=== PATIENT | female | born 1935 | race Caucasian/White ===

== ENCOUNTER → 2017-01-01 | Outpatient (CLI) | payer OTHER, MEDICARE ==
--- NOTE | 2017-01-01 12:41 | RAD ---
Examination: Right hip, two views History: Hip pain Comparison reference: None Findings: There is narrowing of the joint space with bone proliferation at the acetabular margin. No hip fracture or dislocation is noted. The femoral head is in normal position. There is an area of bon y lucency at the ischial tuberosity. Impression: 1. Right hip osteoarthritis. 2. Localized radiolucency involving the right ischium is probably a fortuitous finding. However, if t he patient has an underlying malignant diagnosis, a metastatic focus should be considered. Reported By:
== END | disposition home or self-care (01) ==
LOC: RAD 11:39
PROVIDERS: ATTEND Specialist
DX: M54.31 Sciatica, right side (principal); M51.86 Other intervertebral disc disorders, lumbar region; M16.11 Unilateral primary osteoarthritis, right hip
CPT/HCPCS: 73501

== ENCOUNTER → 2017-02-01 | Day surgery (SDC) | payer OTHER, MEDICARE ==
[~2017-02-01] MED LIST: MARCAINE 0.25% INJ ONE
[2017-02-01] MEDS: XYLOCAINE 1 % (PLAIN) ONE ×2 (13:36→13:56)
[2017-02-01] MEDS: MARCAINE 0.5% ONE ×2 (13:37→14:02)
[2017-02-01] MEDS: KENALOG INJ 40 MG IM ONE ×2 (13:37→14:02)
--- NOTE | 2017-02-01 13:38 | DR.UPDATE ---
H&P Update History and Physical Update: History and Physical reviewed and patient examined. Changes noted: NO Yes with the following:Agree with H&P from Dr Hernandez. will perform L3-4 TFESI right
[2017-02-01 14:29] VITALS: BP 134/61
== END | disposition home or self-care (01) | DRG 552 ==
LOC: SURG1 12:09
PROVIDERS: ATTEND Specialist
PROC: 3E0R3BZ Introduction of Anesthetic Agent into Spinal Canal, Percutaneous Approach (ICD-10-PCS; 2017-02-01)
PROC: 3E0R33Z Introduction of Anti-inflammatory into Spinal Canal, Percutaneous Approach (ICD-10-PCS; principal; 2017-02-01 13:00)
DX: M54.31 Sciatica, right side (principal)
CPT/HCPCS: 62323; 76000; S0020; J2001; J3301

== ENCOUNTER 2018-03-03 12:31 | Inpatient (IN) ==
[2018-03-03] MEDS ORDERED: PHARMACY CONSULT - DOSE _____ XX SCH (14:35)
[2018-03-03] MEDS ORDERED: PHARMACY CONSULT - VANCOMYCIN XX SCH (14:35)
[2018-03-03 15:05] LABS: BASOPHILS # (AUTO) 0.1 X10^3/uL (0.0-0.1); BASOPHILS % (AUTO) 0.9 % (0.2-1.0); EOSINOPHILS # (AUTO) 0.1 x10^3/uL (0.0-0.2); EOSINOPHILS % (AUTO) 0.6 % (0.9-2.9); HEMATOCRIT 34.7 % (36.0-47.0); HEMOGLOBIN 11.8 g/dL (12.0-16.0); LYMPHOCYTES # (AUTO) 2.3 X10^3/uL (1.3-2.9); LYMPHOCYTES % (AUTO) 26.2 % (21.0-51.0); MEAN CORPUSCULAR HEMOGLOBIN 30.2 pg (27.0-34.0); MEAN CORPUSCULAR HGB CONC 34.2 g/dL (33.0-35.0); MEAN CORPUSCULAR VOLUME 88.3 fL (80.0-100.0); MEAN PLATELET VOLUME 9.1 fL (7.4-11.0); MONOCYTES # (AUTO) 1.1 x10^3/uL (0.3-0.8); MONOCYTES % (AUTO) 12.3 % (0.0-13.0); NEUTROPHILS # (AUTO) 5.2 x10^3/uL (2.2-4.8); PLATELET COUNT 324 X10^3/uL (150.0-450.0); RED BLOOD COUNT 3.93 X10^6/uL (3.5-5.4); RED CELL DISTRIBUTION WIDTH 14.8 % (11.6-16.5); WHITE BLOOD COUNT 8.7 X10^3/uL (3.6-10.0)
[2018-03-03 15:13] LABS: ALANINE AMINOTRANSFERASE 15 Units/L (12-78); ALBUMIN 2.7 g/dL (3.4-5.0); ALKALINE PHOSPHATASE 119 Units/L (46-116); ASPARTATE AMINO TRANSFERASE 21 Units/L (15-37); BLOOD UREA NITROGEN 8 mg/dL (7-18); CALCIUM 8.8 mg/dL (8.5-10.1); CARBON DIOXIDE 28.2 mmol/L (21-32); CHLORIDE 96 mmol/L (98-107); COR CA(FOR HYPOALB) 9.8 mg/dL (8.5-10.1); COR NA(FOR HYPERGLY) 134 mmol/L (136-145); CREATININE 0.71 mg/dL (0.55-1.02); SODIUM 133 mmol/L (136-145); eGFR NON BLACK RACES > 60 (>60)
[2018-03-03] MEDS: TORADOL 15 MG VIAL IVP SCH ×2 (15:13→20:48)
[2018-03-03] MEDS: NS 1000 ML 1,000 ML IV SCH (15:13)
[2018-03-03 17:12] VITALS: BMI 17.9
--- NOTE | 2018-03-03 19:16 | DR.H&P ---
H&P - History & Physical for Day of: H&P Date: 03/03/18 - Chief Complaint Chief Complaint: INTRACTABLE BACK PAIN - History of Present Illness History of Present Illness: IS A 82 YEAR OLD PATIENT OF OURS. SHE IS A RESIDENT OF [facility]. SHE REPORTS SEVERE BACK PAIN THAT HAS PROGRESSIVELY GOTTEN WORSE SINCE WEDNESDAY. AN OUTPATIENT LUMBAR SPINE CT WAS OBTAINED AND REVEALED: Stranding around the L4-L5 intervertebral disc extending into the psoas muscles and in the periaortic region, highly concerning for discitis. Epidural collection is possible, with spinal canal stenosis appearing severe at this level, given limitations of CT. Neural foramen stenosis is present as well. Epidural abscess cannot be excluded. MR imaging is recommended absent contraindication, with and without contrast if possible. Multilevel spine degenerative change with areas of narrowing. SHE WAS ADMITTED TO THE HOSPITAL FOR FURTHER EVALUATION AND TREATMENT OF INTRACTABLE BACK PAIN AND POSSIBLE DISCITIS. ON ADMISSION, VITALS WERE 97.7-78-20-97%-169/72. LABS WERE OBTAINED. ABNORMAL LAB VALUES INCLUDE THE FOLLOWING: HGB 11.8, HCT 34.7, SODIUM 133, CHLORIDE 96, GLUCOSE 136, ALK PHOS 119, ALBUMIN 2.7. SHE WAS STARTED ON VANCOMYCIN IV, ZOSYN IV, AND TORADOL 15MG IV Q6H FOR PAIN MANAGEMENT. WE WILL OBTAIN A LUMBAR SPINE MRI WITH AND WITHOUT CONTRAST TOMORROW. OTHERWISE, WE WILL FOLLOW UP WITH AM LABS AND CONTINUE TO MONITOR. - Past Medical History Past Medical History: Anemia, Anxiety, Diabetes, GERD, Hypertension - Past Surgical History Surgical History: Abdominal Surgery, Appendectomy, Bowel Resection, Cholecystectomy, Hysterectomy, Thyroidectomy - Social History Alcohol Use: None Drug Use: None - Medications Home Medications: iodine Allergy (Unknown, Verified 03/03/18 15:33) SEAFOOD Allergy (Uncoded 03/03/18 15:34) - Review of Systems Constitutional: No Symptoms Reported Eyes: No Symptoms Reported ENT: No Symptoms Reported Respiratory: No Symptoms Reported Cardiovascular: No Symptoms Reported Gastrointestinal: No Symptoms Reported Genitourinary: No Symptoms Reported Musculoskeletal: Back Pain Skin: No Symptoms Reported Neurological: Weakness - Physical Exam Vital Signs: Temperature 98.6 F Pulse Rate [Brachial] 70 Respiratory Rate 18 Blood Pressure [Left Arm] 145/63 Blood Pressure 148/68 O2 Sat by Pulse Oximetry 96 Oriented: Normal Eyes: Normal Ear: Normal Nose: Normal Throat: Normal Respiratory: Diminished Throughout Cardiovascular: Normal : Normal Auscultation: Bowel Sounds: Normal Tenderness: Normal Skin: Normal Musculoskeletal: Back:Lumbar, Tender Psychiatric: Normal Mood Description: Calm Affect: Normal Speech Pattern: Clear - Assessment/Plan (1) Intractable back pain Status: Acute Plan: TORADOL 15MG IV Q6H PRN, OBTAIN LUMBAR MRI WITH AND WITHOUT CONTRAST IN AM (2) Discitis of lumbar region Status: Suspected Plan: VANCOMYCIN IV, ZOSYN IV, CONTINUE TO MONITOR - Allergies Allergies/Adverse Reactions: Allergies Allergy/AdvReac Type Severity Reaction Status Date / Time iodine Allergy Unknown Verified 03/03/18 15:33 SEAFOOD Allergy Uncoded 03/03/18 15:34
[2018-03-03] MEDS ORDERED: MICRO K EXTEN CAP 10 MEQ PO PRN (19:36)
[2018-03-03] MEDS ORDERED: K-RIDER 10 MEQ/NS 100 ML 10 MEQ/100 ML BAG IV PRN (19:36)
[2018-03-03] MEDS ORDERED: POTASSIUM CHL 60 MEQ/NS 0.45% 500 ML IV PRN (19:36)
[2018-03-03] MEDS ORDERED: POTASSIUM CHLORIDE LIQ 20 MEQ UDC PO PRN (19:36)
[2018-03-03] MEDS ORDERED: POTASSIUM CHL 40 MEQ/NS 0.45% 500 ML IV PRN (19:36)
[2018-03-03] MEDS ORDERED: KLOR-CON PO PRN (19:36)
[2018-03-03] MEDS ORDERED: MAGNESIUM SULFATE 1 GRAM/100 mL PREMIX 1 GM/100 ML BAG IV PRN (19:36)
[2018-03-03] MEDS: VANCOMYCIN HCL 500 MG VIAL 500 MG in NS 100 ML IV 100 ML IV SCH (20:49)
[2018-03-03] MEDS: ZOSYN VIAL 3.375 GRAMS 3.375 G in NS 100 ML IV + SPIKE MINIBAG* 100 ML IV SCH (22:55)
[2018-03-04] MEDS: TORADOL 15 MG VIAL IVP SCH ×4 (01:50→20:24)
[2018-03-04] MEDS: K-DUR TAB 20 MEQ PO PRN (01:50)
[2018-03-04] MEDS ORDERED: NORCO 5/325 MG TAB ONE (05:03)
[2018-03-04] MEDS: NORCO 5/325 MG TAB PO PRN ×2 (05:10→09:59)
[2018-03-04] MEDS: ZOSYN VIAL 3.375 GRAMS 3.375 G in NS 100 ML IV + SPIKE MINIBAG* 100 ML IV SCH ×3 (05:10→21:07)
[2018-03-04] MEDS: NS 1000 ML 1,000 ML IV SCH ×3 (05:22→20:37)
[2018-03-04 05:25] LABS: BASOPHILS % (AUTO) 0.3 % (0.2-1.0); EOSINOPHILS # (AUTO) 0.1 x10^3/uL (0.0-0.2); EOSINOPHILS % (AUTO) 1.3 % (0.9-2.9); HEMATOCRIT 28.3 % (36.0-47.0); HEMOGLOBIN 9.9 g/dL (12.0-16.0); LYMPHOCYTES # (AUTO) 2.1 X10^3/uL (1.3-2.9); LYMPHOCYTES % (AUTO) 32.9 % (21.0-51.0); MEAN CORPUSCULAR HEMOGLOBIN 30.7 pg (27.0-34.0); MEAN CORPUSCULAR HGB CONC 34.9 g/dL (33.0-35.0); MEAN CORPUSCULAR VOLUME 88.2 fL (80.0-100.0); MEAN PLATELET VOLUME 9.5 fL (7.4-11.0); MONOCYTES # (AUTO) 0.9 x10^3/uL (0.3-0.8); MONOCYTES % (AUTO) 14.1 % (0.0-13.0); NEUTROPHILS # (AUTO) 3.2 x10^3/uL (2.2-4.8); NEUTROPHILS % (AUTO) 51.4 % (42.0-75.0); PLATELET COUNT 287 X10^3/uL (150.0-450.0); RED BLOOD COUNT 3.21 X10^6/uL (3.5-5.4); RED CELL DISTRIBUTION WIDTH 14.3 % (11.6-16.5); WHITE BLOOD COUNT 6.3 X10^3/uL (3.6-10.0)
[2018-03-04 05:41] LABS: ALANINE AMINOTRANSFERASE 13 Units/L (12-78); ALKALINE PHOSPHATASE 92 Units/L (46-116); ASPARTATE AMINO TRANSFERASE 17 Units/L (15-37); BLOOD UREA NITROGEN 8 mg/dL (7-18); CALCIUM 8.3 mg/dL (8.5-10.1); CARBON DIOXIDE 29.3 mmol/L (21-32); CHLORIDE 101 mmol/L (98-107); COR CA(FOR HYPOALB) 9.9 mg/dL (8.5-10.1); CREATININE 0.66 mg/dL (0.55-1.02); SODIUM 135 mmol/L (136-145); TOTAL PROTEIN 5.5 g/dL (6.4-8.2); eGFR NON BLACK RACES > 60 (>60)
[2018-03-04] MEDS ORDERED: VALIUM PO ONE (07:30)
[2018-03-04] MEDS ORDERED: ZOFRAN TAB 4 MG PO PRN (08:12)
[2018-03-04] MEDS ORDERED: PROTONIX TAB 40 MG PO SCH (09:00)
[2018-03-04] MEDS: SYNTHROID 150 mcg TAB PO SCH (09:54)
[2018-03-04] MEDS: LASIX PO SCH (09:54)
[2018-03-04] MEDS: HEMOCYTE-PLUS PO SCH (09:54)
[2018-03-04] MEDS: BETAPACE AF PO SCH (09:55)
[2018-03-04] MEDS: BUSPAR PO SCH ×2 (09:55→20:25)
[2018-03-04] MEDS: MICRO K EXTEN CAP 10 MEQ PO SCH (09:55)
[2018-03-04] MEDS: MAG-OX TAB PO SCH ×2 (09:55→20:25)
[2018-03-04] MEDS: COZAAR PO SCH (09:55)
[2018-03-04] MEDS: COLACE CAP 100 MG PO SCH ×2 (09:55→20:25)
[2018-03-04] MEDS: VANCOMYCIN HCL 500 MG VIAL 500 MG in NS 100 ML IV 100 ML IV SCH ×2 (09:56→20:26)
[2018-03-04] MEDS: MIRALAX POWDER (1 DOSE 17 G) PO SCH (09:56)
[2018-03-04] MEDS: NEURONTIN CAP 100 MG PO SCH ×2 (09:59→13:00)
--- NOTE | 2018-03-04 10:37 | MRI ---
History: Back pain and lumbar discitis Exam: MRI lumbar spine with and without contrast Comparison: CT lumbar spine 03/03/2018 Technique: Routine multiplanar multisequence imaging was performed through the lumbar spine before and after administration of 10 cc of MultiHance IV. Findings: There is moderate to severe disc space narrowing throughout with large marginal osteophytes throughout which is most severe at L2-3, L3-4 , and L4-5. There is a mild compression deformity of L3 with no displaced or retropulsed fragment . There is mild subluxation of L2 on L3. The conus is normal. There is moderate disc desiccation throughout with fluid signal seen in the L4-5 disc space and moderate edema in the adjacent bone marrow of the L4 and L5 vertebra . There is moderate stranding and edema in the soft tissues around the vertebral body extending into the paraspinous soft tissues and retroperitoneum which shows diffuse enhancement . There is a large disc bulge at L2-3 which along with the subluxation is causing moderately severe anterior dural sac compression and moderate neural foraminal narrowing . There is a moderate to large disc bulge at L3-4 causing moderate to severe dural sac compression and moderate neural foraminal narrowing . There is a large disc bulge at L4-5 causing which along with the spinal stenosis is causing severe circumferential dural sac compression . There is extensive abnormal enhancement in the L4 and L5 vertebra extending into the surrounding soft tissues . There are mildly enhancing soft tissues extending posterior to the L3, L4, and L5 vertebra extending posteriorly causing moderately severe circumferential dural sac compression . No focal paraspinous fluid collection is seen . There are moderate hypertrophic changes of the facets throughout with ligament flavum hypertrophy causing diffuse moderate spinal stenosis. IMPRESSION: Probable acute discitis in the L4-5 disc space with abnormal edema in the bone marrow throughout the L4 and L5 vertebra which could represent associated early osteomyelitis. Extensive phlegmonous inflammatory changes extending into the soft tissues around the L4-5 vertebra extending into the spinal canal , around the epidural space anteriorly and posteriorly, which is causing moderately severe dural sac compression throughout the area . There is no obvious focal fluid collection identified. Recommend neurosurgical follow-up . Severe multilevel degenerative disc disease with a mild old compression deformity of L3 with no acute fracture seen. Severe degenerative disc changes at L2-3 with mild subluxation of L2 on L3 which appears degenerative in etiology . Large disc bulges at L3-4 and L4-5 causing moderate to severe dural sac compression which is most prominent L4-5. Moderate central disc bulge at L2-3 which along with the subluxation is causing moderate dural sac compression. Moderate osteoarthritic changes of the facets throughout causing diffuse moderate spinal stenosis. The findings were called to Dr. Garcia at the time of the interpretation. Reported By:
[2018-03-04] MEDS: [UNRECOGNIZED DRUG - OTHER] PO SCH ×3 (12:56→22:50)
[2018-03-04] MEDS: SODIUM CHLORIDE 1 GM PO SCH ×3 (12:56→22:50)
[2018-03-04] MEDS: MORPHINE SULFATE INJ 2 MG INJ IVP PRN (15:15)
[2018-03-04] MEDS: CRESTOR TAB 10 MG PO SCH (20:25)
[2018-03-04] MEDS: NEURONTIN CAP 300 MG PO SCH (20:25)
[2018-03-04] MEDS: PROTONIX INJ 40 MG VIAL IVP SCH (20:25)
[2018-03-04] MEDS ORDERED: PATIENT'S HOME MEDICATION (Lovastatin [Lovastatin] 40 MG) PO SCH (21:00)
[2018-03-04] MEDS ORDERED: SOLU-Medrol 40 MG VIAL IVP SCH (22:00)
[2018-03-05] MEDS: TORADOL 15 MG VIAL IVP SCH ×4 (02:42→20:36)
[2018-03-05] MEDS: NORCO 5/325 MG TAB PO PRN ×2 (03:39→23:56)
[2018-03-05] MEDS: ZOSYN VIAL 3.375 GRAMS 3.375 G in NS 100 ML IV + SPIKE MINIBAG* 100 ML IV SCH ×3 (05:06→21:17)
[2018-03-05 05:18] LABS: BASOPHILS # (AUTO) 0.1 X10^3/uL (0.0-0.1); BASOPHILS % (AUTO) 1.2 % (0.2-1.0); EOSINOPHILS # (AUTO) 0.3 x10^3/uL (0.0-0.2); EOSINOPHILS % (AUTO) 4.1 % (0.9-2.9); HEMATOCRIT 26.9 % (36.0-47.0); HEMOGLOBIN 9.2 g/dL (12.0-16.0); LYMPHOCYTES # (AUTO) 1.7 X10^3/uL (1.3-2.9); LYMPHOCYTES % (AUTO) 26.6 % (21.0-51.0); MEAN CORPUSCULAR HEMOGLOBIN 30.1 pg (27.0-34.0); MEAN CORPUSCULAR HGB CONC 34.4 g/dL (33.0-35.0); MEAN CORPUSCULAR VOLUME 87.6 fL (80.0-100.0); MEAN PLATELET VOLUME 8.8 fL (7.4-11.0); MONOCYTES # (AUTO) 0.6 x10^3/uL (0.3-0.8); MONOCYTES % (AUTO) 9.4 % (0.0-13.0); NEUTROPHILS # (AUTO) 3.8 x10^3/uL (2.2-4.8); NEUTROPHILS % (AUTO) 58.7 % (42.0-75.0); PLATELET COUNT 265 X10^3/uL (150.0-450.0); RED BLOOD COUNT 3.07 X10^6/uL (3.5-5.4); RED CELL DISTRIBUTION WIDTH 14.6 % (11.6-16.5); WHITE BLOOD COUNT 6.5 X10^3/uL (3.6-10.0)
[2018-03-05] MEDS: MORPHINE SULFATE INJ 2 MG INJ IVP PRN ×2 (05:23→17:44)
[2018-03-05 05:29] LABS: ALANINE AMINOTRANSFERASE 13 Units/L (12-78); ALBUMIN 1.9 g/dL (3.4-5.0); ALKALINE PHOSPHATASE 89 Units/L (46-116); ASPARTATE AMINO TRANSFERASE 18 Units/L (15-37); BLOOD UREA NITROGEN 7 mg/dL (7-18); CALCIUM 8.1 mg/dL (8.5-10.1); CARBON DIOXIDE 28.7 mmol/L (21-32); CHLORIDE 102 mmol/L (98-107); COR CA(FOR HYPOALB) 9.8 mg/dL (8.5-10.1); CREATININE 0.88 mg/dL (0.55-1.02); SODIUM 136 mmol/L (136-145); TOTAL PROTEIN 5.2 g/dL (6.4-8.2); eGFR NON BLACK RACES > 60 (>60)
[2018-03-05] MEDS: NS 1000 ML 1,000 ML IV SCH (05:53)
[2018-03-05] MEDS: [UNRECOGNIZED DRUG - OTHER] PO SCH ×3 (05:55→21:18)
[2018-03-05] MEDS: SODIUM CHLORIDE 1 GM PO SCH ×3 (05:55→21:18)
[2018-03-05] MEDS: K-DUR TAB 20 MEQ PO PRN (06:04)
[2018-03-05] MEDS ORDERED: PHARMACY COMMENT IV NR (08:30)
[2018-03-05] MEDS: COZAAR PO SCH (08:31)
[2018-03-05] MEDS: NEURONTIN CAP 300 MG PO SCH ×2 (08:32→20:36)
[2018-03-05] MEDS: SYNTHROID 150 mcg TAB PO SCH (08:32)
[2018-03-05] MEDS: BETAPACE AF PO SCH (08:32)
[2018-03-05] MEDS: MICRO K EXTEN CAP 10 MEQ PO SCH (08:32)
[2018-03-05] MEDS: COLACE CAP 100 MG PO SCH ×2 (08:32→20:36)
[2018-03-05] MEDS: HEMOCYTE-PLUS PO SCH (08:32)
[2018-03-05] MEDS: MAG-OX TAB PO SCH ×2 (08:33→20:37)
[2018-03-05] MEDS: BUSPAR PO SCH ×2 (08:33→20:37)
[2018-03-05] MEDS: PROTONIX INJ 40 MG VIAL IVP SCH ×2 (08:34→20:37)
[2018-03-05] MEDS: LASIX PO SCH (08:36)
[2018-03-05] MEDS: MIRALAX POWDER (1 DOSE 17 G) PO SCH (08:36)
[2018-03-05 09:24] LABS: CREATININE 0.96 mg/dL (0.55-1.02); VANCOMYCIN,TROUGH 9.7 ug/mL (15-20)
[2018-03-05] MEDS: VANCOMYCIN HCL 500 MG VIAL 500 MG in NS 100 ML IV 100 ML IV SCH ×2 (09:51→20:37)
[2018-03-05] MEDS: CRESTOR TAB 10 MG PO SCH (20:37)
[2018-03-05 22:15] LABS: BILIRUBIN,URINE NEGATIVE (NEGATIVE); BLOOD/HEMOGLOBIN,URINE 2+ (NEGATIVE); GLUCOSE, URINE NEGATIVE (NEGATIVE); KETONES,URINE NEGATIVE (NEGATIVE); LEUKOCYTE ESTERASE ,URINE NEGATIVE (NEGATIVE); NITRITES,URINE NEGATIVE (NEGATIVE); PROTEIN,URINE NEGATIVE (NEGATIVE); UROBILINOGEN,URINE NORMAL (NORMAL)
[2018-03-05 22:16] LABS: APPEARANCE,URINE CLEAR (CLEAR); COLOR,URINE YELLOW (YELLOW)
[2018-03-05 22:26] LABS: BACTERIA,URINE NEGATIVE /HPF (NEGATIVE); SQUAMOUS EPITHELIAL CELL,UR FEW /HPF (NEGATIVE)
[2018-03-05 22:27] LABS: HYALINE CASTS, URINE RARE /LPF (NEGATIVE)
[2018-03-06] MEDS: TORADOL 15 MG VIAL IVP SCH ×2 (02:53→09:12)
[2018-03-06] MEDS: NS 1000 ML 1,000 ML IV SCH ×3 (05:10→21:00)
[2018-03-06] MEDS: ZOSYN VIAL 3.375 GRAMS 3.375 G in NS 100 ML IV + SPIKE MINIBAG* 100 ML IV SCH ×3 (05:10→21:01)
[2018-03-06] MEDS: [UNRECOGNIZED DRUG - OTHER] PO SCH ×3 (05:15→21:02)
[2018-03-06] MEDS: SODIUM CHLORIDE 1 GM PO SCH ×3 (05:15→21:02)
[2018-03-06] MEDS: MORPHINE SULFATE INJ 2 MG INJ IVP PRN (05:15)
[2018-03-06 05:20] LABS: BASOPHILS # (AUTO) 0.1 X10^3/uL (0.0-0.1); BASOPHILS % (AUTO) 0.9 % (0.2-1.0); EOSINOPHILS # (AUTO) 0.4 x10^3/uL (0.0-0.2); EOSINOPHILS % (AUTO) 5.5 % (0.9-2.9); HEMOGLOBIN 9.8 g/dL (12.0-16.0); LYMPHOCYTES # (AUTO) 2.3 X10^3/uL (1.3-2.9); LYMPHOCYTES % (AUTO) 29.6 % (21.0-51.0); MEAN CORPUSCULAR HEMOGLOBIN 29.8 pg (27.0-34.0); MEAN CORPUSCULAR HGB CONC 33.7 g/dL (33.0-35.0); MEAN CORPUSCULAR VOLUME 88.4 fL (80.0-100.0); MEAN PLATELET VOLUME 8.9 fL (7.4-11.0); MONOCYTES # (AUTO) 0.8 x10^3/uL (0.3-0.8); NEUTROPHILS # (AUTO) 4.2 x10^3/uL (2.2-4.8); PLATELET COUNT 308 X10^3/uL (150.0-450.0); RED BLOOD COUNT 3.28 X10^6/uL (3.5-5.4); RED CELL DISTRIBUTION WIDTH 14.5 % (11.6-16.5); WHITE BLOOD COUNT 7.8 X10^3/uL (3.6-10.0)
[2018-03-06 05:39] LABS: ALANINE AMINOTRANSFERASE 13 Units/L (12-78); ALKALINE PHOSPHATASE 94 Units/L (46-116); ASPARTATE AMINO TRANSFERASE 20 Units/L (15-37); BLOOD UREA NITROGEN 7 mg/dL (7-18); CALCIUM 8.7 mg/dL (8.5-10.1); CARBON DIOXIDE 27.8 mmol/L (21-32); CHLORIDE 103 mmol/L (98-107); COR CA(FOR HYPOALB) 10.3 mg/dL (8.5-10.1); CREATININE 0.93 mg/dL (0.55-1.02); SODIUM 138 mmol/L (136-145); TOTAL PROTEIN 5.4 g/dL (6.4-8.2); eGFR NON BLACK RACES > 60 (>60)
[2018-03-06] MEDS: PROTONIX INJ 40 MG VIAL IVP SCH ×2 (09:12→21:01)
[2018-03-06] MEDS: MICRO K EXTEN CAP 10 MEQ PO SCH (09:13)
[2018-03-06] MEDS: LASIX PO SCH (09:13)
[2018-03-06] MEDS: BETAPACE AF PO SCH (09:13)
[2018-03-06] MEDS: MAG-OX TAB PO SCH ×2 (09:13→21:00)
[2018-03-06] MEDS: HEMOCYTE-PLUS PO SCH (09:13)
[2018-03-06] MEDS: COLACE CAP 100 MG PO SCH ×2 (09:13→21:00)
[2018-03-06] MEDS: NEURONTIN CAP 300 MG PO SCH ×2 (09:14→21:00)
[2018-03-06] MEDS: MIRALAX POWDER (1 DOSE 17 G) PO SCH (09:14)
[2018-03-06] MEDS: SYNTHROID 150 mcg TAB PO SCH (09:14)
[2018-03-06] MEDS: COZAAR PO SCH (09:14)
[2018-03-06] MEDS: VANCOMYCIN HCL 500 MG VIAL 500 MG in NS 100 ML IV 100 ML IV SCH ×2 (09:14→21:01)
[2018-03-06] MEDS: BUSPAR PO SCH ×2 (09:14→21:00)
[2018-03-06] MEDS: NORCO 5/325 MG TAB PO PRN ×2 (12:40→21:04)
[2018-03-06] MEDS ORDERED: BUTT CREAM (COMPOUND) TOP PRN (14:16)
[2018-03-06] MEDS ORDERED: PHARMACY COMMENT IV NR (20:30)
[2018-03-06] MEDS: CRESTOR TAB 10 MG PO SCH (21:01)
--- NOTE | 2018-03-06 22:00 | PCM.PROG ---
Progress Note - Progress Note for Day of Date of Exam: 03/04/18 - Subjective Subjective: WAS ADMITTED FOR INTRACTABLE BACK PAIN AND POSSIBLE LUMBAR DISCITIS. TODAY, SHE IS ALERT AND ORIENTED, LYING IN BED ON MORNING ROUNDS. SHE CONTINUES WITH PAIN TO THE LUMBAR REGION, BUT REPORTS THAT IT HAS IMPROVED SINCE ADMISSION. ON EXAMINATION, HEART IS REGULAR IN RATE AND RHYTHM. BILATERAL LUNGS ARE NOTED WITH DIMINISHED LUNG SOUNDS THROUGHOUT. ABDOMEN IS ROUND, SOFT, AND NON-TENDER WITH NORMAL BOWEL SOUNDS NOTED IN ALL QUADRANTS. TENDERNESS NOTED TO THE LUMBAR SPINE. HER VITALS THIS MORNING ARE 98.1-93-20-92%-178/74. LABS WERE OBTAINED. ABNORMAL LAB VALUES INCLUDE THE FOLLOWING: RBC 3.21, HGB 9.9, HCT 28.3, SODIUM 135, CALCIUM 8.3, CRP 40.50, TOTAL PROTEIN 5.5, ALBUMIN 2.0. SHE IS SCHEDULED FOR A LUMBAR SPINE MRI THIS MORNING. WE WILL CONTINUE WITH CURRENT PLANS FOR PAIN MANAGEMENT TODAY. OTHERWISE, WE WILL FOLLOW UP WITH AM LABS AND CONTINUE TO MONITOR. - Past Medical Family Social History Past Med/Fam/Surg Hx: No changes since H&P Allergies: Allergies iodine Allergy (Unknown, Verified 03/03/18 15:33) SEAFOOD Allergy (Uncoded 03/03/18 15:34) - Review of Systems ROS: No change since H&P - Vital Signs and I&O's Vital Signs: Temperature 98.0 F Pulse Rate [Brachial] 79 Respiratory Rate 18 Blood Pressure [Right Radial 153/70 Artery] Blood Pressure [Left Arm] 156/67 Blood Pressure 148/68 O2 Sat by Pulse Oximetry 98 Intake and Output: Intake & Output 03/04/18 03/05/18 03/06/18 03/07/18 11:59 11:59 11:59 11:59 Intake Total 1520 / 1520 1810 / 1810 2039 / 0 1240 / 1240 Balance 1520 / 1520 1810 / 1810 2039 1240 / 1240 - Physical Exam Oriented: Normal Eyes: Normal Ear: Normal Nose: Normal Throat: Normal Respiratory: Diminished Cardiovascular: Normal : Normal Auscultation: Bowel Sounds: Normal Palpation: Normal Tenderness: Normal Skin: Normal Musculoskeletal: Back:Lumbar, Tender Psychiatric: Normal Mood Description: Calm Affect: Normal Speech Pattern: Clear, Appropriate - Laboratory and Diagnostics Result Diagrams: 03/06/18 04:30 03/06/18 04:30 Labs: Laboratory WBC 7.8 X10^3/uL (3.6-10.0) 03/06/18 04:30 RBC 3.28 X10^6/uL (3.5-5.4) L 03/06/18 04:30 Hgb 9.8 g/dL (12.0-16.0) L 03/06/18 04:30 Hct 29.0 % (36.0-47.0) L 03/06/18 04:30 MCV 88.4 fL (80.0-100.0) 03/06/18 04:30 MCH 29.8 pg (27.0-34.0) 03/06/18 04:30 MCHC 33.7 g/dL (33.0-35.0) 03/06/18 04:30 RDW 14.5 % (11.6-16.5) 03/06/18 04:30 Plt Count 308 X10^3/uL (150.0-450.0) 03/06/18 04:30 MPV 8.9 fL (7.4-11.0) 03/06/18 04:30 Neut % (Auto) 54.0 % (42.0-75.0) 03/06/18 04:30 Lymph % (Auto) 29.6 % (21.0-51.0) 03/06/18 04:30 [place] % (Auto) 10.0 % (0.0-13.0) 03/06/18 04:30 Eos % (Auto) 5.5 % (0.9-2.9) H 03/06/18 04:30 Baso % (Auto) 0.9 % (0.2-1.0) 03/06/18 04:30 Neut # (Auto) 4.2 x10^3/uL (2.2-4.8) 03/06/18 04:30 Lymph # (Auto) 2.3 X10^3/uL (1.3-2.9) 03/06/18 04:30 [place] # (Auto) 0.8 x10^3/uL (0.3-0.8) 03/06/18 04:30 Eos # (Auto) 0.4 x10^3/uL (0.0-0.2) H 03/06/18 04:30 Baso # (Auto) 0.1 X10^3/uL (0.0-0.1) 03/06/18 04:30 Absolute Nucleated RBC 0.0 /100WBC 03/06/18 04:30 Sodium 138 mmol/L (136-145) 03/06/18 04:30 Corrected Sodium TNP 03/06/18 04:30 Potassium 3.6 mmol/L (3.5-5.1) 03/06/18 04:30 Chloride 103 mmol/L (98-107) 03/06/18 04:30 Carbon Dioxide 27.8 mmol/L (21-32) 03/06/18 04:30 BUN 7 mg/dL (7-18) 03/06/18 04:30 Creatinine 0.93 mg/dL (0.55-1.02) 03/06/18 04:30 Est GFR (MDRD) Af Amer > 60 (>60) 03/06/18 04:30 Est GFR (MDRD) Non-Af > 60 (>60) 03/06/18 04:30 Glucose 84 mg/dL (65-99) 03/06/18 04:30 Calcium 8.7 mg/dL (8.5-10.1) 03/06/18 04:30 Corrected Calcium 10.3 mg/dL (8.5-10.1) H 03/06/18 04:30 Magnesium 1.8 mg/dL (1.7-2.9) 03/05/18 05:06 Total Bilirubin 0.30 mg/dL (0.2-1.0) 03/06/18 04:30 AST 20 Units/L (15-37) 03/06/18 04:30 ALT 13 Units/L (12-78) 03/06/18 04:30 Alkaline Phosphatase 94 Units/L (46-116) 03/06/18 04:30 C-Reactive Protein 40.50 mg/L (0-3.0) H 03/04/18 04:23 Total Protein 5.4 g/dL (6.4-8.2) L 03/06/18 04:30 Albumin 2.0 g/dL (3.4-5.0) L 03/06/18 04:30 Globulin 3.4 g/dL (2.5-4.5) 03/06/18 04:30 Albumin/Globulin Ratio 0.6 Ratio (1.1-2.1) L 03/06/18 04:30 Specimen Type Clean catch urine 03/05/18 22:05 Urine Color Yellow (YELLOW) 03/05/18 22:05 Urine Appearance Clear (CLEAR) 03/05/18 22:05 Urine pH 7.0 (5.0 - 8.0) 03/05/18 22:05 Ur Specific [place] 1.010 (1.000-1.030) 03/05/18 22:05 Urine Protein Negative (NEGATIVE) 03/05/18 22:05 Urine Glucose (UA) Negative (NEGATIVE) 03/05/18 22: Urine Ketones Negative (NEGATIVE) 03/05/18 22:05 Urine Occult Blood 2+ (NEGATIVE) 03/05/18 22:05 Urine Nitrite Negative (NEGATIVE) 03/05/18 22: Urine Bilirubin Negative (NEGATIVE) 03/05/18 22:05 Urine Urobilinogen Normal (NORMAL) 03/05/18 22:05 Ur Leukocyte Esterase Negative (NEGATIVE) 03/05/18 22:05 Urine RBC 10-20 /HPF (NONE SEEN) 03/05/18 22:05 Urine WBC None seen /HPF (NONE SEEN) 03/05/18 22:05 Ur Squamous Epith Cells Few /HPF (NEGATIVE) 03/05/18 22:05 Urine Bacteria Negative /HPF (NEGATIVE) 03/05/18 22:05 Hyaline Casts Rare /LPF (NEGATIVE) 03/05/18 22:05 Ur Culture Indicated? No/not indicated 03/05/18 22:05 Vancomycin Trough 9.7 ug/mL (15-20) L 03/05/18 08:40 - Plan (1) Intractable back pain Status: Acute Plan: TORADOL 15MG IV Q6H PRN, OBTAIN LUMBAR MRI WITH AND WITHOUT CONTRAST TODAY (2) Discitis of lumbar region Status: Suspected Plan: VANCOMYCIN IV, ZOSYN IV, CONTINUE TO MONITOR
[2018-03-07] MEDS: MORPHINE SULFATE INJ 2 MG INJ IVP PRN ×2 (00:29→11:07)
[2018-03-07] MEDS: NORCO 5/325 MG TAB PO PRN (05:12)
[2018-03-07] MEDS: SODIUM CHLORIDE 1 GM PO SCH (05:12)
[2018-03-07] MEDS: [UNRECOGNIZED DRUG - OTHER] PO SCH (05:12)
[2018-03-07] MEDS: ZOSYN VIAL 3.375 GRAMS 3.375 G in NS 100 ML IV + SPIKE MINIBAG* 100 ML IV SCH (05:12)
[2018-03-07 06:17] LABS: BASOPHILS % (AUTO) 0.6 % (0.2-1.0); EOSINOPHILS # (AUTO) 0.5 x10^3/uL (0.0-0.2); EOSINOPHILS % (AUTO) 5.6 % (0.9-2.9); HEMATOCRIT 28.1 % (36.0-47.0); HEMOGLOBIN 9.6 g/dL (12.0-16.0); LYMPHOCYTES # (AUTO) 2.3 X10^3/uL (1.3-2.9); LYMPHOCYTES % (AUTO) 25.9 % (21.0-51.0); MEAN CORPUSCULAR HEMOGLOBIN 29.9 pg (27.0-34.0); MEAN CORPUSCULAR HGB CONC 34.2 g/dL (33.0-35.0); MEAN CORPUSCULAR VOLUME 87.4 fL (80.0-100.0); MEAN PLATELET VOLUME 8.9 fL (7.4-11.0); MONOCYTES # (AUTO) 0.9 x10^3/uL (0.3-0.8); MONOCYTES % (AUTO) 9.8 % (0.0-13.0); NEUTROPHILS % (AUTO) 58.1 % (42.0-75.0); PLATELET COUNT 320 X10^3/uL (150.0-450.0); RED BLOOD COUNT 3.22 X10^6/uL (3.5-5.4); RED CELL DISTRIBUTION WIDTH 14.5 % (11.6-16.5); WHITE BLOOD COUNT 8.7 X10^3/uL (3.6-10.0)
[2018-03-07 06:31] LABS: ALANINE AMINOTRANSFERASE 13 Units/L (12-78); ALKALINE PHOSPHATASE 93 Units/L (46-116); ASPARTATE AMINO TRANSFERASE 21 Units/L (15-37); BLOOD UREA NITROGEN 7 mg/dL (7-18); CALCIUM 8.6 mg/dL (8.5-10.1); CARBON DIOXIDE 27.4 mmol/L (21-32); CHLORIDE 103 mmol/L (98-107); COR CA(FOR HYPOALB) 10.2 mg/dL (8.5-10.1); CREATININE 0.84 mg/dL (0.55-1.02); SODIUM 139 mmol/L (136-145); TOTAL PROTEIN 5.3 g/dL (6.4-8.2); eGFR NON BLACK RACES > 60 (>60)
[2018-03-07] MEDS: PROTONIX INJ 40 MG VIAL IVP SCH (08:38)
[2018-03-07] MEDS: VANCOMYCIN HCL 500 MG VIAL 500 MG in NS 100 ML IV 100 ML IV SCH (08:38)
[2018-03-07] MEDS: MICRO K EXTEN CAP 10 MEQ PO SCH (08:41)
[2018-03-07] MEDS: MAG-OX TAB PO SCH (08:42)
[2018-03-07] MEDS: SYNTHROID 150 mcg TAB PO SCH (08:42)
[2018-03-07] MEDS: HEMOCYTE-PLUS PO SCH (08:42)
[2018-03-07] MEDS: COZAAR PO SCH (08:42)
[2018-03-07] MEDS: COLACE CAP 100 MG PO SCH ×2 (08:42→08:49)
[2018-03-07] MEDS: BUSPAR PO SCH (08:42)
[2018-03-07] MEDS: LASIX PO SCH (08:42)
[2018-03-07] MEDS: NEURONTIN CAP 300 MG PO SCH (08:43)
[2018-03-07] MEDS: BETAPACE AF PO SCH (08:43)
[2018-03-07] MEDS: MIRALAX POWDER (1 DOSE 17 G) PO SCH (08:47)
[2018-03-07 08:50] LABS: CREATININE 1.01 mg/dL (0.55-1.02); VANCOMYCIN,TROUGH 15.3 ug/mL (15-20)
[2018-03-07 12:31] VITALS: BP 183/78
== END 2018-03-07 13:55 | DRG 552 ==
LOC: MED/SURG
PROVIDERS: ADMIT Internal Medicine; ATTEND Internal Medicine
DX: R26.89 Other abnormalities of gait and mobility; M54.89 Other dorsalgia; I10 Essential (primary) hypertension; M46.26 Osteomyelitis of vertebra, lumbar region; R79.82 Elevated C-reactive protein (CRP); K21.9 Gastro-esophageal reflux disease without esophagitis; F41.8 Other specified anxiety disorders; E11.65 Type 2 diabetes mellitus with hyperglycemia
CPT/HCPCS: 36415; 72131; 72158; 80053; 80202; 81001; 82565; 83735; 85025; 86140; 97161; 97166; 97535; A4216; A4222; C9113; G0378; J1885; J2270; J2543; J3370; J7030; J7050

== ENCOUNTER 2018-08-17 14:03 | Inpatient (IN) ==
[2018-08-17 15:24] VITALS: BMI 18.1
[2018-08-17] MEDS ORDERED: NITROSTAT SL PRN (15:40)
[2018-08-17 15:57] LABS: BASOPHILS % (AUTO) 0.7 % (0.2-1.0); EOSINOPHILS # (AUTO) 0.1 x10^3/uL (0.0-0.2); EOSINOPHILS % (AUTO) 1.6 % (0.9-2.9); HEMATOCRIT 26.7 % (36.0-47.0); HEMOGLOBIN 9.6 g/dL (12.0-16.0); LYMPHOCYTES # (AUTO) 2.3 X10^3/uL (1.3-2.9); LYMPHOCYTES % (AUTO) 39.2 % (21.0-51.0); MEAN CORPUSCULAR HEMOGLOBIN 31.8 pg (27.0-34.0); MEAN CORPUSCULAR HGB CONC 36.1 g/dL (33.0-35.0); MEAN PLATELET VOLUME 8.1 fL (7.4-11.0); MONOCYTES # (AUTO) 0.8 x10^3/uL (0.3-0.8); MONOCYTES % (AUTO) 13.5 % (0.0-13.0); NEUTROPHILS # (AUTO) 2.7 x10^3/uL (2.2-4.8); PLATELET COUNT 195 X10^3/uL (150.0-450.0); RED BLOOD COUNT 3.03 X10^6/uL (3.5-5.4); RED CELL DISTRIBUTION WIDTH 13.4 % (11.6-16.5); WHITE BLOOD COUNT 5.9 X10^3/uL (3.6-10.0)
[2018-08-17] MEDS: HEMOCYTE-PLUS PO SCH (16:00)
[2018-08-17] MEDS: NS 1000 ML 1,000 ML IV SCH ×2 (16:23→21:09)
[2018-08-17] MEDS ORDERED: PATIENT'S HOME MEDICATION (Lovastatin [Lovastatin] 40 MG) PO SCH (21:00)
[2018-08-17] MEDS: COLACE CAP 100 MG PO SCH (21:07)
[2018-08-17] MEDS: PATIENT'S HOME MEDICATION PO SCH (21:07)
[2018-08-17] MEDS: MAG-OX TAB PO SCH (21:07)
[2018-08-17] MEDS: NEURONTIN CAP 100 MG PO SCH (21:07)
[2018-08-17] MEDS: ELIQUIS PO SCH (21:07)
[2018-08-17] MEDS: PROTONIX TAB 40 MG PO SCH (21:11)
[2018-08-17] MEDS: THERMOTABS PO SCH (21:13)
[2018-08-17] MEDS: NORCO 10/325 TAB PO PRN (21:17)
[2018-08-18] MEDS: VOLTAREN 1 % GEL MULTI DOSE TUBE TOP PRN (00:25)
[2018-08-18] MEDS: NS 1000 ML 1,000 ML IV SCH ×4 (05:19→20:22)
[2018-08-18 05:26] LABS: BASOPHILS % (AUTO) 0.3 % (0.2-1.0); EOSINOPHILS # (AUTO) 0.1 x10^3/uL (0.0-0.2); EOSINOPHILS % (AUTO) 1.8 % (0.9-2.9); HEMATOCRIT 25.5 % (36.0-47.0); HEMOGLOBIN 9.1 g/dL (12.0-16.0); LYMPHOCYTES # (AUTO) 2.6 X10^3/uL (1.3-2.9); LYMPHOCYTES % (AUTO) 43.8 % (21.0-51.0); MEAN CORPUSCULAR HEMOGLOBIN 31.7 pg (27.0-34.0); MEAN CORPUSCULAR HGB CONC 35.8 g/dL (33.0-35.0); MEAN CORPUSCULAR VOLUME 88.3 fL (80.0-100.0); MONOCYTES # (AUTO) 0.8 x10^3/uL (0.3-0.8); MONOCYTES % (AUTO) 13.3 % (0.0-13.0); NEUTROPHILS # (AUTO) 2.4 x10^3/uL (2.2-4.8); NEUTROPHILS % (AUTO) 40.8 % (42.0-75.0); PLATELET COUNT 202 X10^3/uL (150.0-450.0); RED BLOOD COUNT 2.89 X10^6/uL (3.5-5.4); RED CELL DISTRIBUTION WIDTH 13.3 % (11.6-16.5)
[2018-08-18 05:39] LABS: ALANINE AMINOTRANSFERASE 19 Units/L (12-78); ALKALINE PHOSPHATASE 85 Units/L (46-116); ASPARTATE AMINO TRANSFERASE 19 Units/L (15-37); BLOOD UREA NITROGEN 14 mg/dL (7-18); CALCIUM 8.2 mg/dL (8.5-10.1); CARBON DIOXIDE 27.6 mmol/L (21-32); CHLORIDE 93 mmol/L (98-107); CREATININE 0.84 mg/dL (0.55-1.02); SODIUM 126 mmol/L (136-145); TOTAL PROTEIN 5.7 g/dL (6.4-8.2); eGFR NON BLACK RACES > 60 (>60)
[2018-08-18] MEDS: NEURONTIN CAP 100 MG PO SCH ×3 (06:11→21:32)
[2018-08-18] MEDS: COZAAR PO SCH (09:14)
[2018-08-18] MEDS: ZyrTEC TAB 10 MG PO SCH (09:14)
[2018-08-18] MEDS: HEMOCYTE-PLUS PO SCH (09:14)
[2018-08-18] MEDS: MICRO K EXTEN CAP 10 MEQ PO SCH (09:14)
[2018-08-18] MEDS: CARDIZEM CD 180 MG PO SCH (09:14)
[2018-08-18] MEDS: PROTONIX TAB 40 MG PO SCH ×2 (09:14→20:24)
[2018-08-18] MEDS: BETAPACE AF PO SCH (09:14)
[2018-08-18] MEDS: SYNTHROID 150 mcg TAB PO SCH (09:14)
[2018-08-18] MEDS: COLACE CAP 100 MG PO SCH ×2 (09:14→20:23)
[2018-08-18] MEDS: ELIQUIS PO SCH ×2 (09:14→20:24)
[2018-08-18] MEDS: MAG-OX TAB PO SCH ×2 (09:15→20:23)
[2018-08-18] MEDS: NORCO 10/325 TAB PO PRN ×3 (09:15→20:25)
[2018-08-18] MEDS: MIRALAX POWDER (1 DOSE 17 G) PO SCH (09:15)
[2018-08-18] MEDS: THERMOTABS PO SCH ×4 (09:16→20:23)
--- NOTE | 2018-08-18 10:53 | DR.H&P ---
H&P - History & Physical for Day of: H&P Date: 08/17/18 - Chief Complaint Chief Complaint: NAUSEA, VOMITING, DIARRHEA, LOW SODIUM - History of Present Illness History of Present Illness: IS A 82 YEAR OLD PATIENT OF OURS WHO PRESENTED TO THE HOSPITAL A DIRECT ADMISSION DUE TO A CRITICAL LOW SODIUM. LONG-TERM STAFF REPORTS THAT PATIENT HAS HAD NAUSEA, VOMITING, AND DIARRHEA X 5 DAYS AND HAS BEEN UNABLE TO HOLD ANYTHING DOWN. PATIENT REPORTS ABDOMINAL PAIN. OUTPATIENT LABS WERE OBTAINED AND REVEALED A SODIUM LEVEL OF 123. SHE WAS ADMITTED FOR FURTHER EVALUATION AND TREATMENT OF HYPONATREMIA. ON ARRIVAL, VITALS WERE 97.7-61-20-99%-161/67. LABS WERE OBTAINED. ABNORMAL LAB VALUES INCLUDE THE FOLLOWING: RBC 3.03, HGB 9.6, HCT 26.7, SODIUM 123, CHLORIDE 92, TOTAL PROTEIN 5.7, ALBUMIN 2.9. SHE WAS STARTED ON NORMAL SALINE AT 125ML/HR. OTHERWISE, WE WILL FOLLOW UP WITH AM LABS AND CONTINUE TO MONITOR. - Past Medical History Past Medical History: Anemia, Anxiety, Diabetes, GERD, Hypertension - Past Surgical History Surgical History: Abdominal Surgery, Appendectomy, Bowel Resection, Cholecystectomy, Hysterectomy, Thyroidectomy - Social History Does any household member use tobacco: No Alcohol Use: None Drug Use: Prescription Drugs Prescription drug monitoring program results: PDMP reviewed and no concerns identified - Medications Home Medications: iodine Allergy (Unknown, Verified 08/16/18 21:15) onion Allergy (Verified 08/17/18 14:56) SEAFOOD Allergy (Uncoded 08/16/18 21:15) CONTINUE taking the following medications cetirizine [Zyrtec] 10 mg PO DAILY 08/17/18 [History] diclofenac sodium [Voltaren] 1 applic TOPICAL BID 08/17/18 [History] hydrocodone-acetaminophen 1 tab PO TID PRN 08/17/18 [History] nitroglycerin [Nitrostat] 0.4 mg SUBLINGUAL Q5-15M PRN 08/17/18 [History] - Review of Systems Constitutional: Weakness Eyes: No Symptoms Reported ENT: No Symptoms Reported Respiratory: No Symptoms Reported Cardiovascular: No Symptoms Reported Gastrointestinal: See HPI, Nausea, Vomiting, Abdominal Pain, Diarrhea Genitourinary: No Symptoms Reported Musculoskeletal: No Symptoms Reported Skin: No Symptoms Reported Neurological: Weakness - Physical Exam Vital Signs: Temperature 98.3 F Pulse Rate [Right Brachial] 73 Respiratory Rate 20 Blood Pressure [Right Arm] 177/77 Blood Pressure [Right Radial 150/65 Artery] Blood Pressure [Left Arm] 183/78 Blood Pressure 183/78 O2 Sat by Pulse Oximetry 97 Oriented: Normal Eyes: Normal Ear: Normal Nose: Normal Throat: Normal Respiratory: Diminished Throughout Cardiovascular: Normal. negative: S3, S4, Murmur : Normal Auscultation: Bowel Sounds: Normal Palpation: Normal Tenderness: Normal Skin: Normal Musculoskeletal: Normal Psychiatric: Normal Mood Description: Calm Affect: Normal Speech Pattern: Clear - Assessment/Plan (1) Hyponatremia Status: Acute Plan: NORMAL SALINE AT 75ML/HR, CONTINUE TO MONITOR (2) N&V (nausea and vomiting) Qualifiers: Vomiting type: bilious vomiting Qualified Code(s): R11.14 - Bilious vomiting Status: Acute - Allergies Allergies/Adverse Reactions: Allergies Allergy/AdvReac Type Severity Reaction Status Date / Time iodine Allergy Unknown Verified 08/16/18 21:15 onion Allergy Verified 08/17/18 14:56 SEAFOOD Allergy Uncoded 08/16/18 21:15
[2018-08-18] MEDS: PATIENT'S HOME MEDICATION PO SCH (20:23)
[2018-08-19 05:35] LABS: BASOPHILS % (AUTO) 0.5 % (0.2-1.0); EOSINOPHILS # (AUTO) 0.2 x10^3/uL (0.0-0.2); EOSINOPHILS % (AUTO) 2.5 % (0.9-2.9); HEMATOCRIT 26.1 % (36.0-47.0); HEMOGLOBIN 9.3 g/dL (12.0-16.0); LYMPHOCYTES # (AUTO) 2.4 X10^3/uL (1.3-2.9); LYMPHOCYTES % (AUTO) 33.8 % (21.0-51.0); MEAN CORPUSCULAR HEMOGLOBIN 31.9 pg (27.0-34.0); MEAN CORPUSCULAR HGB CONC 35.7 g/dL (33.0-35.0); MEAN CORPUSCULAR VOLUME 89.4 fL (80.0-100.0); MEAN PLATELET VOLUME 7.9 fL (7.4-11.0); MONOCYTES # (AUTO) 0.9 x10^3/uL (0.3-0.8); MONOCYTES % (AUTO) 13.1 % (0.0-13.0); NEUTROPHILS # (AUTO) 3.5 x10^3/uL (2.2-4.8); NEUTROPHILS % (AUTO) 50.1 % (42.0-75.0); PLATELET COUNT 204 X10^3/uL (150.0-450.0); RED BLOOD COUNT 2.92 X10^6/uL (3.5-5.4); RED CELL DISTRIBUTION WIDTH 13.2 % (11.6-16.5); WHITE BLOOD COUNT 7.1 X10^3/uL (3.6-10.0)
[2018-08-19 05:42] LABS: ALANINE AMINOTRANSFERASE 20 Units/L (12-78); ALBUMIN 2.7 g/dL (3.4-5.0); ALKALINE PHOSPHATASE 85 Units/L (46-116); ASPARTATE AMINO TRANSFERASE 22 Units/L (15-37); BLOOD UREA NITROGEN 12 mg/dL (7-18); CALCIUM 8.3 mg/dL (8.5-10.1); CARBON DIOXIDE 25.9 mmol/L (21-32); CHLORIDE 97 mmol/L (98-107); COR CA(FOR HYPOALB) 9.3 mg/dL (8.5-10.1); CREATININE 0.79 mg/dL (0.55-1.02); SODIUM 128 mmol/L (136-145); TOTAL PROTEIN 5.5 g/dL (6.4-8.2); eGFR NON BLACK RACES > 60 (>60)
[2018-08-19] MEDS: NEURONTIN CAP 100 MG PO SCH ×3 (06:25→21:04)
[2018-08-19] MEDS: NS 1000 ML 1,000 ML IV SCH ×3 (07:14→19:02)
[2018-08-19] MEDS: ELIQUIS PO SCH ×2 (08:26→20:44)
[2018-08-19] MEDS: MIRALAX POWDER (1 DOSE 17 G) PO SCH (08:26)
[2018-08-19] MEDS: MICRO K EXTEN CAP 10 MEQ PO SCH (08:26)
[2018-08-19] MEDS: BETAPACE AF PO SCH (08:26)
[2018-08-19] MEDS: SYNTHROID 150 mcg TAB PO SCH (08:26)
[2018-08-19] MEDS: COLACE CAP 100 MG PO SCH ×2 (08:26→20:43)
[2018-08-19] MEDS: COZAAR PO SCH (08:27)
[2018-08-19] MEDS: ZyrTEC TAB 10 MG PO SCH (08:27)
[2018-08-19] MEDS: NORCO 10/325 TAB PO PRN ×3 (08:27→20:45)
[2018-08-19] MEDS: MAG-OX TAB PO SCH ×2 (08:27→20:45)
[2018-08-19] MEDS: PROTONIX TAB 40 MG PO SCH ×2 (08:27→20:44)
[2018-08-19] MEDS: HEMOCYTE-PLUS PO SCH (08:27)
[2018-08-19] MEDS: CARDIZEM CD 180 MG PO SCH (08:28)
[2018-08-19] MEDS: THERMOTABS PO SCH ×4 (08:32→21:04)
--- NOTE | 2018-08-19 20:45 | PCM.PROG ---
Progress Note - Progress Note for Day of Date of Exam: 08/18/18 - Subjective Subjective: WAS ADMITTED FOR TREATMENT OF HYPONATREMIA AND INTRACTABLE NAUSEA AND VOMITING. TODAY, SHE IS ALERT AND ORIENTED, LYING IN BED ON MORNING ROUNDS. SHE REPORTS WEAKNESS AND NAUSEA THIS MORNING. ON EXAMINATION, HEART IS REGULAR IN RATE AND RHYTHM. BILATERAL LUNGS ARE NOTED WITH DIMINISHED LUNG SOUNDS THROUGHOUT. ABDOMEN IS ROUND, SOFT, AND NON-TENDER WITH HYPERACTIVE BOWEL SOUNDS NOTED IN ALL QUADRANTS. HER VITALS THIS MORNING ARE: 98.3-73-20-97%-177/77. LABS WERE OBTAINED. ABNORMAL LAB VALUES INCLUDE THE FOLLOWING: RBC 2.89, HGB 9.1, HCT 25.5, SODIUM 126, CHLORIDE 93, CALCIUM 8.3, TOTAL PROTEIN 5.5, ALBUMIN 2.7. SHE IS CURRENTLY RECEIVING NORMAL SALINE AT 80ML/HR AND HOME MEDICATIONS WERE RESUMED WITH THE EXCEPTION OF HER LASIX. WE WILL CONTINUE WITH CURRENT PLAN OF CARE TODAY. OTHERWISE, WE WILL FOLLOW UP WITH AM LABS AND CONTINUE TO MONITOR. - Past Medical Family Social History Past Med/Fam/Surg Hx: No changes since H&P Allergies: Allergies iodine Allergy (Unknown, Verified 08/16/18 21:15) onion Allergy (Verified 08/17/18 14:56) SEAFOOD Allergy (Uncoded 08/16/18 21:15) - Review of Systems ROS: No change since H&P - Vital Signs and I&O's Vital Signs: Temperature 99.0 F Pulse Rate [Right Brachial] 65 Respiratory Rate 20 Blood Pressure [Right Arm] 143/62 Blood Pressure [Right Radial 150/65 Artery] Blood Pressure [Left Arm] 183/78 Blood Pressure 183/78 O2 Sat by Pulse Oximetry 96 Intake and Output: Intake & Output 08/17/18 08/18/18 08/19/18 08/20/18 11:59 11:59 11:59 11:59 Intake Total 780 / 780 1870 / 1870 1480 / 1480 Output Total 1300 / 1300 2150 / 2150 Balance -520 / -520 -280 / -280 1480 / 1480 - Physical Exam Oriented: Normal Eyes: Normal Ear: Normal Nose: Normal Throat: Normal Respiratory: Diminished Cardiovascular: Normal. negative: S3, S4, Murmur : Normal Auscultation: Bowel Sounds: Normal Palpation: Normal Tenderness: Normal Skin: Normal Musculoskeletal: Normal Psychiatric: Normal Mood Description: Calm Affect: Normal Speech Pattern: Clear, Appropriate - Laboratory and Diagnostics Result Diagrams: 08/19/18 04:56 08/19/18 04:56 Labs: Laboratory WBC 7.1 X10^3/uL (3.6-10.0) 08/19/18 04:56 RBC 2.92 X10^6/uL (3.5-5.4) L 08/19/18 04:56 Hgb 9.3 g/dL (12.0-16.0) L 08/19/18 04:56 Hct 26.1 % (36.0-47.0) L 08/19/18 04:56 MCV 89.4 fL (80.0-100.0) 08/19/18 04:56 MCH 31.9 pg (27.0-34.0) 08/19/18 04:56 MCHC 35.7 g/dL (33.0-35.0) H 08/19/18 04:56 RDW 13.2 % (11.6-16.5) 08/19/18 04:56 Plt Count 204 X10^3/uL (150.0-450.0) 08/19/18 04:56 MPV 7.9 fL (7.4-11.0) 08/19/18 04:56 Neut % (Auto) 50.1 % (42.0-75.0) 08/19/18 04:56 Lymph % (Auto) 33.8 % (21.0-51.0) 08/19/18 04:56 [place] % (Auto) 13.1 % (0.0-13.0) H 08/19/18 04:56 Eos % (Auto) 2.5 % (0.9-2.9) 08/19/18 04:56 Baso % (Auto) 0.5 % (0.2-1.0) 08/19/18 04:56 Neut # (Auto) 3.5 x10^3/uL (2.2-4.8) 08/19/18 04:56 Lymph # (Auto) 2.4 X10^3/uL (1.3-2.9) 08/19/18 04:56 [place] # (Auto) 0.9 x10^3/uL (0.3-0.8) H 08/19/18 04:56 Eos # (Auto) 0.2 x10^3/uL (0.0-0.2) 08/19/18 04:56 Baso # (Auto) 0.0 X10^3/uL (0.0-0.1) 08/19/18 04:56 Absolute Nucleated RBC 0.0 /100WBC 08/19/18 04:56 Sodium 128 mmol/L (136-145) L 08/19/18 04:56 Corrected Sodium TNP 08/19/18 04:56 Potassium 4.3 mmol/L (3.5-5.1) 08/19/18 04:56 Chloride 97 mmol/L (98-107) L 08/19/18 04:56 Carbon Dioxide 25.9 mmol/L (21-32) 08/19/18 04:56 BUN 12 mg/dL (7-18) 08/19/18 04:56 Creatinine 0.79 mg/dL (0.55-1.02) 08/19/18 04:56 Est GFR (MDRD) Af Amer > 60 (>60) 08/19/18 04:56 Est GFR (MDRD) Non-Af > 60 (>60) 08/19/18 04:56 Glucose 89 mg/dL (65-99) 08/19/18 04:56 Calcium 8.3 mg/dL (8.5-10.1) L 08/19/18 04:56 Corrected Calcium 9.3 mg/dL (8.5-10.1) 08/19/18 04:56 Total Bilirubin 0.20 mg/dL (0.2-1.0) 08/19/18 04:56 AST 22 Units/L (15-37) 08/19/18 04:56 ALT 20 Units/L (12-78) 08/19/18 04:56 Alkaline Phosphatase 85 Units/L (46-116) 08/19/18 04:56 Total Protein 5.5 g/dL (6.4-8.2) L 08/19/18 04:56 Albumin 2.7 g/dL (3.4-5.0) L 08/19/18 04:56 Globulin 2.8 g/dL (2.5-4.5) 08/19/18 04:56 Albumin/Globulin Ratio 1.0 Ratio (1.1-2.1) L 08/19/18 04:56 - Plan (1) Hyponatremia Status: Acute Plan: NORMAL SALINE AT 75ML/HR, CONTINUE TO MONITOR (2) N&V (nausea and vomiting) Status: Acute Qualifiers: Vomiting type: bilious vomiting Qualified Code(s): R11.14 - Bilious vomiting
[2018-08-19] MEDS: VOLTAREN 1 % GEL MULTI DOSE TUBE TOP PRN (20:49)
[2018-08-19] MEDS: PATIENT'S HOME MEDICATION PO SCH (21:03)
[2018-08-20 05:31] LABS: BASOPHILS % (AUTO) 0.3 % (0.2-1.0); EOSINOPHILS # (AUTO) 0.2 x10^3/uL (0.0-0.2); EOSINOPHILS % (AUTO) 2.4 % (0.9-2.9); HEMATOCRIT 24.2 % (36.0-47.0); HEMOGLOBIN 8.6 g/dL (12.0-16.0); LYMPHOCYTES # (AUTO) 2.4 X10^3/uL (1.3-2.9); LYMPHOCYTES % (AUTO) 36.7 % (21.0-51.0); MEAN CORPUSCULAR HGB CONC 35.6 g/dL (33.0-35.0); MONOCYTES # (AUTO) 0.8 x10^3/uL (0.3-0.8); MONOCYTES % (AUTO) 12.5 % (0.0-13.0); NEUTROPHILS # (AUTO) 3.1 x10^3/uL (2.2-4.8); NEUTROPHILS % (AUTO) 48.1 % (42.0-75.0); PLATELET COUNT 191 X10^3/uL (150.0-450.0); RED BLOOD COUNT 2.69 X10^6/uL (3.5-5.4); RED CELL DISTRIBUTION WIDTH 13.3 % (11.6-16.5); WHITE BLOOD COUNT 6.5 X10^3/uL (3.6-10.0)
[2018-08-20 05:44] LABS: ALANINE AMINOTRANSFERASE 19 Units/L (12-78); ALBUMIN 2.6 g/dL (3.4-5.0); ALKALINE PHOSPHATASE 80 Units/L (46-116); ASPARTATE AMINO TRANSFERASE 17 Units/L (15-37); BLOOD UREA NITROGEN 11 mg/dL (7-18); CALCIUM 8.3 mg/dL (8.5-10.1); CARBON DIOXIDE 24.6 mmol/L (21-32); CHLORIDE 99 mmol/L (98-107); COR CA(FOR HYPOALB) 9.4 mg/dL (8.5-10.1); CREATININE 0.72 mg/dL (0.55-1.02); SODIUM 129 mmol/L (136-145); TOTAL PROTEIN 5.2 g/dL (6.4-8.2); eGFR NON BLACK RACES > 60 (>60)
[2018-08-20] MEDS: NEURONTIN CAP 100 MG PO SCH ×3 (06:05→21:35)
[2018-08-20] MEDS: NS 1000 ML 1,000 ML IV SCH ×4 (06:06→23:36)
[2018-08-20] MEDS: HEMOCYTE-PLUS PO SCH (08:28)
[2018-08-20] MEDS: COLACE CAP 100 MG PO SCH ×2 (08:28→20:42)
[2018-08-20] MEDS: MAG-OX TAB PO SCH ×2 (08:29→20:41)
[2018-08-20] MEDS: BETAPACE AF PO SCH (08:29)
[2018-08-20] MEDS: PROTONIX TAB 40 MG PO SCH ×2 (08:29→21:35)
[2018-08-20] MEDS: ZyrTEC TAB 10 MG PO SCH (08:29)
[2018-08-20] MEDS: MICRO K EXTEN CAP 10 MEQ PO SCH (08:29)
[2018-08-20] MEDS: CARDIZEM CD 180 MG PO SCH (08:29)
[2018-08-20] MEDS: SYNTHROID 150 mcg TAB PO SCH (08:29)
[2018-08-20] MEDS: ELIQUIS PO SCH ×2 (08:29→20:42)
[2018-08-20] MEDS: COZAAR PO SCH (08:29)
[2018-08-20] MEDS: THERMOTABS PO SCH ×4 (08:31→20:44)
[2018-08-20] MEDS: MIRALAX POWDER (1 DOSE 17 G) PO SCH (08:37)
[2018-08-20] MEDS: NORCO 10/325 TAB PO PRN ×2 (11:41→20:45)
--- NOTE | 2018-08-20 18:32 | PCM.PROG ---
Progress Note - Progress Note for Day of Date of Exam: 08/19/18 - Subjective Subjective: WAS ADMITTED FOR TREATMENT OF HYPONATREMIA AND INTRACTABLE NAUSEA AND VOMITING. TODAY, SHE IS ALERT AND ORIENTED, LYING IN BED ON MORNING ROUNDS. SHE CONTINUES WITH COMPLAINTS OF GENERALIZED WEAKNESS THIS MORNING. ON EXAMINATION, HEART IS REGULAR IN RATE AND RHYTHM. BILATERAL LUNGS ARE NOTED WITH DIMINISHED LUNG SOUNDS THROUGHOUT. ABDOMEN IS ROUND, SOFT, AND NON-TENDER WITH HYPERACTIVE BOWEL SOUNDS NOTED IN ALL QUADRANTS. HER VITALS THIS MORNING ARE: 97.8-77-20-94%-162/67. LABS WERE OBTAINED. ABNORMAL LAB VALUES INCLUDE THE FOLLOWING: RBC 2.92, HGB 9.3, HCT 26.1, SODIUM 128, CHLORIDE 97, CALCIUM 8.3, TOTAL PROTEIN 5.5, ALBUMIN 2.7. SHE IS CURRENTLY RECEIVING NORMAL SALINE AT 80ML/HR AND HOME MEDICATIONS WERE RESUMED WITH THE EXCEPTION OF HER LASIX. WE WILL CONTINUE WITH CURRENT PLAN OF CARE TODAY. OTHERWISE, WE WILL FOLLOW UP WITH AM LABS AND CONTINUE TO MONITOR. - Past Medical Family Social History Past Med/Fam/Surg Hx: No changes since H&P Allergies: Allergies iodine Allergy (Unknown, Verified 08/16/18 21:15) onion Allergy (Verified 08/17/18 14:56) SEAFOOD Allergy (Uncoded 08/16/18 21:15) - Review of Systems ROS: No change since H&P - Vital Signs and I&O's Vital Signs: Temperature 98.8 F Pulse Rate [Right Brachial] 84 Respiratory Rate 18 Blood Pressure [Right Arm] 145/61 Blood Pressure [Right Radial 150/65 Artery] Blood Pressure [Left Arm] 115/59 Blood Pressure 183/78 O2 Sat by Pulse Oximetry 99 Intake and Output: Intake & Output 08/18/18 08/19/18 08/20/18 08/21/18 11:59 11:59 11:59 11:59 Intake Total 780 / 780 1870 / 1870 2250 / 2250 1231 / 1231 Output Total 1300 / 1300 2150 / 2150 Balance -520 / -520 -280 / -280 2250 / 2250 1231 / 1231 - Physical Exam Oriented: Normal Eyes: Normal Ear: Normal Nose: Normal Throat: Normal Respiratory: Diminished Cardiovascular: Normal. negative: S3, S4, Murmur : Normal Auscultation: Bowel Sounds: Normal Tenderness: Normal Skin: Normal Musculoskeletal: Normal Psychiatric: Normal Mood Description: Calm Affect: Normal Speech Pattern: Clear, Appropriate - Laboratory and Diagnostics Result Diagrams: 08/20/18 04:36 08/20/18 04:36 Labs: Laboratory WBC 6.5 X10^3/uL (3.6-10.0) 08/20/18 04:36 RBC 2.69 X10^6/uL (3.5-5.4) L 08/20/18 04:36 Hgb 8.6 g/dL (12.0-16.0) L 08/20/18 04:36 Hct 24.2 % (36.0-47.0) L 08/20/18 04:36 MCV 90.0 fL (80.0-100.0) 08/20/18 04:36 MCH 32.0 pg (27.0-34.0) 08/20/18 04:36 MCHC 35.6 g/dL (33.0-35.0) H 08/20/18 04:36 RDW 13.3 % (11.6-16.5) 08/20/18 04:36 Plt Count 191 X10^3/uL (150.0-450.0) 08/20/18 04:36 MPV 8.0 fL (7.4-11.0) 08/20/18 04:36 Neut % (Auto) 48.1 % (42.0-75.0) 08/20/18 04:36 Lymph % (Auto) 36.7 % (21.0-51.0) 08/20/18 04:36 [place] % (Auto) 12.5 % (0.0-13.0) 08/20/18 04:36 Eos % (Auto) 2.4 % (0.9-2.9) 08/20/18 04:36 Baso % (Auto) 0.3 % (0.2-1.0) 08/20/18 04:36 Neut # (Auto) 3.1 x10^3/uL (2.2-4.8) 08/20/18 04:36 Lymph # (Auto) 2.4 X10^3/uL (1.3-2.9) 08/20/18 04:36 [place] # (Auto) 0.8 x10^3/uL (0.3-0.8) 08/20/18 04:36 Eos # (Auto) 0.2 x10^3/uL (0.0-0.2) 08/20/18 04:36 Baso # (Auto) 0.0 X10^3/uL (0.0-0.1) 08/20/18 04:36 Absolute Nucleated RBC 0.0 /100WBC 08/20/18 04:36 Sodium 129 mmol/L (136-145) L 08/20/18 04:36 Corrected Sodium TNP 08/20/18 04:36 Potassium 4.4 mmol/L (3.5-5.1) 08/20/18 04:36 Chloride 99 mmol/L (98-107) 08/20/18 04:36 Carbon Dioxide 24.6 mmol/L (21-32) 08/20/18 04:36 BUN 11 mg/dL (7-18) 08/20/18 04:36 Creatinine 0.72 mg/dL (0.55-1.02) 08/20/18 04:36 Est GFR (MDRD) Af Amer > 60 (>60) 08/20/18 04:36 Est GFR (MDRD) Non-Af > 60 (>60) 08/20/18 04:36 Glucose 83 mg/dL (65-99) 08/20/18 04:36 Calcium 8.3 mg/dL (8.5-10.1) L 08/20/18 04:36 Corrected Calcium 9.4 mg/dL (8.5-10.1) 08/20/18 04:36 Total Bilirubin 0.20 mg/dL (0.2-1.0) 08/20/18 04:36 AST 17 Units/L (15-37) 08/20/18 04:36 ALT 19 Units/L (12-78) 08/20/18 04:36 Alkaline Phosphatase 80 Units/L (46-116) 08/20/18 04:36 Total Protein 5.2 g/dL (6.4-8.2) L 08/20/18 04:36 Albumin 2.6 g/dL (3.4-5.0) L 08/20/18 04:36 Globulin 2.6 g/dL (2.5-4.5) 08/20/18 04:36 Albumin/Globulin Ratio 1.0 Ratio (1.1-2.1) L 08/20/18 04:36 - Plan (1) Hyponatremia Status: Acute Plan: NORMAL SALINE AT 75ML/HR, CONTINUE TO MONITOR (2) N&V (nausea and vomiting) Status: Acute Qualifiers: Vomiting type: bilious vomiting Qualified Code(s): R11.14 - Bilious vomiting
[2018-08-20] MEDS: PATIENT'S HOME MEDICATION PO SCH (20:43)
[2018-08-21 05:27] LABS: BASOPHILS % (AUTO) 0.4 % (0.2-1.0); EOSINOPHILS # (AUTO) 0.2 x10^3/uL (0.0-0.2); EOSINOPHILS % (AUTO) 2.7 % (0.9-2.9); HEMATOCRIT 24.6 % (36.0-47.0); HEMOGLOBIN 8.8 g/dL (12.0-16.0); LYMPHOCYTES # (AUTO) 2.4 X10^3/uL (1.3-2.9); LYMPHOCYTES % (AUTO) 28.6 % (21.0-51.0); MEAN CORPUSCULAR HGB CONC 35.8 g/dL (33.0-35.0); MEAN CORPUSCULAR VOLUME 89.3 fL (80.0-100.0); MEAN PLATELET VOLUME 7.8 fL (7.4-11.0); MONOCYTES % (AUTO) 11.9 % (0.0-13.0); NEUTROPHILS # (AUTO) 4.7 x10^3/uL (2.2-4.8); NEUTROPHILS % (AUTO) 56.4 % (42.0-75.0); PLATELET COUNT 191 X10^3/uL (150.0-450.0); RED BLOOD COUNT 2.75 X10^6/uL (3.5-5.4); RED CELL DISTRIBUTION WIDTH 13.7 % (11.6-16.5); WHITE BLOOD COUNT 8.4 X10^3/uL (3.6-10.0)
[2018-08-21 05:36] LABS: ALANINE AMINOTRANSFERASE 18 Units/L (12-78); ALBUMIN 2.6 g/dL (3.4-5.0); ALKALINE PHOSPHATASE 85 Units/L (46-116); ASPARTATE AMINO TRANSFERASE 19 Units/L (15-37); BLOOD UREA NITROGEN 10 mg/dL (7-18); CALCIUM 8.3 mg/dL (8.5-10.1); CARBON DIOXIDE 24.3 mmol/L (21-32); CHLORIDE 99 mmol/L (98-107); COR CA(FOR HYPOALB) 9.4 mg/dL (8.5-10.1); CREATININE 0.67 mg/dL (0.55-1.02); SODIUM 129 mmol/L (136-145); TOTAL PROTEIN 5.1 g/dL (6.4-8.2); eGFR NON BLACK RACES > 60 (>60)
[2018-08-21] MEDS: NS 1000 ML 1,000 ML IV SCH ×3 (05:53→16:48)
[2018-08-21] MEDS: NEURONTIN CAP 100 MG PO SCH ×3 (06:21→21:21)
[2018-08-21] MEDS: MICRO K EXTEN CAP 10 MEQ PO SCH (08:23)
[2018-08-21] MEDS: ZyrTEC TAB 10 MG PO SCH (08:24)
[2018-08-21] MEDS: ELIQUIS PO SCH ×2 (08:24→20:50)
[2018-08-21] MEDS: HEMOCYTE-PLUS PO SCH (08:24)
[2018-08-21] MEDS: SYNTHROID 150 mcg TAB PO SCH (08:24)
[2018-08-21] MEDS: CARDIZEM CD 180 MG PO SCH (08:25)
[2018-08-21] MEDS: BETAPACE AF PO SCH (08:25)
[2018-08-21] MEDS: MAG-OX TAB PO SCH ×2 (08:25→20:50)
[2018-08-21] MEDS: COLACE CAP 100 MG PO SCH ×3 (08:25→20:50)
[2018-08-21] MEDS: COZAAR PO SCH (08:25)
[2018-08-21] MEDS: PROTONIX TAB 40 MG PO SCH ×2 (08:26→20:50)
[2018-08-21] MEDS: MIRALAX POWDER (1 DOSE 17 G) PO SCH (08:27)
[2018-08-21] MEDS: THERMOTABS PO SCH ×4 (08:27→20:53)
[2018-08-21] MEDS: NORCO 10/325 TAB PO PRN ×3 (09:18→20:51)
--- NOTE | 2018-08-21 18:54 | PCM.PROG ---
Progress Note - Progress Note for Day of Date of Exam: 08/20/18 - Subjective Subjective: WAS ADMITTED FOR TREATMENT OF HYPONATREMIA AND INTRACTABLE NAUSEA AND VOMITING. TODAY, SHE IS ALERT AND ORIENTED, LYING IN BED ON MORNING ROUNDS. SHE CONTINUES WITH COMPLAINTS OF GENERALIZED WEAKNESS THIS MORNING. ON EXAMINATION, HEART IS REGULAR IN RATE AND RHYTHM. BILATERAL LUNGS ARE NOTED WITH DIMINISHED LUNG SOUNDS THROUGHOUT. ABDOMEN IS ROUND, SOFT, AND NON-TENDER WITH HYPERACTIVE BOWEL SOUNDS NOTED IN ALL QUADRANTS. HER VITALS THIS MORNING ARE: 98.7-78-18-98%-160/60. LABS WERE OBTAINED. ABNORMAL LAB VALUES INCLUDE THE FOLLOWING: RBC 2.69, HGB 8.6, HCT 24.2, SODIUM 129, CALCIUM 8.3, TOTAL PROTEIN 5.2, ALBUMIN 2.6. SHE IS CURRENTLY RECEIVING NORMAL SALINE AT 80ML/HR. WE WILL CONTINUE WITH CURRENT PLAN OF CARE TODAY. OTHERWISE, WE WILL FOLLOW UP WITH AM LABS AND CONTINUE TO MONITOR. - Past Medical Family Social History Past Med/Fam/Surg Hx: No changes since H&P Allergies: Allergies iodine Allergy (Unknown, Verified 08/16/18 21:15) onion Allergy (Verified 08/17/18 14:56) SEAFOOD Allergy (Uncoded 08/16/18 21:15) - Review of Systems ROS: No change since H&P - Vital Signs and I&O's Vital Signs: Temperature 98.0 F Pulse Rate [Right Brachial] 64 Respiratory Rate 20 Blood Pressure [Right Arm] 144/55 Blood Pressure [Right Radial 150/65 Artery] Blood Pressure [Left Arm] 115/59 Blood Pressure 183/78 O2 Sat by Pulse Oximetry 96 Intake and Output: Intake & Output 08/19/18 08/20/18 08/21/18 08/22/18 11:59 11:59 11:59 11:59 Intake Total 1870 / 1870 2250 / 2250 3171 / 3171 1120 / 1120 Output Total 2150 / 2150 Balance -280 / -280 2250 / 2250 3171 / 3171 1120 / 1120 - Physical Exam Oriented: Normal Eyes: Normal Ear: Normal Nose: Normal Throat: Normal Respiratory: Diminished Cardiovascular: Normal. negative: S3, S4, Murmur : Normal Auscultation: Bowel Sounds: Normal Tenderness: Normal Skin: Normal Musculoskeletal: Normal Psychiatric: Normal Mood Description: Calm Affect: Normal Speech Pattern: Clear, Appropriate - Laboratory and Diagnostics Result Diagrams: 08/21/18 04:45 08/21/18 04:45 Labs: Laboratory WBC 8.4 X10^3/uL (3.6-10.0) 08/21/18 04:45 RBC 2.75 X10^6/uL (3.5-5.4) L 08/21/18 04:45 Hgb 8.8 g/dL (12.0-16.0) L 08/21/18 04:45 Hct 24.6 % (36.0-47.0) L 08/21/18 04:45 MCV 89.3 fL (80.0-100.0) 08/21/18 04:45 MCH 32.0 pg (27.0-34.0) 08/21/18 04:45 MCHC 35.8 g/dL (33.0-35.0) H 08/21/18 04:45 RDW 13.7 % (11.6-16.5) 08/21/18 04:45 Plt Count 191 X10^3/uL (150.0-450.0) 08/21/18 04:45 MPV 7.8 fL (7.4-11.0) 08/21/18 04:45 Neut % (Auto) 56.4 % (42.0-75.0) 08/21/18 04:45 Lymph % (Auto) 28.6 % (21.0-51.0) 08/21/18 04:45 [place] % (Auto) 11.9 % (0.0-13.0) 08/21/18 04:45 Eos % (Auto) 2.7 % (0.9-2.9) 08/21/18 04:45 Baso % (Auto) 0.4 % (0.2-1.0) 08/21/18 04:45 Neut # (Auto) 4.7 x10^3/uL (2.2-4.8) 08/21/18 04:45 Lymph # (Auto) 2.4 X10^3/uL (1.3-2.9) 08/21/18 04:45 [place] # (Auto) 1.0 x10^3/uL (0.3-0.8) H 08/21/18 04:45 Eos # (Auto) 0.2 x10^3/uL (0.0-0.2) 08/21/18 04:45 Baso # (Auto) 0.0 X10^3/uL (0.0-0.1) 08/21/18 04:45 Absolute Nucleated RBC 0.1 /100WBC 08/21/18 04:45 Sodium 129 mmol/L (136-145) L 08/21/18 04:45 Corrected Sodium TNP 08/21/18 04:45 Potassium 4.3 mmol/L (3.5-5.1) 08/21/18 04:45 Chloride 99 mmol/L (98-107) 08/21/18 04:45 Carbon Dioxide 24.3 mmol/L (21-32) 08/21/18 04:45 BUN 10 mg/dL (7-18) 08/21/18 04:45 Creatinine 0.67 mg/dL (0.55-1.02) 08/21/18 04:45 Est GFR (MDRD) Af Amer > 60 (>60) 08/21/18 04:45 Est GFR (MDRD) Non-Af > 60 (>60) 08/21/18 04:45 Glucose 91 mg/dL (65-99) 08/21/18 04:45 Calcium 8.3 mg/dL (8.5-10.1) L 08/21/18 04:45 Corrected Calcium 9.4 mg/dL (8.5-10.1) 08/21/18 04:45 Total Bilirubin 0.20 mg/dL (0.2-1.0) 08/21/18 04:45 AST 19 Units/L (15-37) 08/21/18 04:45 ALT 18 Units/L (12-78) 08/21/18 04:45 Alkaline Phosphatase 85 Units/L (46-116) 08/21/18 04:45 Total Protein 5.1 g/dL (6.4-8.2) L 08/21/18 04:45 Albumin 2.6 g/dL (3.4-5.0) L 08/21/18 04:45 Globulin 2.5 g/dL (2.5-4.5) 08/21/18 04:45 Albumin/Globulin Ratio 1.0 Ratio (1.1-2.1) L 08/21/18 04:45 - Plan (1) Hyponatremia Status: Acute Plan: NORMAL SALINE AT 75ML/HR, CONTINUE TO MONITOR (2) N&V (nausea and vomiting) Status: Acute Qualifiers: Vomiting type: bilious vomiting Qualified Code(s): R11.14 - Bilious vomiting
[2018-08-21] MEDS: PATIENT'S HOME MEDICATION PO SCH (22:24)
[2018-08-21] MEDS: VOLTAREN 1 % GEL MULTI DOSE TUBE TOP PRN (22:27)
[2018-08-22] MEDS: NS 1000 ML 1,000 ML IV SCH ×3 (00:11→17:33)
--- NOTE | 2018-08-22 00:24 | RAD ---
Examination: Acute abdominal series. History: Abdominal pain. Comparison: CT dated 12/26/2017. Findings: Visualized bowel gas pattern is nonobstructive. There is no free air identified. There are small bilateral pleural effusions, stable from prior CT from 12/26/2017. 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 No definite acute osseous findings are identified. Conclusion: 1. No acute findings identified. 2. Small bilateral pleural effusions and advanced discogenic and degenerative changes, stable from prior CT from 12/26/2017. Reported By:
[2018-08-22] MEDS: NORCO 10/325 TAB PO PRN ×3 (04:27→20:42)
[2018-08-22] MEDS: NEURONTIN CAP 100 MG PO SCH ×3 (05:22→21:04)
[2018-08-22 05:46] LABS: BASOPHILS % (AUTO) 0.5 % (0.2-1.0); EOSINOPHILS # (AUTO) 0.3 x10^3/uL (0.0-0.2); HEMATOCRIT 27.3 % (36.0-47.0); HEMOGLOBIN 9.7 g/dL (12.0-16.0); LYMPHOCYTES # (AUTO) 2.5 X10^3/uL (1.3-2.9); LYMPHOCYTES % (AUTO) 29.1 % (21.0-51.0); MEAN CORPUSCULAR HGB CONC 35.5 g/dL (33.0-35.0); MEAN PLATELET VOLUME 7.7 fL (7.4-11.0); MONOCYTES # (AUTO) 0.9 x10^3/uL (0.3-0.8); MONOCYTES % (AUTO) 10.2 % (0.0-13.0); NEUTROPHILS # (AUTO) 4.9 x10^3/uL (2.2-4.8); NEUTROPHILS % (AUTO) 57.2 % (42.0-75.0); PLATELET COUNT 221 X10^3/uL (150.0-450.0); RED BLOOD COUNT 3.03 X10^6/uL (3.5-5.4); RED CELL DISTRIBUTION WIDTH 13.9 % (11.6-16.5); WHITE BLOOD COUNT 8.7 X10^3/uL (3.6-10.0)
[2018-08-22 06:08] LABS: ALANINE AMINOTRANSFERASE 19 Units/L (12-78); ALBUMIN 2.9 g/dL (3.4-5.0); ALKALINE PHOSPHATASE 99 Units/L (46-116); ASPARTATE AMINO TRANSFERASE 19 Units/L (15-37); BLOOD UREA NITROGEN 7 mg/dL (7-18); CALCIUM 7.9 mg/dL (8.5-10.1); CARBON DIOXIDE 24.9 mmol/L (21-32); CHLORIDE 98 mmol/L (98-107); COR CA(FOR HYPOALB) 8.8 mg/dL (8.5-10.1); CREATININE 0.71 mg/dL (0.55-1.02); SODIUM 129 mmol/L (136-145); TOTAL PROTEIN 5.9 g/dL (6.4-8.2); eGFR NON BLACK RACES > 60 (>60)
[2018-08-22] MEDS: COZAAR PO SCH (08:50)
[2018-08-22] MEDS: PROTONIX TAB 40 MG PO SCH ×2 (08:50→20:11)
[2018-08-22] MEDS: ELIQUIS PO SCH ×2 (08:50→20:11)
[2018-08-22] MEDS: BETAPACE AF PO SCH (08:50)
[2018-08-22] MEDS: COLACE CAP 100 MG PO SCH ×2 (08:50→20:15)
[2018-08-22] MEDS: SYNTHROID 150 mcg TAB PO SCH (08:50)
[2018-08-22] MEDS: HEMOCYTE-PLUS PO SCH (08:50)
[2018-08-22] MEDS: MAG-OX TAB PO SCH ×2 (08:50→20:12)
[2018-08-22] MEDS: ZyrTEC TAB 10 MG PO SCH (08:50)
[2018-08-22] MEDS: MICRO K EXTEN CAP 10 MEQ PO SCH (08:50)
[2018-08-22] MEDS: CARDIZEM CD 180 MG PO SCH (08:50)
[2018-08-22] MEDS: THERMOTABS PO SCH ×4 (08:51→20:11)
[2018-08-22] MEDS: MIRALAX POWDER (1 DOSE 17 G) PO SCH (08:52)
[2018-08-22] MEDS ORDERED: ZOFRAN INJ 4 MG VIAL IVP PRN (09:01)
[2018-08-22] MEDS ORDERED: ZOFRAN INJ 4 MG VIAL ONE (09:02)
--- NOTE | 2018-08-22 20:19 | PCM.PROG ---
Progress Note - Progress Note for Day of Date of Exam: 08/21/18 - Subjective Subjective: WAS ADMITTED FOR TREATMENT OF HYPONATREMIA AND INTRACTABLE NAUSEA AND VOMITING. TODAY, SHE IS ALERT AND ORIENTED, LYING IN BED ON MORNING ROUNDS. SHE CONTINUES WITH COMPLAINTS OF GENERALIZED WEAKNESS THIS MORNING. ON EXAMINATION, HEART IS REGULAR IN RATE AND RHYTHM. BILATERAL LUNGS ARE NOTED WITH DIMINISHED LUNG SOUNDS THROUGHOUT. ABDOMEN IS ROUND, SOFT, AND NON-TENDER WITH HYPERACTIVE BOWEL SOUNDS NOTED IN ALL QUADRANTS. HER VITALS THIS MORNING ARE: 98.0-67-13-96%-162/78. LABS WERE OBTAINED. ABNORMAL LAB VALUES INCLUDE THE FOLLOWING: RBC 2.75, HGB 8.8, HCT 24.6, SODIUM 129, CALCIUM 8.3, TOTAL PROTEIN 5.1, ALBUMIN 2.6. SHE IS CURRENTLY RECEIVING NORMAL SALINE AT 80ML/HR. WE WILL INCREASE IV FLUIDS TO 125ML/HR. OTHERWISE, WE WILL FOLLOW UP WITH AM LABS AND CONTINUE TO MONITOR. - Past Medical Family Social History Past Med/Fam/Surg Hx: No changes since H&P Allergies: Allergies iodine Allergy (Unknown, Verified 08/16/18 21:15) onion Allergy (Verified 08/17/18 14:56) SEAFOOD Allergy (Uncoded 08/16/18 21:15) - Review of Systems ROS: No change since H&P - Vital Signs and I&O's Vital Signs: Temperature 98.5 F Pulse Rate [Right Brachial] 56 Respiratory Rate 20 Blood Pressure [Right Arm] 179/72 Blood Pressure [Right Radial 150/65 Artery] Blood Pressure [Left Arm] 115/59 Blood Pressure 183/78 O2 Sat by Pulse Oximetry 93 Intake and Output: Intake & Output 08/20/18 08/21/18 08/22/18 08/23/18 11:59 11:59 11:59 11:59 Intake Total 2250 / 2250 3171 / 3171 3170 / 3170 1478 / 1478 Balance 2250 / 2250 3171 / 3171 3170 / 3170 1478 / 1478 - Physical Exam Oriented: Normal Eyes: Normal Ear: Normal Nose: Normal Throat: Normal Respiratory: Diminished Cardiovascular: Normal. negative: S3, S4, Murmur : Normal Auscultation: Bowel Sounds: Normal Palpation: Normal Tenderness: Normal Skin: Normal Musculoskeletal: Normal Psychiatric: Normal Mood Description: Calm Affect: Normal Speech Pattern: Clear, Appropriate - Laboratory and Diagnostics Result Diagrams: 08/22/18 04:29 08/22/18 04:29 Labs: Laboratory WBC 8.7 X10^3/uL (3.6-10.0) 08/22/18 04:29 RBC 3.03 X10^6/uL (3.5-5.4) L 08/22/18 04:29 Hgb 9.7 g/dL (12.0-16.0) L 08/22/18 04:29 Hct 27.3 % (36.0-47.0) L 08/22/18 04:29 MCV 90.0 fL (80.0-100.0) 08/22/18 04:29 MCH 32.0 pg (27.0-34.0) 08/22/18 04:29 MCHC 35.5 g/dL (33.0-35.0) H 08/22/18 04:29 RDW 13.9 % (11.6-16.5) 08/22/18 04:29 Plt Count 221 X10^3/uL (150.0-450.0) 08/22/18 04:29 MPV 7.7 fL (7.4-11.0) 08/22/18 04:29 Neut % (Auto) 57.2 % (42.0-75.0) 08/22/18 04:29 Lymph % (Auto) 29.1 % (21.0-51.0) 08/22/18 04:29 [place] % (Auto) 10.2 % (0.0-13.0) 08/22/18 04:29 Eos % (Auto) 3.0 % (0.9-2.9) H 08/22/18 04:29 Baso % (Auto) 0.5 % (0.2-1.0) 08/22/18 04:29 Neut # (Auto) 4.9 x10^3/uL (2.2-4.8) H 08/22/18 04:29 Lymph # (Auto) 2.5 X10^3/uL (1.3-2.9) 08/22/18 04:29 [place] # (Auto) 0.9 x10^3/uL (0.3-0.8) H 08/22/18 04:29 Eos # (Auto) 0.3 x10^3/uL (0.0-0.2) H 08/22/18 04:29 Baso # (Auto) 0.0 X10^3/uL (0.0-0.1) 08/22/18 04:29 Absolute Nucleated RBC 0.0 /100WBC 08/22/18 04:29 Sodium 129 mmol/L (136-145) L 08/22/18 04:29 Corrected Sodium TNP 08/22/18 04:29 Potassium 4.1 mmol/L (3.5-5.1) 08/22/18 04:29 Chloride 98 mmol/L (98-107) 08/22/18 04:29 Carbon Dioxide 24.9 mmol/L (21-32) 08/22/18 04:29 BUN 7 mg/dL (7-18) 08/22/18 04:29 Creatinine 0.71 mg/dL (0.55-1.02) 08/22/18 04:29 Est GFR (MDRD) Af Amer > 60 (>60) 08/22/18 04:29 Est GFR (MDRD) Non-Af > 60 (>60) 08/22/18 04:29 Glucose 85 mg/dL (65-99) 08/22/18 04:29 Calculated Osmolality 256 mOsm/kg (285-295) L 08/22/18 04:29 Calcium 7.9 mg/dL (8.5-10.1) L 08/22/18 04:29 Corrected Calcium 8.8 mg/dL (8.5-10.1) 08/22/18 04:29 Total Bilirubin 0.40 mg/dL (0.2-1.0) 08/22/18 04:29 AST 19 Units/L (15-37) 08/22/18 04:29 ALT 19 Units/L (12-78) 08/22/18 04:29 Alkaline Phosphatase 99 Units/L (46-116) 08/22/18 04:29 Total Protein 5.9 g/dL (6.4-8.2) L 08/22/18 04:29 Albumin 2.9 g/dL (3.4-5.0) L 08/22/18 04:29 Globulin 3.0 g/dL (2.5-4.5) 08/22/18 04:29 Albumin/Globulin Ratio 1.0 Ratio (1.1-2.1) L 08/22/18 04:29 Ur Random Sodium 136 mmol/L (40-220) 08/22/18 19:45 - Plan (1) Hyponatremia Status: Acute Plan: NORMAL SALINE AT 125ML/HR, CONTINUE TO MONITOR (2) N&V (nausea and vomiting) Status: Acute Qualifiers: Vomiting type: bilious vomiting Qualified Code(s): R11.14 - Bilious vomiting
[2018-08-23] MEDS: PATIENT'S HOME MEDICATION PO SCH (00:32)
[2018-08-23] MEDS: VOLTAREN 1 % GEL MULTI DOSE TUBE TOP PRN (01:54)
[2018-08-23] MEDS: NS 1000 ML 1,000 ML IV SCH (05:22)
[2018-08-23] MEDS: NEURONTIN CAP 100 MG PO SCH ×2 (05:29→13:16)
[2018-08-23 05:33] LABS: BASOPHILS % (AUTO) 0.4 % (0.2-1.0); EOSINOPHILS # (AUTO) 0.2 x10^3/uL (0.0-0.2); EOSINOPHILS % (AUTO) 2.8 % (0.9-2.9); LYMPHOCYTES # (AUTO) 2.2 X10^3/uL (1.3-2.9); LYMPHOCYTES % (AUTO) 27.9 % (21.0-51.0); MEAN CORPUSCULAR HEMOGLOBIN 32.2 pg (27.0-34.0); MEAN CORPUSCULAR HGB CONC 35.8 g/dL (33.0-35.0); MEAN PLATELET VOLUME 7.8 fL (7.4-11.0); MONOCYTES # (AUTO) 0.8 x10^3/uL (0.3-0.8); MONOCYTES % (AUTO) 10.4 % (0.0-13.0); NEUTROPHILS # (AUTO) 4.6 x10^3/uL (2.2-4.8); NEUTROPHILS % (AUTO) 58.5 % (42.0-75.0); PLATELET COUNT 199 X10^3/uL (150.0-450.0); RED BLOOD COUNT 2.78 X10^6/uL (3.5-5.4); RED CELL DISTRIBUTION WIDTH 13.6 % (11.6-16.5); WHITE BLOOD COUNT 7.9 X10^3/uL (3.6-10.0)
[2018-08-23 05:43] LABS: ALANINE AMINOTRANSFERASE 18 Units/L (12-78); ALBUMIN 2.7 g/dL (3.4-5.0); ALKALINE PHOSPHATASE 89 Units/L (46-116); ASPARTATE AMINO TRANSFERASE 21 Units/L (15-37); BLOOD UREA NITROGEN 7 mg/dL (7-18); CALCIUM 8.1 mg/dL (8.5-10.1); CARBON DIOXIDE 26.2 mmol/L (21-32); CHLORIDE 98 mmol/L (98-107); COR CA(FOR HYPOALB) 9.1 mg/dL (8.5-10.1); CREATININE 0.82 mg/dL (0.55-1.02); SODIUM 131 mmol/L (136-145); TOTAL PROTEIN 5.4 g/dL (6.4-8.2); eGFR NON BLACK RACES > 60 (>60)
[2018-08-23] MEDS: MAG-OX TAB PO SCH (09:07)
[2018-08-23] MEDS: PROTONIX TAB 40 MG PO SCH (09:07)
[2018-08-23] MEDS: COZAAR PO SCH (09:07)
[2018-08-23] MEDS: THERMOTABS PO SCH ×2 (09:07→13:15)
[2018-08-23] MEDS: ZyrTEC TAB 10 MG PO SCH (09:08)
[2018-08-23] MEDS: MICRO K EXTEN CAP 10 MEQ PO SCH (09:08)
[2018-08-23] MEDS: CARDIZEM CD 180 MG PO SCH (09:08)
[2018-08-23] MEDS: ELIQUIS PO SCH (09:08)
[2018-08-23] MEDS: COLACE CAP 100 MG PO SCH (09:09)
[2018-08-23] MEDS: BETAPACE AF PO SCH (09:09)
[2018-08-23] MEDS: SYNTHROID 150 mcg TAB PO SCH (09:09)
[2018-08-23] MEDS: NORCO 10/325 TAB PO PRN ×2 (09:09→13:18)
[2018-08-23] MEDS: HEMOCYTE-PLUS PO SCH (09:09)
[2018-08-23] MEDS: MIRALAX POWDER (1 DOSE 17 G) PO SCH (09:10)
[2018-08-23 13:30] VITALS: BP 184/79
--- NOTE | 2018-08-23 19:48 | PCM.PROG ---
Progress Note - Progress Note for Day of Date of Exam: 08/22/18 - Subjective Subjective: WAS ADMITTED FOR TREATMENT OF HYPONATREMIA AND INTRACTABLE NAUSEA AND VOMITING. TODAY, SHE IS ALERT AND ORIENTED, LYING IN BED ON MORNING ROUNDS. SHE CONTINUES WITH COMPLAINTS OF GENERALIZED WEAKNESS AND NAUSEA THIS MORNING. ON EXAMINATION, HEART IS REGULAR IN RATE AND RHYTHM. BILATERAL LUNGS ARE NOTED WITH DIMINISHED LUNG SOUNDS THROUGHOUT. ABDOMEN IS ROUND, SOFT, AND NON-TENDER WITH HYPERACTIVE BOWEL SOUNDS NOTED IN ALL QUADRANTS. HER VITALS THIS MORNING ARE: 97.6-82-20-95%-185/91. LABS WERE OBTAINED. ABNORMAL LAB VALUES INCLUDE THE FOLLOWING: RBC 3.03, HGB 9.7, HCT 27.3, SODIUM 129, CALCULATED OSMOLALITY 256, CALCIUM 7.9, TOTAL PROTEIN 5.9, ALUBMIN 2.9. WE WILL CONTINUE WI CURRENT PLAN OF CARE TODAY. OTHERWISE, WE WILL FOLLOW UP WITH AM LABS AND CONTINUE TO MONITOR. - Past Medical Family Social History Past Med/Fam/Surg Hx: No changes since H&P Allergies: Allergies iodine Allergy (Unknown, Verified 08/16/18 21:15) onion Allergy (Verified 08/17/18 14:56) SEAFOOD Allergy (Uncoded 08/16/18 21:15) - Review of Systems ROS: No change since H&P - Vital Signs and I&O's Vital Signs: Temperature 98.0 F Pulse Rate [Right Brachial] 63 Respiratory Rate 17 Blood Pressure [Right Arm] 184/79 Blood Pressure [Right Radial 150/65 Artery] Blood Pressure [Left Arm] 115/59 Blood Pressure 183/78 O2 Sat by Pulse Oximetry 94 Intake and Output: Intake & Output 08/21/18 08/22/18 08/23/18 08/24/18 11:59 11:59 11:59 11:59 Intake Total 3171 / 3171 3170 / 3170 3538 / 3538 Output Total 800 / 800 Balance 3171 / 3171 3170 / 3170 2738 / 2738 - Physical Exam Oriented: Normal Eyes: Normal Ear: Normal Nose: Normal Throat: Normal Respiratory: Diminished Cardiovascular: Normal. negative: S3, S4, Murmur : Normal Auscultation: Bowel Sounds: Normal Palpation: Normal Tenderness: Normal Skin: Normal Musculoskeletal: Normal Psychiatric: Normal Mood Description: Calm Affect: Normal Speech Pattern: Clear, Appropriate - Laboratory and Diagnostics Result Diagrams: 08/23/18 04:43 08/23/18 04:43 Labs: Laboratory WBC 7.9 X10^3/uL (3.6-10.0) 08/23/18 04:43 RBC 2.78 X10^6/uL (3.5-5.4) L 08/23/18 04:43 Hgb 9.0 g/dL (12.0-16.0) L 08/23/18 04:43 Hct 25.0 % (36.0-47.0) L 08/23/18 04:43 MCV 90.0 fL (80.0-100.0) 08/23/18 04:43 MCH 32.2 pg (27.0-34.0) 08/23/18 04:43 MCHC 35.8 g/dL (33.0-35.0) H 08/23/18 04:43 RDW 13.6 % (11.6-16.5) 08/23/18 04:43 Plt Count 199 X10^3/uL (150.0-450.0) 08/23/18 04:43 MPV 7.8 fL (7.4-11.0) 08/23/18 04:43 Neut % (Auto) 58.5 % (42.0-75.0) 08/23/18 04:43 Lymph % (Auto) 27.9 % (21.0-51.0) 08/23/18 04:43 [place] % (Auto) 10.4 % (0.0-13.0) 08/23/18 04:43 Eos % (Auto) 2.8 % (0.9-2.9) 08/23/18 04:43 Baso % (Auto) 0.4 % (0.2-1.0) 08/23/18 04:43 Neut # (Auto) 4.6 x10^3/uL (2.2-4.8) 08/23/18 04:43 Lymph # (Auto) 2.2 X10^3/uL (1.3-2.9) 08/23/18 04:43 [place] # (Auto) 0.8 x10^3/uL (0.3-0.8) 08/23/18 04:43 Eos # (Auto) 0.2 x10^3/uL (0.0-0.2) 08/23/18 04:43 Baso # (Auto) 0.0 X10^3/uL (0.0-0.1) 08/23/18 04:43 Absolute Nucleated RBC 0.0 /100WBC 08/23/18 04:43 Sodium 131 mmol/L (136-145) L 08/23/18 04:43 Corrected Sodium TNP 08/23/18 04:43 Potassium 4.1 mmol/L (3.5-5.1) 08/23/18 04:43 Chloride 98 mmol/L (98-107) 08/23/18 04:43 Carbon Dioxide 26.2 mmol/L (21-32) 08/23/18 04:43 BUN 7 mg/dL (7-18) 08/23/18 04:43 Creatinine 0.82 mg/dL (0.55-1.02) 08/23/18 04:43 Est GFR (MDRD) Af Amer > 60 (>60) 08/23/18 04:43 Est GFR (MDRD) Non-Af > 60 (>60) 08/23/18 04:43 Glucose 83 mg/dL (65-99) 08/23/18 04:43 Calculated Osmolality 256 mOsm/kg (285-295) L 08/22/18 04:29 Calcium 8.1 mg/dL (8.5-10.1) L 08/23/18 04:43 Corrected Calcium 9.1 mg/dL (8.5-10.1) 08/23/18 04:43 Total Bilirubin 0.30 mg/dL (0.2-1.0) 08/23/18 04:43 AST 21 Units/L (15-37) 08/23/18 04:43 ALT 18 Units/L (12-78) 08/23/18 04:43 Alkaline Phosphatase 89 Units/L (46-116) 08/23/18 04:43 Total Protein 5.4 g/dL (6.4-8.2) L 08/23/18 04:43 Albumin 2.7 g/dL (3.4-5.0) L 08/23/18 04:43 Globulin 2.7 g/dL (2.5-4.5) 08/23/18 04:43 Albumin/Globulin Ratio 1.0 Ratio (1.1-2.1) L 08/23/18 04:43 Ur Random Sodium 136 mmol/L (40-220) 08/22/18 19:45 - Plan (1) Hyponatremia Status: Acute Plan: NORMAL SALINE AT 125ML/HR, CONTINUE TO MONITOR (2) N&V (nausea and vomiting) Status: Inactive Qualifiers: Vomiting type: bilious vomiting Qualified Code(s): R11.14 - Bilious vomiting
== END 2018-08-23 13:40 | DRG 641 ==
LOC: MED/SURG 14:48
PROVIDERS: ADMIT Internal Medicine; ATTEND Internal Medicine
DX: R11.14 Bilious vomiting; R53.1 Weakness; R26.89 Other abnormalities of gait and mobility; I10 Essential (primary) hypertension; K21.9 Gastro-esophageal reflux disease without esophagitis; R19.7 Diarrhea, unspecified; E87.0 Hyperosmolality and hypernatremia; E11.65 Type 2 diabetes mellitus with hyperglycemia; F41.8 Other specified anxiety disorders
CPT/HCPCS: 36415; 74022; 80053; 84300; 85025; 94760; 97110; 97116; 97162; 97530; A4216; A4222; J2405; J7030

== ENCOUNTER 2018-12-23 19:14 | Inpatient (IN) ==
[2018-12-23 19:23] VITALS: BMI 19.6
[2018-12-23] MEDS ORDERED: CATAPRES TAB 0.2 MG PO ONE (19:41)
--- NOTE | 2018-12-23 19:42 | DR.HTN ---
HPI Time Seen Time Seen by Provider: 12/23/18 19:39 Primary Care Physician Primary Care Physician: JUAN HPI Comment HPI Comment: PATIENT IS 83 YR OLD WHITE FEMALE HERE IN THE ER FROM THE CARE HOME CONPLAINING OF 4/10 DIFFUSE THROBBING HEADACHE RADIATING TO THE NECK AND ELEVATED BLOOD PRESSURE. PATIENT HAVE HISTORY OF HYPERTENSION AND HAVE TAKEN HER MEDICATIONS. DENIES CHEST PAIN OR FEVER OR DYSURIA. SHE IS HAVING TINGLING IN BOTH HANDS AND FINGERS. DENIES NAUSEA AND VOMITING, Complaints Chief Complaint Doctors Comments: ELEVATED BP AND HEADACHE NOTED AT ALL DAY AT THE CARE HOME. Chief Complaint:: FRANCHESCA DASILVA FROM [facility] CALLED STATED THAT THEY WAS BRINGING PATIENT OVER THAT PATIENTS BLOODPRESSURE HAS BEEN HIGH ALL DAY AND THAT SHE HAS BEEN C/O A HEADACHE. PATIENT BROUGHT OVER BY WHEELCHAIR PATIENT ALERT AND TALKING PATIENT HAS CLONIDINE PATCH TO RIGHT SHOULDER. Reviewed Nurses Notes Reviewed: Yes Source History Provided: Patient and Group Home Mode of Arrival Mode of Arrival: Wheelchair Timing Onset of Chief Complaint: 12/23/18 Severity What was the maximum recorded B/P?: 237/97 Severity: Moderate Context Circumstances: Spontaneous Onset History of: Hypertension Treatment of HTN Prior to Arrival: Taking meds as prescribed and Rec. change in med regime Associated Signs and Symptoms HTN Associated Signs and Symptoms: Headache Other History Other History: HISTORY DM. PMH PMH Past Medical History: Yes Past Medical History: Anemia, Anxiety, Diabetes, GERD and Hypertension Past Surgical History: Yes Surgical History: Other Family History History of Family Medical Conditions: No Social History Alcohol Use: None Do you use any recreational Drugs:: No infectious screening Have you traveled outside the country in the last 6 months?: No Isolation: Standard ROS Review of Systems Constitutional: See HPI, Weakness and Fatigue; negative Chills and Fever Eyes: No Symptoms Reported and See HPI; negative Eye Pain, Blurred Vision, Tearing and Diplopia ENTM: negative No Symptoms Reported, See HPI, Ear Pain, Nose Discharge, Nose Congestion and Throat Pain Respiratoy: No Symptoms Reported and See HPI; negative Moist Cough, Short of Breath and Wheezing Cardiovascular: See HPI; negative Chest Pain, Edema and Palpitations Gastrointestinal/Abdominal: No Symptoms Reported and See HPI; negative Const ipation, Diarrhea, Nausea and Vomiting Genitourinary: See HPI; negative Dysuria and Hematuria Neurological: No Symptoms Reported, See HPI, Headache, Tingling and Weakness Musculoskeletal: See HPI; negative Back Pain and Muscle Pain Integumentary: No Symptoms Reported and See HPI; negative Change in Color, Rash and Juandice Hematologic/Lymphatic: No Symptoms Reported and See HPI; negative Easy Bruising and Swollen Glands Endocrine: See HPI; negative Increased Thirst, Increased Urine and Decreased Appetite Psychiatric: No Symptoms Reported and See HPI All Other Systems: Reviewed and Negative PE Vital Signs Vitals: Temperature 97.8 F Pulse Rate 56 Respiratory Rate 18 Blood Pressure [Right Arm] 158/72 Blood Pressure 172/57 O2 Sat by Pulse Oximetry 89 General Limitations: No Limitations General Appearance: Alert and In No Apparent Distress Head Head Exam: Normal Inspection and Atraumatic Eyes Eye exam: PERRL; negative Scleral Icterus and Conjunctival Injection Pupils: Regular, Round: Bilateral Sclera/Conjunctival: Normal Inspection: Bilateral ENT ENT Exam: Normal Oropharynx, Normal External Ear Exam and TM's Normal Bilaterally Neck Neck Exam: Normal Inspection and Trachea Midline; negative Tenderness and Lymphadenopathy Respiratory Respiratory Exam: Normal Lung Sounds Bilat; negative Accessory Muscle Use, Chest Wall Tenderness and Respiratory Distress Respiratory Exam: Bilateral: Rhonchi and Lower: Rhonchi Cardiovascular Cardiovascular Exam: Regular Rate, Normal Rhythm and Bradycardia Abdominal Exam Abdominal Exam: Normal Inspection, Normal Bowel Sounds, Soft and Tenderness Extremities Extremities Exam: Normal Inspection and Normal Capillary Refill; negative Tenderness, Edema and Calf Tenderness Back Back Exam: Normal Inspection Neurologic Neurological Exam: Alert, Oriented X3 and CN II-XII Intact; negative Motor Sensory Deficit Patient Oriented To: Person, Place and Time Speech: Fluid Speech Cranial Nerve Exam: EOM Function (II, III, IV, ): Normal, Facial Sensation (V): Normal, Facial Palsy (VII): Normal, Gag reflex (XI): Normal, Spinal Accessory Function (XI): Normal and Tongue Deviation: Normal Motor Strength - LUE: 5/5 Motor Strength - RUE: 5/5 Motor Strength - LLE: 5/5 Motor Strength - RLE: 5/5 Upper Motor Neuron Exam: Babinski Sign: Normal Psychiatric Psychiatric Exam: Normal Affect and Normal Mood Skin Skin Exam: Dry; negative Diaphoresis MDM Differential Diagnosis Differential Diagnosis: Hypertensive emergency Differential Diagnosis Comment: HEADACHE, CVA, SINUSITIS, IL, UTI, PNEUMONIA. COURSE Treatment Treatment: SEE ORDERS. PATIENT SIGN OUT TO DR. MCCORMACK 20:15PM. ROR Labs Reviewed Laboratory Results Reviewed?: Yes Result Diagrams: 12/24/18 03:05 12/24/18 03:05 Laboratory: WBC 7.9 X10^3/uL (3.6-10.0) 12/23/18 19:59 RBC 3.74 X10^6/uL (3.5-5.4) 12/23/18 19:59 Hgb 12.0 g/dL (12.0-16.0) 12/23/18 19:59 Hct 34.1 % (36.0-47.0) L 12/23/18 19:59 MCV 91.2 fL (80.0-100.0) 12/23/18 19:59 MCH 32.0 pg (27.0-34.0) 12/23/18 19:59 MCHC 35.1 g/dL (33.0-35.0) H 12/23/18 19:59 RDW 13.5 % (11.6-16.5) 12/23/18 19:59 Plt Count 195 X10^3/uL (150.0-450.0) 12/23/18 19:59 MPV 8.6 fL (7.4-11.0) 12/23/18 19:59 Neut % (Auto) 62.4 % (42.0-75.0) 12/23/18 19:59 Lymph % (Auto) 23.8 % (21.0-51.0) 12/23/18 19:59 [place] % (Auto) 10.0 % (0.0-13.0) 12/23/18 19:59 Eos % (Auto) 3.2 % (0.9-2.9) H 12/23/18 19:59 Baso % (Auto) 0.6 % (0.2-1.0) 12/23/18 19:59 Neut # (Auto) 4.9 x10^3/uL (2.2-4.8) H 12/23/18 19:59 Lymph # (Auto) 1.9 X10^3/uL (1.3-2.9) 12/23/18 19:59 [place] # (Auto) 0.8 x10^3/uL (0.3-0.8) 12/23/18 19:59 Eos # (Auto) 0.3 x10^3/uL (0.0-0.2) H 12/23/18 19:59 Baso # (Auto) 0.0 X10^3/uL (0.0-0.1) 12/23/18 19:59 Absolute Nucleated RBC 0.1 /100WBC 12/23/18 19:59 Sodium 128 mmol/L (136-145) L 12/23/18 19:49 Corrected Sodium 129 mmol/L (136-145) L 12/23/18 19:49 Potassium 4.0 mmol/L (3.5-5.1) 12/23/18 19:49 Chloride 92 mmol/L (98-107) L 12/23/18 19:49 Carbon Dioxide 29.9 mmol/L (21-32) 12/23/18 19:49 BUN 12 mg/dL (7-18) 12/23/18 19:49 Creatinine 0.81 mg/dL (0.55-1.02) 12/23/18 19:49 Est GFR (MDRD) Af Amer > 60 (>60) 12/23/18 19:49 Est GFR (MDRD) Non-Af > 60 (>60) 12/23/18 19:49 Glucose 134 mg/dL (65-99) H 12/23/18 19:49 Calcium 8.7 mg/dL (8.5-10.1) 12/23/18 19:49 Corrected Calcium TNP 12/23/18 19:49 Total Bilirubin 0.40 mg/dL (0.2-1.0) 12/23/18 19:49 AST 21 Units/L (15-37) 12/23/18 19:49 ALT 20 Units/L (12-78) 12/23/18 19:49 Alkaline Phosphatase 99 Units/L (46-116) 12/23/18 19:49 Creatine Kinase 130 Units/L (26-192) 12/23/18 19:59 CK-MB (CK-2) 2.9 ng/mL (0-4.0) 12/23/18 19:59 CK/CKMB % Calc 2.2 % (<4) 12/23/18 19:59 Troponin I < 0.02 ng/mL (0-1.5) 12/23/18 19:59 Total Protein 6.4 g/dL (6.4-8.2) 12/23/18 19:49 Albumin 3.4 g/dL (3.4-5.0) 12/23/18 19:49 Globulin 3.0 g/dL (2.5-4.5) 12/23/18 19:49 Albumin/Globulin Ratio 1.1 Ratio (1.1-2.1) 12/23/18 19:49 XRAY XRAY Interpreted by: Radiologist XRAY Findings: REPORT NOTED. EKG Rate: 58 [place]: Normal Rhythm: SB Block: LBBB (LFFB) Hypertrophy: LVH ST: Nonsp Opioid Opioid Risk Tool Age (Bao box if 16-45): No History of Preadolescent Sexual Abuse: No Total: 0 Total Score Risk Category: Low Risk Copyright: Glenn BOWMAN predicting aberrant behaviors Diagnosis Discharge Problem: Accelerated hypertension, Hyponatremia, Hypochloremia, Hyperglycemia, Headache, Sinus bradycardia Pulmonary edema Qualifiers: Chronicity: acute Qualified Code(s): J81.0 - Acute pulmonary edema Instructions Forms: Excuse From Work Patient Portal
--- NOTE | 2018-12-23 19:54 | CT ---
HISTORY: Headache, elevated blood pressure Study: CT brain without contrast Comparison: None Technique: Multiple axial images of the brain were obtained without administration of IV contrast. Dose reduction techniques including Automated Exposure Control (AEC) and adjustment of mA and kV were utilized. Findings: There is cerebral volume loss and nonspecific white matter hypoattenuation likely related to chronic microvascular ischemic changes. Hypodensity in the left basal ganglia suggestive a chronic lacunar infarct. There is calcified plaque in the carotid and vertebral arteries No evidence of acute hemorrhage, midline shift, mass effect or abnormal extra-axial fluid collection. The ventricular system is symmetric and nondilated. The soft tissues and osseous structures are unremarkable. The visualized paranasal sinuses are clear. IMPRESSION: 1. Mild cerebral volume loss and nonspecific white matter changes as described likely on the basis chronic microvascular disease. No acute intracranial abnormality is identified. Reported By:
--- NOTE | 2018-12-23 20:01 | RAD ---
Chest, one view Indication: Shortness of breath, elevated BP Comparison: 09/26/2018 Findings: Accounting for AP technique, the cardiac silhouette is mildly enlarged. There is pulmonary vascular congestion and mild diffuse bilateral interstitial prominence, suggestive for edema. No acute alveolar infiltrate or significant effusion is identified. No pneumothorax. Impression: Cardiomegaly and mild interstitial edema. Reported By:
[2018-12-23 20:11] LABS: BASOPHILS % (AUTO) 0.6 % (0.2-1.0); EOSINOPHILS # (AUTO) 0.3 x10^3/uL (0.0-0.2); EOSINOPHILS % (AUTO) 3.2 % (0.9-2.9); HEMATOCRIT 34.1 % (36.0-47.0); LYMPHOCYTES # (AUTO) 1.9 X10^3/uL (1.3-2.9); LYMPHOCYTES % (AUTO) 23.8 % (21.0-51.0); MEAN CORPUSCULAR HGB CONC 35.1 g/dL (33.0-35.0); MEAN CORPUSCULAR VOLUME 91.2 fL (80.0-100.0); MEAN PLATELET VOLUME 8.6 fL (7.4-11.0); MONOCYTES # (AUTO) 0.8 x10^3/uL (0.3-0.8); NEUTROPHILS # (AUTO) 4.9 x10^3/uL (2.2-4.8); NEUTROPHILS % (AUTO) 62.4 % (42.0-75.0); PLATELET COUNT 195 X10^3/uL (150.0-450.0); RED BLOOD COUNT 3.74 X10^6/uL (3.5-5.4); RED CELL DISTRIBUTION WIDTH 13.5 % (11.6-16.5); WHITE BLOOD COUNT 7.9 X10^3/uL (3.6-10.0)
[2018-12-23] MEDS ORDERED: APRESOLINE INJ 20 MG VIAL ONE (20:22)
[2018-12-23] MEDS ORDERED: APRESOLINE INJ 20 MG VIAL IVP ONE ×2 (20:23→21:02)
[2018-12-23 20:40] LABS: CKMB % 2.2 % (<4); CREATINE KINASE 130 Units/L (26-192); CREATINE KINASE MB 2.9 ng/mL (0-4.0); TROPONIN I < 0.02 ng/mL (0-1.5)
[2018-12-23 20:51] LABS: ALANINE AMINOTRANSFERASE 20 Units/L (12-78); ALBUMIN 3.4 g/dL (3.4-5.0); ALKALINE PHOSPHATASE 99 Units/L (46-116); ASPARTATE AMINO TRANSFERASE 21 Units/L (15-37); BLOOD UREA NITROGEN 12 mg/dL (7-18); CALCIUM 8.7 mg/dL (8.5-10.1); CARBON DIOXIDE 29.9 mmol/L (21-32); CHLORIDE 92 mmol/L (98-107); COR NA(FOR HYPERGLY) 129 mmol/L (136-145); CREATININE 0.81 mg/dL (0.55-1.02); SODIUM 128 mmol/L (136-145); TOTAL PROTEIN 6.4 g/dL (6.4-8.2); eGFR NON BLACK RACES > 60 (>60)
[2018-12-23] MEDS ORDERED: LASIX IVP ONE (21:05)
[2018-12-23] MEDS ORDERED: LASIX ONE (21:08)
[2018-12-23] MEDS: NS 1000 ML 1,000 ML IV SCH (21:16)
[2018-12-23] MEDS ORDERED: HumuLIN R SC PRN (21:42)
[2018-12-23] MEDS ORDERED: LOVASTATIN 40 MG PO SCH (22:00)
[2018-12-23 22:09] LABS: BILIRUBIN,URINE NEGATIVE (NEGATIVE); BLOOD/HEMOGLOBIN,URINE NEGATIVE (NEGATIVE); GLUCOSE, URINE NEGATIVE (NEGATIVE); KETONES,URINE NEGATIVE (NEGATIVE); LEUKOCYTE ESTERASE ,URINE NEGATIVE (NEGATIVE); NITRITES,URINE POSITIVE (NEGATIVE); PROTEIN,URINE NEGATIVE (NEGATIVE); UROBILINOGEN,URINE NORMAL (NORMAL)
[2018-12-23 22:10] LABS: APPEARANCE,URINE CLEAR (CLEAR); COLOR,URINE YELLOW (YELLOW)
[2018-12-23 22:12] LABS: BACTERIA,URINE 2+ /HPF (NEGATIVE); RBC,URINE 0-2 /HPF (0-3); SQUAMOUS EPITHELIAL CELL,UR NEGATIVE /HPF (NEGATIVE)
[2018-12-23] MEDS: CATAPRES-TTS-3 TD SCH (23:22)
[2018-12-23] MEDS: MAG-OX TAB PO SCH (23:26)
[2018-12-24] MEDS ORDERED: ULTRAM ONE (00:59)
[2018-12-24 03:15] LABS: BASOPHILS % (AUTO) 0.7 % (0.2-1.0); EOSINOPHILS # (AUTO) 0.3 x10^3/uL (0.0-0.2); EOSINOPHILS % (AUTO) 3.9 % (0.9-2.9); HEMATOCRIT 32.5 % (36.0-47.0); HEMOGLOBIN 11.5 g/dL (12.0-16.0); LYMPHOCYTES # (AUTO) 1.8 X10^3/uL (1.3-2.9); LYMPHOCYTES % (AUTO) 25.3 % (21.0-51.0); MEAN CORPUSCULAR HEMOGLOBIN 32.1 pg (27.0-34.0); MEAN CORPUSCULAR HGB CONC 35.3 g/dL (33.0-35.0); MEAN PLATELET VOLUME 8.6 fL (7.4-11.0); MONOCYTES # (AUTO) 0.8 x10^3/uL (0.3-0.8); MONOCYTES % (AUTO) 11.3 % (0.0-13.0); NEUTROPHILS # (AUTO) 4.1 x10^3/uL (2.2-4.8); NEUTROPHILS % (AUTO) 58.8 % (42.0-75.0); PLATELET COUNT 186 X10^3/uL (150.0-450.0); RED BLOOD COUNT 3.57 X10^6/uL (3.5-5.4); RED CELL DISTRIBUTION WIDTH 13.3 % (11.6-16.5)
[2018-12-24 03:30] LABS: ALANINE AMINOTRANSFERASE 17 Units/L (12-78); ALBUMIN 3.2 g/dL (3.4-5.0); ALKALINE PHOSPHATASE 93 Units/L (46-116); ASPARTATE AMINO TRANSFERASE 17 Units/L (15-37); BLOOD UREA NITROGEN 11 mg/dL (7-18); CALCIUM 8.5 mg/dL (8.5-10.1); CARBON DIOXIDE 29.2 mmol/L (21-32); CHLORIDE 93 mmol/L (98-107); COR CA(FOR HYPOALB) 9.1 mg/dL (8.5-10.1); CREATININE 0.71 mg/dL (0.55-1.02); SODIUM 129 mmol/L (136-145); TOTAL PROTEIN 5.9 g/dL (6.4-8.2); eGFR NON BLACK RACES > 60 (>60)
[2018-12-24 04:09] LABS: CHOL/HDL RATIO 3.3 (0.0-5.0); CHOLESTEROL 144 mg/dL (0-200); CKMB % 2.2 % (<4); CREATINE KINASE 111 Units/L (26-192); CREATINE KINASE MB 2.4 ng/mL (0-4.0); HDL CHOLESTEROL 43 mg/dL (40-60); TRIGLYCERIDES 114 mg/dL (0-150); TROPONIN I < 0.02 ng/mL (0-1.5)
[2018-12-24] MEDS ORDERED: PHARMACY CONSULT LTC MEDICATIONS XX SCH (06:00)
[2018-12-24] MEDS: ULTRAM PO PRN ×3 (07:38→21:11)
[2018-12-24 08:06] LABS: MAGNESIUM 1.7 mg/dL (1.7-2.9)
[2018-12-24] MEDS ORDERED: NEOSPORIN OINT TOP SCH (09:00)
[2018-12-24] MEDS ORDERED: AMIODARONE 100 MG PO SCH (09:00)
[2018-12-24] MEDS ORDERED: MAGNESIUM OXIDE 400 MG PO SCH (09:00)
[2018-12-24] MEDS: CORDARONE TAB 200 MG PO SCH (09:30)
[2018-12-24] MEDS: TOPROL XL PO SCH (09:31)
[2018-12-24] MEDS: COZAAR PO SCH (09:31)
[2018-12-24] MEDS: NEURONTIN CAP 300 MG PO SCH ×2 (09:31→21:11)
[2018-12-24] MEDS: MAG-OX TAB PO SCH ×2 (09:32→21:11)
[2018-12-24] MEDS: SYNTHROID 150 mcg TAB PO SCH (09:32)
[2018-12-24] MEDS: BACTROBAN TOPICAL OINT TOP SCH ×2 (09:34→21:12)
[2018-12-24] MEDS: CATAPRES-TTS-3 TD SCH (09:34)
[2018-12-24 10:03] LABS: CKMB % 2.3 % (<4); CREATINE KINASE 107 Units/L (26-192); CREATINE KINASE MB 2.5 ng/mL (0-4.0); TROPONIN I < 0.02 ng/mL (0-1.5)
[2018-12-24] MEDS ORDERED: MICRO K EXTEN CAP 10 MEQ PO PRN (11:01)
[2018-12-24] MEDS ORDERED: K-RIDER 10 MEQ/NS 100 ML 10 MEQ/100 ML BAG IV PRN (11:01)
[2018-12-24] MEDS ORDERED: POTASSIUM CHLORIDE LIQ 20 MEQ UDC PO PRN (11:01)
[2018-12-24] MEDS ORDERED: POTASSIUM CHL 40 MEQ/NS 0.45% 500 ML IV PRN (11:01)
[2018-12-24] MEDS ORDERED: KLOR-CON PO PRN (11:01)
[2018-12-24] MEDS ORDERED: POTASSIUM CHL 60 MEQ/NS 0.45% 500 ML IV PRN (11:01)
[2018-12-24] MEDS: TYLENOL 325 MG TAB PO PRN (11:25)
[2018-12-24] MEDS: K-DUR TAB 20 MEQ PO PRN (12:26)
[2018-12-24] MEDS: NS 1000 ML 1,000 ML IV SCH (12:27)
--- NOTE | 2018-12-24 12:30 | DR.H&P ---
H&P - History & Physical for Day of: H&P Date: 12/23/18 - Chief Complaint Chief Complaint: jean, elevated bp - History of Present Illness History of Present Illness: PATIENT IS 83 YR OLD WHITE FEMALE HERE IN THE ER FROM THE GROUP HOME CONPLAINING OF 4/10 DIFFUSE THROBBING HEADACHE RADIATING TO THE NECK AND ELEVATED BLOOD PRESSURE. PATIENT HAVE HISTORY OF HYPERTENSION AND HAVE TAKEN HER MEDICATIONS. DENIES CHEST PAIN OR FEVER OR DYSURIA. SHE IS HAVING TINGLING IN BOTH HANDS AND FINGERS. DENIES NAUSEA AND VOMITING. - Past Medical History Past Medical History: Hypertension, Diabetes, Anxiety, Anemia, GERD - Past Surgical History Surgical History: Appendectomy, Bowel Resection, Cholecystectomy, Thyroidectomy - Family History Family Medical History: ME, Coronary Artery Disease, Hypertension - Social History Does patient currently use any type of tobacco product: No Have you used tobacco products in the last 12 months: No Type of Tobacco Use: None Does any household member use tobacco: No Alcohol Use: None Drug Use: None - Medications Home Medications: iodine Allergy (Unknown, Verified 12/23/18 19:21) onion Allergy (Verified 12/23/18 19:21) SEAFOOD Allergy (Uncoded 12/23/18 19:21) CONTINUE taking the following medications amiodarone 100 mg PO DAILY 12/23/18 [History] aspirin [Aspir-81] 81 mg PO DAILY 12/23/18 [History] clonidine 0.3 mg TOPICAL WEEKLY 12/23/18 [History] ferrous fumarate 324 mg PO DAILY 12/23/18 [History] gabapentin 300 mg PO BID 12/23/18 [History] lovastatin 40 mg PO QHS 12/23/18 [History] magnesium oxide 400 mg PO BID 12/23/18 [History] metoprolol succinate 25 mg PO DAILY 12/23/18 [History] ondansetron HCl [Zofran] 8 mg PO Q8H PRN 12/23/18 [History] tramadol 50 mg PO Q4H PRN 12/23/18 [History] vit C,N-Rw-shhge-lutein-zeaxan [PreserVision AREDS-2] 1 tab PO BID 12/23/18 [History] - Review of Systems Constitutional: Weakness Eyes: No Symptoms Reported ENT: No Symptoms Reported Respiratory: No Symptoms Reported Cardiovascular: No Symptoms Reported Gastrointestinal: No Symptoms Reported Genitourinary: No Symptoms Reported Musculoskeletal: Neck Pain Skin: Rash (mild area of redness with patch of vesicular lesions to right side and back of neck) - Physical Exam Vital Signs: Temperature 98.1 F Pulse Rate [Left Brachial] 63 Pulse Rate 66 Respiratory Rate 18 Blood Pressure [Left Arm] 171/75 Blood Pressure [Right Arm] 158/72 Blood Pressure 221/91 O2 Sat by Pulse Oximetry 96 Oriented: Normal Eyes: Normal Ear: Normal Nose: Normal Throat: Normal Respiratory: RLL Diminished, LLL Diminished Cardiovascular: Normal. negative: Edema : Normal Auscultation: Bowel Sounds: Normal Palpation: Normal Tenderness: Normal Skin: Decreased Turgur Musculoskeletal: Normal Psychiatric: Normal Mood Description: Calm Speech Pattern: Clear, Appropriate - Assessment/Plan (1) Hyponatremia Status: Acute Plan: admit, admission labs. gentle iv hydration,electrolyte. bp control, cxr on admission. ekg's, cardiac enzymes (2) Accelerated hypertension Status: Acute (3) Headache Status: Acute (4) Degenerative disc disease Qualifiers: Spinal region: lumbar Qualified Code(s): M51.36 - Other intervertebral disc degeneration, lumbar region Status: Chronic - Allergies Allergies/Adverse Reactions: Allergies Allergy/AdvReac Type Severity Reaction Status Date / Time iodine Allergy Unknown Verified 12/23/18 19:21 onion Allergy Verified 12/23/18 19:21 SEAFOOD Allergy Uncoded 12/23/18 19:21
[2018-12-24] MEDS: ZOVIRAX TOP SCH ×2 (14:00→21:12)
[2018-12-24] MEDS: LIPITOR TAB 10 MG PO SCH (21:11)
[2018-12-25] MEDS: NS 1000 ML 1,000 ML IV SCH ×3 (01:38→17:55)
[2018-12-25] MEDS: TYLENOL 325 MG TAB PO PRN (03:37)
[2018-12-25 05:22] LABS: BASOPHILS % (AUTO) 0.5 % (0.2-1.0); EOSINOPHILS # (AUTO) 0.3 x10^3/uL (0.0-0.2); EOSINOPHILS % (AUTO) 3.7 % (0.9-2.9); HEMATOCRIT 31.2 % (36.0-47.0); HEMOGLOBIN 11.1 g/dL (12.0-16.0); LYMPHOCYTES # (AUTO) 1.9 X10^3/uL (1.3-2.9); LYMPHOCYTES % (AUTO) 25.9 % (21.0-51.0); MEAN CORPUSCULAR HEMOGLOBIN 32.3 pg (27.0-34.0); MEAN CORPUSCULAR HGB CONC 35.5 g/dL (33.0-35.0); MEAN CORPUSCULAR VOLUME 90.9 fL (80.0-100.0); MEAN PLATELET VOLUME 8.7 fL (7.4-11.0); MONOCYTES # (AUTO) 0.8 x10^3/uL (0.3-0.8); MONOCYTES % (AUTO) 10.7 % (0.0-13.0); NEUTROPHILS # (AUTO) 4.3 x10^3/uL (2.2-4.8); NEUTROPHILS % (AUTO) 59.2 % (42.0-75.0); PLATELET COUNT 184 X10^3/uL (150.0-450.0); RED BLOOD COUNT 3.43 X10^6/uL (3.5-5.4); RED CELL DISTRIBUTION WIDTH 13.4 % (11.6-16.5); WHITE BLOOD COUNT 7.3 X10^3/uL (3.6-10.0)
[2018-12-25] MEDS: ZOVIRAX TOP SCH ×3 (05:23→20:52)
[2018-12-25 05:37] LABS: ALANINE AMINOTRANSFERASE 17 Units/L (12-78); ALBUMIN 2.9 g/dL (3.4-5.0); ALKALINE PHOSPHATASE 89 Units/L (46-116); ASPARTATE AMINO TRANSFERASE 19 Units/L (15-37); BLOOD UREA NITROGEN 10 mg/dL (7-18); CALCIUM 8.3 mg/dL (8.5-10.1); CHLORIDE 96 mmol/L (98-107); COR CA(FOR HYPOALB) 9.2 mg/dL (8.5-10.1); CREATININE 0.75 mg/dL (0.55-1.02); SODIUM 129 mmol/L (136-145); TOTAL PROTEIN 5.7 g/dL (6.4-8.2); eGFR NON BLACK RACES > 60 (>60)
[2018-12-25] MEDS: ZOFRAN INJ 4 MG VIAL IVP PRN (06:19)
[2018-12-25] MEDS: CORDARONE TAB 200 MG PO SCH (08:18)
[2018-12-25] MEDS: NEURONTIN CAP 300 MG PO SCH ×2 (08:19→20:48)
[2018-12-25] MEDS: COZAAR PO SCH (08:19)
[2018-12-25] MEDS: ULTRAM PO PRN (08:20)
[2018-12-25] MEDS: TOPROL XL PO SCH (08:20)
[2018-12-25] MEDS: SYNTHROID 150 mcg TAB PO SCH (08:20)
[2018-12-25] MEDS: MAG-OX TAB PO SCH ×2 (08:20→20:48)
[2018-12-25] MEDS: CATAPRES-TTS-3 TD SCH (08:22)
[2018-12-25] MEDS: LOVENOX INJ 40 MG SYR SC SCH (08:22)
[2018-12-25] MEDS: BACTROBAN TOPICAL OINT TOP SCH (08:23)
[2018-12-25] MEDS ORDERED: ULTRAM PO PRN (10:19)
[2018-12-25] MEDS ORDERED: LASIX IVP SCH (11:00)
[2018-12-25] MEDS: NORVASC TAB 5 MG PO SCH (11:05)
[2018-12-25] MEDS: NORCO 10/325 TAB PO SCH ×2 (13:28→21:00)
[2018-12-25] MEDS ORDERED: SINEMET (PLAIN) 25/250 MG PO ONE (17:40)
[2018-12-25] MEDS: LIPITOR TAB 10 MG PO SCH (20:47)
[2018-12-26] MEDS: TYLENOL 325 MG TAB PO PRN ×2 (04:18→23:15)
[2018-12-26] MEDS: ZOVIRAX TOP SCH ×3 (05:02→21:04)
[2018-12-26] MEDS: ZOFRAN INJ 4 MG VIAL IVP PRN (05:09)
[2018-12-26] MEDS: NORCO 10/325 TAB PO SCH (05:09)
[2018-12-26 06:13] LABS: BASOPHILS % (AUTO) 0.5 % (0.2-1.0); EOSINOPHILS # (AUTO) 0.3 x10^3/uL (0.0-0.2); EOSINOPHILS % (AUTO) 3.7 % (0.9-2.9); HEMATOCRIT 35.8 % (36.0-47.0); HEMOGLOBIN 12.6 g/dL (12.0-16.0); LYMPHOCYTES # (AUTO) 2.6 X10^3/uL (1.3-2.9); LYMPHOCYTES % (AUTO) 30.1 % (21.0-51.0); MEAN CORPUSCULAR HEMOGLOBIN 32.2 pg (27.0-34.0); MEAN CORPUSCULAR HGB CONC 35.1 g/dL (33.0-35.0); MEAN CORPUSCULAR VOLUME 91.6 fL (80.0-100.0); MONOCYTES # (AUTO) 0.8 x10^3/uL (0.3-0.8); MONOCYTES % (AUTO) 9.3 % (0.0-13.0); NEUTROPHILS # (AUTO) 4.8 x10^3/uL (2.2-4.8); NEUTROPHILS % (AUTO) 56.4 % (42.0-75.0); PLATELET COUNT 198 X10^3/uL (150.0-450.0); RED BLOOD COUNT 3.91 X10^6/uL (3.5-5.4); RED CELL DISTRIBUTION WIDTH 13.5 % (11.6-16.5); WHITE BLOOD COUNT 8.5 X10^3/uL (3.6-10.0)
[2018-12-26 06:26] LABS: ALANINE AMINOTRANSFERASE 17 Units/L (12-78); ALBUMIN 3.2 g/dL (3.4-5.0); ALKALINE PHOSPHATASE 97 Units/L (46-116); ASPARTATE AMINO TRANSFERASE 20 Units/L (15-37); BLOOD UREA NITROGEN 7 mg/dL (7-18); CALCIUM 8.9 mg/dL (8.5-10.1); CARBON DIOXIDE 26.5 mmol/L (21-32); CHLORIDE 96 mmol/L (98-107); COR CA(FOR HYPOALB) 9.5 mg/dL (8.5-10.1); CREATININE 0.77 mg/dL (0.55-1.02); SODIUM 131 mmol/L (136-145); TOTAL PROTEIN 6.2 g/dL (6.4-8.2); eGFR NON BLACK RACES > 60 (>60)
--- NOTE | 2018-12-26 08:25 | RAD ---
HISTORY: CHF Study: Single-view chest, done portably Comparison: 12/23/2018. Findings: Trachea is midline. There are bilateral paratracheal surgical clips, possibly from thyroid surgery. The heart size is smaller and now upper normal in size. Pulmonary vascular congestion has lessened. Signs of CHF have abated. There is a small left pleural effusion present. No consolidation, edema or pneumothorax is seen. Osseous structures are intact. IMPRESSION: Significant interval improvement removed with reduction in cardiac size and pulmonary vascular congestion. No evidence of CHF is seen. A tiny left-sided pleural effusion is present. Reported By:
[2018-12-26] MEDS: NORVASC TAB 5 MG PO SCH (08:32)
[2018-12-26] MEDS: MAG-OX TAB PO SCH ×2 (08:32→21:06)
[2018-12-26] MEDS: COZAAR PO SCH (08:32)
[2018-12-26] MEDS: SYNTHROID 150 mcg TAB PO SCH (08:33)
[2018-12-26] MEDS: NEURONTIN CAP 300 MG PO SCH ×2 (08:33→21:04)
[2018-12-26] MEDS: TOPROL XL PO SCH (08:33)
[2018-12-26] MEDS: BACTROBAN TOPICAL OINT TOP SCH (09:18)
[2018-12-26] MEDS: CORDARONE TAB 200 MG PO SCH (09:18)
--- NOTE | 2018-12-26 10:19 | VAS ---
HISTORY: Suspected carotid artery stenosis. Prior history of TIA, coronary artery disease, NM, hypertension, atrial fibrillation and diabetes. Study: Carotid Doppler ultrasound Comparison: No priors Technique: Grayscale, color and duplex Doppler ultrasound evaluation of the cervical carotid arteries is provided. Findings: Carotid and vertebral arteries flow cephalad bilaterally. Thickened atherosclerotic plaque materials are present involving the CCA, carotid bulb, proximal ICA and proximal ECA regions bilaterally. Peak systolic arterial velocity in the right ICA is 64.1 centimeters/second with an ICA/CCA ratio 0.84. Peak systolic arterial velocity in the left ICA is 83.6 centimeters/second with ICA/CCA ratio also 0.84. Findings are compatible with less than 50% carotid stenosis bilaterally. Multiple small echo graphically normal appearing lymph nodes are present in the left neck. These range in size up to about 11 mm. IMPRESSION: Less than 50% carotid stenosis bilaterally. Normal appearing lymph nodes seen involving the left neck region. These range in size up to about 11 mm. Reported By:
[2018-12-26] MEDS: LOVENOX INJ 40 MG SYR SC SCH (10:24)
[2018-12-26] MEDS: NORCO 5/325 MG TAB PO SCH ×2 (15:09→21:05)
[2018-12-26] MEDS: ROCEPHIN VIAL 1 GRAM 1 G in NS 100 ML IV + SPIKE MINIBAG* 100 ML IV SCH (15:11)
--- NOTE | 2018-12-26 17:45 | PCM.PROG ---
Progress Note - Progress Note for Day of Date of Exam: 12/25/18 - Subjective Subjective: 83 WF ADMITTED ON 12/23 WITH HYPERTENSIVE URGENCY AND INTRACTABLE RODRIGUEZ. PT BP CONTINUES TO BE INCREASED SYSTOLIC, ADDED NORVASV 5MG PO DAILY THIS AM AND IV LASIX 4O DAILY. PT NA 129 THIS AM. PT HAS PAIN CONTROL, CO MORNING RODRIGUEZ AND CT HEAD IN ER WITHOUT ACUTE FINDINGS. CAROTID US ORDERED FOR WEDNESDAY AM AND OVERNIGHT PULSE OX R/O NOCTURNAL HYPOXIA. - Past Medical Family Social History Past Med/Fam/Surg Hx: No changes since H&P Allergies: Allergies iodine Allergy (Unknown, Verified 12/23/18 19:21) onion Allergy (Verified 12/23/18 19:21) SEAFOOD Allergy (Uncoded 12/23/18 19:21) - Review of Systems ROS: No change since H&P - Vital Signs and I&O's Vital Signs: Temperature 98.2 F Pulse Rate [Left Brachial] 62 Pulse Rate 66 Respiratory Rate 18 Blood Pressure [Left Arm] 170/70 Blood Pressure [Right Arm] 158/72 Blood Pressure 221/91 O2 Sat by Pulse Oximetry 95 Intake and Output: Intake & Output 12/24/18 12/25/18 12/26/18 12/27/18 12:59 11:59 11:59 11:59 Intake Total 1180 / 1180 480 / 480 Balance 1180 / 1180 480 / 480 - Physical Exam Oriented: Normal Eyes: Normal Ear: Normal Nose: Normal Throat: Normal Cardiovascular: Normal. negative: Edema : Normal Auscultation: Bowel Sounds: Normal Tenderness: Normal Skin: Decreased Turgur Musculoskeletal: Normal Psychiatric: Normal Mood Description: Calm Speech Pattern: Clear, Appropriate - Laboratory and Diagnostics Result Diagrams: 12/26/18 05:33 12/26/18 05:33 Labs: 12/23/18 22:01 Urine,Clean Catch Urine Culture - Final Escherichia Coli Laboratory WBC 8.5 X10^3/uL (3.6-10.0) 12/26/18 05:33 RBC 3.91 X10^6/uL (3.5-5.4) 12/26/18 05:33 Hgb 12.6 g/dL (12.0-16.0) 12/26/18 05:33 Hct 35.8 % (36.0-47.0) L 12/26/18 05:33 MCV 91.6 fL (80.0-100.0) 12/26/18 05:33 MCH 32.2 pg (27.0-34.0) 12/26/18 05:33 MCHC 35.1 g/dL (33.0-35.0) H 12/26/18 05:33 RDW 13.5 % (11.6-16.5) 12/26/18 05:33 Plt Count 198 X10^3/uL (150.0-450.0) 12/26/18 05:33 MPV 9.0 fL (7.4-11.0) 12/26/18 05:33 Neut % (Auto) 56.4 % (42.0-75.0) 12/26/18 05:33 Lymph % (Auto) 30.1 % (21.0-51.0) 12/26/18 05:33 [place] % (Auto) 9.3 % (0.0-13.0) 12/26/18 05:33 Eos % (Auto) 3.7 % (0.9-2.9) H 12/26/18 05:33 Baso % (Auto) 0.5 % (0.2-1.0) 12/26/18 05:33 Neut # (Auto) 4.8 x10^3/uL (2.2-4.8) 12/26/18 05:33 Lymph # (Auto) 2.6 X10^3/uL (1.3-2.9) 12/26/18 05:33 [place] # (Auto) 0.8 x10^3/uL (0.3-0.8) 12/26/18 05:33 Eos # (Auto) 0.3 x10^3/uL (0.0-0.2) H 12/26/18 05:33 Baso # (Auto) 0.0 X10^3/uL (0.0-0.1) 12/26/18 05:33 Absolute Nucleated RBC 0.1 /100WBC 12/26/18 05:33 Sodium 131 mmol/L (136-145) L 12/26/18 05:33 Corrected Sodium TNP 12/26/18 05:33 Potassium 4.2 mmol/L (3.5-5.1) 12/26/18 05:33 Chloride 96 mmol/L (98-107) L 12/26/18 05:33 Carbon Dioxide 26.5 mmol/L (21-32) 12/26/18 05:33 BUN 7 mg/dL (7-18) 12/26/18 05:33 Creatinine 0.77 mg/dL (0.55-1.02) 12/26/18 05:33 Est GFR (MDRD) Af Amer > 60 (>60) 12/26/18 05:33 Est GFR (MDRD) Non-Af > 60 (>60) 12/26/18 05:33 Glucose 103 mg/dL (65-99) H 12/26/18 05:33 POC Glucose (mg/dL) 93 mg/dL (65-99) 12/24/18 12:31 Calcium 8.9 mg/dL (8.5-10.1) 12/26/18 05:33 Corrected Calcium 9.5 mg/dL (8.5-10.1) 12/26/18 05:33 Magnesium 1.7 mg/dL (1.7-2.9) 12/24/18 03:05 Total Bilirubin 0.60 mg/dL (0.2-1.0) 12/26/18 05:33 AST 20 Units/L (15-37) 12/26/18 05:33 ALT 17 Units/L (12-78) 12/26/18 05:33 Alkaline Phosphatase 97 Units/L (46-116) 12/26/18 05:33 Creatine Kinase 107 Units/L (26-192) 12/24/18 09:24 CK-MB (CK-2) 2.5 ng/mL (0-4.0) 12/24/18 09:24 CK/CKMB % Calc 2.3 % (<4) 12/24/18 09:24 Troponin I < 0.02 ng/mL (0-1.5) 12/24/18 09:24 Total Protein 6.2 g/dL (6.4-8.2) L 12/26/18 05:33 Albumin 3.2 g/dL (3.4-5.0) L 12/26/18 05:33 Globulin 3.0 g/dL (2.5-4.5) 12/26/18 05:33 Albumin/Globulin Ratio 1.1 Ratio (1.1-2.1) 12/26/18 05:33 Triglycerides 114 mg/dL (0-150) 12/24/18 03:05 Cholesterol 144 mg/dL (0-200) 12/24/18 03:05 LDL Cholesterol, Calc 78 mg/dL (0-100) 12/24/18 03:05 HDL Cholesterol 43 mg/dL (40-60) 12/24/18 03:05 Cholesterol/HDL Ratio 3.3 (0.0-5.0) 12/24/18 03:05 Specimen Type Clean catch urine 12/23/18 22:01 Urine Color Yellow (YELLOW) 12/23/18 22:01 Urine Appearance Clear (CLEAR) 12/23/18 22: Urine pH 7.0 (5.0 - 8.0) 12/23/18 22:01 Ur Specific [place] 1.015 (1.000-1.030) 12/23/18 22:01 Urine Protein Negative (NEGATIVE) 12/23/18 22:01 Urine Glucose (UA) Negative (NEGATIVE) 12/23/18 22:01 Urine Ketones Negative (NEGATIVE) 12/23/18 22:01 Urine Occult Blood Negative (NEGATIVE) 12/23/18 22:01 Urine Nitrite Positive (NEGATIVE) 12/23/18 22: Urine Bilirubin Negative (NEGATIVE) 12/23/18 22:01 Urine Urobilinogen Normal (NORMAL) 12/23/18 22:01 Ur Leukocyte Esterase Negative (NEGATIVE) 12/23/18 22:01 Urine RBC 0-2 /HPF (0-3) 12/23/18 22:01 Urine WBC 0-2 /HPF (0-5) 12/23/18 22:01 Ur Squamous Epith Cells Negative /HPF (NEGATIVE) 12/23/18 22:01 Urine Bacteria 2+ /HPF (NEGATIVE) 12/23/18 22:01 Ur Culture Indicated? Yes/culture set up 12/23/18 22:01 - Plan (1) Hyponatremia Status: Acute Plan: am labs. gentle iv hydration,electrolyte. bp control, cxr on admission. ekg's, cardiac enzymes on admission. carotid us on Wednesday, overnight pulse ox (2) Accelerated hypertension Status: Acute (3) Headache Status: Acute (4) Degenerative disc disease Status: Chronic Qualifiers: Spinal region: lumbar Qualified Code(s): M51.36 - Other intervertebral disc degeneration, lumbar region
[2018-12-26] MEDS: NS 1000 ML 1,000 ML IV SCH (18:08)
[2018-12-26] MEDS ORDERED: BUTT CREAM (COMPOUND) ONE (18:20)
[2018-12-26] MEDS: BUTT CREAM (COMPOUND) TOP SCH ×2 (18:36→21:07)
--- NOTE | 2018-12-26 20:54 | PCM.PROG ---
Progress Note - Progress Note for Day of Date of Exam: 12/26/18 - Subjective Subjective: WAS ADMITTED FOR ACCELERATED HTN, HYPONATREMIA, PULMONARY EDEMA, AND HYPERGLYCEMIA. TODAY, SHE IS ALERT AND ORIENTED, LYING IN BED ON MORNING ROUNDS. SHE REPORTS DROWSINESS AND WEAKNESS. SHE CONTINUES TO BE HYPERTENSIVE. ON EXAMINATION, HEART IS REGULAR IN RATE AND RHYTHM. BILATERAL LUNGS ARE NOTED WITH DIMINISHED LUNG SOUNDS THROUGHOUT. ABDOMEN IS ROUND, SOFT, AND NON-TENDER WITH NORMAL BOWEL SOUNDS IN ALL QUADRANTS. HER VITALS THIS MORNING ARE: 98.2-64-20-93%-182/63. LABS WERE OBTAINED. ABNORMAL LAB VALUES INCLUDE THE FOLLOWING: HCT 35.8, SODIUM 131, CHLORIDE 96, GLUCOSE 103, TOTAL PROTEIN 6.2, ALBUMIN 3.2. URINE CULTURE IS PENDING. A CAROTID DOPPLER ULTRASOUND IS ORDERED FOR THIS MORNING. SHE IS CURRENTLY RECEIVING NS AT [facility], THE POTASSIUM PROTOCOL, TOPROL XL 25MG PO DAILY, LOSARTAN 100MG PO DAILY, CATAPRES 0.3MG/HR PATCH, AMLODIPINE 5MG PO DAILY, AND HER OTHER HOME MEDICATIONS WERE RESUMED. TODAY, WE WILL DECREASE HER FENTANYL PATCH TO 25MCG/HR AND DECREASE HER NORCO TO 5/325MG PO TID. OTHERWISE, WE PLAN TO FOLLOW UP WITH AM LABS AND CONTINUE TO MONITOR. - Past Medical Family Social History Past Med/Fam/Surg Hx: No changes since H&P Allergies: Allergies iodine Allergy (Unknown, Verified 12/23/18 19:21) onion Allergy (Verified 12/23/18 19:21) SEAFOOD Allergy (Uncoded 12/23/18 19:21) - Review of Systems ROS: No change since H&P - Vital Signs and I&O's Vital Signs: Temperature 98.4 F Pulse Rate [Left Brachial] 56 Pulse Rate 66 Respiratory Rate 18 Blood Pressure [Left Arm] 156/70 Blood Pressure [Right Arm] 158/72 Blood Pressure 221/91 O2 Sat by Pulse Oximetry 96 Intake and Output: Intake & Output 12/24/18 12/25/18 12/26/18 12/27/18 12:59 11:59 11:59 11:59 Intake Total 1180 / 1180 820 / 820 Balance 1180 / 1180 820 / 820 - Physical Exam Oriented: Normal Eyes: Normal Ear: Normal Nose: Normal Throat: Normal Respiratory: Generalized, Diminished Cardiovascular: Normal. negative: Edema : Normal Auscultation: Bowel Sounds: Normal Palpation: Normal Tenderness: Normal Skin: Normal Musculoskeletal: Normal Psychiatric: Normal Mood Description: Calm Speech Pattern: Clear, Appropriate - Laboratory and Diagnostics Result Diagrams: 12/26/18 05:33 12/26/18 05:33 Labs: 12/23/18 22:01 Urine,Clean Catch Urine Culture - Final Escherichia Coli Laboratory WBC 8.5 X10^3/uL (3.6-10.0) 12/26/18 05:33 RBC 3.91 X10^6/uL (3.5-5.4) 12/26/18 05:33 Hgb 12.6 g/dL (12.0-16.0) 12/26/18 05:33 Hct 35.8 % (36.0-47.0) L 12/26/18 05:33 MCV 91.6 fL (80.0-100.0) 12/26/18 05:33 MCH 32.2 pg (27.0-34.0) 12/26/18 05:33 MCHC 35.1 g/dL (33.0-35.0) H 12/26/18 05:33 RDW 13.5 % (11.6-16.5) 12/26/18 05:33 Plt Count 198 X10^3/uL (150.0-450.0) 12/26/18 05:33 MPV 9.0 fL (7.4-11.0) 12/26/18 05:33 Neut % (Auto) 56.4 % (42.0-75.0) 12/26/18 05:33 Lymph % (Auto) 30.1 % (21.0-51.0) 12/26/18 05:33 [place] % (Auto) 9.3 % (0.0-13.0) 12/26/18 05:33 Eos % (Auto) 3.7 % (0.9-2.9) H 12/26/18 05:33 Baso % (Auto) 0.5 % (0.2-1.0) 12/26/18 05:33 Neut # (Auto) 4.8 x10^3/uL (2.2-4.8) 12/26/18 05:33 Lymph # (Auto) 2.6 X10^3/uL (1.3-2.9) 12/26/18 05:33 [place] # (Auto) 0.8 x10^3/uL (0.3-0.8) 12/26/18 05:33 Eos # (Auto) 0.3 x10^3/uL (0.0-0.2) H 12/26/18 05:33 Baso # (Auto) 0.0 X10^3/uL (0.0-0.1) 12/26/18 05:33 Absolute Nucleated RBC 0.1 /100WBC 12/26/18 05:33 Sodium 131 mmol/L (136-145) L 12/26/18 05:33 Corrected Sodium TNP 12/26/18 05:33 Potassium 4.2 mmol/L (3.5-5.1) 12/26/18 05:33 Chloride 96 mmol/L (98-107) L 12/26/18 05:33 Carbon Dioxide 26.5 mmol/L (21-32) 12/26/18 05:33 BUN 7 mg/dL (7-18) 12/26/18 05:33 Creatinine 0.77 mg/dL (0.55-1.02) 12/26/18 05:33 Est GFR (MDRD) Af Amer > 60 (>60) 12/26/18 05:33 Est GFR (MDRD) Non-Af > 60 (>60) 12/26/18 05:33 Glucose 103 mg/dL (65-99) H 12/26/18 05:33 POC Glucose (mg/dL) 93 mg/dL (65-99) 12/24/18 12:31 Calcium 8.9 mg/dL (8.5-10.1) 12/26/18 05:33 Corrected Calcium 9.5 mg/dL (8.5-10.1) 12/26/18 05:33 Magnesium 1.7 mg/dL (1.7-2.9) 12/24/18 03:05 Total Bilirubin 0.60 mg/dL (0.2-1.0) 12/26/18 05:33 AST 20 Units/L (15-37) 12/26/18 05:33 ALT 17 Units/L (12-78) 12/26/18 05:33 Alkaline Phosphatase 97 Units/L (46-116) 12/26/18 05:33 Creatine Kinase 107 Units/L (26-192) 12/24/18 09:24 CK-MB (CK-2) 2.5 ng/mL (0-4.0) 12/24/18 09:24 CK/CKMB % Calc 2.3 % (<4) 12/24/18 09:24 Troponin I < 0.02 ng/mL (0-1.5) 12/24/18 09:24 Total Protein 6.2 g/dL (6.4-8.2) L 12/26/18 05:33 Albumin 3.2 g/dL (3.4-5.0) L 12/26/18 05:33 Globulin 3.0 g/dL (2.5-4.5) 12/26/18 05:33 Albumin/Globulin Ratio 1.1 Ratio (1.1-2.1) 12/26/18 05:33 Triglycerides 114 mg/dL (0-150) 12/24/18 03:05 Cholesterol 144 mg/dL (0-200) 12/24/18 03:05 LDL Cholesterol, Calc 78 mg/dL (0-100) 12/24/18 03:05 HDL Cholesterol 43 mg/dL (40-60) 12/24/18 03:05 Cholesterol/HDL Ratio 3.3 (0.0-5.0) 12/24/18 03:05 Specimen Type Clean catch urine 12/23/18 22:01 Urine Color Yellow (YELLOW) 12/23/18 22:01 Urine Appearance Clear (CLEAR) 12/23/18 22:01 Urine pH 7.0 (5.0 - 8.0) 12/23/18 22:01 Ur Specific [place] 1.015 (1.000-1.030) 12/23/18 22:01 Urine Protein Negative (NEGATIVE) 12/23/18 22: Urine Glucose (UA) Negative (NEGATIVE) 12/23/18 22: Urine Ketones Negative (NEGATIVE) 12/23/18 22: Urine Occult Blood Negative (NEGATIVE) 12/23/18 22: Urine Nitrite Positive (NEGATIVE) 12/23/18 22: Urine Bilirubin Negative (NEGATIVE) 12/23/18 22: Urine Urobilinogen Normal (NORMAL) 12/23/18 22:01 Ur Leukocyte Esterase Negative (NEGATIVE) 12/23/18 22:01 Urine RBC 0-2 /HPF (0-3) 12/23/18 22:01 Urine WBC 0-2 /HPF (0-5) 12/23/18 22:01 Ur Squamous Epith Cells Negative /HPF (NEGATIVE) 12/23/18 22:01 Urine Bacteria 2+ /HPF (NEGATIVE) 12/23/18 22:01 Ur Culture Indicated? Yes/culture set up 12/23/18 22:01
[2018-12-26] MEDS: LIPITOR TAB 10 MG PO SCH (21:05)
[2018-12-27] MEDS: ZOVIRAX TOP SCH ×3 (04:40→21:24)
[2018-12-27 04:58] LABS: BASOPHILS % (AUTO) 0.6 % (0.2-1.0); EOSINOPHILS # (AUTO) 0.2 x10^3/uL (0.0-0.2); EOSINOPHILS % (AUTO) 3.1 % (0.9-2.9); HEMATOCRIT 32.4 % (36.0-47.0); HEMOGLOBIN 11.6 g/dL (12.0-16.0); LYMPHOCYTES # (AUTO) 2.1 X10^3/uL (1.3-2.9); LYMPHOCYTES % (AUTO) 30.1 % (21.0-51.0); MEAN CORPUSCULAR HEMOGLOBIN 32.3 pg (27.0-34.0); MEAN CORPUSCULAR HGB CONC 35.9 g/dL (33.0-35.0); MEAN CORPUSCULAR VOLUME 89.9 fL (80.0-100.0); MEAN PLATELET VOLUME 8.8 fL (7.4-11.0); MONOCYTES # (AUTO) 0.7 x10^3/uL (0.3-0.8); MONOCYTES % (AUTO) 10.3 % (0.0-13.0); NEUTROPHILS # (AUTO) 3.8 x10^3/uL (2.2-4.8); NEUTROPHILS % (AUTO) 55.9 % (42.0-75.0); PLATELET COUNT 191 X10^3/uL (150.0-450.0); RED CELL DISTRIBUTION WIDTH 13.3 % (11.6-16.5); WHITE BLOOD COUNT 6.9 X10^3/uL (3.6-10.0)
[2018-12-27 05:09] LABS: ALANINE AMINOTRANSFERASE 15 Units/L (12-78); ALBUMIN 3.1 g/dL (3.4-5.0); ALKALINE PHOSPHATASE 91 Units/L (46-116); ASPARTATE AMINO TRANSFERASE 16 Units/L (15-37); BLOOD UREA NITROGEN 6 mg/dL (7-18); CALCIUM 8.5 mg/dL (8.5-10.1); CARBON DIOXIDE 28.8 mmol/L (21-32); CHLORIDE 94 mmol/L (98-107); COR CA(FOR HYPOALB) 9.2 mg/dL (8.5-10.1); CREATININE 0.74 mg/dL (0.55-1.02); SODIUM 129 mmol/L (136-145); TOTAL PROTEIN 6.1 g/dL (6.4-8.2); eGFR NON BLACK RACES > 60 (>60)
[2018-12-27] MEDS: BUTT CREAM (COMPOUND) TOP SCH ×3 (05:13→21:25)
[2018-12-27] MEDS: NORCO 5/325 MG TAB PO SCH ×3 (05:13→21:26)
[2018-12-27] MEDS: NS 1000 ML 1,000 ML IV SCH ×2 (06:04→18:26)
[2018-12-27] MEDS: K-DUR TAB 20 MEQ PO PRN (08:47)
[2018-12-27] MEDS: MAG-OX TAB PO SCH ×2 (08:47→21:25)
[2018-12-27] MEDS: NORVASC TAB 5 MG PO SCH (08:48)
[2018-12-27] MEDS: CORDARONE TAB 200 MG PO SCH (08:48)
[2018-12-27] MEDS: TOPROL XL PO SCH (08:48)
[2018-12-27] MEDS: COZAAR PO SCH (08:48)
[2018-12-27] MEDS: NEURONTIN CAP 300 MG PO SCH ×2 (08:48→21:26)
[2018-12-27] MEDS: SYNTHROID 150 mcg TAB PO SCH (08:48)
[2018-12-27] MEDS: ROCEPHIN VIAL 1 GRAM 1 G in NS 100 ML IV + SPIKE MINIBAG* 100 ML IV SCH (08:49)
[2018-12-27] MEDS: LOVENOX INJ 40 MG SYR SC SCH (08:50)
[2018-12-27] MEDS: BACTROBAN TOPICAL OINT TOP SCH (10:41)
[2018-12-27] MEDS: BENTYL CAP 10 MG PO SCH ×4 (11:44→21:25)
--- NOTE | 2018-12-27 11:57 | RAD ---
HISTORY: Abdominal pain. Prior history of TIA, coronary artery disease, [place], hypertension, atrial fibrillation and diabetes. Prior surgery of appendectomy, bowel resection and cholecystectomy. Study: KUB, done portably Comparison: 08/21/2018. Findings: There is very mild gaseous distention of colon and small bowel loops without evidence of obstruction. Lung bases are clear. No opaque stone is seen. Severe degenerative changes are present involving the mid-lower lumbar. IMPRESSION: Very mild gaseous distention of colon and small bowel loops. No evidence of obstruction is seen. Reported By:
--- NOTE | 2018-12-27 20:15 | PCM.PROG ---
Progress Note - Progress Note for Day of Date of Exam: 12/27/18 - Subjective Subjective: WAS ADMITTED FOR ACCELERATED HTN, HYPONATREMIA, PULMONARY EDEMA, AND HYPERGLYCEMIA. TODAY, SHE IS ALERT AND ORIENTED, LYING IN BED ON MORNING ROUNDS. SHE REPORTS WEAKNESS AND ABDOMINAL PAIN THIS MORNING. ON EXAMINATION, HEART IS REGULAR IN RATE AND RHYTHM. BILATERAL LUNGS ARE NOTED WITH DIMINISHED LUNG SOUNDS THROUGHOUT. ABDOMEN IS ROUND, SOFT, AND NOTED WITH MILD, DIFFUSE TENDERNESS. NORMAL BOWEL SOUNDS IN ALL QUADRANTS. HER VITALS THIS MORNING ARE: 97.6-62-20-97%-166/68. LABS WERE OBTAINED. ABNORMAL LAB VALUES INCLUDE THE FOLLOWING: HGB 11.6, HCT 32.4, SODIUM 129, CHLORIDE 94, BUN 6, GLUCOSE 107, TOTAL PROTEIN 6.1, ALBUMIN 3.1. URINE CULTURE IS PENDING. SHE IS CURRENTLY RECEIVING NS AT [facility], THE POTASSIUM PROTOCOL, TOPROL XL 25MG PO DAILY, LOSARTAN 100MG PO DAILY, CATAPRES 0.3MG/HR PATCH, AMLODIPINE 5MG PO DAILY, AND HER OTHER HOME MEDICATIONS WERE RESUMED. TODAY, WE WILL OBTAIN A KUB AND START BENTYL 10MG PO QID. OTHERWISE, WE PLAN TO FOLLOW UP WITH AM LABS AND CONTINUE TO MONITOR. - Past Medical Family Social History Past Med/Fam/Surg Hx: No changes since H&P Allergies: Allergies iodine Allergy (Unknown, Verified 12/23/18 19:21) onion Allergy (Verified 12/23/18 19:21) SEAFOOD Allergy (Uncoded 12/23/18 19:21) - Review of Systems ROS: No change since H&P - Vital Signs and I&O's Vital Signs: Temperature 98.3 F Pulse Rate [Left Brachial] 54 Pulse Rate 66 Respiratory Rate 18 Blood Pressure [Left Arm] 185/60 Blood Pressure [Right Arm] 158/72 Blood Pressure 221/91 O2 Sat by Pulse Oximetry 96 Intake and Output: Intake & Output 12/25/18 12/26/18 12/27/18 12/28/18 11:59 11:59 11:59 11:59 Intake Total 1180 / 1180 2563 / 2563 751 / 751 Balance 1180 / 1180 2563 / 2563 751 / 751 - Physical Exam Oriented: Normal Eyes: Normal Ear: Normal Nose: Normal Throat: Normal Respiratory: Generalized, Diminished Cardiovascular: Normal. negative: Edema : Normal Auscultation: Bowel Sounds: Normal Tenderness: Normal Skin: Normal Musculoskeletal: Normal Psychiatric: Normal Mood Description: Calm Speech Pattern: Clear, Appropriate - Laboratory and Diagnostics Result Diagrams: 12/27/18 04:33 12/27/18 04:33 Labs: 12/23/18 22:01 Urine,Clean Catch Urine Culture - Final Escherichia Coli Laboratory WBC 6.9 X10^3/uL (3.6-10.0) 12/27/18 04:33 RBC 3.60 X10^6/uL (3.5-5.4) 12/27/18 04:33 Hgb 11.6 g/dL (12.0-16.0) L 12/27/18 04:33 Hct 32.4 % (36.0-47.0) L 12/27/18 04:33 MCV 89.9 fL (80.0-100.0) 12/27/18 04:33 MCH 32.3 pg (27.0-34.0) 12/27/18 04:33 MCHC 35.9 g/dL (33.0-35.0) H 12/27/18 04:33 RDW 13.3 % (11.6-16.5) 12/27/18 04:33 Plt Count 191 X10^3/uL (150.0-450.0) 12/27/18 04:33 MPV 8.8 fL (7.4-11.0) 12/27/18 04:33 Neut % (Auto) 55.9 % (42.0-75.0) 12/27/18 04:33 Lymph % (Auto) 30.1 % (21.0-51.0) 12/27/18 04:33 [place] % (Auto) 10.3 % (0.0-13.0) 12/27/18 04:33 Eos % (Auto) 3.1 % (0.9-2.9) H 12/27/18 04:33 Baso % (Auto) 0.6 % (0.2-1.0) 12/27/18 04:33 Neut # (Auto) 3.8 x10^3/uL (2.2-4.8) 12/27/18 04:33 Lymph # (Auto) 2.1 X10^3/uL (1.3-2.9) 12/27/18 04:33 [place] # (Auto) 0.7 x10^3/uL (0.3-0.8) 12/27/18 04:33 Eos # (Auto) 0.2 x10^3/uL (0.0-0.2) 12/27/18 04:33 Baso # (Auto) 0.0 X10^3/uL (0.0-0.1) 12/27/18 04:33 Absolute Nucleated RBC 0.0 /100WBC 12/27/18 04:33 Sodium 129 mmol/L (136-145) L 12/27/18 04:33 Corrected Sodium TNP 12/27/18 04:33 Potassium 3.6 mmol/L (3.5-5.1) 12/27/18 04:33 Chloride 94 mmol/L (98-107) L 12/27/18 04:33 Carbon Dioxide 28.8 mmol/L (21-32) 12/27/18 04:33 BUN 6 mg/dL (7-18) L 12/27/18 04:33 Creatinine 0.74 mg/dL (0.55-1.02) 12/27/18 04:33 Est GFR (MDRD) Af Amer > 60 (>60) 12/27/18 04:33 Est GFR (MDRD) Non-Af > 60 (>60) 12/27/18 04:33 Glucose 107 mg/dL (65-99) H 12/27/18 04:33 POC Glucose (mg/dL) 93 mg/dL (65-99) 12/24/18 12:31 Calcium 8.5 mg/dL (8.5-10.1) 12/27/18 04:33 Corrected Calcium 9.2 mg/dL (8.5-10.1) 12/27/18 04:33 Magnesium 1.7 mg/dL (1.7-2.9) 12/24/18 03:05 Total Bilirubin 0.40 mg/dL (0.2-1.0) 12/27/18 04:33 AST 16 Units/L (15-37) 12/27/18 04:33 ALT 15 Units/L (12-78) 12/27/18 04:33 Alkaline Phosphatase 91 Units/L (46-116) 12/27/18 04:33 Creatine Kinase 107 Units/L (26-192) 12/24/18 09:24 CK-MB (CK-2) 2.5 ng/mL (0-4.0) 12/24/18 09:24 CK/CKMB % Calc 2.3 % (<4) 12/24/18 09:24 Troponin I < 0.02 ng/mL (0-1.5) 12/24/18 09:24 Total Protein 6.1 g/dL (6.4-8.2) L 12/27/18 04:33 Albumin 3.1 g/dL (3.4-5.0) L 12/27/18 04:33 Globulin 3.0 g/dL (2.5-4.5) 12/27/18 04:33 Albumin/Globulin Ratio 1.0 Ratio (1.1-2.1) L 12/27/18 04:33 Triglycerides 114 mg/dL (0-150) 12/24/18 03:05 Cholesterol 144 mg/dL (0-200) 12/24/18 03:05 LDL Cholesterol, Calc 78 mg/dL (0-100) 12/24/18 03:05 HDL Cholesterol 43 mg/dL (40-60) 12/24/18 03:05 Cholesterol/HDL Ratio 3.3 (0.0-5.0) 12/24/18 03:05 Specimen Type Clean catch urine 12/23/18 22:01 Urine Color Yellow (YELLOW) 12/23/18 22:01 Urine Appearance Clear (CLEAR) 12/23/18 22: Urine pH 7.0 (5.0 - 8.0) 12/23/18 22:01 Ur Specific [place] 1.015 (1.000-1.030) 12/23/18 22:01 Urine Protein Negative (NEGATIVE) 12/23/18 22:01 Urine Glucose (UA) Negative (NEGATIVE) 12/23/18 22: Urine Ketones Negative (NEGATIVE) 12/23/18 22: Urine Occult Blood Negative (NEGATIVE) 12/23/18 22: Urine Nitrite Positive (NEGATIVE) 12/23/18 22: Urine Bilirubin Negative (NEGATIVE) 12/23/18 22: Urine Urobilinogen Normal (NORMAL) 12/23/18 22:01 Ur Leukocyte Esterase Negative (NEGATIVE) 12/23/18 22:01 Urine RBC 0-2 /HPF (0-3) 12/23/18 22:01 Urine WBC 0-2 /HPF (0-5) 12/23/18 22:01 Ur Squamous Epith Cells Negative /HPF (NEGATIVE) 12/23/18 22:01 Urine Bacteria 2+ /HPF (NEGATIVE) 12/23/18 22:01 Ur Culture Indicated? Yes/culture set up 12/23/18 22:01
[2018-12-27] MEDS: LIPITOR TAB 10 MG PO SCH (21:25)
[2018-12-27] MEDS: ULTRAM PO PRN (23:19)
[2018-12-28] MEDS: ZOVIRAX TOP SCH ×3 (03:29→20:13)
[2018-12-28] MEDS: TYLENOL 325 MG TAB PO PRN (03:29)
[2018-12-28 05:27] LABS: BASOPHILS % (AUTO) 0.3 % (0.2-1.0); EOSINOPHILS # (AUTO) 0.2 x10^3/uL (0.0-0.2); EOSINOPHILS % (AUTO) 2.5 % (0.9-2.9); HEMATOCRIT 33.4 % (36.0-47.0); LYMPHOCYTES # (AUTO) 2.1 X10^3/uL (1.3-2.9); LYMPHOCYTES % (AUTO) 26.4 % (21.0-51.0); MEAN CORPUSCULAR HEMOGLOBIN 32.3 pg (27.0-34.0); MEAN CORPUSCULAR VOLUME 89.8 fL (80.0-100.0); MEAN PLATELET VOLUME 9.1 fL (7.4-11.0); MONOCYTES # (AUTO) 0.8 x10^3/uL (0.3-0.8); MONOCYTES % (AUTO) 9.9 % (0.0-13.0); NEUTROPHILS # (AUTO) 4.9 x10^3/uL (2.2-4.8); NEUTROPHILS % (AUTO) 60.9 % (42.0-75.0); PLATELET COUNT 194 X10^3/uL (150.0-450.0); RED BLOOD COUNT 3.72 X10^6/uL (3.5-5.4); RED CELL DISTRIBUTION WIDTH 13.5 % (11.6-16.5)
[2018-12-28 05:31] LABS: ALANINE AMINOTRANSFERASE 15 Units/L (12-78); ALBUMIN 3.3 g/dL (3.4-5.0); ALKALINE PHOSPHATASE 90 Units/L (46-116); ASPARTATE AMINO TRANSFERASE 17 Units/L (15-37); BLOOD UREA NITROGEN 7 mg/dL (7-18); CALCIUM 8.6 mg/dL (8.5-10.1); CHLORIDE 90 mmol/L (98-107); COR CA(FOR HYPOALB) 9.2 mg/dL (8.5-10.1); CREATININE 0.75 mg/dL (0.55-1.02); SODIUM 126 mmol/L (136-145); eGFR NON BLACK RACES > 60 (>60)
[2018-12-28 05:50] LABS: TOTAL PROTEIN 6.3 g/dL (6.4-8.2)
[2018-12-28] MEDS: NORCO 5/325 MG TAB PO SCH (05:57)
[2018-12-28] MEDS: BUTT CREAM (COMPOUND) TOP SCH ×3 (05:57→21:42)
[2018-12-28] MEDS: ZOFRAN INJ 4 MG VIAL IVP PRN (05:58)
[2018-12-28] MEDS: ROCEPHIN VIAL 1 GRAM 1 G in NS 100 ML IV + SPIKE MINIBAG* 100 ML IV SCH (08:06)
[2018-12-28] MEDS: TOPROL XL PO SCH (08:07)
[2018-12-28] MEDS: MAG-OX TAB PO SCH ×2 (08:07→20:14)
[2018-12-28] MEDS: NEURONTIN CAP 300 MG PO SCH ×2 (08:07→20:14)
[2018-12-28] MEDS: NORVASC TAB 5 MG PO SCH (08:07)
[2018-12-28] MEDS: BENTYL CAP 10 MG PO SCH ×4 (08:07→20:13)
[2018-12-28] MEDS: LOVENOX INJ 40 MG SYR SC SCH (08:08)
[2018-12-28] MEDS: COZAAR PO SCH (08:08)
[2018-12-28] MEDS: CORDARONE TAB 200 MG PO SCH (08:09)
[2018-12-28] MEDS: SYNTHROID 150 mcg TAB PO SCH (08:09)
[2018-12-28] MEDS: BACTROBAN TOPICAL OINT TOP SCH (08:11)
[2018-12-28] MEDS ORDERED: NS 100 ML IV 100 ML IV ONE (09:58)
[2018-12-28] MEDS: NORCO 7.5/325 MG TAB PO SCH ×3 (12:03→21:43)
--- NOTE | 2018-12-28 14:12 | CT ---
CT abdomen and pelvis without contrast Indication: Abdominal pain Technique: Helical images through the abdomen and pelvis without contrast. Coronal and sagittal reformats provided Comparison: 12/26/2017 CT Findings: Review of bone windows shows narrowing of the L4-L5 intervertebral disc space compared to the prior with endplate sclerosis at L2 through L5 again noted. No new aggressive cortical destruction is identified. Multilevel spinal canal and neural foramen narrowing noted. Limited images through the lower chest demonstrates small bilateral effusions, greater on the right with dependent atelectasis. Heart size enlarged. Abdomen: Within the limits of a noncontrast study, the liver, adrenal glands and spleen appear normal. Pancreas is atrophic without acute abnormality seen. Aortoiliac plaque again noted. Kidneys show no hydroureteronephrosis or stone. The stomach and small bowel are normal. There is moderate stool in the colon, with a few noninflamed left colon diverticula. The appendix is not seen. The gallbladder is not convincingly demonstrated, possibly absent. Pelvis: The urinary bladder is normal. Rectal prolapse and pelvic floor prolapse suggested. Rectum is otherwise normal. Uterus is absent. No adnexal region lesions seen. Impression: 1. No convincing acute abdominopelvic abnormality to explain the patient's pain. 2. Cardiomegaly and chronic lung changes. Small effusions. 3. 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 4. Vascular calcifications, noninflamed colonic diverticula and other findings as above 5. Pelvic floor insufficiency possible, with mild rectal prolapse possible. Correlate clinically 6. Lack of contrast limits sensitivity for solid organ abnormality Reported By:
[2018-12-28] MEDS ORDERED: MILK OF MAGNESIA PO PRN (16:25)
[2018-12-28] MEDS: ULTRAM PO PRN (16:58)
[2018-12-28] MEDS: NS 1000 ML 1,000 ML IV SCH ×2 (18:35→20:15)
--- NOTE | 2018-12-28 19:24 | PCM.PROG ---
Progress Note - Progress Note for Day of Date of Exam: 12/28/18 - Subjective Subjective: WAS ADMITTED FOR ACCELERATED HTN, HYPONATREMIA, PULMONARY EDEMA, AND HYPERGLYCEMIA. TODAY, SHE IS ALERT AND ORIENTED, LYING IN BED ON MORNING ROUNDS. SHE CONTINUES TO REPORT WEAKNESS AND ABDOMINAL PAIN THIS MORNING. ON EXAMINATION, HEART IS REGULAR IN RATE AND RHYTHM. BILATERAL LUNGS ARE NOTED WITH DIMINISHED LUNG SOUNDS THROUGHOUT. ABDOMEN IS ROUND, SOFT, AND NOTED WITH MILD, DIFFUSE TENDERNESS. NORMAL BOWEL SOUNDS IN ALL QUADRANTS. HER VITALS THIS MORNING ARE: 98.3-53-20-96%-191/82. LABS WERE OBTAINED. ABNORMAL LAB VALUES INCLUDE THE FOLLOWING: HCT 33.4, SODIUM 126, CHLORIDE 90, GLUCOSE 105, TOTAL PROTEIN 6.3, ALBUMIN 3.3. URINE CULTURE REPORTS GROWTH OF E.COLI. WE OBTAIN A KUB YESTERDAY. IT REVEALED: Very mild gaseous distention of colon and small bowel loops. No evidence of obstruction is seen. SHE IS CURRENTLY RECEIVING NS AT [facility], THE POTASSIUM PROTOCOL, TOPROL XL 25MG PO DAILY, LOSARTAN 100MG PO DAILY, CATAPRES 0.3MG/HR PATCH, AMLODIPINE 5MG PO DAILY, BENTYL, AND HER OTHER HOME MEDICATIONS WERE RESUMED. TODAY, WE WILL OBTAIN AN ABDOMEN/PELVIS CT WITHOUT CONTRAST. WE WILL INCREASE HER IV FLUIDS TO 60ML/HR. OTHERWISE, WE PLAN TO FOLLOW UP WITH AM LABS AND CONTINUE TO MONITOR. - Past Medical Family Social History Past Med/Fam/Surg Hx: No changes since H&P Allergies: Allergies iodine Allergy (Unknown, Verified 12/23/18 19:21) onion Allergy (Verified 12/23/18 19:21) SEAFOOD Allergy (Uncoded 12/23/18 19:21) - Review of Systems ROS: No change since H&P - Vital Signs and I&O's Vital Signs: Temperature 98.0 F Pulse Rate [Left Brachial] 54 Pulse Rate 66 Respiratory Rate 20 Blood Pressure [Left Arm] 160/70 Blood Pressure [Right Arm] 158/72 Blood Pressure 221/91 O2 Sat by Pulse Oximetry 96 Intake and Output: Intake & Output 12/26/18 12/27/18 12/28/18 12/29/18 11:59 11:59 11:59 11:59 Intake Total 1180 / 1180 2563 / 2563 2236 / 2236 1160 / 1160 Balance 1180 / 1180 2563 / 2563 2236 / 2236 1160 / 1160 - Physical Exam Oriented: Normal Eyes: Normal Ear: Normal Nose: Normal Throat: Normal Respiratory: Generalized, Diminished Cardiovascular: Normal. negative: Edema : Normal Auscultation: Bowel Sounds: Normal Palpation: Normal Tenderness: Normal Skin: Normal Musculoskeletal: Normal Psychiatric: Normal Mood Description: Calm Speech Pattern: Clear, Appropriate - Laboratory and Diagnostics Result Diagrams: 12/28/18 04:38 12/28/18 04:38 Labs: 12/23/18 22:01 Urine,Clean Catch Urine Culture - Final Escherichia Coli Laboratory WBC 8.0 X10^3/uL (3.6-10.0) 12/28/18 04:38 RBC 3.72 X10^6/uL (3.5-5.4) 12/28/18 04:38 Hgb 12.0 g/dL (12.0-16.0) 12/28/18 04:38 Hct 33.4 % (36.0-47.0) L 12/28/18 04:38 MCV 89.8 fL (80.0-100.0) 12/28/18 04:38 MCH 32.3 pg (27.0-34.0) 12/28/18 04:38 MCHC 36.0 g/dL (33.0-35.0) H 12/28/18 04:38 RDW 13.5 % (11.6-16.5) 12/28/18 04:38 Plt Count 194 X10^3/uL (150.0-450.0) 12/28/18 04:38 MPV 9.1 fL (7.4-11.0) 12/28/18 04:38 Neut % (Auto) 60.9 % (42.0-75.0) 12/28/18 04:38 Lymph % (Auto) 26.4 % (21.0-51.0) 12/28/18 04:38 [place] % (Auto) 9.9 % (0.0-13.0) 12/28/18 04:38 Eos % (Auto) 2.5 % (0.9-2.9) 12/28/18 04:38 Baso % (Auto) 0.3 % (0.2-1.0) 12/28/18 04:38 Neut # (Auto) 4.9 x10^3/uL (2.2-4.8) H 12/28/18 04:38 Lymph # (Auto) 2.1 X10^3/uL (1.3-2.9) 12/28/18 04:38 [place] # (Auto) 0.8 x10^3/uL (0.3-0.8) 12/28/18 04:38 Eos # (Auto) 0.2 x10^3/uL (0.0-0.2) 12/28/18 04:38 Baso # (Auto) 0.0 X10^3/uL (0.0-0.1) 12/28/18 04:38 Absolute Nucleated RBC 0.0 /100WBC 12/28/18 04:38 Sodium 126 mmol/L (136-145) L 12/28/18 04:38 Corrected Sodium TNP 12/28/18 04:38 Potassium 3.8 mmol/L (3.5-5.1) 12/28/18 04:38 Chloride 90 mmol/L (98-107) L 12/28/18 04:38 Carbon Dioxide 30.0 mmol/L (21-32) 12/28/18 04:38 BUN 7 mg/dL (7-18) 12/28/18 04:38 Creatinine 0.75 mg/dL (0.55-1.02) 12/28/18 04:38 Est GFR (MDRD) Af Amer > 60 (>60) 12/28/18 04:38 Est GFR (MDRD) Non-Af > 60 (>60) 12/28/18 04:38 Glucose 105 mg/dL (65-99) H 12/28/18 04:38 POC Glucose (mg/dL) 93 mg/dL (65-99) 12/24/18 12:31 Calcium 8.6 mg/dL (8.5-10.1) 12/28/18 04:38 Corrected Calcium 9.2 mg/dL (8.5-10.1) 12/28/18 04:38 Magnesium 1.7 mg/dL (1.7-2.9) 12/24/18 03:05 Total Bilirubin 1.00 mg/dL (0.2-1.0) 12/28/18 04:38 AST 17 Units/L (15-37) 12/28/18 04:38 ALT 15 Units/L (12-78) 12/28/18 04:38 Alkaline Phosphatase 90 Units/L (46-116) 12/28/18 04:38 Creatine Kinase 107 Units/L (26-192) 12/24/18 09:24 CK-MB (CK-2) 2.5 ng/mL (0-4.0) 12/24/18 09:24 CK/CKMB % Calc 2.3 % (<4) 12/24/18 09:24 Troponin I < 0.02 ng/mL (0-1.5) 12/24/18 09:24 Total Protein 6.3 g/dL (6.4-8.2) L 12/28/18 04:38 Albumin 3.3 g/dL (3.4-5.0) L 12/28/18 04:38 Globulin 3.0 g/dL (2.5-4.5) 12/28/18 04:38 Albumin/Globulin Ratio 1.1 Ratio (1.1-2.1) 12/28/18 04:38 Triglycerides 114 mg/dL (0-150) 12/24/18 03:05 Cholesterol 144 mg/dL (0-200) 12/24/18 03:05 LDL Cholesterol, Calc 78 mg/dL (0-100) 12/24/18 03:05 HDL Cholesterol 43 mg/dL (40-60) 12/24/18 03:05 Cholesterol/HDL Ratio 3.3 (0.0-5.0) 12/24/18 03:05 Specimen Type Clean catch urine 12/23/18 22:01 Urine Color Yellow (YELLOW) 12/23/18 22:01 Urine Appearance Clear (CLEAR) 12/23/18 22:01 Urine pH 7.0 (5.0 - 8.0) 12/23/18 22:01 Ur Specific [place] 1.015 (1.000-1.030) 12/23/18 22:01 Urine Protein Negative (NEGATIVE) 12/23/18 22:01 Urine Glucose (UA) Negative (NEGATIVE) 12/23/18 22:01 Urine Ketones Negative (NEGATIVE) 12/23/18 22:01 Urine Occult Blood Negative (NEGATIVE) 12/23/18 22:01 Urine Nitrite Positive (NEGATIVE) 12/23/18 22:01 Urine Bilirubin Negative (NEGATIVE) 12/23/18 22:01 Urine Urobilinogen Normal (NORMAL) 12/23/18 22:01 Ur Leukocyte Esterase Negative (NEGATIVE) 12/23/18 22:01 Urine RBC 0-2 /HPF (0-3) 12/23/18 22:01 Urine WBC 0-2 /HPF (0-5) 12/23/18 22:01 Ur Squamous Epith Cells Negative /HPF (NEGATIVE) 12/23/18 22:01 Urine Bacteria 2+ /HPF (NEGATIVE) 12/23/18 22:01 Ur Culture Indicated? Yes/culture set up 12/23/18 22:01 - Plan (1) Hyponatremia Status: Acute Plan: NORMAL SALINE AT 60ML/HR, CONTINUE TO MONITOR (2) Accelerated hypertension Status: Acute Plan: CONTINUE NORVASC, CONTINUE CATAPRES, CONTINUE COZAAR, CONTINUE TOPROL XL, CONTINUE TO MONITOR (3) Abdominal pain Status: Acute Qualifiers: Abdominal location: unspecified location Qualified Code(s): R10.9 - Unspecified abdominal pain Plan: OBTAIN ABDOMEN/PELVIS CT WITHOUT CONTRAST, CONTINUE TO MONITOR. (4) Degenerative disc disease Status: Chronic Qualifiers: Spinal region: lumbar Qualified Code(s): M51.36 - Other intervertebral disc degeneration, lumbar region (5) Intractable back pain Status: Chronic
[2018-12-28] MEDS: COLACE CAP 100 MG PO SCH (20:13)
[2018-12-28] MEDS: LIPITOR TAB 10 MG PO SCH (20:14)
[2018-12-29] MEDS: ZOFRAN INJ 4 MG VIAL IVP PRN
[2018-12-29] MEDS: ULTRAM PO PRN
[2018-12-29] MEDS: ZOVIRAX TOP SCH ×3 (05:01→21:20)
[2018-12-29] MEDS: BUTT CREAM (COMPOUND) TOP SCH ×3 (05:02→21:19)
[2018-12-29] MEDS: NORCO 7.5/325 MG TAB PO SCH ×3 (05:02→21:18)
[2018-12-29 06:19] LABS: BASOPHILS % (AUTO) 0.4 % (0.2-1.0); EOSINOPHILS # (AUTO) 0.1 x10^3/uL (0.0-0.2); HEMATOCRIT 32.9 % (36.0-47.0); HEMOGLOBIN 11.9 g/dL (12.0-16.0); LYMPHOCYTES # (AUTO) 1.6 X10^3/uL (1.3-2.9); MEAN CORPUSCULAR HEMOGLOBIN 32.5 pg (27.0-34.0); MEAN CORPUSCULAR HGB CONC 36.3 g/dL (33.0-35.0); MEAN CORPUSCULAR VOLUME 89.5 fL (80.0-100.0); MONOCYTES # (AUTO) 0.8 x10^3/uL (0.3-0.8); MONOCYTES % (AUTO) 11.4 % (0.0-13.0); NEUTROPHILS # (AUTO) 4.8 x10^3/uL (2.2-4.8); NEUTROPHILS % (AUTO) 65.2 % (42.0-75.0); PLATELET COUNT 203 X10^3/uL (150.0-450.0); RED BLOOD COUNT 3.67 X10^6/uL (3.5-5.4); RED CELL DISTRIBUTION WIDTH 13.5 % (11.6-16.5); WHITE BLOOD COUNT 7.4 X10^3/uL (3.6-10.0)
[2018-12-29 06:26] LABS: ALANINE AMINOTRANSFERASE 17 Units/L (12-78); ALBUMIN 3.3 g/dL (3.4-5.0); ALKALINE PHOSPHATASE 89 Units/L (46-116); ASPARTATE AMINO TRANSFERASE 20 Units/L (15-37); BLOOD UREA NITROGEN 8 mg/dL (7-18); CALCIUM 8.5 mg/dL (8.5-10.1); CARBON DIOXIDE 29.3 mmol/L (21-32); CHLORIDE 92 mmol/L (98-107); COR CA(FOR HYPOALB) 9.1 mg/dL (8.5-10.1); CREATININE 0.72 mg/dL (0.55-1.02); SODIUM 127 mmol/L (136-145); TOTAL PROTEIN 6.2 g/dL (6.4-8.2); eGFR NON BLACK RACES > 60 (>60)
[2018-12-29] MEDS: MAG-OX TAB PO SCH ×2 (08:40→21:18)
[2018-12-29] MEDS: COLACE CAP 100 MG PO SCH ×2 (08:41→21:18)
[2018-12-29] MEDS: SYNTHROID 150 mcg TAB PO SCH (08:41)
[2018-12-29] MEDS: ROCEPHIN VIAL 1 GRAM 1 G in NS 100 ML IV + SPIKE MINIBAG* 100 ML IV SCH (08:41)
[2018-12-29] MEDS: NEURONTIN CAP 300 MG PO SCH ×2 (08:41→21:18)
[2018-12-29] MEDS: COZAAR PO SCH (08:42)
[2018-12-29] MEDS: CORDARONE TAB 200 MG PO SCH (08:42)
[2018-12-29] MEDS: TOPROL XL PO SCH (08:42)
[2018-12-29] MEDS: BENTYL CAP 10 MG PO SCH ×4 (08:42→21:24)
[2018-12-29] MEDS: NORVASC TAB 5 MG PO SCH (08:42)
[2018-12-29] MEDS: LOVENOX INJ 40 MG SYR SC SCH (08:44)
[2018-12-29] MEDS: MILK OF MAGNESIA PO SCH ×4 (08:54→21:18)
[2018-12-29] MEDS: BACTROBAN TOPICAL OINT TOP SCH (10:00)
[2018-12-29] MEDS: NS 1000 ML 1,000 ML IV SCH (13:32)
[2018-12-29] MEDS: MIRALAX POWDER (1 DOSE 17 G) PO SCH (13:34)
[2018-12-29] MEDS: PEPCID 20 MG IV PREMIX* 20 MG/50 ML BAG IV SCH ×2 (13:37→21:24)
[2018-12-29] MEDS: LIPITOR TAB 10 MG PO SCH (21:19)
--- NOTE | 2018-12-29 21:31 | PCM.PROG ---
Progress Note - Progress Note for Day of Date of Exam: 12/29/18 - Subjective Subjective: WAS ADMITTED FOR ACCELERATED HTN, HYPONATREMIA, PULMONARY EDEMA, AND HYPERGLYCEMIA. TODAY, SHE IS ALERT AND ORIENTED, LYING IN BED ON MORNING ROUNDS. SHE CONTINUES TO REPORT WEAKNESS AND ABDOMINAL PAIN THIS MORNING. ON EXAMINATION, HEART IS REGULAR IN RATE AND RHYTHM. BILATERAL LUNGS ARE NOTED WITH DIMINISHED LUNG SOUNDS THROUGHOUT. ABDOMEN IS ROUND, SOFT, AND NOTED WITH MILD, DIFFUSE TENDERNESS. NORMAL BOWEL SOUNDS IN ALL QUADRANTS. HER VITALS THIS MORNING ARE: 97.6-52-18-94%-161/70. LABS WERE OBTAINED. ABNORMAL LAB VALUES INCLUDE THE FOLLOWING: HGB 11.9, HCT 32.9, SODIUM 127, CHLORIDE 92, GLUCOSE 100, TOTAL PROTEIN 6.2, ALBUMIN 3.3. URINE CULTURE REPORTS GROWTH OF E.COLI. AN ABDOMEN/PELVIS CT WAS OBTAINED YESTERDAY AND REVEALED: No convincing acute abdominopelvic abnormality to explain the patient's pain. Cardiomegaly and chronic lung changes. Small effusions. 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 Vascular calcifications, noninflamed colonic diverticula and other findings as above. Pelvic floor insufficiency possible, with mild rectal prolapse possible. Correlate clinically. SHE IS CURRENTLY RECEIVING NS AT 60ML/HR, THE POTASSIUM PROTOCOL, TOPROL XL 25MG PO DAILY, LOSARTAN 100MG PO DAILY, CATAPRES 0.3MG/HR PATCH, AM LODIPINE 5MG PO DAILY, BENTYL, COLACE, MILK OF MAG, AND HER OTHER HOME MEDICATIONS WERE RESUMED. TODAY, INCREASE HER FENTANYL PATCH BACK TO 50MCG/HR. WE WILL ALSO START MIRALAX. OTHERWISE, WE PLAN TO FOLLOW UP WITH AM LABS AND CONTINUE TO MONITOR. - Past Medical Family Social History Past Med/Fam/Surg Hx: No changes since H&P Allergies: Allergies iodine Allergy (Unknown, Verified 12/23/18 19:21) onion Allergy (Verified 12/23/18 19:21) SEAFOOD Allergy (Uncoded 12/23/18 19:21) - Review of Systems ROS: No change since H&P - Vital Signs and I&O's Vital Signs: Temperature 97.8 F Pulse Rate [Left Brachial] 57 Pulse Rate 66 Respiratory Rate 18 Blood Pressure [Left Arm] 151/70 Blood Pressure [Right Arm] 158/72 Blood Pressure 221/91 O2 Sat by Pulse Oximetry 97 Intake and Output: Intake & Output 12/27/18 12/28/18 12/29/18 12/30/18 11:59 11:59 11:59 11:59 Intake Total 2563 / 2563 2236 / 2236 2300 / 2300 1280 / 1280 Balance 2563 / 2563 2236 / 2236 2300 / 2300 1280 / 1280 - Physical Exam Oriented: Normal Eyes: Normal Ear: Normal Nose: Normal Throat: Normal Respiratory: Generalized, Diminished Cardiovascular: Normal. negative: Edema : Normal Auscultation: Bowel Sounds: Normal Tenderness: Normal Skin: Normal Musculoskeletal: Normal Psychiatric: Normal Mood Description: Calm Speech Pattern: Clear, Appropriate - Laboratory and Diagnostics Result Diagrams: 12/29/18 04:53 12/29/18 04:53 Labs: 12/23/18 22:01 Urine,Clean Catch Urine Culture - Final Escherichia Coli Laboratory WBC 7.4 X10^3/uL (3.6-10.0) 12/29/18 04:53 RBC 3.67 X10^6/uL (3.5-5.4) 12/29/18 04:53 Hgb 11.9 g/dL (12.0-16.0) L 12/29/18 04:53 Hct 32.9 % (36.0-47.0) L 12/29/18 04:53 MCV 89.5 fL (80.0-100.0) 12/29/18 04:53 MCH 32.5 pg (27.0-34.0) 12/29/18 04:53 MCHC 36.3 g/dL (33.0-35.0) H 12/29/18 04:53 RDW 13.5 % (11.6-16.5) 12/29/18 04:53 Plt Count 203 X10^3/uL (150.0-450.0) 12/29/18 04:53 MPV 9.0 fL (7.4-11.0) 12/29/18 04:53 Neut % (Auto) 65.2 % (42.0-75.0) 12/29/18 04:53 Lymph % (Auto) 21.0 % (21.0-51.0) 12/29/18 04:53 [place] % (Auto) 11.4 % (0.0-13.0) 12/29/18 04:53 Eos % (Auto) 2.0 % (0.9-2.9) 12/29/18 04:53 Baso % (Auto) 0.4 % (0.2-1.0) 12/29/18 04:53 Neut # (Auto) 4.8 x10^3/uL (2.2-4.8) 12/29/18 04:53 Lymph # (Auto) 1.6 X10^3/uL (1.3-2.9) 12/29/18 04:53 [place] # (Auto) 0.8 x10^3/uL (0.3-0.8) 12/29/18 04:53 Eos # (Auto) 0.1 x10^3/uL (0.0-0.2) 12/29/18 04:53 Baso # (Auto) 0.0 X10^3/uL (0.0-0.1) 12/29/18 04:53 Absolute Nucleated RBC 0.0 /100WBC 12/29/18 04:53 Sodium 127 mmol/L (136-145) L 12/29/18 04:53 Corrected Sodium TNP 12/29/18 04:53 Potassium 3.6 mmol/L (3.5-5.1) 12/29/18 04:53 Chloride 92 mmol/L (98-107) L 12/29/18 04:53 Carbon Dioxide 29.3 mmol/L (21-32) 12/29/18 04:53 BUN 8 mg/dL (7-18) 12/29/18 04:53 Creatinine 0.72 mg/dL (0.55-1.02) 12/29/18 04:53 Est GFR (MDRD) Af Amer > 60 (>60) 12/29/18 04:53 Est GFR (MDRD) Non-Af > 60 (>60) 12/29/18 04:53 Glucose 100 mg/dL (65-99) H 12/29/18 04:53 POC Glucose (mg/dL) 121 mg/dL (65-99) H 12/29/18 16:27 Calcium 8.5 mg/dL (8.5-10.1) 12/29/18 04:53 Corrected Calcium 9.1 mg/dL (8.5-10.1) 12/29/18 04:53 Magnesium 2.2 mg/dL (1.7-2.9) 12/29/18 04:53 Total Bilirubin 0.50 mg/dL (0.2-1.0) 12/29/18 04:53 AST 20 Units/L (15-37) 12/29/18 04:53 ALT 17 Units/L (12-78) 12/29/18 04:53 Alkaline Phosphatase 89 Units/L (46-116) 12/29/18 04:53 Creatine Kinase 107 Units/L (26-192) 12/24/18 09:24 CK-MB (CK-2) 2.5 ng/mL (0-4.0) 12/24/18 09:24 CK/CKMB % Calc 2.3 % (<4) 12/24/18 09:24 Troponin I < 0.02 ng/mL (0-1.5) 12/24/18 09:24 Total Protein 6.2 g/dL (6.4-8.2) L 12/29/18 04:53 Albumin 3.3 g/dL (3.4-5.0) L 12/29/18 04:53 Globulin 2.9 g/dL (2.5-4.5) 12/29/18 04:53 Albumin/Globulin Ratio 1.1 Ratio (1.1-2.1) 12/29/18 04:53 Triglycerides 114 mg/dL (0-150) 12/24/18 03:05 Cholesterol 144 mg/dL (0-200) 12/24/18 03:05 LDL Cholesterol, Calc 78 mg/dL (0-100) 12/24/18 03:05 HDL Cholesterol 43 mg/dL (40-60) 12/24/18 03:05 Cholesterol/HDL Ratio 3.3 (0.0-5.0) 12/24/18 03:05 Specimen Type Clean catch urine 12/23/18 22:01 Urine Color Yellow (YELLOW) 12/23/18 22:01 Urine Appearance Clear (CLEAR) 12/23/18 22:01 Urine pH 7.0 (5.0 - 8.0) 12/23/18 22:01 Ur Specific [place] 1.015 (1.000-1.030) 12/23/18 22:01 Urine Protein Negative (NEGATIVE) 12/23/18 22:01 Urine Glucose (UA) Negative (NEGATIVE) 12/23/18 22:01 Urine Ketones Negative (NEGATIVE) 12/23/18 22:01 Urine Occult Blood Negative (NEGATIVE) 12/23/18 22:01 Urine Nitrite Positive (NEGATIVE) 12/23/18 22:01 Urine Bilirubin Negative (NEGATIVE) 12/23/18 22: Urine Urobilinogen Normal (NORMAL) 12/23/18 22:01 Ur Leukocyte Esterase Negative (NEGATIVE) 12/23/18 22:01 Urine RBC 0-2 /HPF (0-3) 12/23/18 22: Urine WBC 0-2 /HPF (0-5) 12/23/18 22: Ur Squamous Epith Cells Negative /HPF (NEGATIVE) 12/23/18 22: Urine Bacteria 2+ /HPF (NEGATIVE) 12/23/18 22:01 Ur Culture Indicated? Yes/culture set up 12/23/18 22:01 - Plan (1) Hyponatremia Status: Acute Plan: NORMAL SALINE AT 60ML/HR, CONTINUE TO MONITOR (2) Accelerated hypertension Status: Acute Plan: CONTINUE NORVASC, CONTINUE CATAPRES, CONTINUE COZAAR, CONTINUE TOPROL XL, CONTINUE TO MONITOR (3) Abdominal pain Status: Acute Qualifiers: Abdominal location: unspecified location Qualified Code(s): R10.9 - Unspecified abdominal pain Plan: OBTAIN ABDOMEN/PELVIS CT WITHOUT CONTRAST, CONTINUE TO MONITOR. (4) Degenerative disc disease Status: Chronic Qualifiers: Spinal region: lumbar Qualified Code(s): M51.36 - Other intervertebral disc degeneration, lumbar region (5) Intractable back pain Status: Chronic
[2018-12-30] MEDS: ZOVIRAX TOP SCH (04:45)
[2018-12-30] MEDS: BUTT CREAM (COMPOUND) TOP SCH (05:19)
[2018-12-30] MEDS: NORCO 7.5/325 MG TAB PO SCH (05:20)
--- NOTE | 2018-12-30 06:21 | RAD ---
HISTORY: Abdominal pain Study: Acute abdominal series Comparison: CT 12/28/2018 Findings: Small effusions are present at the lung bases. Heart size is normal. Flat plate and upright evaluation of the abdomen demonstrates a normal bowel gas pattern. No gross free intraperitoneal air. No pathological soft tissue mass or calcification can be observed. The bony structures are grossly intact. IMPRESSION: 1. Small bilateral pleural effusions. 2. No evidence of acute abdominal pathology. Reported By:
[2018-12-30 06:23] LABS: BASOPHILS # (AUTO) 0.1 X10^3/uL (0.0-0.1); BASOPHILS % (AUTO) 0.9 % (0.2-1.0); EOSINOPHILS # (AUTO) 0.2 x10^3/uL (0.0-0.2); EOSINOPHILS % (AUTO) 2.4 % (0.9-2.9); HEMATOCRIT 33.2 % (36.0-47.0); HEMOGLOBIN 11.8 g/dL (12.0-16.0); LYMPHOCYTES # (AUTO) 1.8 X10^3/uL (1.3-2.9); LYMPHOCYTES % (AUTO) 25.4 % (21.0-51.0); MEAN CORPUSCULAR HEMOGLOBIN 32.1 pg (27.0-34.0); MEAN CORPUSCULAR HGB CONC 35.5 g/dL (33.0-35.0); MEAN CORPUSCULAR VOLUME 90.4 fL (80.0-100.0); MEAN PLATELET VOLUME 8.6 fL (7.4-11.0); MONOCYTES # (AUTO) 0.9 x10^3/uL (0.3-0.8); MONOCYTES % (AUTO) 11.9 % (0.0-13.0); NEUTROPHILS # (AUTO) 4.3 x10^3/uL (2.2-4.8); NEUTROPHILS % (AUTO) 59.4 % (42.0-75.0); PLATELET COUNT 199 X10^3/uL (150.0-450.0); RED BLOOD COUNT 3.67 X10^6/uL (3.5-5.4); RED CELL DISTRIBUTION WIDTH 13.6 % (11.6-16.5); WHITE BLOOD COUNT 7.3 X10^3/uL (3.6-10.0)
[2018-12-30 06:33] LABS: ALANINE AMINOTRANSFERASE 19 Units/L (12-78); ALBUMIN 3.2 g/dL (3.4-5.0); ALKALINE PHOSPHATASE 88 Units/L (46-116); ASPARTATE AMINO TRANSFERASE 19 Units/L (15-37); BLOOD UREA NITROGEN 6 mg/dL (7-18); CALCIUM 8.3 mg/dL (8.5-10.1); CARBON DIOXIDE 26.3 mmol/L (21-32); CHLORIDE 94 mmol/L (98-107); COR CA(FOR HYPOALB) 8.9 mg/dL (8.5-10.1); CREATININE 0.73 mg/dL (0.55-1.02); SODIUM 127 mmol/L (136-145); TOTAL PROTEIN 6.1 g/dL (6.4-8.2); eGFR NON BLACK RACES > 60 (>60)
[2018-12-30] MEDS: MILK OF MAGNESIA PO SCH (08:32)
[2018-12-30] MEDS: MIRALAX POWDER (1 DOSE 17 G) PO SCH (08:32)
[2018-12-30] MEDS: PEPCID 20 MG IV PREMIX* 20 MG/50 ML BAG IV SCH (08:32)
[2018-12-30] MEDS: TOPROL XL PO SCH (08:33)
[2018-12-30] MEDS: NEURONTIN CAP 300 MG PO SCH (08:33)
[2018-12-30] MEDS: NORVASC TAB 5 MG PO SCH ×3 (08:33→10:19)
[2018-12-30] MEDS: SYNTHROID 150 mcg TAB PO SCH (08:33)
[2018-12-30] MEDS: COZAAR PO SCH (08:34)
[2018-12-30] MEDS: CORDARONE TAB 200 MG PO SCH (08:34)
[2018-12-30] MEDS: MAG-OX TAB PO SCH (08:35)
[2018-12-30] MEDS: COLACE CAP 100 MG PO SCH (08:36)
[2018-12-30] MEDS: ROCEPHIN VIAL 1 GRAM 1 G in NS 100 ML IV + SPIKE MINIBAG* 100 ML IV SCH (08:36)
[2018-12-30] MEDS: BENTYL CAP 10 MG PO SCH (08:36)
[2018-12-30] MEDS: LOVENOX INJ 40 MG SYR SC SCH (08:37)
[2018-12-30] MEDS: ZOFRAN INJ 4 MG VIAL IVP PRN (08:38)
[2018-12-30] MEDS: BACTROBAN TOPICAL OINT TOP SCH (10:16)
[2018-12-30 14:55] VITALS: BP 172/75
[2019-01-01] MEDS ORDERED: CATAPRES-TTS-3 TD SCH (09:00)
== END 2018-12-30 14:10 | DRG 304 ==
LOC: ER 19:14 → MED/SURG 21:37
PROVIDERS: ADMIT Internal Medicine; ATTEND Internal Medicine
DX: R10.84 Generalized abdominal pain; R53.1 Weakness; K21.9 Gastro-esophageal reflux disease without esophagitis; R20.2 Paresthesia of skin; R26.89 Other abnormalities of gait and mobility; E87.6 Hypokalemia; F41.8 Other specified anxiety disorders; N39.0 Urinary tract infection, site not specified; I16.0 Hypertensive urgency; E11.65 Type 2 diabetes mellitus with hyperglycemia; B96.29 Other Escherichia coli [E. coli] as the cause of diseases classified elsewhere; R51 Headache; J81.0 Acute pulmonary edema; M51.36 Other intervertebral disc degeneration, lumbar region
CPT/HCPCS: 36415; 70450; 71010; 71045; 74000; 74018; 74022; 74176; 80053; 80061; 81001; 82550; 82553; 83735; 84484; 85025; 87086; 87088; 87186; 93005; 93880; 94760; 94762; 96365; 96374; 96375; 97110; 97116; 97162; 97165; 97530; 97535; 99284; A4216; A4222; S0028; J0360; J0696; J1650; J1940; J2405; J3490; J7030; J7050

== ENCOUNTER 2020-03-12 15:52 | Inpatient (IN) ==
[2020-03-12] MEDS ORDERED: NS 1000 ML 1,000 ML IV ONE (16:10)
--- NOTE | 2020-03-12 16:18 | DR.NAUSEAF ---
HPI Time Seen Time Seen by Provider: 03/12/20 16:10 HPI Comment HPI Comment: Patient presents from [place] with complaint of N/V, abdominal pain. Complaints Chief Complaint:: PT. C/O NAUSEA, VOMITING, DIARRHEA AND ABDOMINAL PAIN. ONSET OF YESTERDAY. 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 PT. DRY HEAVING AT TIME OF ARRIVAL TO THE ER. COVID-19 Coronavirus risk:travel/contact w/high risk person: No Has patient experienced Coronavirus symptoms: Yes Coronavirus symptoms experienced: Fever Source History Provided: Patient and [place] Mode of Arrival Mode of Arrival: Stretcher Timing Onset of Chief Complaint: 03/11/20 PMH PMH Past Medical History: Yes Past Medical History: Anemia, Anxiety, Diabetes, GERD and Hypertension Past Surgical History: Yes Surgical History: Appendectomy, Bowel Resection, Cholecystectomy and Thyroidecto my Family History History of Family Medical Conditions: Yes Family Medical History: [place], Coronary Artery Disease and Hypertension Social History Does patient currently use any type of tobacco product: No Have you used tobacco products in the last 12 months: No Type of Tobacco Use: None Does any household member use tobacco: No Alcohol Use: None Do you use any recreational Drugs:: No Lives Where: [place] Travel Risk Coronavirus risk:travel/contact w/high risk person: No Has patient experienced Coronavirus symptoms: Yes Coronavirus symptoms experienced: Fever Infectious screening In the last 2 months have you had wt loss of >10#?: NO Have you had fever, night sweats or hemotysis?: No Have you traveled outside the country in the last 6 months?: No Isolation: Droplet ROS Review of Systems Constitutional: See HPI Gastrointestinal/Abdominal: See HPI All Other Systems: Reviewed and Negative PE Vital Signs Vitals: Temperature 98.9 F Pulse Rate 88 Respiratory Rate 22 Blood Pressure [Right Arm] 186/66 Blood Pressure 187/56 O2 Sat by Pulse Oximetry 98 General Limitations: No Limitations General Appearance: Alert and In No Apparent Distress Head Head Exam: Normal Inspection, Atraumatic and Normocephalic Eyes Eye exam: Normal Appearance and EOMI ENT ENT Exam: Normal Exam Neck Neck Exam: Normal Inspection and Full ROM Chest Chest Inspection: Normal Inspection and Symmetric Chest Wall Rise Respiratory Respiratory Exam: Normal Lung Sounds Bilat Respiratory Exam: Bilateral: Clear to Auscultation Cardiovascular Cardiovascular Exam: Regular Rate, Normal Rhythm and Normal Heart Sounds Abdominal Exam Abdominal Exam: Normal Inspection and Tenderness (diffuse) Neurologic Neurological Exam: Alert and Oriented X3 Psychiatric Psychiatric Exam: Normal Affect and Normal Mood Skin Skin Exam: Warm, Dry and Intact COURSE Treatment Treatment: Patient continues to have nausea and dry heaving despite intervention in the ED. Consultation Consultation Comments: spoke with Dr. Garcia who accepts this patient for admission. [facility] Labs Reviewed Result Diagrams: 03/12/20 16:58 03/12/20 16:58 Laboratory: WBC 10.3 X10^3/uL (3.6-10.0) H 03/12/20 16:58 RBC 4.73 X10^6/uL (3.5-5.4) 03/12/20 16:58 Hgb 14.6 g/dL (12.0-16.0) D 03/12/20 16:58 Hct 43.1 % (36.0-47.0) 03/12/20 16:58 MCV 91.2 fL (80.0-100.0) 03/12/20 16:58 MCH 30.8 pg (27.0-34.0) 03/12/20 16:58 MCHC 33.8 g/dL (33.0-35.0) 03/12/20 16:58 RDW 13.3 % (11.6-16.5) 03/12/20 16:58 Plt Count 266 X10^3/uL (150.0-450.0) 03/12/20 16:58 Plt Count Comment Adequate (ADEQUATE) 03/12/20 16:58 MPV 8.8 fL (7.4-11.0) 03/12/20 16:58 Neut % (Auto) 90.6 % (42.0-75.0) H 03/12/20 16:58 Lymph % (Auto) 3.6 % (21.0-51.0) L 03/12/20 16:58 [place] % (Auto) 5.6 % (0.0-13.0) 03/12/20 16:58 Eos % (Auto) 0.0 % (0.9-2.9) L 03/12/20 16:58 Baso % (Auto) 0.2 % (0.2-1.0) 03/12/20 16:58 Neut # (Auto) 9.3 x10^3/uL (2.2-4.8) H 03/12/20 16:58 Lymph # (Auto) 0.4 X10^3/uL (1.3-2.9) L 03/12/20 16:58 [place] # (Auto) 0.6 x10^3/uL (0.3-0.8) 03/12/20 16:58 Eos # (Auto) 0.0 x10^3/uL (0.0-0.2) 03/12/20 16:58 Baso # (Auto) 0.0 X10^3/uL (0.0-0.1) 03/12/20 16:58 Absolute Nucleated RBC 0.0 /100WBC 03/12/20 16:58 Total Counted 100 03/12/20 16:58 Neutrophils % (Manual) 90 % (39-76) H 03/12/20 16:58 Band Neutrophils % 3 % (0-10) 03/12/20 16:58 Lymphocytes % (Manual) 4 % (13-43) L 03/12/20 16:58 Monocytes % (Manual) 3 % (4-9) L 03/12/20 16:58 Plt Morphology Comment Normal (NORMAL) 03/12/20 16:58 RBC Morphology Normal (NORMAL) 03/12/20 16:58 Sodium 138 mmol/L (136-145) 03/12/20 16:58 Corrected Sodium 139 mmol/L (136-145) 03/12/20 16:58 Potassium 3.3 mmol/L (3.5-5.1) L 03/12/20 16:58 Chloride 100 mmol/L (98-107) 03/12/20 16:58 Carbon Dioxide 26.8 mmol/L (21-32) 03/12/20 16:58 BUN 6 mg/dL (7-18) L 03/12/20 16:58 Creatinine 0.89 mg/dL (0.55-1.02) 03/12/20 16:58 Est GFR (MDRD) Af Amer > 60 (>60) 03/12/20 16:58 Est GFR (MDRD) Non-Af > 60 (>60) 03/12/20 16:58 Glucose 127 mg/dL (65-99) H 03/12/20 16:58 Calcium 9.6 mg/dL (8.5-10.1) 03/12/20 16:58 Corrected Calcium TNP 03/12/20 16:58 Total Bilirubin 0.60 mg/dL (0.2-1.0) 03/12/20 16:58 AST 20 Units/L (15-37) 03/12/20 16:58 ALT 14 Units/L (12-78) 03/12/20 16:58 Alkaline Phosphatase 78 Units/L (46-116) 03/12/20 16:58 Total Protein 7.5 g/dL (6.4-8.2) 03/12/20 16:58 Albumin 3.9 g/dL (3.4-5.0) 03/12/20 16:58 Globulin 3.6 g/dL (2.5-4.5) 03/12/20 16:58 Albumin/Globulin Ratio 1.1 Ratio (1.1-2.1) 03/12/20 16:58 Amylase 30 Units/L (25-115) 03/12/20 16:58 Lipase 66 Units/L (73-393) L 03/12/20 16:58 Influenza Type A (PCR) Negative (NEGATIVE) 03/12/20 16:27 Influenza Type B (PCR) Negative (NEGATIVE) 03/12/20 16:27 XRAY X-ray Results: [id number] 1935 Sex: F Location: ER Order Number(s): [id number] Procedure(s):ACUTE ABDOMEN SERIES Ordering Physician: Justine Monique Primary Care: Yung Garcia Service Date: 03/12/20 Service Time: 1612 HISTORY PT. C/O NAUSEA, VOMITING, DIARRHEA AND ABDOMINAL PAIN. ONSET OF YESTERDAY. 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 PT. DRY HEAVING AT TIME OF ARRIVAL TO THE ER. HTN, DIABETES, APPENDIX, BOWEL RESECTION, GB, THYROIDECTOMY STUDY ACUTE ABDOMEN SERIES COMPARISON Acute abdominal series August 21, 2018 FINDINGS The trachea is midline. The cardiac silhouette is [unremarkable]. [The lungs are clear without focal mass or consolidation. There is no effusion or pneumothorax.] [The bony thorax is unremarkable]. Flat plate and upright evaluation of the abdomen demonstrates a [normal bowel gas pattern]. There is no pneumoperitoneum. No pathological soft tissue mass or calcification can be observed. The bony structures are grossly intact. There is diffuse degenerative disc disease in the lumbar spine. IMPRESSION 1. [No acute cardiopulmonary disease.] The effusion that was present previously in July of 2018 is not seen in the lung bases on the current study. 2. [No evidence for acute abdominal pathology identified.] There is no significant interval change when compared to the abdominal films of August 21, 2018. Electronically signed by: SHERRIE SPARKS (Mar 12, 2020 16:38:10) Report Electronically signed: 03/12/20 1640 CC: Jusitne Monique MD Name: HAYDEE HERNANDEZ : 1935 Sex: F Location: ER Order Number(s): [id number] Procedure(s):BRAIN W/O CON Ordering Physician: Justine Monique Primary Care: Yung Garcia Service Date: 03/12/20 Service Time: 1830 HISTORY PT. C/O NAUSEA, VOMITING, DIARRHEA AND ABDOMINAL PAIN. ONSET OF YESTERDAY. 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 PT. DRY HEAVING AT TIME OF ARRIVAL TO THE ER. STUDY BRAIN W/O CON COMPARISON February 23, 2020 TECHNIQUE Axial non-contrast images of the head with coronal and sagittal reformats. Radiation dose: 1155.20 mGy-cm total DLP FINDINGS No abnormal areas of acute attenuation in the brain parenchyma. Dias-white differentiation remains intact. No intracranial, extra-axial, fluid collection. No hemorrhage. No mass, mass effect or midline shift. Age related brain parenchymal global atrophy. No ventriculomegaly. No acute fracture. Sinuses are well aerated. Mastoid air cells are well aerated. Globes and intraorbital contents are unremarkable. IMPRESSION No acute intracranial abnormality identified. Electronically signed by: Junaid Brand (Mar 12, 2020 19:02:52) Report Electronically signed: 03/12/20 1904 CC: Justine Monique MD Opioid Opioid Risk Tool Age (Bao box if 16-45): No History of Preadolescent Sexual Abuse: No Total: 0 Total Score Risk Category: Low Risk Copyright: Glenn BOWMAN predicting aberrant behaviors Diagnosis Discharge Problem: Intractable nausea and vomiting
[2020-03-12] MEDS ORDERED: NS 1000 ML 1,000 ML ONE ×2 (16:19→20:18)
--- NOTE | 2020-03-12 16:40 | RAD ---
HISTORYPT. C/O NAUSEA, VOMITING, DIARRHEA AND ABDOMINAL PAIN. ONSET OF YESTERDAY. 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 PT. DRY HEAVING AT TIME OF ARRIVAL TO THE ER. HTN, DIABETES, APPENDIX, BOWEL RESECTION, GB, THYROIDECTOMYSTUDYACUTE ABDOMEN SERIESCOMPARISONAcute abdominal series August 21, 2018FINDINGSThe trachea is midline. The cardiac silhouette is [unremarkable]. [The lungs are clear without focal mass or consolidation. There is no effusion or pneumothorax.] [The bony thorax is unremarkable].Flat plate and upright evaluation of the abdomen demonstrates a [normal bowel gas pattern]. There is no pneumoperitoneum. No pathological soft tissue mass or calcification can be observed. The bony structures are grossly intact. There is diffuse degenerative disc disease in the lumbar spine.IMPRESSION1. [No acute cardiopulmonary disease.] The effusion that was present previously in July of 2018 is not seen in the lung bases on the current study.2. [No evidence for acute abdominal pathology identified.] There is no significant interval change when compared to the abdominal films of August 21, 2018.Electronically signed by: SHERRIE SPARKS (Mar 12, 2020 16:38:10)
[2020-03-12] MEDS ORDERED: ZOFRAN INJ 4 MG VIAL IVP ONE (17:00)
[2020-03-12] MEDS ORDERED: ZOFRAN INJ 4 MG VIAL ONE (17:04)
[2020-03-12 17:21] LABS: ALANINE AMINOTRANSFERASE 14 Units/L (12-78); ALBUMIN 3.9 g/dL (3.4-5.0); ALKALINE PHOSPHATASE 78 Units/L (46-116); AMYLASE 30 Units/L (25-115); ASPARTATE AMINO TRANSFERASE 20 Units/L (15-37); BLOOD UREA NITROGEN 6 mg/dL (7-18); CALCIUM 9.6 mg/dL (8.5-10.1); CARBON DIOXIDE 26.8 mmol/L (21-32); CHLORIDE 100 mmol/L (98-107); COR NA(FOR HYPERGLY) 139 mmol/L (136-145); CREATININE 0.89 mg/dL (0.55-1.02); LIPASE 66 Units/L (73-393); SODIUM 138 mmol/L (136-145); TOTAL PROTEIN 7.5 g/dL (6.4-8.2); eGFR NON BLACK RACES > 60 (>60)
[2020-03-12 17:24] LABS: BASOPHILS % (AUTO) 0.2 % (0.2-1.0); HEMATOCRIT 43.1 % (36.0-47.0); HEMOGLOBIN 14.6 g/dL (12.0-16.0); LYMPHOCYTES # (AUTO) 0.4 X10^3/uL (1.3-2.9); LYMPHOCYTES % (AUTO) 3.6 % (21.0-51.0); MEAN CORPUSCULAR HEMOGLOBIN 30.8 pg (27.0-34.0); MEAN CORPUSCULAR HGB CONC 33.8 g/dL (33.0-35.0); MEAN CORPUSCULAR VOLUME 91.2 fL (80.0-100.0); MEAN PLATELET VOLUME 8.8 fL (7.4-11.0); MONOCYTES # (AUTO) 0.6 x10^3/uL (0.3-0.8); MONOCYTES % (AUTO) 5.6 % (0.0-13.0); NEUTROPHILS # (AUTO) 9.3 x10^3/uL (2.2-4.8); NEUTROPHILS % (AUTO) 90.6 % (42.0-75.0); PLATELET COUNT 266 X10^3/uL (150.0-450.0); RED BLOOD COUNT 4.73 X10^6/uL (3.5-5.4); RED CELL DISTRIBUTION WIDTH 13.3 % (11.6-16.5); WHITE BLOOD COUNT 10.3 X10^3/uL (3.6-10.0)
[2020-03-12 17:37] LABS: BAND NEUTROPHILS % 3 % (0-10); PLATELET MORPHOLOGY COMMENT NORMAL (NORMAL)
[2020-03-12] MEDS ORDERED: PHENERGAN INJ 25 MG IM ONE ×2 (18:07→18:09)
[2020-03-12] MEDS ORDERED: APRESOLINE INJ 20 MG VIAL IVP ONE (18:30)
[2020-03-12] MEDS ORDERED: APRESOLINE INJ 20 MG VIAL ONE (18:33)
--- NOTE | 2020-03-12 19:04 | CT ---
HISTORYPT. C/O NAUSEA, VOMITING, DIARRHEA AND ABDOMINAL PAIN. ONSET OF YESTERDAY. 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 PT. DRY HEAVING AT TIME OF ARRIVAL TO THE ER.STUDYBRAIN W/O CONCOMPARISONJanuary 2020TECHNIQUEAxial non-contrast images of the head with coronal and sagittal reformats.Radiation dose: 1155.20 mGy-cm total DLPFINDINGSNo abnormal areas of acute attenuation in the brain parenchyma.Dias-white differentiation remains intact.No intracranial, extra-axial, fluid collection.No hemorrhage.No mass, mass effect or midline shift.Age related brain parenchymal global atrophy.No ventriculomegaly.No acute fracture.Sinuses are well aerated.Mastoid air cells are well aerated.Globes and intraorbital contents are unremarkable.IMPRESSIONNo acute intracranial abnormality identified.Electronically signed by: Junaid Brand (Mar 12, 2020 19:02:52)
[2020-03-12] MEDS: NS 1000 ML 1,000 ML IV SCH (20:19)
[2020-03-12] MEDS: LIPITOR TAB 10 MG PO SCH (21:53)
[2020-03-12 22:37] LABS: BILIRUBIN,URINE NEGATIVE (NEGATIVE); BLOOD/HEMOGLOBIN,URINE 1+ (NEGATIVE); GLUCOSE, URINE NEGATIVE (NEGATIVE); KETONES,URINE 3+ (NEGATIVE); LEUKOCYTE ESTERASE ,URINE NEGATIVE (NEGATIVE); NITRITES,URINE NEGATIVE (NEGATIVE); PROTEIN,URINE 1+ (NEGATIVE); UROBILINOGEN,URINE NORMAL (NORMAL)
[2020-03-12 22:40] LABS: APPEARANCE,URINE CLEAR (CLEAR); BACTERIA,URINE NEGATIVE /HPF (NEGATIVE); COLOR,URINE PALE YELLOW (YELLOW); RBC,URINE NONE SEEN /HPF (0-3); SQUAMOUS EPITHELIAL CELL,UR RARE /HPF (NEGATIVE)
[2020-03-12] MEDS: PHENERGAN INJ 25 MG IM PRN (23:24)
[2020-03-13 02:05] VITALS: BMI 17.4
[2020-03-13] MEDS ORDERED: MICRO K EXTEN CAP 10 MEQ PO PRN ×2 (03:30→07:22)
[2020-03-13] MEDS ORDERED: POTASSIUM CHL 40 MEQ/NS 0.45% 500 ML IV PRN ×2 (03:30→07:22)
[2020-03-13] MEDS ORDERED: KLOR-CON PO PRN ×2 (03:30→07:22)
[2020-03-13] MEDS ORDERED: K-DUR TAB 20 MEQ PO PRN ×2 (03:30→07:22)
[2020-03-13] MEDS ORDERED: POTASSIUM CHLORIDE LIQ 20 MEQ UDC PO PRN ×2 (03:30→07:22)
[2020-03-13] MEDS: NS 1000 ML 1,000 ML IV SCH ×2 (04:19→12:32)
[2020-03-13 06:52] LABS: BASOPHILS % (AUTO) 0.2 % (0.2-1.0); HEMATOCRIT 39.5 % (36.0-47.0); HEMOGLOBIN 13.6 g/dL (12.0-16.0); LYMPHOCYTES # (AUTO) 0.4 X10^3/uL (1.3-2.9); LYMPHOCYTES % (AUTO) 3.4 % (21.0-51.0); MEAN CORPUSCULAR HGB CONC 34.4 g/dL (33.0-35.0); MONOCYTES # (AUTO) 0.9 x10^3/uL (0.3-0.8); MONOCYTES % (AUTO) 7.9 % (0.0-13.0); NEUTROPHILS # (AUTO) 9.8 x10^3/uL (2.2-4.8); NEUTROPHILS % (AUTO) 88.5 % (42.0-75.0); PLATELET COUNT 251 X10^3/uL (150.0-450.0); RED BLOOD COUNT 4.39 X10^6/uL (3.5-5.4); RED CELL DISTRIBUTION WIDTH 13.2 % (11.6-16.5); WHITE BLOOD COUNT 11.1 X10^3/uL (3.6-10.0)
[2020-03-13 07:08] LABS: ALANINE AMINOTRANSFERASE 15 Units/L (12-78); ALBUMIN 3.5 g/dL (3.4-5.0); ALKALINE PHOSPHATASE 67 Units/L (46-116); ASPARTATE AMINO TRANSFERASE 31 Units/L (15-37); BLOOD UREA NITROGEN 6 mg/dL (7-18); CALCIUM 8.9 mg/dL (8.5-10.1); CARBON DIOXIDE 23.9 mmol/L (21-32); CHLORIDE 101 mmol/L (98-107); COR NA(FOR HYPERGLY) 140 mmol/L (136-145); CREATININE 0.78 mg/dL (0.55-1.02); SODIUM 139 mmol/L (136-145); TOTAL PROTEIN 6.8 g/dL (6.4-8.2); eGFR NON BLACK RACES > 60 (>60)
[2020-03-13] MEDS ORDERED: POTASSIUM CHL 60 MEQ/NS 0.45% 500 ML IV PRN (07:22)
[2020-03-13] MEDS: PHENERGAN INJ 25 MG IM PRN ×2 (08:15→18:04)
[2020-03-13] MEDS: CORDARONE TAB 200 MG PO SCH (08:15)
[2020-03-13] MEDS: NORVASC TAB 10 MG PO SCH (08:15)
[2020-03-13] MEDS ORDERED: K-RIDER 10 MEQ/NS 100 ML 10 MEQ/100 ML BAG IV ONE (08:47)
[2020-03-13] MEDS: K-RIDER 10 MEQ/NS 100 ML 10 MEQ/100 ML BAG IV PRN ×5 (08:58→23:15)
[2020-03-13] MEDS ORDERED: AMIODARONE 100 MG PO SCH (09:00)
--- NOTE | 2020-03-13 11:49 | CT ---
HISTORYINTRACTABLE VOMITING, NAUSEASTUDYCT OF THE ABDOMEN AND PELVIS WITH IV CONTRASTCOMPARISONNov2018TECHNIQUEAxial CT was acquired from the lung bases through the pelvis WITH IV contrast; multiplaner reformats are generated from the original axial data.FINDINGSThe cardiac silhouette is mildly enlarged. Atheromatous calcifications are noted within the thoracic aorta and coronary arteries. The lung bases are predominantly clear. There is no evidence of free air below the diaphragm. Liver attenuation remains homogeneous. There is no intrinsic biliary dilatation identified. The portal vein is patent. The gallbladder is surgically absent. The spleen is average size with normal attenuation. There is generalized fatty infiltration of the pancreas with no active inflammatory changes. The adrenal glands are symmetric in size and overall morphology. The bilateral kidneys enhance normally, without evidence of hydronephrosis. Scattered atheromatous plaque is demonstrated within the abdominal aorta and iliac tributaries and also involves the origin of the bilateral renal arteries. There are no enlarged retroperitoneal, portal caval or central mesenteric axis lymph nodes.There are no pathologically distended, aggressively thickened, or acutely inflamed large or small bowel segments. A nonobstructive pattern is observed. Much of the colon is contracted at the time of the scan. There is evidence of diverticulosis of the sigmoid colon without diverticulitis.Within the pelvis, the bladder appears normal. The uterus is surgically absent. There is no free fluid or lymphadenopathy. Atheromatous calcifications are noted within the iliofemoral tributaries.Evaluation of the osseous structures reveals evidence of extensive multilevel degenerative disc space narrowing and spondylosis of the lumbar spine. This results in multilevel spinal stenosis and neural foraminal narrowing. No acute osseous abnormalities or aggressive bony lesions are identified. There is mild, symmetric bilateral hip osteoarthritic change.IMPRESSIONNo acute intra-abdominal or pelvic inflammatory processA nonobstructive bowel gas pattern is observed.Sigmoid diverticulosis without evidence of acute diverticulitis.Mild cardiomegaly and atheromatous calcifications of the coronary arteries, aorta and iliofemoral tributariesOther chronic, postsurgical, and age related degenerative findings as detailed aboveRadiation dose reduction was achieved through individualized adjustment of kVP and/or mA, through adaptive statistical iterative reconstruction, and/or through automated tube current modulation.Electronically signed by: LYUDMILA GARCÍA (Mar 13, 2020 11:49:53)
[2020-03-13] MEDS: ZOFRAN INJ 4 MG VIAL 16 MG, ATIVAN INJ 2 MG VIAL 1 MG, DECADRON INJ 10 MG in NS 50 ML I... IV PRN (12:33)
[2020-03-13] MEDS: LIPITOR TAB 10 MG PO SCH (21:06)
--- NOTE | 2020-03-13 21:45 | DR.H&P ---
H&P - History & Physical for Day of: H&P Date: 03/12/20 - Chief Complaint Chief Complaint: NAUSEA, VOMITING, ABDOMINAL PAIN, AMS - History of Present Illness History of Present Illness: IS A 84 YEAR OLD PATIENT OF OURS WHO PRESENTED TO THE ER FROM [facility] WITH COMPLAINTS OF NAUSEA, VOMITING, DIARRHEA, AND ABDOMINAL PAIN. SNF STAFF REPORTS THAT SHE HAS ALSO BEEN CONFUSED. SYMPTOMS STARTED ONE DAY PRIOR TO ARRIVAL. SHE HAS HAD SUBLINGUAL ZOFRAN AND A PHENERGAN SUPPOSITORY PRIOR TO ARRIVAL WITHOUT IMPROVEMENT IN SYMPTOMS. ABDOMINAL PAIN IS DESCRIBED CRAMPING AND IS CURRENTLY RATED A 6/10. ON ARRIVAL TO THE ER, VITALS WERE 101.2-92-22-97%RA-191/81. LABS WERE OBTAINED. ABNORMAL LAB VALUES INCLUDE THE FOLLOWING: WBC 10.3, POTASSIUM 3.3, BUN 6, GLUCOSE 127, LIPASE 66. A URINALYSIS WAS OBTAINED AND WAS UNREMARKABLE. AN AB DOMEN XRAY WAS OBTAINED AND REVEALED: 1. No acute cardiopulmonary disease. The effusion that was present previously in July of 2018 is not seen in the lung bases on the current study. 2. No evidence for acute abdominal pathology identified. There is no significant interval change when compared to the abdominal films of August 21, 2018. A BRAIN CT WAS OBTAINED AND REVEALED: No acute intracranial abnormality identified. WHILE IN THE ER, PATIENTS BLOOD PRESSURE INCREASED TO 209/90. SHE WAS GIVEN A NORMAL SALINE BOLUS, ZOFRAN 4MG IV X 1, PHENERGAN 25MG IM X 1, AND APRESOLINE 20MG IV X 1 DOSE WHILE IN THE ER. HER BLOOD PRESSURE DECREASED TO 153/70 AFTER THE APRESOLINE. SHE WAS ADMITTED TO THE HOSPTIAL FOR FURTHER EVALUATION AND TREATMENT OF INTRACTABLE NAUSEA AND VOMITING. SHE WAS STARTED ON NS AT 125ML/HR, THE POTASSIUM AND MAGNESIUM PROTOCOLS, ZOFRAN COCKTAIL Q8H PRN, PHENERGAN 12.5MG IM Q6H PRN, AMIODARONE 100MG PO DAILY, NORVASC 10MG PO DAILY, AND LIPTOR 10MG PO HS. WE WILL OBTAIN AN ABDOMEN/PELVIS CT WITH CONTRAST. OTHERWISE, WE PLAN TO FOLLOW UP WITH AM LABS AND CONTINUE TO MONITOR. TIME SPENT ON CLINICAL ASSESSMENT, REVIEWING LABS AND IMAGING, DECISION MAKING, AND DOCUMENTATION GREATER THAN 75 MINUTES. - Past Medical History Past Medical History: Hypertension, Diabetes, Anxiety, Anemia, GERD - Past Surgical History Surgical History: Appendectomy, Bowel Resection, Cholecystectomy, Thyroidectomy - Family History Family Medical History: [place], Coronary Artery Disease, Hypertension - Social History Does patient currently use any type of tobacco product: No Have you used tobacco products in the last 12 months: No Type of Tobacco Use: None Does any household member use tobacco: No Alcohol Use: None Drug Use: None - Medications Home Medications: iodine Allergy (Unknown, Verified 12/23/18 19:21) onion Allergy (Verified 12/23/18 19:21) SEAFOOD Allergy (Uncoded 12/23/18 19:21) CONTINUE taking the following medications alprazolam [Xanax] 0.25 mg PO DAILY 03/13/20 [History] - Review of Systems Constitutional: Weakness Eyes: No Symptoms Reported ENT: No Symptoms Reported Respiratory: No Symptoms Reported Cardiovascular: No Symptoms Reported Gastrointestinal: See HPI, Nausea, Vomiting, Abdominal Pain Genitourinary: No Symptoms Reported Musculoskeletal: No Symptoms Reported Skin: No Symptoms Reported Neurological: Weakness, Confusion - Physical Exam Vital Signs: Temperature 98.7 F Pulse Rate [Left Radial] 104 Pulse Rate 88 Respiratory Rate 18 Blood Pressure [Right Arm] 155/70 Blood Pressure 187/56 O2 Sat by Pulse Oximetry 96 Oriented: Normal Eyes: Normal Ear: Normal Nose: Normal Throat: Normal Respiratory: Diminished Throughout Cardiovascular: Normal : Normal Auscultation: Bowel Sounds: Increased Palpation: Normal Tenderness: Diffuse, Moderate. negative: Rebound, Guarding, Rigidity Skin: Decreased Turgur Musculoskeletal: Normal Psychiatric: Normal Mood Description: Calm Affect: Normal Speech Pattern: Clear - Assessment/Plan (1) Intractable nausea and vomiting Status: Acute Plan: ADMIT, NS AT 125ML/HR, THE POTASSIUM AND MAGNESIUM PROTOCOLS, ZOFRAN COCKTAIL Q8H PRN, PHENERGAN 12.5MG IM Q6H PRN, AMIODARONE 100MG PO DAILY, NORVASC 10MG PO DAILY, AND LIPTOR 10MG PO HS. WE WILL OBTAIN AN ABDOMEN/PELVIS CT WITH CONTRAST (2) Abdominal pain Qualifiers: Abdominal location: generalized Qualified Code(s): R10.84 - Generalized abdominal pain Status: Acute (3) Accelerated essential hypertension Status: Acute - Allergies Allergies/Adverse Reactions: Allergies Allergy/AdvReac Type Severity Reaction Status Date / Time iodine Allergy Unknown Verified 12/23/18 19:21 onion Allergy Verified 12/23/18 19:21 SEAFOOD Allergy Uncoded 12/23/18 19:21
[2020-03-14] MEDS: K-RIDER 10 MEQ/NS 100 ML 10 MEQ/100 ML BAG IV PRN (02:05)
[2020-03-14 05:57] LABS: BASOPHILS % (AUTO) 0.2 % (0.2-1.0); HEMATOCRIT 39.4 % (36.0-47.0); HEMOGLOBIN 13.4 g/dL (12.0-16.0); LYMPHOCYTES # (AUTO) 0.4 X10^3/uL (1.3-2.9); LYMPHOCYTES % (AUTO) 3.4 % (21.0-51.0); MEAN CORPUSCULAR HGB CONC 34.1 g/dL (33.0-35.0); MEAN CORPUSCULAR VOLUME 91.2 fL (80.0-100.0); MEAN PLATELET VOLUME 8.6 fL (7.4-11.0); MONOCYTES # (AUTO) 0.9 x10^3/uL (0.3-0.8); NEUTROPHILS # (AUTO) 9.6 x10^3/uL (2.2-4.8); NEUTROPHILS % (AUTO) 88.4 % (42.0-75.0); PLATELET COUNT 260 X10^3/uL (150.0-450.0); RED BLOOD COUNT 4.32 X10^6/uL (3.5-5.4); RED CELL DISTRIBUTION WIDTH 13.4 % (11.6-16.5); WHITE BLOOD COUNT 10.8 X10^3/uL (3.6-10.0)
[2020-03-14] MEDS: NS 1000 ML 1,000 ML IV SCH ×4 (06:04→20:41)
[2020-03-14 06:06] LABS: ALANINE AMINOTRANSFERASE 23 Units/L (12-78); ALBUMIN 3.4 g/dL (3.4-5.0); ALKALINE PHOSPHATASE 67 Units/L (46-116); ASPARTATE AMINO TRANSFERASE 35 Units/L (15-37); BLOOD UREA NITROGEN 12 mg/dL (7-18); CALCIUM 8.9 mg/dL (8.5-10.1); CARBON DIOXIDE 26.3 mmol/L (21-32); CHLORIDE 102 mmol/L (98-107); COR NA(FOR HYPERGLY) 139 mmol/L (136-145); CREATININE 0.84 mg/dL (0.55-1.02); SODIUM 139 mmol/L (136-145); TOTAL PROTEIN 6.8 g/dL (6.4-8.2); eGFR NON BLACK RACES > 60 (>60)
[2020-03-14] MEDS: CORDARONE TAB 200 MG PO SCH ×2 (08:31→09:46)
[2020-03-14] MEDS: NORVASC TAB 10 MG PO SCH ×2 (08:32→09:48)
[2020-03-14] MEDS ORDERED: PHARMACY CONSULT LTC MEDICATIONS XX SCH (09:00)
[2020-03-14] MEDS: PHENERGAN INJ 25 MG IM PRN (09:48)
[2020-03-14] MEDS: MAGNESIUM SULFATE 1 GRAM/100 mL PREMIX 1 GM/100 ML BAG IV PRN ×2 (09:48→12:38)
[2020-03-14] MEDS ORDERED: LOVENOX INJ 40 MG SYR SC ONE (09:57)
[2020-03-14] MEDS: BENTYL I.M. INJ 10 MG IM SCH ×4 (11:06→20:41)
[2020-03-14] MEDS: PEPCID 20 MG IV PREMIX* 20 MG/50 ML BAG IV SCH ×2 (11:07→20:42)
[2020-03-14] MEDS: PROTONIX INJ 40 MG VIAL IVP SCH ×2 (11:07→20:42)
[2020-03-14] MEDS: LOVENOX INJ 40 MG SYR SC SCH (11:08)
[2020-03-14] MEDS ORDERED: MAGNESIUM SULFATE 1 GRAM/100 mL PREMIX 1 G/100 ML BAG IV ONE (12:16)
[2020-03-14] MEDS: LIPITOR TAB 10 MG PO SCH (20:42)
--- NOTE | 2020-03-14 21:52 | PCM.PROG ---
Progress Note - Progress Note for Day of Date of Exam: 03/14/20 - Subjective Subjective: WAS ADMITTED FOR TREATMENT OF INTRACTABLE NAUSEA, VOMITING, AND ABDOMINAL PAIN. TODAY, SHE IS ALERT AND ORIENTED, LYING IN BED ON MORNING ROUNDS. SHE CONTINUES WITH COMPLAINTS OF NAUSEA, VOMITING, AND DIFFUSE ABDOMINAL PAIN TODAY. PAIN IS DESCRIBED CRAMPING. IT IS CURRENTLY RATED A 5/10. ON EXAMINATION, HEART IS REGULAR IN RATE AND RHYTHM. BILATERAL LUNGS ARE NOTED WITH DIMINISHED LUNG SOUNDS THROUGHOUT. ABDOMEN IS ROUND, SOFT, AND NOTED WITH DIFFUSE TENDERNESS TO PALPATION. HYPERACTIVE BOWEL SOUNDS ARE NOTED IN ALL QUADRANTS. HER VITALS THIS MORNING ARE: 98.0-79-16-96%-148/93. LABS WERE OBTAINED. ABNORMAL LAB VALUES INCLUDE THE FOLLOWING: WBC 10.8, GLUCOSE 115. SHE IS OTHERWISE HEMODYNAMICALLY STABLE. AN ABDOMEN/PELVIS CT WAS OBTAINED YESTERDAY AND REVEALED: No acute intra-abdominal or pelvic inflammatory process. A nonobstructive bowel gas pattern is observed. Sigmoid diverticulosis without evidence of acute diverticulitis. Mild cardiomegaly and atheromatous calcif ications of the coronary arteries, aorta and iliofemoral tributaries. SHE IS CURRENTLY RECEIVING NS AT 125ML/HR, THE POTASSIUM AND MAGNESIUM PROTOCOLS, ZOFRAN COCKTAIL Q8H PRN, PHENERGAN 12.5MG IM Q6H PRN, PEPCID 20MG IV Q12H, PROTONIX 40MG IV BID, BENTYL 10MG IM QID, AMIODARONE 100MG PO DAILY, NORVASC 10MG PO DAILY, AND LIPTOR 10MG PO HS. TODAY, WE WILL CONSULT WITH FOR POSSIBLE ENDOSCOPY. OTHERWISE, WE WILL CONTINUE WITH CURRENT PLAN OF CARE TODAY. WE PLAN TO FOLLOW UP WITH AM LABS AND CONTINUE TO MONITOR. TIME SPENT ON CLINICAL ASSESSMENT, REVIEWING LABS AND IMAGING, DECISION MAKING, AND DOCUMENTATION GREATER THAN 75 MINUTES. - Past Medical Family Social History Past Med/Fam/Surg Hx: No changes since H&P Allergies: Allergies iodine Allergy (Unknown, Verified 12/23/18 19:21) onion Allergy (Verified 12/23/18 19:) SEAFOOD Allergy (Uncoded 12/23/18 19:) - Review of Systems ROS: No change since H&P - Vital Signs and I&O's Vital Signs: Temperature 98.4 F Pulse Rate [Left Radial] 74 Pulse Rate 88 Respiratory Rate 20 Blood Pressure [Right Arm] 169/75 Blood Pressure 187/56 O2 Sat by Pulse Oximetry 96 Intake and Output: Intake & Output 03/12/20 03/13/20 03/14/20 03/15/20 11:59 11:59 11:59 11:59 Intake Total 1040 / 1040 2322 / 2322 1029 / 1029 Balance 1040 / 1040 2322 / 2322 1029 / 1029 - Physical Exam Oriented: Normal Eyes: Normal Ear: Normal Nose: Normal Throat: Normal Respiratory: Generalized, Diminished Cardiovascular: Normal : Normal Auscultation: Bowel Sounds: Increased Palpation: Normal Tenderness: Diffuse, Moderate. negative: Rebound, Guarding, Rigidity Skin: Decreased Turgur Musculoskeletal: Normal Psychiatric: Normal Mood Description: Calm Affect: Normal Speech Pattern: Clear, Appropriate - Laboratory and Diagnostics Result Diagrams: 03/14/20 05:27 03/14/20 05:27 Labs: Laboratory WBC 10.8 X10^3/uL (3.6-10.0) H 03/14/20 05:27 RBC 4.32 X10^6/uL (3.5-5.4) 03/14/20 05:27 Hgb 13.4 g/dL (12.0-16.0) 03/14/20 05:27 Hct 39.4 % (36.0-47.0) 03/14/20 05:27 MCV 91.2 fL (80.0-100.0) 03/14/20 05:27 MCH 31.0 pg (27.0-34.0) 03/14/20 05:27 MCHC 34.1 g/dL (33.0-35.0) 03/14/20 05:27 RDW 13.4 % (11.6-16.5) 03/14/20 05:27 Plt Count 260 X10^3/uL (150.0-450.0) 03/14/20 05:27 Plt Count Comment Adequate (ADEQUATE) 03/12/20 16:58 MPV 8.6 fL (7.4-11.0) 03/14/20 05:27 Neut % (Auto) 88.4 % (42.0-75.0) H 03/14/20 05:27 Lymph % (Auto) 3.4 % (21.0-51.0) L 03/14/20 05:27 [place] % (Auto) 8.0 % (0.0-13.0) 03/14/20 05:27 Eos % (Auto) 0.0 % (0.9-2.9) L 03/14/20 05:27 Baso % (Auto) 0.2 % (0.2-1.0) 03/14/20 05:27 Neut # (Auto) 9.6 x10^3/uL (2.2-4.8) H 03/14/20 05:27 Lymph # (Auto) 0.4 X10^3/uL (1.3-2.9) L 03/14/20 05:27 [place] # (Auto) 0.9 x10^3/uL (0.3-0.8) H 03/14/20 05:27 Eos # (Auto) 0.0 x10^3/uL (0.0-0.2) 03/14/20 05:27 Baso # (Auto) 0.0 X10^3/uL (0.0-0.1) 03/14/20 05:27 Absolute Nucleated RBC 0.0 /100WBC 03/14/20 05:27 Total Counted 100 03/12/20 16:58 Neutrophils % (Manual) 90 % (39-76) H 03/12/20 16:58 Band Neutrophils % 3 % (0-10) 03/12/20 16:58 Lymphocytes % (Manual) 4 % (13-43) L 03/12/20 16:58 Monocytes % (Manual) 3 % (4-9) L 03/12/20 16:58 Plt Morphology Comment Normal (NORMAL) 03/12/20 16:58 RBC Morphology Normal (NORMAL) 03/12/20 16:58 Sodium 139 mmol/L (136-145) 03/14/20 05:27 Corrected Sodium 139 mmol/L (136-145) 03/14/20 05:27 Potassium 3.9 mmol/L (3.5-5.1) 03/14/20 05:27 Chloride 102 mmol/L (98-107) 03/14/20 05:27 Carbon Dioxide 26.3 mmol/L (21-32) 03/14/20 05:27 BUN 12 mg/dL (7-18) 03/14/20 05:27 Creatinine 0.84 mg/dL (0.55-1.02) 03/14/20 05:27 Est GFR (MDRD) Af Amer > 60 (>60) 03/14/20 05:27 Est GFR (MDRD) Non-Af > 60 (>60) 03/14/20 05:27 Glucose 115 mg/dL (65-99) H 03/14/20 05:27 POC Glucose (mg/dL) 88 mg/dL (65-99) 03/14/20 20:27 Calcium 8.9 mg/dL (8.5-10.1) 03/14/20 05:27 Corrected Calcium TNP 03/14/20 05:27 Magnesium 1.7 mg/dL (1.7-2.9) 03/13/20 05:52 Total Bilirubin 0.90 mg/dL (0.2-1.0) 03/14/20 05:27 AST 35 Units/L (15-37) 03/14/20 05:27 ALT 23 Units/L (12-78) 03/14/20 05:27 Alkaline Phosphatase 67 Units/L (46-116) 03/14/20 05:27 Total Protein 6.8 g/dL (6.4-8.2) 03/14/20 05:27 Albumin 3.4 g/dL (3.4-5.0) 03/14/20 05:27 Globulin 3.4 g/dL (2.5-4.5) 03/14/20 05:27 Albumin/Globulin Ratio 1.0 Ratio (1.1-2.1) L 03/14/20 05:27 Amylase 30 Units/L (25-115) 03/12/20 16:58 Lipase 66 Units/L (73-393) L 03/12/20 16:58 Specimen Type Clean catch urine 03/12/20 21:29 Urine Color Pale yellow (YELLOW) 03/12/20 21: Urine Appearance Clear (CLEAR) 03/12/20 21:29 Urine pH 7.0 (5.0 - 8.0) 03/12/20 21:29 Ur Specific [place] 1.010 (1.000-1.030) 03/12/20 21:29 Urine Protein 1+ (NEGATIVE) 03/12/20 21:29 Urine Glucose (UA) Negative (NEGATIVE) 03/12/20 21:29 Urine Ketones 3+ (NEGATIVE) 03/12/20 21: Urine Occult Blood 1+ (NEGATIVE) 03/12/20 21: Urine Nitrite Negative (NEGATIVE) 03/12/20 21:29 Urine Bilirubin Negative (NEGATIVE) 03/12/20 21:29 Urine Urobilinogen Normal (NORMAL) 03/12/20 21:29 Ur Leukocyte Esterase Negative (NEGATIVE) 03/12/20 21:29 Urine RBC None seen /HPF (0-3) 03/12/20 21:29 Urine WBC None seen /HPF (0-5) 03/12/20 21: Ur Squamous Epith Cells Rare /HPF (NEGATIVE) 03/12/20 21: Urine Bacteria Negative /HPF (NEGATIVE) 03/12/20 21:29 Ur Culture Indicated? No/not indicated 03/12/20 21:29 Influenza Type A (PCR) Negative (NEGATIVE) 03/12/20 16:27 Influenza Type B (PCR) Negative (NEGATIVE) 03/12/20 16:27 SARS CoV-2 RNA Rapid MARLO Negative (NEGATIVE) 03/12/20 20:04 - Plan (1) Intractable nausea and vomiting Status: Acute Plan: ADMIT, NS AT 125ML/HR, THE POTASSIUM AND MAGNESIUM PROTOCOLS, ZOFRAN COCKTAIL Q8H PRN, PHENERGAN 12.5MG IM Q6H PRN, PEPCID IV, PROTONIX IV, BENTYL IM, AMIODARONE 100MG PO DAILY, NORVASC 10MG PO DAILY, AND LIPTOR 10MG PO HS. CONSULT DR. NATARAJAN FOR ENDOSCOPY. (2) Abdominal pain Status: Acute Qualifiers: Abdominal location: generalized Qualified Code(s): R10.84 - Generalized abdominal pain (3) Accelerated essential hypertension Status: Acute
[2020-03-14] MEDS: ZOFRAN INJ 4 MG VIAL 16 MG, ATIVAN INJ 2 MG VIAL 1 MG, DECADRON INJ 10 MG in NS 50 ML I... IV PRN (22:06)
[2020-03-15] MEDS: NS 1000 ML 1,000 ML IV SCH ×3 (04:20→20:45)
[2020-03-15 06:50] LABS: BASOPHILS % (AUTO) 0.1 % (0.2-1.0); HEMOGLOBIN 14.1 g/dL (12.0-16.0); LYMPHOCYTES # (AUTO) 0.3 X10^3/uL (1.3-2.9); LYMPHOCYTES % (AUTO) 3.4 % (21.0-51.0); MEAN CORPUSCULAR HEMOGLOBIN 30.9 pg (27.0-34.0); MEAN CORPUSCULAR HGB CONC 34.4 g/dL (33.0-35.0); MEAN CORPUSCULAR VOLUME 89.9 fL (80.0-100.0); MEAN PLATELET VOLUME 9.2 fL (7.4-11.0); MONOCYTES # (AUTO) 0.1 x10^3/uL (0.3-0.8); MONOCYTES % (AUTO) 1.1 % (0.0-13.0); NEUTROPHILS # (AUTO) 9.2 x10^3/uL (2.2-4.8); NEUTROPHILS % (AUTO) 95.4 % (42.0-75.0); PLATELET COUNT 280 X10^3/uL (150.0-450.0); RED BLOOD COUNT 4.56 X10^6/uL (3.5-5.4); RED CELL DISTRIBUTION WIDTH 13.1 % (11.6-16.5); WHITE BLOOD COUNT 9.6 X10^3/uL (3.6-10.0)
[2020-03-15 07:00] LABS: ALANINE AMINOTRANSFERASE 36 Units/L (12-78); ALBUMIN 3.5 g/dL (3.4-5.0); ALKALINE PHOSPHATASE 69 Units/L (46-116); ASPARTATE AMINO TRANSFERASE 44 Units/L (15-37); BLOOD UREA NITROGEN 12 mg/dL (7-18); CALCIUM 8.7 mg/dL (8.5-10.1); CARBON DIOXIDE 23.6 mmol/L (21-32); CHLORIDE 101 mmol/L (98-107); COR NA(FOR HYPERGLY) 139 mmol/L (136-145); CREATININE 0.76 mg/dL (0.55-1.02); MAGNESIUM 2.2 mg/dL (1.7-2.9); SODIUM 138 mmol/L (136-145); TOTAL PROTEIN 6.9 g/dL (6.4-8.2); eGFR NON BLACK RACES > 60 (>60)
[2020-03-15 07:50] LABS: BAND NEUTROPHILS % 2 % (0-10); PLATELET MORPHOLOGY COMMENT NORMAL (NORMAL)
[2020-03-15] MEDS: BENTYL I.M. INJ 10 MG IM SCH ×4 (10:17→21:15)
[2020-03-15] MEDS: NORVASC TAB 10 MG PO SCH ×2 (10:17→14:17)
[2020-03-15] MEDS: CORDARONE TAB 200 MG PO SCH ×2 (10:17→14:15)
[2020-03-15] MEDS: LOVENOX INJ 40 MG SYR SC SCH (10:44)
[2020-03-15] MEDS: PEPCID 20 MG IV PREMIX* 20 MG/50 ML BAG IV SCH ×2 (10:45→21:15)
[2020-03-15] MEDS: PROTONIX INJ 40 MG VIAL IVP SCH ×2 (10:45→21:15)
[2020-03-15] MEDS ORDERED: APRESOLINE INJ 20 MG VIAL IVP PRN (13:17)
--- NOTE | 2020-03-15 14:37 | PCM.PROG ---
Progress Note - Progress Note for Day of Date of Exam: 03/15/20 - Subjective Subjective: WAS ADMITTED FOR TREATMENT OF INTRACTABLE NAUSEA, VOMITING, AND ABDOMINAL PAIN. TODAY, SHE IS ALERT AND ORIENTED, LYING IN BED ON MORNING ROUNDS. SHE CONTINUES WITH COMPLAINTS OF NAUSEA, VOMITING, AND DIFFUSE ABDOMINAL PAIN TODAY. PAIN IS DESCRIBED CRAMPING. IT IS CURRENTLY RATED A 3/10. ON EXAMINATION, HEART IS REGULAR IN RATE AND RHYTHM. BILATERAL LUNGS ARE NOTED WITH DIMINISHED LUNG SOUNDS THROUGHOUT. ABDOMEN IS ROUND, SOFT, AND NOTED WITH DIFFUSE TENDERNESS TO PALPATION. HYPERACTIVE BOWEL SOUNDS ARE NOTED IN ALL QUADRANTS. HER VITALS THIS MORNING ARE: 98.0-84-20-97%-171/75. LABS WERE OBTAINED. ABNORMAL LAB VALUES INCLUDE THE FOLLOWING: POTASSIUM 3.1, GLUCOSE 127, TOTAL BILI 1.30, AST 44, CEA PENDING. SHE IS CURRENTLY RECEIVING NS AT 125ML/HR, THE POTASSIUM AND MAGNESIUM PROTOCOLS, ZOFRAN COCKTAIL Q8H PRN, PHENERGAN 12.5MG IM Q6H PRN, PEPCID 20MG IV Q12H, PROTONIX 40MG IV BID, BENTYL 10MG IM QID, AMIODARONE 100MG PO DAILY, NORVASC 10MG PO DAILY, AND LIPTOR 10MG PO HS. CONSULTED WITH PATIENT AND PLANS FOR AN UPPER ENDOSCOPY TODAY. WE ARE IN AGREEMENT WITH PLANS. OTHERWISE, WE WILL CONTINUE WITH CURRENT PLAN OF CARE TODAY. WE PLAN TO FOLLOW UP WITH AM LABS AND CONTINUE TO MONITOR. TIME SPENT ON CLINICAL ASSESSMENT, REVIEWING LABS AND IMAGING, DECISION MAKING, AND DOCUMENTATION GREATER THAN 75 MINUTES. - Past Medical Family Social History Past Med/Fam/Surg Hx: No changes since H&P Allergies: Allergies iodine Allergy (Unknown, Verified 12/23/18 19:21) onion Allergy (Verified 12/23/18 19:21) SEAFOOD Allergy (Uncoded 12/23/18 19:21) - Review of Systems ROS: No change since H&P - Vital Signs and I&O's Vital Signs: Temperature 98.0 F Pulse Rate [Left Radial] 79 Pulse Rate 73 Respiratory Rate 16 Blood Pressure [Right Arm] 174/82 Blood Pressure 177/79 O2 Sat by Pulse Oximetry 95 Intake and Output: Intake & Output 03/13/20 03/14/20 03/15/20 03/16/20 11:59 11:59 11:59 11:59 Intake Total 1040 / 1040 2322 / 2322 2969 / 2969 Balance 1040 / 1040 2322 / 2322 2969 / 2969 - Physical Exam Oriented: Normal Eyes: Normal Ear: Normal Nose: Normal Throat: Normal Respiratory: Generalized, Diminished Cardiovascular: Normal : Normal Auscultation: Bowel Sounds: Increased Tenderness: Diffuse, Moderate. negative: Rebound, Guarding, Rigidity Skin: Decreased Turgur Musculoskeletal: Normal Psychiatric: Normal Mood Description: Calm Affect: Normal Speech Pattern: Clear, Appropriate - Laboratory and Diagnostics Result Diagrams: 03/15/20 05:20 03/15/20 05:20 Labs: Laboratory WBC 9.6 X10^3/uL (3.6-10.0) 03/15/20 05:20 RBC 4.56 X10^6/uL (3.5-5.4) 03/15/20 05:20 Hgb 14.1 g/dL (12.0-16.0) 03/15/20 05:20 Hct 41.0 % (36.0-47.0) 03/15/20 05:20 MCV 89.9 fL (80.0-100.0) 03/15/20 05:20 MCH 30.9 pg (27.0-34.0) 03/15/20 05:20 MCHC 34.4 g/dL (33.0-35.0) 03/15/20 05:20 RDW 13.1 % (11.6-16.5) 03/15/20 05:20 Plt Count 280 X10^3/uL (150.0-450.0) 03/15/20 05:20 Plt Count Comment Adequate (ADEQUATE) 03/15/20 05:20 MPV 9.2 fL (7.4-11.0) 03/15/20 05:20 Neut % (Auto) 95.4 % (42.0-75.0) H 03/15/20 05:20 Lymph % (Auto) 3.4 % (21.0-51.0) L 03/15/20 05:20 [place] % (Auto) 1.1 % (0.0-13.0) 03/15/20 05:20 Eos % (Auto) 0.0 % (0.9-2.9) L 03/15/20 05:20 Baso % (Auto) 0.1 % (0.2-1.0) L 03/15/20 05:20 Neut # (Auto) 9.2 x10^3/uL (2.2-4.8) H 03/15/20 05:20 Lymph # (Auto) 0.3 X10^3/uL (1.3-2.9) L 03/15/20 05:20 [place] # (Auto) 0.1 x10^3/uL (0.3-0.8) L 03/15/20 05:20 Eos # (Auto) 0.0 x10^3/uL (0.0-0.2) 03/15/20 05:20 Baso # (Auto) 0.0 X10^3/uL (0.0-0.1) 03/15/20 05:20 Absolute Nucleated RBC 0.1 /100WBC 03/15/20 05:20 Total Counted 100 03/15/20 05:20 Neutrophils % (Manual) 92 % (39-76) H 03/15/20 05:20 Band Neutrophils % 2 % (0-10) 03/15/20 05:20 Lymphocytes % (Manual) 5 % (13-43) L 03/15/20 05:20 Monocytes % (Manual) 1 % (4-9) L 03/15/20 05:20 Plt Morphology Comment Normal (NORMAL) 03/15/20 05:20 RBC Morphology Normal (NORMAL) 03/15/20 05:20 Sodium 138 mmol/L (136-145) 03/15/20 05:20 Corrected Sodium 139 mmol/L (136-145) 03/15/20 05:20 Potassium 3.1 mmol/L (3.5-5.1) L 03/15/20 05:20 Chloride 101 mmol/L (98-107) 03/15/20 05:20 Carbon Dioxide 23.6 mmol/L (21-32) 03/15/20 05:20 BUN 12 mg/dL (7-18) 03/15/20 05:20 Creatinine 0.76 mg/dL (0.55-1.02) 03/15/20 05:20 Est GFR (MDRD) Af Amer > 60 (>60) 03/15/20 05:20 Est GFR (MDRD) Non-Af > 60 (>60) 03/15/20 05:20 Glucose 127 mg/dL (65-99) H 03/15/20 05:20 POC Glucose (mg/dL) 103 mg/dL (65-99) H 03/15/20 11:30 Calcium 8.7 mg/dL (8.5-10.1) 03/15/20 05:20 Corrected Calcium TNP 03/15/20 05:20 Magnesium 2.2 mg/dL (1.7-2.9) 03/15/20 05:20 Total Bilirubin 1.30 mg/dL (0.2-1.0) H 03/15/20 05:20 AST 44 Units/L (15-37) H 03/15/20 05:20 ALT 36 Units/L (12-78) 03/15/20 05:20 Alkaline Phosphatase 69 Units/L (46-116) 03/15/20 05:20 Total Protein 6.9 g/dL (6.4-8.2) 03/15/20 05:20 Albumin 3.5 g/dL (3.4-5.0) 03/15/20 05:20 Globulin 3.4 g/dL (2.5-4.5) 03/15/20 05:20 Albumin/Globulin Ratio 1.0 Ratio (1.1-2.1) L 03/15/20 05:20 Amylase 30 Units/L (25-115) 03/12/20 16:58 Lipase 66 Units/L (73-393) L 03/12/20 16:58 Specimen Type Clean catch urine 03/12/20 21: Urine Color Pale yellow (YELLOW) 03/12/20 21:29 Urine Appearance Clear (CLEAR) 03/12/20 21:29 Urine pH 7.0 (5.0 - 8.0) 03/12/20 21:29 Ur Specific [place] 1.010 (1.000-1.030) 03/12/20 21: Urine Protein 1+ (NEGATIVE) 03/12/20 21:29 Urine Glucose (UA) Negative (NEGATIVE) 03/12/20 21: Urine Ketones 3+ (NEGATIVE) 03/12/20 21: Urine Occult Blood 1+ (NEGATIVE) 03/12/20 21:29 Urine Nitrite Negative (NEGATIVE) 03/12/20 21:29 Urine Bilirubin Negative (NEGATIVE) 03/12/20 21:29 Urine Urobilinogen Normal (NORMAL) 03/12/20 21:29 Ur Leukocyte Esterase Negative (NEGATIVE) 03/12/20 21:29 Urine RBC None seen /HPF (0-3) 03/12/20 21:29 Urine WBC None seen /HPF (0-5) 03/12/20 21:29 Ur Squamous Epith Cells Rare /HPF (NEGATIVE) 03/12/20 21:29 Urine Bacteria Negative /HPF (NEGATIVE) 03/12/20 21:29 Ur Culture Indicated? No/not indicated 03/12/20 21:29 Influenza Type A (PCR) Negative (NEGATIVE) 03/12/20 16:27 Influenza Type B (PCR) Negative (NEGATIVE) 03/12/20 16:27 SARS CoV-2 RNA Rapid MARLO Negative (NEGATIVE) 03/12/20 20:04 - Plan (1) Intractable nausea and vomiting Status: Acute Plan: ADMIT, NS AT 125ML/HR, THE POTASSIUM AND MAGNESIUM PROTOCOLS, ZOFRAN COCKTAIL Q8H PRN, PHENERGAN 12.5MG IM Q6H PRN, PEPCID IV, PROTONIX IV, BENTYL IM, AMIODARONE 100MG PO DAILY, NORVASC 10MG PO DAILY, AND LIPTOR 10MG PO HS. CON SULT DR. NATARAJAN FOR ENDOSCOPY. (2) Abdominal pain Status: Acute Qualifiers: Abdominal location: generalized Qualified Code(s): R10.84 - Generalized abdominal pain (3) Accelerated essential hypertension Status: Acute
[2020-03-15] MEDS: CHECK PATCH XX SCH (21:15)
[2020-03-15] MEDS: LIPITOR TAB 10 MG PO SCH (21:15)
[2020-03-15] MEDS: ZOFRAN INJ 4 MG VIAL 16 MG, ATIVAN INJ 2 MG VIAL 1 MG, DECADRON INJ 10 MG in NS 50 ML I... IV PRN (21:25)
[2020-03-16] MEDS: NS 1000 ML 1,000 ML IV SCH ×5 (05:52→23:51)
[2020-03-16 06:52] LABS: BASOPHILS % (AUTO) 0.1 % (0.2-1.0); HEMATOCRIT 36.7 % (36.0-47.0); HEMOGLOBIN 12.8 g/dL (12.0-16.0); LYMPHOCYTES # (AUTO) 0.3 X10^3/uL (1.3-2.9); LYMPHOCYTES % (AUTO) 2.9 % (21.0-51.0); MEAN CORPUSCULAR HEMOGLOBIN 31.2 pg (27.0-34.0); MEAN CORPUSCULAR HGB CONC 34.9 g/dL (33.0-35.0); MEAN CORPUSCULAR VOLUME 89.4 fL (80.0-100.0); MONOCYTES # (AUTO) 0.4 x10^3/uL (0.3-0.8); MONOCYTES % (AUTO) 3.8 % (0.0-13.0); NEUTROPHILS % (AUTO) 93.2 % (42.0-75.0); PLATELET COUNT 228 X10^3/uL (150.0-450.0); WHITE BLOOD COUNT 9.7 X10^3/uL (3.6-10.0)
[2020-03-16 06:54] LABS: ALANINE AMINOTRANSFERASE 96 Units/L (12-78); ALBUMIN 3.1 g/dL (3.4-5.0); ALKALINE PHOSPHATASE 61 Units/L (46-116); ASPARTATE AMINO TRANSFERASE 69 Units/L (15-37); BLOOD UREA NITROGEN 11 mg/dL (7-18); CALCIUM 8.7 mg/dL (8.5-10.1); CARBON DIOXIDE 28.7 mmol/L (21-32); CHLORIDE 103 mmol/L (98-107); COR CA(FOR HYPOALB) 9.4 mg/dL (8.5-10.1); COR NA(FOR HYPERGLY) 140 mmol/L (136-145); CREATININE 0.67 mg/dL (0.55-1.02); SODIUM 139 mmol/L (136-145); TOTAL PROTEIN 6.1 g/dL (6.4-8.2); eGFR NON BLACK RACES > 60 (>60)
[2020-03-16] MEDS: BENTYL I.M. INJ 10 MG IM SCH ×4 (08:14→20:15)
[2020-03-16] MEDS: PEPCID 20 MG IV PREMIX* 20 MG/50 ML BAG IV SCH ×2 (08:18→20:15)
[2020-03-16] MEDS: NORVASC TAB 10 MG PO SCH (08:18)
[2020-03-16] MEDS: PROTONIX INJ 40 MG VIAL IVP SCH ×2 (08:19→20:15)
[2020-03-16] MEDS: LOVENOX INJ 40 MG SYR SC SCH (08:33)
[2020-03-16] MEDS: CHECK PATCH XX SCH ×2 (08:34→20:14)
[2020-03-16] MEDS: CORDARONE TAB 200 MG PO SCH (08:34)
[2020-03-16 09:08] LABS: BAND NEUTROPHILS % 1 % (0-10); PLATELET MORPHOLOGY COMMENT NORMAL (NORMAL)
[2020-03-16] MEDS ORDERED: K-DUR TAB 20 MEQ PO PRN (09:36)
[2020-03-16] MEDS: POTASSIUM CHL 60 MEQ/NS 0.45% 500 ML IV PRN (10:29)
--- NOTE | 2020-03-16 11:54 | PCM.PROG ---
Progress Note - Progress Note for Day of Date of Exam: 03/16/20 - Subjective Subjective: WAS ADMITTED FOR TREATMENT OF INTRACTABLE NAUSEA, VOMITING, AND ABDOMINAL PAIN. TODAY, SHE IS ALERT AND ORIENTED, LYING IN BED ON MORNING ROUNDS. SHE CONTINUES WITH COMPLAINTS OF NAUSEA TODAY, BUT REPORTS SLIGHT IMPROVEMENT IN SYMPTOMS SINCE YESTERDAY. 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 ON EXAMINATION, HEART IS REGULAR IN RATE AND RHYTHM. BILATERAL LUNGS ARE NOTED WITH DIMINISHED LUNG SOUNDS THROUGHOUT. ABDOMEN IS ROUND, SOFT, AND NOTED WITH DIFFUSE TENDERNESS TO PALPATION. HYPERACTIVE BOWEL SOUNDS ARE NOTED IN ALL QUADRANTS. HER VITALS THIS MORNING ARE: 98.0-82-16-96%-175/79. LABS WERE OBTAINED. ABNORMAL LAB VALUES INCLUDE THE FOLLOWING: POTASSIUM 2.7, GLUCOSE 152, TOTAL BILI 1.10, AST 69, ALT 96, TOTAL PROTEIN 6.1, ALBUMIN 3.1. SHE IS CURRENTLY RECEIVING NS AT 125ML/HR, THE POTASSIUM AND MAGNESIUM PROTOCOLS, ZOFRAN COCKTAIL Q8H PRN, PHENERGAN 12.5MG IM Q6H PRN, PEPCID 20MG IV Q12H, PROTONIX 40MG IV BID, BENTYL 10MG IM QID, AMIODARONE 100MG PO DAILY, NORVASC 10MG PO DAILY, AND LIPTOR 10MG PO HS. WE WILL CONTINUE WITH CURRENT PLAN OF CARE TODAY. OTHERWISE, WE WILL CONTINUE WITH CURRENT PLAN OF CARE TODAY. WE PLAN TO FOLLOW UP WITH AM LABS AND CONTINUE TO MONITOR. TIME SPENT ON CLINICAL ASSESSMENT, REVIEWING LABS AND IMAGING, DECISION MAKING, AND DOCUMENTATION GREATER THAN 75 MINUTES. - Past Medical Family Social History Past Med/Fam/Surg Hx: No changes since H&P Allergies: Allergies iodine Allergy (Unknown, Verified 12/23/18 19:21) onion Allergy (Verified 12/23/18 19:21) SEAFOOD Allergy (Uncoded 12/23/18 19:21) - Review of Systems ROS: No change since H&P - Vital Signs and I&O's Vital Signs: Temperature 98.0 F Pulse Rate [Left Radial] 82 Pulse Rate 73 Respiratory Rate 16 Blood Pressure [Right Arm] 175/79 Blood Pressure 177/79 O2 Sat by Pulse Oximetry 96 Intake and Output: Intake & Output 03/13/20 03/14/20 03/15/20 03/16/20 11:59 11:59 11:59 11:59 Intake Total 1040 / 1040 2322 / 2322 2969 / 2969 5114 / 5114 Balance 1040 / 1040 2322 / 2322 2969 / 2969 5114 / 5114 - Physical Exam Oriented: Normal Eyes: Normal Ear: Normal Nose: Normal Throat: Normal Respiratory: Generalized, Diminished Cardiovascular: Normal : Normal Auscultation: Bowel Sounds: Increased Tenderness: Diffuse, Moderate. negative: Rebound, Guarding, Rigidity Skin: Decreased Turgur Musculoskeletal: Normal Psychiatric: Normal Mood Description: Calm Affect: Normal Speech Pattern: Clear, Appropriate - Laboratory and Diagnostics Result Diagrams: 03/16/20 05:21 03/16/20 05:21 Labs: Laboratory WBC 9.7 X10^3/uL (3.6-10.0) 03/16/20 05:21 RBC 4.10 X10^6/uL (3.5-5.4) 03/16/20 05:21 Hgb 12.8 g/dL (12.0-16.0) 03/16/20 05:21 Hct 36.7 % (36.0-47.0) 03/16/20 05:21 MCV 89.4 fL (80.0-100.0) 03/16/20 05:21 MCH 31.2 pg (27.0-34.0) 03/16/20 05:21 MCHC 34.9 g/dL (33.0-35.0) 03/16/20 05:21 RDW 13.0 % (11.6-16.5) 03/16/20 05:21 Plt Count 228 X10^3/uL (150.0-450.0) 03/16/20 05:21 Plt Count Comment Adequate (ADEQUATE) 03/16/20 05:21 MPV 9.0 fL (7.4-11.0) 03/16/20 05:21 Neut % (Auto) 93.2 % (42.0-75.0) H 03/16/20 05:21 Lymph % (Auto) 2.9 % (21.0-51.0) L 03/16/20 05:21 [place] % (Auto) 3.8 % (0.0-13.0) 03/16/20 05:21 Eos % (Auto) 0.0 % (0.9-2.9) L 03/16/20 05:21 Baso % (Auto) 0.1 % (0.2-1.0) L 03/16/20 05:21 Neut # (Auto) 9.0 x10^3/uL (2.2-4.8) H 03/16/20 05:21 Lymph # (Auto) 0.3 X10^3/uL (1.3-2.9) L 03/16/20 05:21 [place] # (Auto) 0.4 x10^3/uL (0.3-0.8) 03/16/20 05:21 Eos # (Auto) 0.0 x10^3/uL (0.0-0.2) 03/16/20 05:21 Baso # (Auto) 0.0 X10^3/uL (0.0-0.1) 03/16/20 05:21 Absolute Nucleated RBC 0.1 /100WBC 03/16/20 05:21 Total Counted 100 03/16/20 05:21 Neutrophils % (Manual) 94 % (39-76) H 03/16/20 05:21 Band Neutrophils % 1 % (0-10) 03/16/20 05:21 Lymphocytes % (Manual) 3 % (13-43) L 03/16/20 05:21 Monocytes % (Manual) 2 % (4-9) L 03/16/20 05:21 Plt Morphology Comment Normal (NORMAL) 03/16/20 05:21 RBC Morphology Normal (NORMAL) 03/16/20 05:21 Sodium 139 mmol/L (136-145) 03/16/20 05:21 Corrected Sodium 140 mmol/L (136-145) 03/16/20 05:21 Potassium 2.7 mmol/L (3.5-5.1) L* 03/16/20 05:21 Chloride 103 mmol/L (98-107) 03/16/20 05:21 Carbon Dioxide 28.7 mmol/L (21-32) 03/16/20 05:21 BUN 11 mg/dL (7-18) 03/16/20 05:21 Creatinine 0.67 mg/dL (0.55-1.02) 03/16/20 05:21 Est GFR (MDRD) Af Amer > 60 (>60) 03/16/20 05:21 Est GFR (MDRD) Non-Af > 60 (>60) 03/16/20 05:21 Glucose 152 mg/dL (65-99) H 03/16/20 05:21 POC Glucose (mg/dL) 147 mg/dL (65-99) H 03/16/20 11:04 Calcium 8.7 mg/dL (8.5-10.1) 03/16/20 05:21 Corrected Calcium 9.4 mg/dL (8.5-10.1) 03/16/20 05:21 Magnesium 2.2 mg/dL (1.7-2.9) 03/15/20 05:20 Total Bilirubin 1.10 mg/dL (0.2-1.0) H 03/16/20 05:21 AST 69 Units/L (15-37) H 03/16/20 05:21 ALT 96 Units/L (12-78) H 03/16/20 05:21 Alkaline Phosphatase 61 Units/L (46-116) 03/16/20 05:21 Total Protein 6.1 g/dL (6.4-8.2) L 03/16/20 05:21 Albumin 3.1 g/dL (3.4-5.0) L 03/16/20 05:21 Globulin 3.0 g/dL (2.5-4.5) 03/16/20 05:21 Albumin/Globulin Ratio 1.0 Ratio (1.1-2.1) L 03/16/20 05:21 Amylase 30 Units/L (25-115) 03/12/20 16:58 Lipase 66 Units/L (73-393) L 03/12/20 16:58 Specimen Type Clean catch urine 03/12/20 21:29 Urine Color Pale yellow (YELLOW) 03/12/20 21:29 Urine Appearance Clear (CLEAR) 03/12/20 21:29 Urine pH 7.0 (5.0 - 8.0) 03/12/20 21:29 Ur Specific [place] 1.010 (1.000-1.030) 03/12/20 21:29 Urine Protein 1+ (NEGATIVE) 03/12/20 21:29 Urine Glucose (UA) Negative (NEGATIVE) 03/12/20 21:29 Urine Ketones 3+ (NEGATIVE) 03/12/20 21: Urine Occult Blood 1+ (NEGATIVE) 03/12/20 21:29 Urine Nitrite Negative (NEGATIVE) 03/12/20 21:29 Urine Bilirubin Negative (NEGATIVE) 03/12/20 21:29 Urine Urobilinogen Normal (NORMAL) 03/12/20 21:29 Ur Leukocyte Esterase Negative (NEGATIVE) 03/12/20 21:29 Urine RBC None seen /HPF (0-3) 03/12/20 21: Urine WBC None seen /HPF (0-5) 03/12/20 21: Ur Squamous Epith Cells Rare /HPF (NEGATIVE) 03/12/20 21: Urine Bacteria Negative /HPF (NEGATIVE) 03/12/20 21: Ur Culture Indicated? No/not indicated 03/12/20 21:29 Influenza Type A (PCR) Negative (NEGATIVE) 03/12/20 16:27 Influenza Type B (PCR) Negative (NEGATIVE) 03/12/20 16:27 SARS CoV-2 RNA Rapid MARLO Negative (NEGATIVE) 03/12/20 20:04 - Plan (1) Intractable nausea and vomiting Status: Acute Plan: ADMIT, NS AT 125ML/HR, THE POTASSIUM AND MAGNESIUM PROTOCOLS, ZOFRAN COCKTAIL Q8H PRN, PHENERGAN 12.5MG IM Q6H PRN, PEPCID IV, PROTONIX IV, BENTYL IM, AMIODARONE 100MG PO DAILY, NORVASC 10MG PO DAILY, AND LIPTOR 10MG PO HS. CONSULT DR. NATARAJAN FOR ENDOSCOPY. (2) Abdominal pain Status: Acute Qualifiers: Abdominal location: generalized Qualified Code(s): R10.84 - Generalized abdominal pain (3) Accelerated essential hypertension Status: Acute
[2020-03-16] MEDS ORDERED: CATAPRES-TTS-3 TD SCH (19:00)
[2020-03-16] MEDS: LIPITOR TAB 10 MG PO SCH (20:15)
[2020-03-17] MEDS: NS 1000 ML 1,000 ML IV SCH ×4 (03:03→20:27)
[2020-03-17 07:01] LABS: BASOPHILS % (AUTO) 0.3 % (0.2-1.0); EOSINOPHILS % (AUTO) 0.1 % (0.9-2.9); HEMATOCRIT 34.2 % (36.0-47.0); HEMOGLOBIN 12.2 g/dL (12.0-16.0); LYMPHOCYTES # (AUTO) 0.4 X10^3/uL (1.3-2.9); LYMPHOCYTES % (AUTO) 4.3 % (21.0-51.0); MEAN CORPUSCULAR HEMOGLOBIN 31.9 pg (27.0-34.0); MEAN CORPUSCULAR HGB CONC 35.6 g/dL (33.0-35.0); MEAN CORPUSCULAR VOLUME 89.7 fL (80.0-100.0); MEAN PLATELET VOLUME 8.8 fL (7.4-11.0); MONOCYTES # (AUTO) 1.1 x10^3/uL (0.3-0.8); MONOCYTES % (AUTO) 10.6 % (0.0-13.0); NEUTROPHILS # (AUTO) 8.5 x10^3/uL (2.2-4.8); NEUTROPHILS % (AUTO) 84.7 % (42.0-75.0); PLATELET COUNT 221 X10^3/uL (150.0-450.0); RED BLOOD COUNT 3.81 X10^6/uL (3.5-5.4); RED CELL DISTRIBUTION WIDTH 13.3 % (11.6-16.5); WHITE BLOOD COUNT 10.1 X10^3/uL (3.6-10.0)
[2020-03-17 07:11] LABS: ALANINE AMINOTRANSFERASE 111 Units/L (12-78); ALBUMIN 2.8 g/dL (3.4-5.0); ALKALINE PHOSPHATASE 59 Units/L (46-116); ASPARTATE AMINO TRANSFERASE 64 Units/L (15-37); BLOOD UREA NITROGEN 7 mg/dL (7-18); CALCIUM 8.2 mg/dL (8.5-10.1); CARBON DIOXIDE 24.7 mmol/L (21-32); CHLORIDE 105 mmol/L (98-107); COR CA(FOR HYPOALB) 9.2 mg/dL (8.5-10.1); CREATININE 0.67 mg/dL (0.55-1.02); SODIUM 138 mmol/L (136-145); TOTAL PROTEIN 5.4 g/dL (6.4-8.2); eGFR NON BLACK RACES > 60 (>60)
[2020-03-17] MEDS: BENTYL I.M. INJ 10 MG IM SCH ×4 (08:18→20:27)
[2020-03-17] MEDS: CHECK PATCH XX SCH ×2 (08:18→20:28)
[2020-03-17] MEDS: CORDARONE TAB 200 MG PO SCH (08:46)
[2020-03-17] MEDS: LOVENOX INJ 40 MG SYR SC SCH (08:47)
[2020-03-17] MEDS: PROTONIX INJ 40 MG VIAL IVP SCH ×2 (08:48→20:27)
[2020-03-17] MEDS: NORVASC TAB 10 MG PO SCH (08:48)
[2020-03-17] MEDS: PEPCID 20 MG IV PREMIX* 20 MG/50 ML BAG IV SCH ×2 (08:48→20:29)
[2020-03-17] MEDS: POTASSIUM CHL 60 MEQ/NS 0.45% 500 ML IV PRN (10:29)
[2020-03-17] MEDS ORDERED: LEVSIN/MAALOX/LIDOC VISC ONE ×2 (10:59→16:03)
[2020-03-17] MEDS: LEVSIN/MAALOX/LIDOC VISC PO SCH ×5 (11:05→23:00)
[2020-03-17] MEDS: REGLAN INJ 10 MG VIAL IVP SCH ×3 (11:05→22:00)
[2020-03-17] MEDS: LIPITOR TAB 10 MG PO SCH (20:28)
[2020-03-17] MEDS: K-RIDER 10 MEQ/NS 100 ML 10 MEQ/100 ML BAG IV PRN ×2 (22:00→22:40)
[2020-03-18] MEDS: K-RIDER 10 MEQ/NS 100 ML 10 MEQ/100 ML BAG IV PRN ×5 (00:24→05:38)
[2020-03-18] MEDS: NS 1000 ML 1,000 ML IV SCH ×4 (04:04→21:24)
[2020-03-18] MEDS: PHENERGAN INJ 25 MG IM PRN (04:50)
[2020-03-18] MEDS: REGLAN INJ 10 MG VIAL IVP SCH ×3 (05:37→17:01)
[2020-03-18 06:27] LABS: BASOPHILS % (AUTO) 0.2 % (0.2-1.0); EOSINOPHILS % (AUTO) 0.4 % (0.9-2.9); HEMATOCRIT 38.8 % (36.0-47.0); HEMOGLOBIN 13.8 g/dL (12.0-16.0); LYMPHOCYTES # (AUTO) 0.4 X10^3/uL (1.3-2.9); LYMPHOCYTES % (AUTO) 4.3 % (21.0-51.0); MEAN CORPUSCULAR HEMOGLOBIN 31.6 pg (27.0-34.0); MEAN CORPUSCULAR HGB CONC 35.6 g/dL (33.0-35.0); MEAN CORPUSCULAR VOLUME 88.9 fL (80.0-100.0); MEAN PLATELET VOLUME 9.3 fL (7.4-11.0); MONOCYTES % (AUTO) 11.8 % (0.0-13.0); NEUTROPHILS % (AUTO) 83.3 % (42.0-75.0); PLATELET COUNT 232 X10^3/uL (150.0-450.0); RED BLOOD COUNT 4.36 X10^6/uL (3.5-5.4); RED CELL DISTRIBUTION WIDTH 13.2 % (11.6-16.5); WHITE BLOOD COUNT 8.4 X10^3/uL (3.6-10.0)
[2020-03-18 06:34] LABS: ALANINE AMINOTRANSFERASE 100 Units/L (12-78); ALBUMIN 3.3 g/dL (3.4-5.0); ALKALINE PHOSPHATASE 66 Units/L (46-116); ASPARTATE AMINO TRANSFERASE 43 Units/L (15-37); BLOOD UREA NITROGEN 5 mg/dL (7-18); CALCIUM 8.8 mg/dL (8.5-10.1); CARBON DIOXIDE 26.1 mmol/L (21-32); CHLORIDE 101 mmol/L (98-107); COR CA(FOR HYPOALB) 9.4 mg/dL (8.5-10.1); COR NA(FOR HYPERGLY) 136 mmol/L (136-145); CREATININE 0.77 mg/dL (0.55-1.02); SODIUM 136 mmol/L (136-145); TOTAL PROTEIN 6.2 g/dL (6.4-8.2); eGFR NON BLACK RACES > 60 (>60)
[2020-03-18] MEDS: BENTYL I.M. INJ 10 MG IM SCH ×4 (08:28→21:24)
[2020-03-18] MEDS: CHECK PATCH XX SCH ×2 (08:28→21:24)
[2020-03-18] MEDS: CORDARONE TAB 200 MG PO SCH (08:29)
[2020-03-18] MEDS: LOVENOX INJ 40 MG SYR SC SCH (08:31)
[2020-03-18] MEDS: LEVSIN/MAALOX/LIDOC VISC PO SCH ×4 (08:31→21:25)
[2020-03-18] MEDS: PROTONIX INJ 40 MG VIAL IVP SCH ×2 (08:34→21:25)
[2020-03-18] MEDS: NORVASC TAB 10 MG PO SCH (08:34)
[2020-03-18] MEDS: PEPCID 20 MG IV PREMIX* 20 MG/50 ML BAG IV SCH ×2 (08:34→21:25)
[2020-03-18] MEDS ORDERED: TRANSDERM-SCOP TD SCH (11:00)
--- NOTE | 2020-03-18 19:55 | PCM.PROG ---
Progress Note - Progress Note for Day of Date of Exam: 03/17/20 - Subjective Subjective: WAS ADMITTED FOR TREATMENT OF INTRACTABLE NAUSEA, VOMITING, AND ABDOMINAL PAIN. EGD REVEALED MODERATE GASTRITIS. TODAY, SHE IS ALERT AND ORIENTED, LYING IN BED ON MORNING ROUNDS. SHE CONTINUES WITH COMPLAINTS OF NAUSEA TODAY. SHE DENIES SIGNIFICANT IMPROVEMENT IN SYMPTOMS SINCE ONE DAY PRIOR. THERE IS EMESIS NOTED IN BASIN AT BEDSIDE. ON EXAMINATION, HEART IS REGULAR IN RATE AND RHYTHM. BILATERAL LUNGS ARE NOTED WITH DIMINISHED LUNG SOUNDS THROUGHOUT. ABDOMEN IS ROUND, SOFT, AND NOTED WITH DIFFUSE TENDERNESS TO PALPATION. HYPERACTIVE BOWEL SOUNDS ARE NOTED IN ALL QUADRANTS. HER VITALS THIS MORNING ARE: 97.8-85-20-99%-192/85. LABS WERE OBTAINED. ABNORMAL LAB VALUES INCLUDE THE FOLLOWING: WBC 10.1, HCT 34.2, POTASSIUM 2.9, GLUCOSE 102, CALCIUM 8.2, AST 64, ALT 111, TOTAL PROTEIN 5.4, ALBUMIN 2.8. SHE IS CURRENTLY RECEIVING NS AT 125ML/HR, THE POTASSIUM AND MAGNESIUM PROTOCOLS, ZOFRAN COCKTAIL Q8H PRN, PHENERGAN 12.5MG IM Q6H PRN, PEPCID 20MG IV Q12H, PROTONIX 40MG IV BID, BENTYL 10MG IM QID, AMIODARONE 100MG PO DAILY, NORVASC 10MG PO DAILY, AND LIPTOR 10MG PO HS. WE WILL CONTINUE WITH CURRENT PLAN OF CARE TODAY AND ADD REGLAN 10MG IV Q6H AND GI COCKTAIL 15ML PO QID. OTHERWISE, WE WILL CONTINUE WITH CURRENT PLAN OF CARE TODAY. WE PLAN TO FOLLOW UP WITH AM LABS AND CONTINUE TO MONITOR. TIME SPENT ON CLINICAL ASSESSMENT, REVIEWING LABS AND IMAGING, DECISION MAKING, AND DOCUMENTATION GREATER THAN 75 MINUTES. - Past Medical Family Social History Past Med/Fam/Surg Hx: No changes since H&P Allergies: Allergies iodine Allergy (Unknown, Verified 12/23/18 19:21) onion Allergy (Verified 12/23/18 19:21) SEAFOOD Allergy (Uncoded 12/23/18 19:21) - Review of Systems ROS: No change since H&P - Vital Signs and I&O's Vital Signs: Temperature 97.8 F Pulse Rate [Left Radial] 98 Pulse Rate 73 Respiratory Rate 20 Blood Pressure [Right Arm] 190/98 Blood Pressure 177/79 O2 Sat by Pulse Oximetry 99 Intake and Output: Intake & Output 01/23/21 01/24/21 01/25/21 01/26/21 11:59 11:59 11:59 11:59 Intake Total 5114 / 5114 4400 / 4400 6383 / 6383 1050 / 1050 Balance 5114 / 5114 4400 / 4400 6383 / 6383 1050 / 1050 - Physical Exam Oriented: Normal Eyes: Normal Ear: Normal Nose: Normal Throat: Normal Respiratory: Generalized, Diminished Cardiovascular: Normal : Normal Auscultation: Bowel Sounds: Increased Tenderness: Diffuse, Moderate. negative: Rebound, Guarding, Rigidity Skin: Decreased Turgur Musculoskeletal: Normal Psychiatric: Normal Mood Description: Calm Affect: Normal Speech Pattern: Clear, Appropriate - Laboratory and Diagnostics Result Diagrams: 03/18/20 05:40 03/18/20 05:40 Labs: Laboratory WBC 8.4 X10^3/uL (3.6-10.0) 03/18/20 05:40 RBC 4.36 X10^6/uL (3.5-5.4) 03/18/20 05:40 Hgb 13.8 g/dL (12.0-16.0) 03/18/20 05:40 Hct 38.8 % (36.0-47.0) 03/18/20 05:40 MCV 88.9 fL (80.0-100.0) 03/18/20 05:40 MCH 31.6 pg (27.0-34.0) 03/18/20 05:40 MCHC 35.6 g/dL (33.0-35.0) H 03/18/20 05:40 RDW 13.2 % (11.6-16.5) 03/18/20 05:40 Plt Count 232 X10^3/uL (150.0-450.0) 03/18/20 05:40 Plt Count Comment Adequate (ADEQUATE) 03/16/20 05:21 MPV 9.3 fL (7.4-11.0) 03/18/20 05:40 Neut % (Auto) 83.3 % (42.0-75.0) H 03/18/20 05:40 Lymph % (Auto) 4.3 % (21.0-51.0) L 03/18/20 05:40 [place] % (Auto) 11.8 % (0.0-13.0) 03/18/20 05:40 Eos % (Auto) 0.4 % (0.9-2.9) L 03/18/20 05:40 Baso % (Auto) 0.2 % (0.2-1.0) 03/18/20 05:40 Neut # (Auto) 7.0 x10^3/uL (2.2-4.8) H 03/18/20 05:40 Lymph # (Auto) 0.4 X10^3/uL (1.3-2.9) L 03/18/20 05:40 [place] # (Auto) 1.0 x10^3/uL (0.3-0.8) H 03/18/20 05:40 Eos # (Auto) 0.0 x10^3/uL (0.0-0.2) 03/18/20 05:40 Baso # (Auto) 0.0 X10^3/uL (0.0-0.1) 03/18/20 05:40 Absolute Nucleated RBC 0.1 /100WBC 03/18/20 05:40 Total Counted 100 03/16/20 05:21 Neutrophils % (Manual) 94 % (39-76) H 03/16/20 05:21 Band Neutrophils % 1 % (0-10) 03/16/20 05:21 Lymphocytes % (Manual) 3 % (13-43) L 03/16/20 05:21 Monocytes % (Manual) 2 % (4-9) L 03/16/20 05:21 Plt Morphology Comment Normal (NORMAL) 03/16/20 05:21 RBC Morphology Normal (NORMAL) 03/16/20 05:21 Sodium 136 mmol/L (136-145) 03/18/20 05:40 Corrected Sodium 136 mmol/L (136-145) 03/18/20 05:40 Potassium 4.0 mmol/L (3.5-5.1) 03/18/20 05:40 Chloride 101 mmol/L (98-107) 03/18/20 05:40 Carbon Dioxide 26.1 mmol/L (21-32) 03/18/20 05:40 BUN 5 mg/dL (7-18) L 03/18/20 05:40 Creatinine 0.77 mg/dL (0.55-1.02) 03/18/20 05:40 Est GFR (MDRD) Af Amer > 60 (>60) 03/18/20 05:40 Est GFR (MDRD) Non-Af > 60 (>60) 03/18/20 05:40 Glucose 111 mg/dL (65-99) H 03/18/20 05:40 POC Glucose (mg/dL) 134 mg/dL (65-99) H 03/18/20 16:59 Calcium 8.8 mg/dL (8.5-10.1) 03/18/20 05:40 Corrected Calcium 9.4 mg/dL (8.5-10.1) 03/18/20 05:40 Magnesium 2.2 mg/dL (1.7-2.9) 03/15/20 05:20 Total Bilirubin 0.80 mg/dL (0.2-1.0) 03/18/20 05:40 AST 43 Units/L (15-37) H 03/18/20 05:40 ALT 100 Units/L (12-78) H 03/18/20 05:40 Alkaline Phosphatase 66 Units/L (46-116) 03/18/20 05:40 Total Protein 6.2 g/dL (6.4-8.2) L 03/18/20 05:40 Albumin 3.3 g/dL (3.4-5.0) L 03/18/20 05:40 Globulin 2.9 g/dL (2.5-4.5) 03/18/20 05:40 Albumin/Globulin Ratio 1.1 Ratio (1.1-2.1) 03/18/20 05:40 Amylase 30 Units/L (25-115) 03/12/20 16:58 Lipase 66 Units/L (73-393) L 03/12/20 16:58 Carcinoembryonic Ag 2.1 ng/mL (0.0-3.0) 03/15/20 05:20 Specimen Type Clean catch urine 03/12/20 21:29 Urine Color Pale yellow (YELLOW) 03/12/20 21: Urine Appearance Clear (CLEAR) 03/12/20 21: Urine pH 7.0 (5.0 - 8.0) 03/12/20 21:29 Ur Specific [place] 1.010 (1.000-1.030) 03/12/20 21:29 Urine Protein 1+ (NEGATIVE) 03/12/20 21:29 Urine Glucose (UA) Negative (NEGATIVE) 03/12/20 21: Urine Ketones 3+ (NEGATIVE) 03/12/20 21:29 Urine Occult Blood 1+ (NEGATIVE) 03/12/20 21:29 Urine Nitrite Negative (NEGATIVE) 03/12/20 21: Urine Bilirubin Negative (NEGATIVE) 03/12/20 21: Urine Urobilinogen Normal (NORMAL) 03/12/20 21:29 Ur Leukocyte Esterase Negative (NEGATIVE) 03/12/20 21:29 Urine RBC None seen /HPF (0-3) 03/12/20 21: Urine WBC None seen /HPF (0-5) 03/12/20 21: Ur Squamous Epith Cells Rare /HPF (NEGATIVE) 03/12/20 21: Urine Bacteria Negative /HPF (NEGATIVE) 03/12/20 21:29 Ur Culture Indicated? No/not indicated 03/12/20 21:29 Stl C. diff Tox B Gene Negative (NEGATIVE) 03/16/20 15:05 Stl C. diff [id number] Negative (NEGATIVE) 03/16/20 15:05 Influenza Type A (PCR) Negative (NEGATIVE) 03/12/20 16:27 Influenza Type B (PCR) Negative (NEGATIVE) 03/12/20 16:27 SARS CoV-2 RNA Rapid AMRLO Negative (NEGATIVE) 03/12/20 20:04 - Plan (1) Intractable nausea and vomiting Status: Acute Plan: NS AT 125ML/HR, THE POTASSIUM AND MAGNESIUM PROTOCOLS, ZOFRAN COCKTAIL Q8H PRN, PHENERGAN 12.5MG IM Q6H PRN, PEPCID IV, PROTONIX IV, BENTYL IM, AMIODARONE 100MG PO DAILY, NORVASC 10MG PO DAILY, REGLAN 10MG IV Q6H, GI COCKTAIL 15ML PO QID, AND LIPTOR 10MG PO HS. CONSULT DR. NATARAJAN FOR ENDOSCOPY. (2) Abdominal pain Status: Acute Qualifiers: Abdominal location: generalized Qualified Code(s): R10.84 - Generalized abdominal pain (3) Accelerated essential hypertension Status: Acute
--- NOTE | 2020-03-18 20:02 | PCM.PROG ---
Progress Note - Progress Note for Day of Date of Exam: 03/18/20 - Subjective Subjective: WAS ADMITTED FOR TREATMENT OF INTRACTABLE NAUSEA, VOMITING, AND ABDOMINAL PAIN. EGD REVEALED MODERATE GASTRITIS. TODAY, SHE IS ALERT AND ORIENTED, LYING IN BED ON MORNING ROUNDS. SHE CONTINUES WITH COMPLAINTS OF NAUSEA TODAY. SHE DENIES SIGNIFICANT IMPROVEMENT IN SYMPTOMS SINCE ONE DAY PRIOR. THERE IS EMESIS NOTED IN BASIN AT BEDSIDE. PATIENT ALSO ADMITS TO HER THROAT BURNING. SHE TELLS US TODAY THAT SHE HAS BEEN RECEIVING RADIATION EVERYDAY FOR THE PAST 6 WEEKS DUE TO THYROID CANCER. SHE REPORTS THAT SHE FINISHED THESE RADIATION TREATMENTS LAST WEEK. ON EXAMINATION, HEART IS REGULAR IN RATE AND RHYTHM. BILATERAL LUNGS ARE NOTED WITH DIMINISHED LUNG SOUNDS THROUGHOUT. ABDOMEN IS ROUND, SOFT, AND NOTED WITH DIFFUSE TENDERNESS TO PALPATION. HYPERACTIVE BOWEL SOUNDS ARE NOTED IN ALL QUADRANTS. HER VITALS THIS MORNING ARE: 98.5-100-19-97%-178/85. LABS WERE OBTAINED. ABNORMAL LAB VALUES INCLUDE THE FOLLOWING: POTASSIUM 2.9, GLUCOSE 102, CALCIUM 8.2, AST 64, ALT 111, TOTAL PROTEIN 5.4, ALBUMIN 2.8. SHE IS CURRENTLY RECEIVING NS AT 125ML/HR, THE POTASSIUM AND MAGNESIUM PROTOCOLS, ZOFRAN COCKTAIL Q8H PRN, PHENERGAN 12.5MG IM Q6H PRN, PEPCID 20MG IV Q12H, PROTONIX 40MG IV BID, REGLAN 10MG IV Q6H, GI COCKTAIL 15ML PO QID, BENTYL 10MG IM QID, AMIODARONE 100MG PO DAILY, NORVASC 10MG PO DAILY, AND LIPTOR 10MG PO HS. WE WILL CONTINUE WITH CURRENT PLAN OF CARE TODAY AND ADD A SCOPALAMINE PATCH. OTHERWISE, WE WILL CONTINUE WITH CURRENT PLAN OF CARE TODAY. WE PLAN TO FOLLOW UP WITH AM LABS AND CONTINUE TO MONITOR. TIME SPENT ON CLINICAL ASSESSMENT, REVIEWING LABS AND IMAGING, DECISION MAKING, AND DOCUMENTATION GREATER THAN 75 MINUTES. - Past Medical Family Social History Past Med/Fam/Surg Hx: No changes since H&P Allergies: Allergies iodine Allergy (Unknown, Verified 12/23/18 19:21) onion Allergy (Verified 12/23/18 19:21) SEAFOOD Allergy (Uncoded 12/23/18 19:21) - Review of Systems ROS: No change since H&P - Vital Signs and I&O's Vital Signs: Temperature 97.8 F Pulse Rate [Left Radial] 98 Pulse Rate 73 Respiratory Rate 20 Blood Pressure [Right Arm] 190/98 Blood Pressure 177/79 O2 Sat by Pulse Oximetry 99 Intake and Output: Intake & Output 03/16/20 03/17/20 03/18/20 03/19/20 11:59 11:59 11:59 11:59 Intake Total 5114 / 5114 4400 / 4400 6383 / 6383 1050 / 1050 Balance 5114 / 5114 4400 / 4400 6383 / 6383 1050 / 1050 - Physical Exam Oriented: Normal Eyes: Normal Ear: Normal Nose: Normal Throat: Normal Respiratory: Generalized, Diminished Cardiovascular: Normal : Normal Auscultation: Bowel Sounds: Increased Palpation: Normal Tenderness: Diffuse, Moderate. negative: Rebound, Guarding, Rigidity Skin: Decreased Turgur Musculoskeletal: Normal Psychiatric: Normal Mood Description: Calm Affect: Normal Speech Pattern: Clear, Appropriate - Laboratory and Diagnostics Result Diagrams: 03/18/20 05:40 03/18/20 05:40 Labs: Laboratory WBC 8.4 X10^3/uL (3.6-10.0) 03/18/20 05:40 RBC 4.36 X10^6/uL (3.5-5.4) 03/18/20 05:40 Hgb 13.8 g/dL (12.0-16.0) 03/18/20 05:40 Hct 38.8 % (36.0-47.0) 03/18/20 05:40 MCV 88.9 fL (80.0-100.0) 03/18/20 05:40 MCH 31.6 pg (27.0-34.0) 03/18/20 05:40 MCHC 35.6 g/dL (33.0-35.0) H 03/18/20 05:40 RDW 13.2 % (11.6-16.5) 03/18/20 05:40 Plt Count 232 X10^3/uL (150.0-450.0) 03/18/20 05:40 Plt Count Comment Adequate (ADEQUATE) 03/16/20 05:21 MPV 9.3 fL (7.4-11.0) 03/18/20 05:40 Neut % (Auto) 83.3 % (42.0-75.0) H 03/18/20 05:40 Lymph % (Auto) 4.3 % (21.0-51.0) L 03/18/20 05:40 [place] % (Auto) 11.8 % (0.0-13.0) 03/18/20 05:40 Eos % (Auto) 0.4 % (0.9-2.9) L 03/18/20 05:40 Baso % (Auto) 0.2 % (0.2-1.0) 03/18/20 05:40 Neut # (Auto) 7.0 x10^3/uL (2.2-4.8) H 03/18/20 05:40 Lymph # (Auto) 0.4 X10^3/uL (1.3-2.9) L 03/18/20 05:40 [place] # (Auto) 1.0 x10^3/uL (0.3-0.8) H 03/18/20 05:40 Eos # (Auto) 0.0 x10^3/uL (0.0-0.2) 03/18/20 05:40 Baso # (Auto) 0.0 X10^3/uL (0.0-0.1) 03/18/20 05:40 Absolute Nucleated RBC 0.1 /100WBC 03/18/20 05:40 Total Counted 100 03/16/20 05:21 Neutrophils % (Manual) 94 % (39-76) H 03/16/20 05:21 Band Neutrophils % 1 % (0-10) 03/16/20 05:21 Lymphocytes % (Manual) 3 % (13-43) L 03/16/20 05:21 Monocytes % (Manual) 2 % (4-9) L 03/16/20 05:21 Plt Morphology Comment Normal (NORMAL) 03/16/20 05:21 RBC Morphology Normal (NORMAL) 03/16/20 05:21 Sodium 136 mmol/L (136-145) 03/18/20 05:40 Corrected Sodium 136 mmol/L (136-145) 03/18/20 05:40 Potassium 4.0 mmol/L (3.5-5.1) 03/18/20 05:40 Chloride 101 mmol/L (98-107) 03/18/20 05:40 Carbon Dioxide 26.1 mmol/L (21-32) 03/18/20 05:40 BUN 5 mg/dL (7-18) L 03/18/20 05:40 Creatinine 0.77 mg/dL (0.55-1.02) 03/18/20 05:40 Est GFR (MDRD) Af Amer > 60 (>60) 03/18/20 05:40 Est GFR (MDRD) Non-Af > 60 (>60) 03/18/20 05:40 Glucose 111 mg/dL (65-99) H 03/18/20 05:40 POC Glucose (mg/dL) 134 mg/dL (65-99) H 03/18/20 16:59 Calcium 8.8 mg/dL (8.5-10.1) 03/18/20 05:40 Corrected Calcium 9.4 mg/dL (8.5-10.1) 03/18/20 05:40 Magnesium 2.2 mg/dL (1.7-2.9) 03/15/20 05:20 Total Bilirubin 0.80 mg/dL (0.2-1.0) 03/18/20 05:40 AST 43 Units/L (15-37) H 03/18/20 05:40 ALT 100 Units/L (12-78) H 03/18/20 05:40 Alkaline Phosphatase 66 Units/L (46-116) 03/18/20 05:40 Total Protein 6.2 g/dL (6.4-8.2) L 03/18/20 05:40 Albumin 3.3 g/dL (3.4-5.0) L 03/18/20 05:40 Globulin 2.9 g/dL (2.5-4.5) 03/18/20 05:40 Albumin/Globulin Ratio 1.1 Ratio (1.1-2.1) 03/18/20 05:40 Amylase 30 Units/L (25-115) 03/12/20 16:58 Lipase 66 Units/L (73-393) L 03/12/20 16:58 Carcinoembryonic Ag 2.1 ng/mL (0.0-3.0) 03/15/20 05:20 Specimen Type Clean catch urine 03/12/20 21:29 Urine Color Pale yellow (YELLOW) 03/12/20 21:29 Urine Appearance Clear (CLEAR) 03/12/20 21: Urine pH 7.0 (5.0 - 8.0) 03/12/20 21: Ur Specific [place] 1.010 (1.000-1.030) 03/12/20 21: Urine Protein 1+ (NEGATIVE) 03/12/20 21: Urine Glucose (UA) Negative (NEGATIVE) 03/12/20 21: Urine Ketones 3+ (NEGATIVE) 03/12/20 21: Urine Occult Blood 1+ (NEGATIVE) 03/12/20 21: Urine Nitrite Negative (NEGATIVE) 03/12/20 21: Urine Bilirubin Negative (NEGATIVE) 03/12/20 21: Urine Urobilinogen Normal (NORMAL) 03/12/20 21: Ur Leukocyte Esterase Negative (NEGATIVE) 03/12/20 21: Urine RBC None seen /HPF (0-3) 03/12/20 21: Urine WBC None seen /HPF (0-5) 03/12/20 21: Ur Squamous Epith Cells Rare /HPF (NEGATIVE) 03/12/20 21: Urine Bacteria Negative /HPF (NEGATIVE) 03/12/20 21: Ur Culture Indicated? No/not indicated 03/12/20 21:29 Stl C. diff Tox B Gene Negative (NEGATIVE) 03/16/20 15:05 Stl C. diff [id number] Negative (NEGATIVE) 03/16/20 15:05 Influenza Type A (PCR) Negative (NEGATIVE) 03/12/20 16:27 Influenza Type B (PCR) Negative (NEGATIVE) 03/12/20 16:27 SARS CoV-2 RNA Rapid MARLO Negative (NEGATIVE) 03/12/20 20:04 - Plan (1) Intractable nausea and vomiting Status: Acute Plan: NS AT 125ML/HR, THE POTASSIUM AND MAGNESIUM PROTOCOLS, ZOFRAN COCKTAIL Q8H PRN, PHENERGAN 12.5MG IM Q6H PRN, PEPCID IV, PROTONIX IV, BENTYL IM, AMIODARONE 100MG PO DAILY, NORVASC 10MG PO DAILY, REGLAN 10MG IV Q6H, GI COCKTAIL 15ML PO QID, SCOPALAMINE PATCH, AND LIPTOR 10MG PO HS. (2) Abdominal pain Status: Acute Qualifiers: Abdominal location: generalized Qualified Code(s): R10.84 - Generalized abdominal pain (3) Accelerated essential hypertension Status: Acute
[2020-03-18] MEDS: LIPITOR TAB 10 MG PO SCH (21:25)
[2020-03-18] MEDS: COLACE CAP 100 MG PO SCH (21:25)
[2020-03-19] MEDS: NS 1000 ML 1,000 ML IV SCH ×4 (01:30→20:52)
[2020-03-19 04:35] LABS: BASOPHILS % (AUTO) 0.3 % (0.2-1.0); EOSINOPHILS # (AUTO) 0.2 x10^3/uL (0.0-0.2); EOSINOPHILS % (AUTO) 2.2 % (0.9-2.9); HEMOGLOBIN 13.4 g/dL (12.0-16.0); LYMPHOCYTES # (AUTO) 0.4 X10^3/uL (1.3-2.9); LYMPHOCYTES % (AUTO) 5.1 % (21.0-51.0); MEAN CORPUSCULAR HGB CONC 34.3 g/dL (33.0-35.0); MEAN CORPUSCULAR VOLUME 90.5 fL (80.0-100.0); MEAN PLATELET VOLUME 8.9 fL (7.4-11.0); MONOCYTES % (AUTO) 13.4 % (0.0-13.0); NEUTROPHILS # (AUTO) 5.9 x10^3/uL (2.2-4.8); PLATELET COUNT 222 X10^3/uL (150.0-450.0); RED CELL DISTRIBUTION WIDTH 13.2 % (11.6-16.5); WHITE BLOOD COUNT 7.5 X10^3/uL (3.6-10.0)
[2020-03-19 04:51] LABS: ALANINE AMINOTRANSFERASE 71 Units/L (12-78); ALBUMIN 2.8 g/dL (3.4-5.0); ALKALINE PHOSPHATASE 59 Units/L (46-116); ASPARTATE AMINO TRANSFERASE 32 Units/L (15-37); BLOOD UREA NITROGEN 4 mg/dL (7-18); CALCIUM 8.2 mg/dL (8.5-10.1); CARBON DIOXIDE 28.7 mmol/L (21-32); CHLORIDE 102 mmol/L (98-107); COR CA(FOR HYPOALB) 9.2 mg/dL (8.5-10.1); CREATININE 0.82 mg/dL (0.55-1.02); SODIUM 137 mmol/L (136-145); TOTAL PROTEIN 5.6 g/dL (6.4-8.2); eGFR NON BLACK RACES > 60 (>60)
[2020-03-19] MEDS: REGLAN INJ 10 MG VIAL IVP SCH ×5 (06:23→20:54)
[2020-03-19] MEDS: K-RIDER 10 MEQ/NS 100 ML 10 MEQ/100 ML BAG IV PRN ×5 (06:23→17:40)
[2020-03-19] MEDS: BENTYL I.M. INJ 10 MG IM SCH ×4 (08:38→20:52)
[2020-03-19] MEDS: CHECK PATCH XX SCH ×2 (08:39→20:52)
[2020-03-19] MEDS: CORDARONE TAB 200 MG PO SCH (08:39)
[2020-03-19] MEDS: LEVSIN/MAALOX/LIDOC VISC PO SCH ×4 (08:40→20:53)
[2020-03-19] MEDS: NORVASC TAB 10 MG PO SCH (08:40)
[2020-03-19] MEDS: PEPCID 20 MG IV PREMIX* 20 MG/50 ML BAG IV SCH ×2 (08:40→20:53)
[2020-03-19] MEDS: PROTONIX INJ 40 MG VIAL IVP SCH ×2 (08:41→20:53)
[2020-03-19] MEDS: LOVENOX INJ 40 MG SYR SC SCH (08:41)
[2020-03-19] MEDS: MARINOL PO SCH ×2 (11:42→20:53)
--- NOTE | 2020-03-19 12:27 | PCM.PROG ---
Progress Note - Progress Note for Day of Date of Exam: 03/19/20 - Subjective Subjective: WAS ADMITTED FOR TREATMENT OF INTRACTABLE NAUSEA, VOMITING, AND ABDOMINAL PAIN. EGD REVEALED MODERATE GASTRITIS. TODAY, SHE IS ALERT AND ORIENTED, LYING IN BED ON MORNING ROUNDS. SHE CONTINUES WITH COMPLAINTS OF NAUSEA TODAY. SHE DENIES SIGNIFICANT IMPROVEMENT IN SYMPTOMS SINCE ONE DAY PRIOR. SHE REPORTS VOMITING AFTER BREAKFAST THIS MORNING. ON EXAMINATION, HEART IS REGULAR IN RATE AND RHYTHM. BILATERAL LUNGS ARE NOTED WITH DIMINISHED LUNG SOUNDS THROUGHOUT. ABDOMEN IS ROUND, SOFT, AND NOTED WITH DIFFUSE TENDERNESS TO PALPATION. HYPERACTIVE BOWEL SOUNDS ARE NOTED IN ALL QUADRANTS. HER VITALS THIS MORNING ARE: 98.7-83-20-98%-182/86. LABS WERE OBTAINED. ABNORMAL LAB VALUES INC LUDE THE FOLLOWING: POTASSIUM 3.3, BUN 4, GLUCOSE 101, CALCIUM 8.2, TOTAL PROTEIN 5.6, ALBUMIN 2.8. SHE IS CURRENTLY RECEIVING NS AT 125ML/HR, THE POTASSIUM AND MAGNESIUM PROTOCOLS, ZOFRAN COCKTAIL Q8H PRN, PHENERGAN 12.5MG IM Q6H PRN, PEPCID 20MG IV Q12H, PROTONIX 40MG IV BID, REGLAN 10MG IV Q6H, GI COCKTAIL 15ML PO QID, A SCOPALAMINE PATCH Q72H, BENTYL 10MG IM QID, AMIODARONE 100MG PO DAILY, NORVASC 10MG PO DAILY, AND LIPTOR 10MG PO HS. TODAY, WE WILL ADD MARINOL 2.5MG PO BID AND CHANGE REGLAN TO ACHS. OTHERWISE, WE WILL CONTINUE WITH CURRENT PLAN OF CARE TODAY. WE PLAN TO FOLLOW UP WITH AM LABS AND CONTINUE TO MONITOR. TIME SPENT ON CLINICAL ASSESSMENT, REVIEWING LABS AND IMAGING, DECISION MAKING, AND DOCUMENTATION GREATER THAN 75 MINUTES. - Past Medical Family Social History Past Med/Fam/Surg Hx: No changes since H&P Allergies: Allergies iodine Allergy (Unknown, Verified 12/23/18 19:21) onion Allergy (Verified 12/23/18 19:21) SEAFOOD Allergy (Uncoded 12/23/18 19:21) - Review of Systems ROS: No change since H&P - Vital Signs and I&O's Vital Signs: Temperature 98.2 F Pulse Rate [Left Radial] 62 Pulse Rate 73 Respiratory Rate 20 Blood Pressure [Right Arm] 168/74 Blood Pressure 177/79 O2 Sat by Pulse Oximetry 97 Intake and Output: Intake & Output 03/17/20 03/18/20 03/19/20 03/20/20 11:59 11:59 11:59 11:59 Intake Total 4400 / 4400 6383 / 6383 4150 / 4150 Balance 4400 / 4400 6383 / 6383 4150 / 4150 - Physical Exam Oriented: Normal Eyes: Normal Ear: Normal Nose: Normal Throat: Normal Respiratory: Generalized, Diminished Cardiovascular: Normal : Normal Auscultation: Bowel Sounds: Increased Palpation: Normal Tenderness: Diffuse, Moderate. negative: Rebound, Guarding, Rigidity Skin: Decreased [place] Musculoskeletal: Normal Psychiatric: Normal Mood Description: Calm Affect: Normal Speech Pattern: Clear, Appropriate - Laboratory and Diagnostics Result Diagrams: 03/19/20 04:05 03/19/20 04:05 Labs: Laboratory WBC 7.5 X10^3/uL (3.6-10.0) 03/19/20 04:05 RBC 4.30 X10^6/uL (3.5-5.4) 03/19/20 04:05 Hgb 13.4 g/dL (12.0-16.0) 03/19/20 04:05 Hct 39.0 % (36.0-47.0) 03/19/20 04:05 MCV 90.5 fL (80.0-100.0) 03/19/20 04:05 MCH 31.0 pg (27.0-34.0) 03/19/20 04:05 MCHC 34.3 g/dL (33.0-35.0) 03/19/20 04:05 RDW 13.2 % (11.6-16.5) 03/19/20 04:05 Plt Count 222 X10^3/uL (150.0-450.0) 03/19/20 04:05 Plt Count Comment Adequate (ADEQUATE) 03/16/20 05:21 MPV 8.9 fL (7.4-11.0) 03/19/20 04:05 Neut % (Auto) 79.0 % (42.0-75.0) H 03/19/20 04:05 Lymph % (Auto) 5.1 % (21.0-51.0) L 03/19/20 04:05 [place] % (Auto) 13.4 % (0.0-13.0) H 03/19/20 04:05 Eos % (Auto) 2.2 % (0.9-2.9) 03/19/20 04:05 Baso % (Auto) 0.3 % (0.2-1.0) 03/19/20 04:05 Neut # (Auto) 5.9 x10^3/uL (2.2-4.8) H 03/19/20 04:05 Lymph # (Auto) 0.4 X10^3/uL (1.3-2.9) L 03/19/20 04:05 [place] # (Auto) 1.0 x10^3/uL (0.3-0.8) H 03/19/20 04:05 Eos # (Auto) 0.2 x10^3/uL (0.0-0.2) 03/19/20 04:05 Baso # (Auto) 0.0 X10^3/uL (0.0-0.1) 03/19/20 04:05 Absolute Nucleated RBC 0.0 /100WBC 03/19/20 04:05 Total Counted 100 03/16/20 05:21 Neutrophils % (Manual) 94 % (39-76) H 03/16/20 05:21 Band Neutrophils % 1 % (0-10) 03/16/20 05:21 Lymphocytes % (Manual) 3 % (13-43) L 03/16/20 05:21 Monocytes % (Manual) 2 % (4-9) L 03/16/20 05:21 Plt Morphology Comment Normal (NORMAL) 03/16/20 05:21 RBC Morphology Normal (NORMAL) 03/16/20 05:21 Sodium 137 mmol/L (136-145) 03/19/20 04:05 Corrected Sodium TNP 03/19/20 04:05 Potassium 3.3 mmol/L (3.5-5.1) L 03/19/20 04:05 Chloride 102 mmol/L (98-107) 03/19/20 04:05 Carbon Dioxide 28.7 mmol/L (21-32) 03/19/20 04:05 BUN 4 mg/dL (7-18) L 03/19/20 04:05 Creatinine 0.82 mg/dL (0.55-1.02) 03/19/20 04:05 Est GFR (MDRD) Af Amer > 60 (>60) 03/19/20 04:05 Est GFR (MDRD) Non-Af > 60 (>60) 03/19/20 04:05 Glucose 101 mg/dL (65-99) H 03/19/20 04:05 POC Glucose (mg/dL) 98 mg/dL (65-99) 03/19/20 10:59 Calcium 8.2 mg/dL (8.5-10.1) L 03/19/20 04:05 Corrected Calcium 9.2 mg/dL (8.5-10.1) 03/19/20 04:05 Magnesium 1.9 mg/dL (1.7-2.9) 03/19/20 04:05 Total Bilirubin 0.80 mg/dL (0.2-1.0) 03/19/20 04:05 AST 32 Units/L (15-37) 03/19/20 04:05 ALT 71 Units/L (12-78) 03/19/20 04:05 Alkaline Phosphatase 59 Units/L (46-116) 03/19/20 04:05 Total Protein 5.6 g/dL (6.4-8.2) L 03/19/20 04:05 Albumin 2.8 g/dL (3.4-5.0) L 03/19/20 04:05 Globulin 2.8 g/dL (2.5-4.5) 03/19/20 04:05 Albumin/Globulin Ratio 1.0 Ratio (1.1-2.1) L 03/19/20 04:05 Amylase 30 Units/L (25-115) 03/12/20 16:58 Lipase 66 Units/L (73-393) L 03/12/20 16:58 Carcinoembryonic Ag 2.1 ng/mL (0.0-3.0) 03/15/20 05:20 Specimen Type Clean catch urine 03/12/20 21: Urine Color Pale yellow (YELLOW) 03/12/20 21: Urine Appearance Clear (CLEAR) 03/12/20 21: Urine pH 7.0 (5.0 - 8.0) 03/12/20 21: Ur Specific [place] 1.010 (1.000-1.030) 03/12/20 21:29 Urine Protein 1+ (NEGATIVE) 03/12/20 21:29 Urine Glucose (UA) Negative (NEGATIVE) 03/12/20 21:29 Urine Ketones 3+ (NEGATIVE) 03/12/20 21:29 Urine Occult Blood 1+ (NEGATIVE) 03/12/20 21:29 Urine Nitrite Negative (NEGATIVE) 03/12/20 21:29 Urine Bilirubin Negative (NEGATIVE) 03/12/20 21:29 Urine Urobilinogen Normal (NORMAL) 03/12/20 21:29 Ur Leukocyte Esterase Negative (NEGATIVE) 03/12/20 21:29 Urine RBC None seen /HPF (0-3) 03/12/20 21:29 Urine WBC None seen /HPF (0-5) 03/12/20 21:29 Ur Squamous Epith Cells Rare /HPF (NEGATIVE) 03/12/20 21:29 Urine Bacteria Negative /HPF (NEGATIVE) 03/12/20 21:29 Ur Culture Indicated? No/not indicated 03/12/20 21:29 Stl C. diff Tox B Gene Negative (NEGATIVE) 03/16/20 15:05 Stl C. diff [id number] Negative (NEGATIVE) 03/16/20 15:05 Influenza Type A (PCR) Negative (NEGATIVE) 03/12/20 16:27 Influenza Type B (PCR) Negative (NEGATIVE) 03/12/20 16:27 SARS CoV-2 RNA Rapid MARLO Negative (NEGATIVE) 03/12/20 20:04 Tissue Pathology To follow 03/15/20 09:15 - Plan (1) Intractable nausea and vomiting Status: Acute Plan: NS AT 125ML/HR, THE POTASSIUM AND MAGNESIUM PROTOCOLS, ZOFRAN COCKTAIL Q8H PRN, PHENERGAN 12.5MG IM Q6H PRN, PEPCID IV, PROTONIX IV, BENTYL IM, AMIODARONE 100MG PO DAILY, NORVASC 10MG PO DAILY, REGLAN 10MG IV ACHS, GI COCKTAIL 15ML PO QID, SCOPALAMINE PATCH, MARINOL 2.5MG PO BID, AND LIPTOR 10MG PO HS. (2) Abdominal pain Status: Acute Qualifiers: Abdominal location: generalized Qualified Code(s): R10.84 - Generalized abdominal pain (3) Accelerated essential hypertension Status: Acute
[2020-03-19] MEDS: COLACE CAP 100 MG PO SCH (20:52)
[2020-03-19] MEDS: LIPITOR TAB 10 MG PO SCH (20:53)
[2020-03-20] MEDS: NS 1000 ML 1,000 ML IV SCH ×2 (04:37→14:08)
[2020-03-20 04:45] LABS: BASOPHILS % (AUTO) 0.5 % (0.2-1.0); EOSINOPHILS # (AUTO) 0.5 x10^3/uL (0.0-0.2); EOSINOPHILS % (AUTO) 5.8 % (0.9-2.9); HEMATOCRIT 38.3 % (36.0-47.0); LYMPHOCYTES # (AUTO) 0.6 X10^3/uL (1.3-2.9); LYMPHOCYTES % (AUTO) 7.3 % (21.0-51.0); MEAN PLATELET VOLUME 9.6 fL (7.4-11.0); MONOCYTES # (AUTO) 0.9 x10^3/uL (0.3-0.8); MONOCYTES % (AUTO) 11.3 % (0.0-13.0); NEUTROPHILS # (AUTO) 5.9 x10^3/uL (2.2-4.8); NEUTROPHILS % (AUTO) 75.1 % (42.0-75.0); PLATELET COUNT 195 X10^3/uL (150.0-450.0); RED BLOOD COUNT 4.21 X10^6/uL (3.5-5.4); RED CELL DISTRIBUTION WIDTH 13.3 % (11.6-16.5); WHITE BLOOD COUNT 7.9 X10^3/uL (3.6-10.0)
[2020-03-20 05:02] LABS: ALANINE AMINOTRANSFERASE 59 Units/L (12-78); ALBUMIN 2.6 g/dL (3.4-5.0); ALKALINE PHOSPHATASE 57 Units/L (46-116); ASPARTATE AMINO TRANSFERASE 32 Units/L (15-37); BLOOD UREA NITROGEN 4 mg/dL (7-18); CALCIUM 8.2 mg/dL (8.5-10.1); CARBON DIOXIDE 25.9 mmol/L (21-32); CHLORIDE 103 mmol/L (98-107); COR CA(FOR HYPOALB) 9.3 mg/dL (8.5-10.1); CREATININE 0.83 mg/dL (0.55-1.02); SODIUM 136 mmol/L (136-145); TOTAL PROTEIN 5.3 g/dL (6.4-8.2); eGFR NON BLACK RACES > 60 (>60)
[2020-03-20] MEDS: REGLAN INJ 10 MG VIAL IVP SCH ×2 (05:40→12:36)
[2020-03-20] MEDS: CHECK PATCH XX SCH (08:32)
[2020-03-20] MEDS: NORVASC TAB 10 MG PO SCH (08:32)
[2020-03-20] MEDS: PEPCID 20 MG IV PREMIX* 20 MG/50 ML BAG IV SCH (08:32)
[2020-03-20] MEDS: PROTONIX INJ 40 MG VIAL IVP SCH (08:33)
[2020-03-20] MEDS: LOVENOX INJ 40 MG SYR SC SCH (08:34)
[2020-03-20] MEDS: CORDARONE TAB 200 MG PO SCH (08:34)
[2020-03-20] MEDS: MARINOL PO SCH (08:35)
[2020-03-20] MEDS ORDERED: LEVSIN/MAALOX/LIDOC VISC ONE (08:35)
[2020-03-20] MEDS: LEVSIN/MAALOX/LIDOC VISC PO SCH ×3 (08:46→13:27)
[2020-03-20] MEDS: BENTYL I.M. INJ 10 MG IM SCH ×2 (09:28→14:08)
--- NOTE | 2020-03-20 10:51 | RAD ---
HISTORYLower abdominal painSTUDYKUBCOMPARISONNoneFINDINGSThe abdominal gas pattern is nonspecific and nonobstructive. No abn ormal masses or abnormal calcifications are identified. Regional skeleton is intact.IMPRESSIONUncarly keating KUBElectronically signed by: CLARE NOGUERA (Mar 20, 2020 10:49:56)
[2020-03-20 13:27] VITALS: BP 183/81
== END 2020-03-20 14:25 | DRG 392 ==
LOC: ER 15:53 → OBS 15:53
PROVIDERS: ADMIT Internal Medicine; ATTEND Internal Medicine
DX: I10 Essential (primary) hypertension; Z98.0 Intestinal bypass and anastomosis status; R41.82 Altered mental status, unspecified; K21.9 Gastro-esophageal reflux disease without esophagitis; R11.2 Nausea with vomiting, unspecified; C73 Malignant neoplasm of thyroid gland; K44.9 Diaphragmatic hernia without obstruction or gangrene; K21.00 Gastro-esophageal reflux disease with esophagitis, without bleeding; K29.60 Other gastritis without bleeding; E11.9 Type 2 diabetes mellitus without complications; Z11.52 Encounter for screening for COVID-19; F41.9 Anxiety disorder, unspecified; K31.89 Other diseases of stomach and duodenum; R10.9 Unspecified abdominal pain

== ENCOUNTER 2023-06-27 15:00 | Inpatient (IN) ==
[2023-06-27 15:17] VITALS: BMI 19.3
--- NOTE | 2023-06-27 16:20 | ED.ABDFE ---
HPI Time Seen Time Seen by Provider: 06/27/23 15:25 PCP Primary Care Physician: lavonne Carr Doctors Chief Complaint Comments: Patient has had abdominal pain since yesterday am. She made herself eat yesterday (grits in the am/noodles at lunch time/tomato soup for dinner). Patient presents to the ED because the pain is worse. Patient stats that the pain is in her RUQ and RLQ,and epigastrium. Patient has also had low grade temp. Patint denies: hematemesis,hematochezia,urinary sxs,headache,chest pain. Chief Complaint:: patient states yesterday she started having Right sided pain along with nausea states it hurts more to take in a deep breath. patient had a small bowel movement yesterday was given miralax yesterday as well. Self Treatment fo Chief Complaint: phernergan IM yesterday COVID-19 Coronavirus risk:travel/contact w/high risk person: No Has patient experienced Coronavirus symptoms: No Source History Provided: Patient Mode of arrival Mode of Arrival: Stretcher Timing Onset of Chief Complaint: 06/26/23 PMH PMH Past Medical History: Yes Past Medical History: Anemia, Anxiety, Diabetes, GERD and Hypertension Past Surgical History: Yes Surgical History: Appendectomy, Bowel Resection, Cholecystectomy and Thyroidectomy Family History History of Family Medical Conditions: Yes Family Medical History: [place], Coronary Artery Disease and Hypertension Social History Does patient currently use any type of tobacco product: No Have you used tobacco products in the last 12 months: No Type of Tobacco Use: None Does any household member use tobacco: No Do you use any recreational Drugs:: No Lives With: Alone Lives Where: Home Travel Risk Coronavirus risk:travel/contact w/high risk person: No Has patient experienced Coronavirus symptoms: No Infectious screening In the last 2 months have you had wt loss of >10#?: NO Have you had fever, night sweats or hemotysis?: No Have you traveled outside the country in the last 6 months?: No Isolation: Standard ROS Review of Systems Constitutional: No Symptoms Reported Eyes: No Symptoms Reported ENTM: No Symptoms Reported Respiratoy: No Symptoms Reported Cardiovascular: No Symptoms Reported Gastrointestinal/Abdominal: No Symptoms Reported and Abdominal Pain (epigastrium, RUQ,RLQ) Genitourinary: No Symptoms Reported Neurological: No Symptoms Reported Musculoskeletal: No Symptoms Reported Integumentary: No Symptoms Reported Hematologic/Lymphatic: No Symptoms Reported Endocrine: No Symptoms Reported Psychiatric: No Symptoms Reported All Other Systems: Reviewed and Negative PE Vital Signs Vitals: Vital Signs Temperature 98.7 F Pulse Rate 77 Pulse Rate 83 Pulse Rate 82 Pulse Rate 86 Pulse Rate 98 Pulse Rate 89 Respiratory Rate 18 Respiratory Rate 15 Blood Pressure 157/70 Blood Pressure 166/71 O2 Sat by Pulse Oximetry 96 O2 Sat by Pulse Oximetry 97 O2 Sat by Pulse Oximetry 95 O2 Sat by Pulse Oximetry 94 O2 Sat by Pulse Oximetry 94 O2 Sat by Pulse Oximetry 88 General Limitations: No Limitations and Language Barrier General Appearance: Alert and In No Apparent Distress Head Head Exam: Normal Inspection Eyes Eye exam: Normal Appearance ENT ENT Exam: Normal Exam Neck Neck Exam: Normal Inspection Chest Chest Inspection: Normal Inspection Respiratory Respiratory Exam: Normal Lung Sounds Bilat Respiratory Exam: Bilateral: Clear to Auscultation Cardiovascular Cardiovascular Exam: Regular Rate and Normal Rhythm Abdominal Exam Abdominal Exam: Tenderness and Hypoactive Bowel Sounds Abdominal Tenderness: RUQ, RLQ and Epigastrium Rectal Rectal Exam: Deferred Back Back Exam: Normal Inspection Extremeties Extremities Exam: Normal Inspection Neurologic Neurological Exam: Alert and Oriented X3 Psychiatric Psychiatric Exam: Normal Affect and Normal Mood Skin Skin Exam: Warm, Dry and Intact MDM Differential Diagnosis Differential Diagnosis- Considerations may include:: Bowel Obstruction, Inflammatory BD and Ischemic Bowel Other differential diagnosis: Bowel perforation,Pneumonia COURSE Treatment Treatment: Patient was brought to an exam room and IV access was initiated. Patient received morphine 2 mg IV, Zofran 4 mg IV, Pepcid 20 mg IV for abdominal pain. A review of patient's labs and test revealed: CBC stable, CMP stable, CRP 142.6, lactic acid 0.8, amylase and lipase stable. Patient's abdomen pelvis CT revealed a large right pleural effusion and minimal minimal colonic diverticulosis. 18:[address] Bull. She has accepted patient to her her service and has requested consulting Dr. Bender general surgeon. 19:[address]. [address]. Bender states that he will follow-up with the patient. And has been stable in the emergency department. [facility] Labs Reviewed Laboratory Results Reviewed?: Yes 06/27/23 17:10 06/27/23 17:10 Laboratory: WBC 11.3 X10^3/uL (3.6-10.0) H 06/27/23 17:10 RBC 3.44 X10^6/uL (3.5-5.4) L 06/27/23 17:10 Hgb 10.7 g/dL (12.0-16.0) L 06/27/23 17:10 Hct 32.2 % (36.0-47.0) L 06/27/23 17:10 MCV 93.5 fL (80.0-100.0) 06/27/23 17:10 MCH 31.2 pg (27.0-34.0) 06/27/23 17:10 MCHC 33.4 g/dL (33.0-35.0) 06/27/23 17:10 RDW 12.5 % (11.6-16.5) 06/27/23 17:10 Plt Count 307 X10^3/uL (150.0-450.0) 06/27/23 17:10 MPV 8.0 fL (7.4-11.0) 06/27/23 17:10 Neut % (Auto) 82.9 % (42.0-75.0) H 06/27/23 17:10 Lymph % (Auto) 8.2 % (21.0-51.0) L 06/27/23 17:10 [place] % (Auto) 8.2 % (0.0-13.0) 06/27/23 17:10 Eos % (Auto) 0.1 % (0.9-2.9) L 06/27/23 17:10 Baso % (Auto) 0.6 % (0.2-1.0) 06/27/23 17:10 Neut # (Auto) 9.4 x10^3/uL (2.2-4.8) H 06/27/23 17:10 Lymph # (Auto) 0.9 X10^3/uL (1.3-2.9) L 06/27/23 17:10 [place] # (Auto) 0.9 x10^3/uL (0.3-0.8) H 06/27/23 17:10 Eos # (Auto) 0.0 x10^3/uL (0.0-0.2) 06/27/23 17:10 Baso # (Auto) 0.1 X10^3/uL (0.0-0.1) 06/27/23 17:10 Absolute Nucleated RBC 0.0 /100WBC 06/27/23 17:10 Sodium 132 mmol/L (136-145) L 06/27/23 17:10 Corrected Sodium 132 mmol/L (136-145) L 06/27/23 17:10 Potassium 4.7 mmol/L (3.5-5.1) 06/27/23 17:10 Chloride 97 mmol/L (98-107) L 06/27/23 17:10 Carbon Dioxide 26.3 mmol/L (21-32) 06/27/23 17:10 BUN 10 mg/dL (7-18) 06/27/23 17:10 Creatinine 0.98 mg/dL (0.55-1.02) 06/27/23 17:10 Est GFR (MDRD) Af Amer > 60 (>60) 06/27/23 17:10 Est GFR (MDRD) Non-Af 57 (>60) L 06/27/23 17:10 Glucose 114 mg/dL (65-99) H 06/27/23 17:10 Lactic Acid 0.8 mmol/L (0.4-2.0) 06/27/23 17:10 Calcium 8.8 mg/dL (8.5-10.1) 06/27/23 17:10 Corrected Calcium 10.0 mg/dL (8.5-10.1) 06/27/23 17:10 Total Bilirubin 0.70 mg/dL (0.2-1.0) 06/27/23 17:10 AST 19 Units/L (15-37) 06/27/23 17:10 ALT 22 Units/L (12-78) 06/27/23 17:10 Alkaline Phosphatase 86 Units/L (46-116) 06/27/23 17:10 C-Reactive Protein 142.60 mg/L (0-3.0) H 06/27/23 17:10 Total Protein 6.6 g/dL (6.4-8.2) 06/27/23 17:10 Albumin 2.5 g/dL (3.4-5.0) L 06/27/23 17:10 Globulin 4.1 g/dL (2.5-4.5) 06/27/23 17:10 Albumin/Globulin Ratio 0.6 Ratio (1.1-2.1) L 06/27/23 17:10 Amylase 14 Units/L (25-115) L 06/27/23 17:10 Lipase 10 Units/L (16-77) L 06/27/23 17:10 Opioid Opioid Risk Tool Age (Bao box if 16-45): No History of Preadolescent Sexual Abuse: No Total: 0 Total Score Risk Category: Low Risk Copyright: [facility] predicting aberrant behaviors Discharge Plan Diagnosis Discharge Problem: Large pleural effusion, Abdominal pain Discharge Plan Patient Disposition: ADMITTED INPATIENT Condition: Stable Prescriptions: No Action amiodarone 100 mg Tablet 100 mg PO DAILY Rx Instructions: GIVE ONE TABLET DAILY BY MOUTH polyethylene glycol 3350 [Miralax] 17 gram Powder In Packet 17 g PO DAILY atorvastatin 10 mg Tablet 10 mg PO QHS Rx Instructions: GIVE ONE TABLET BY MOUTH AT BEDTIME fentanyl [Duragesic] 50 mcg/hr Patch 72 Hour 1 patch TRANSDERMAL Q72H clonidine 0.3 mg/24 hr Patch Weekly 1 patch TRANSDERMAL QWEEK losartan 100 mg Tablet 100 mg PO DAILY amlodipine [Norvasc] 10 mg Tablet 10 mg PO DAILY Rx Instructions: GIVE ONE TABLET DAILY BY MOUTH levothyroxine [Synthroid] 175 mcg Tablet 200 mcg PO DAILY metoprolol succinate [Toprol XL] 50 mg Tablet Extended Release 24 Hr 50 mg PO DAILY cetirizine [Zyrtec] 10 mg Tablet 10 mg PO DAILY sodium chloride 1 gram Tablet 1,000 mg PO QD-QID PRN promethazine [Phenergan] 12.5 mg Suppository 25 mg [place] Q6H PRN (Reason: Nausea And Vomiting) hydrocodone-acetaminophen [[place]] 7.5-325 mg Tablet 1 tab PO TID pantoprazole [Protonix] 40 mg Tablet,Delayed Release (Dr/Ec) 40 mg PO BID nitroglycerin [Nitrostat] 0.4 mg Tablet, Sublingual 0.4 mg SUBLINGUAL Q5-15M PRN docusate sodium [Colace] 100 mg Capsule 100 mg PO BID gabapentin 300 mg Capsule 300 mg PO BID dicyclomine 10 mg Capsule 10 mg PO QID PreserVision AREDS-2 [id number] Capsule 1 tab PO BID magnesium oxide 400 mg magnesium Tablet 400 mg PO BID tramadol 50 mg Tablet 50 mg PO Q4HR PRN ferrous fumarate 324 mg (106 mg iron) Tablet 324 mg PO DAILY famotidine [Pepcid] 40 MG tablet 40 mg PO BID Qty: 60 5RF Rx Instructions: TAKE ONE TABLET TWICE A DAY erythromycin 250 mg tablet 250 mg PO QID Rx Instructions: BEFORE MEALS AND HS potassium chloride [Klor-Con] 20 mEq packet 40 meq PO DAILY fluoxetine 20 mg capsule 20 mg PO HS Linzess 145 mcg capsule 145 mcg PO DAILY Health Concerns: Post Hospitalization: new medications and changes needed to prevent readmission or further decline. Pt educated and given instructions on all concerns. Plan of Treatment: Continue with present treatment and follow up plan. Pt is to keep follow up appointment as instructed and take medications as ordered. Orders to Discharge Patient Discharge Orders: Transfer (Routine); Ordered 06/27/23 Ordered By: Dori Mathew Follow ups/Referrals Follow ups/Referrals: Yung Garcia [Primary Care Provider] - 3 days Instructions Stand Alone Forms: Post Hospital Follow Up Care
[2023-06-27] MEDS: ZOFRAN INJ 4 MG VIAL IVP ONE (17:02)
[2023-06-27] MEDS: PEPCID 20 MG VIAL IVP ONE (17:02)
[2023-06-27] MEDS: MORPHINE SULFATE INJ 2 MG INJ IVP ONE ×2 (17:03→20:02)
[2023-06-27 17:19] LABS: BASOPHILS # (AUTO) 0.1 X10^3/uL (0.0-0.1); BASOPHILS % (AUTO) 0.6 % (0.2-1.0); EOSINOPHILS % (AUTO) 0.1 % (0.9-2.9); HEMATOCRIT 32.2 % (36.0-47.0); HEMOGLOBIN 10.7 g/dL (12.0-16.0); LYMPHOCYTES # (AUTO) 0.9 X10^3/uL (1.3-2.9); LYMPHOCYTES % (AUTO) 8.2 % (21.0-51.0); MEAN CORPUSCULAR HEMOGLOBIN 31.2 pg (27.0-34.0); MEAN CORPUSCULAR HGB CONC 33.4 g/dL (33.0-35.0); MEAN CORPUSCULAR VOLUME 93.5 fL (80.0-100.0); MONOCYTES # (AUTO) 0.9 x10^3/uL (0.3-0.8); MONOCYTES % (AUTO) 8.2 % (0.0-13.0); NEUTROPHILS # (AUTO) 9.4 x10^3/uL (2.2-4.8); NEUTROPHILS % (AUTO) 82.9 % (42.0-75.0); PLATELET COUNT 307 X10^3/uL (150.0-450.0); RED BLOOD COUNT 3.44 X10^6/uL (3.5-5.4); RED CELL DISTRIBUTION WIDTH 12.5 % (11.6-16.5); WHITE BLOOD COUNT 11.3 X10^3/uL (3.6-10.0)
[2023-06-27 17:37] LABS: ALANINE AMINOTRANSFERASE 22 Units/L (12-78); ALBUMIN 2.5 g/dL (3.4-5.0); ALKALINE PHOSPHATASE 86 Units/L (46-116); AMYLASE 14 Units/L (25-115); ASPARTATE AMINO TRANSFERASE 19 Units/L (15-37); BLOOD UREA NITROGEN 10 mg/dL (7-18); CALCIUM 8.8 mg/dL (8.5-10.1); CARBON DIOXIDE 26.3 mmol/L (21-32); CHLORIDE 97 mmol/L (98-107); COR NA(FOR HYPERGLY) 132 mmol/L (136-145); CREATININE 0.98 mg/dL (0.55-1.02); GLUCOSE 114 mg/dL (65-99); LIPASE 10 Units/L (16-77); POTASSIUM 4.7 mmol/L (3.5-5.1); SODIUM 132 mmol/L (136-145); TOTAL PROTEIN 6.6 g/dL (6.4-8.2); eGFR NON BLACK RACES 57 (>60)
--- NOTE | 2023-06-27 18:37 | CT ---
PROCEDURE: CT Chest, Abdomen, and Pelvis without IV Contrast. HISTORY: Right abdomen pain and nausea. TECHNIQUE: Axial images were performed through the chest, abdomen, and pelvis without the administrat ion of IV contrast with multiplanar reformations . Oral contrast was not administered . Dose reductio n techniques including Automated Exposure Control (AEC) and adjustment of mA and kV were utilized . COMPARISON: 04/15/2020 CT abdomen pelvis. TECHNICAL QUALITY: Satisfactory. FINDINGS: Mild athero sclerotic calcifications thoracic aorta with no aneurysm. Mediastinum and hilar regions show no masses or lymphadenopathy. Right hilum is not well visualized due to confluent atelectasis and fluid. Normal-sized heart with no pericardial fluid. Large right pleural effusion with severe compressive atelectasis right lower lobe and moderate atelec tasis right middle lobe. Some dependent atelectasis adjacent to the major fissure on the left. Liver, spleen, adrenals, and pancreas show no significant abnormality. Kidneys show no stones or obstruction. Previous cholecystectomy. No ascites or pneumoperitoneum. Mild atherosclerosis abdominal aorta. No lymphadenopathy. No bowel obstruction or inflammation. Minimal colonic diverticulosis. Appendix is not visualized. Pelvis shows previous hysterectomy and no masses or free fluid. Normal urinary bladder. No acute bony abnormality. IMPRESSION: 1. Large right pleural effusion with compressive atelectasis. 2. No pulmonary consolidation. 3. Minimal colonic diverticulosis. THIS IS AN ELECTRONICALLY VERIFIED FINAL REPORT 06/27/2023 6:34 PM - Electronically signed by Kevin Tolentino MD
[2023-06-27] MEDS ORDERED: PROzac PO SCH (21:00)
[2023-06-27] MEDS ORDERED: PATIENT'S HOME MEDICATION (Magnesium Oxide 400 mg magnesium Tablet) PO SCH (21:00)
[2023-06-27] MEDS ORDERED: PREPARATION H OINT RECTAL PRN (21:17)
[2023-06-27] MEDS: LIPITOR TAB 10 MG PO SCH (22:51)
[2023-06-27] MEDS: COLACE CAP 100 MG PO SCH (22:51)
[2023-06-27] MEDS: PEPCID TAB 40 MG PO SCH (22:51)
[2023-06-27] MEDS: NORCO 7.5/325 MG TAB PO SCH (22:52)
[2023-06-27] MEDS: BENTYL CAP 10 MG PO SCH (22:52)
[2023-06-28] MEDS: VIT C E ZN COPPR LUTEIN ZEAXAN PO SCH (00:24)
[2023-06-28] MEDS: [UNRECOGNIZED DRUG - OTHER] PO SCH (00:24)
[2023-06-28] MEDS: MORPHINE SULFATE INJ 2 MG INJ IVP PRN (03:58)
[2023-06-28 04:59] LABS: BASOPHILS # (AUTO) 0.1 X10^3/uL (0.0-0.1); BASOPHILS % (AUTO) 0.6 % (0.2-1.0); EOSINOPHILS # (AUTO) 0.1 x10^3/uL (0.0-0.2); EOSINOPHILS % (AUTO) 1.1 % (0.9-2.9); HEMATOCRIT 29.9 % (36.0-47.0); HEMOGLOBIN 10.3 g/dL (12.0-16.0); LYMPHOCYTES # (AUTO) 1.1 X10^3/uL (1.3-2.9); LYMPHOCYTES % (AUTO) 11.1 % (21.0-51.0); MEAN CORPUSCULAR HEMOGLOBIN 31.7 pg (27.0-34.0); MEAN CORPUSCULAR HGB CONC 34.4 g/dL (33.0-35.0); MEAN CORPUSCULAR VOLUME 92.2 fL (80.0-100.0); MEAN PLATELET VOLUME 8.1 fL (7.4-11.0); MONOCYTES # (AUTO) 1.6 x10^3/uL (0.3-0.8); NEUTROPHILS # (AUTO) 7.3 x10^3/uL (2.2-4.8); NEUTROPHILS % (AUTO) 71.2 % (42.0-75.0); PLATELET COUNT 301 X10^3/uL (150.0-450.0); RED BLOOD COUNT 3.25 X10^6/uL (3.5-5.4); RED CELL DISTRIBUTION WIDTH 12.3 % (11.6-16.5); WHITE BLOOD COUNT 10.2 X10^3/uL (3.6-10.0)
[2023-06-28 05:07] LABS: ALANINE AMINOTRANSFERASE 19 Units/L (12-78); ALBUMIN 2.3 g/dL (3.4-5.0); ALKALINE PHOSPHATASE 82 Units/L (46-116); ASPARTATE AMINO TRANSFERASE 17 Units/L (15-37); BLOOD UREA NITROGEN 11 mg/dL (7-18); CALCIUM 8.5 mg/dL (8.5-10.1); CARBON DIOXIDE 30.5 mmol/L (21-32); CHLORIDE 98 mmol/L (98-107); COR CA(FOR HYPOALB) 9.9 mg/dL (8.5-10.1); CREATININE 0.97 mg/dL (0.55-1.02); GLUCOSE 92 mg/dL (65-99); POTASSIUM 4.2 mmol/L (3.5-5.1); SODIUM 134 mmol/L (136-145); TOTAL PROTEIN 6.3 g/dL (6.4-8.2); eGFR NON BLACK RACES 58 (>60)
[2023-06-28] MEDS: SYNTHROID 100 mcg TAB PO SCH (06:01)
--- NOTE | 2023-06-28 07:29 | RAD ---
EXAM:Portable chestHISTORY:PneumoniaCOMPARISON: 021FINDINGS:Heart size difficult to assess due to obscuration of the right heart border by a large right pleural effusion occupying at least the lower half of the right hemithorax and obscuring the right middle and right lower lobes. Underlying infiltrate or atelectasis not excluded. The right apex and upper lobe appear free of acute infiltrates. Apical pleural thickening is present on the right which could be related to the right pleural effusion tracking upwards however pleural scarring or neoplasm not excluded. Follow-up of this area in order to see if this resolves with resolution or treatment of the right pleural effusion is recommended. Left lung is clear. Bony thorax is unremarkable.IMPRESSION:Large right pleural effusion obscuring the right middle and right lower lobesRight apical pleural thickening which could be related to upper tracking of the right pleural effusion, pleural scarring, or pleural neoplasm. See recommendation as aboveRight upper lobe and left lung clearTHIS IS AN ELECTRONICALLY VERIFIED FINAL REPORT06/28/2023 7:26 AM - Electronically signed by Camacho Dumont MD
[2023-06-28] MEDS: MORPHINE SULFATE INJ 2 MG INJ ONE (07:48)
[2023-06-28] MEDS: ZOFRAN INJ 4 MG VIAL IVP PRN (08:00)
[2023-06-28] MEDS: NORVASC TAB 10 MG PO SCH (08:59)
[2023-06-28] MEDS: TOPROL XL PO SCH (08:59)
[2023-06-28] MEDS: COZAAR PO SCH (08:59)
[2023-06-28] MEDS ORDERED: PATIENT'S HOME MEDICATION (Losartan 100 mg Tablet) PO SCH (09:00)
[2023-06-28] MEDS ORDERED: AMIODARONE 100 MG PO SCH (09:00)
[2023-06-28] MEDS ORDERED: CATAPRES-TTS-3 TD SCH (09:00)
[2023-06-28] MEDS ORDERED: SYNTHROID 175 mcg TAB PO SCH (09:00)
[2023-06-28] MEDS: CORDARONE TAB 200 MG PO SCH (09:01)
[2023-06-28] MEDS: LINZESS PO SCH (09:09)
[2023-06-28] MEDS: FERROUS GLUCONATE PO SCH (09:09)
[2023-06-28] MEDS: MAG-OX TAB PO SCH (09:09)
[2023-06-28] MEDS: KLOR-CON PO SCH (09:09)
[2023-06-28] MEDS: ZyrTEC TAB 10 MG PO SCH (09:10)
[2023-06-28] MEDS: MIRALAX POWDER (1 DOSE 17 G) PO SCH (09:10)
--- NOTE | 2023-06-28 10:05 | DR.H&P ---
H&P History & Physical for Day of: H&P Date: 06/28/23 Chief Complaint Chief Complaint: SOB, abdominal pain, chest pain Allergies Allergies Allergy/AdvReac Type Severity Reaction Status Date / Time Fish Containing Products Allergy Mild Verified 09/02/22 16:37 shrimp Allergy Mild Verified 09/02/22 16:36 iodine Allergy Unknown Verified 02/13/21 09:30 onion Allergy Verified 02/13/21 09:30 History of Present Illness History of Present Illness: Ms Cervantes is a 87y/o female who is a resident of [facility] presented with worsening nausea, abdominal pain and shortness of breath. She has multiple co-morbidities including thyroid cancer s/p resection, HTN, HLD, GERD, dementia, chronic pain syndrome. She was sent to the ER for further evaluation. CXR showed large right pleural effusion. CTAP did not show any abdominal abnormality. Dr Luke was consulted in the ER. She is currently on 3L NC. She reports feeling a lot of pressure on the right side. She reports pleuritic chest pain. Patient has never had a thoracentesis in the past. Labs/imaging reviewed -WBC 10.2 Hgb 10.3 -CXR: Large right pleural effusion with severe compressive atelectasis right lower lobe and moderate atelectasis right middle lobe. Some dependent atelectasis adjacent to the major fissure on the left. Plan: Monitor respiratory status closely, continue O2. NPO for now. Follow surgery recommendations, plan for thoracentesis later today. Replace electrolytes as per protocol. Monitor AM labs. Resume meds when able. Monitor AM labs/imaging. Time spent for clinical assessment, reviewing labs/imaging, physical exam, decision making and documentation greater than 45 mins. Past Medical History Past Medical History: Anemia, Anxiety, Diabetes, GERD and Hypertension Past Surgical History Surgical History: Appendectomy Family History Family Medical History: Diabetes Mellitus and Hypertension Social History Does patient currently use any type of tobacco product: No Have you used tobacco products in the last 12 months: No Type of Tobacco Use: None Does any household member use tobacco: No Alcohol Use: None Drug Use: None Medications Home Medications: Home Medications Medication Instructions Recorded Confirmed Type amiodarone 100 mg tablet 100 mg PO DAILY 02/23/20 06/27/23 History amlodipine 10 mg tablet (Norvasc) 10 mg PO DAILY 02/23/20 06/27/23 History atorvastatin 10 mg tablet 10 mg PO QHS 02/23/20 06/27/23 History clonidine 0.3 mg/24 hr weekly 1 patch transdermal QWEEK 02/23/20 06/27/23 History transdermal patch dicyclomine 10 mg capsule 10 mg PO QID 02/23/20 06/27/23 History docusate sodium 100 mg capsule 100 mg PO BID 02/23/20 06/27/23 History (Colace) fentanyl 50 mcg/hr transdermal 1 patch transdermal Q72H 02/23/20 06/27/23 History patch (Duragesic) gabapentin 300 mg capsule 300 mg PO BID 02/23/20 06/27/23 History hydrocodone 7.5 mg-acetaminophen 1 tab PO TID 02/23/20 06/27/23 History 325 mg tablet ([place]) losartan 100 mg tablet 100 mg PO DAILY 02/23/20 06/27/23 History magnesium oxide 400 mg PO BID 02/23/20 06/27/23 History metoprolol succinate 50 mg 50 mg PO DAILY 02/23/20 06/27/23 History tablet,extended release 24 hr (Toprol XL) pantoprazole 40 mg tablet,delayed 40 mg PO BID 02/23/20 06/27/23 History release (Protonix) sodium chloride 1 gram tablet 1,000 mg PO QD-QID PRN 02/23/20 06/27/23 History tramadol 50 mg tablet 50 mg PO Q4HR PRN 02/23/20 06/27/23 History vit C 250 mg-vit E 90 mg-zinc 40 1 tab PO BID 02/23/20 06/27/23 History mg-copper 1 bi-ganxeu-rmyggl capsule (PreserVision AREDS-2) ferrous fumarate 324 mg (106 mg 324 mg PO DAILY 03/14/20 06/27/23 History iron) tablet linaclotide 145 mcg capsule 145 mcg PO Q OTHER DAY 11/08/20 06/27/23 History (Linzess) potassium chloride 20 mEq oral 30 meq PO DAILY 11/08/20 06/27/23 History packet (Klor-Con) B koojzyn-D-rls-Fe-FA 106 mg 1 tab PO DAILY 06/27/23 06/27/23 History iron-1 mg tablet (Ferrocite Plus) biotin 1,000 mcg chewable tablet 1,000 mcg PO DAILY 06/27/23 06/27/23 History carboxymethylcellulose sodium 0.5 0.5 drp ophthalmic (eye) TID 06/27/23 06/27/23 History % eye drops (Refresh Tears) cholecalciferol (vitamin D3) 125 125 mcg PO DAILY 06/27/23 06/27/23 History mcg (5,000 unit) tablet (Vitamin D3) diclofenac sodium 1 % topical gel 1 ea topical TID 06/27/23 06/27/23 History (Voltaren Arthritis Pain) donepezil 5 mg tablet 5 mg PO QDAY 06/27/23 06/27/23 History famotidine 40 mg tablet (Pepcid) 40 mg PO DAILY 06/27/23 06/27/23 History hydralazine 25 mg tablet 25 mg PO TID 06/27/23 06/27/23 History levothyroxine 150 mcg tablet 150 mcg PO QDAY 06/27/23 06/27/23 History (Synthroid) loratadine 10 mg tablet (Claritin) 10 mg PO DAILY 06/27/23 06/27/23 History metoclopramide HCl 10 mg tablet 10 mg PO BID 06/27/23 06/27/23 History (Reglan) nitroglycerin 0.4 mg sublingual 0.4 mg sublingual Q4-5M PRN Chest 06/27/23 06/27/23 History tablet (Nitrostat) Pain ondansetron 8 mg disintegrating 8 mg PO TID PRN 06/27/23 06/27/23 History tablet promethazine 25 mg/mL injection 12.5 mg IM Q6HR PRN nausea and 06/27/23 06/27/23 History syringe vomitting Labs 06/28/23 04:42 06/28/23 04:42 Labs: Laboratory WBC 10.2 X10^3/uL (3.6-10.0) H 06/28/23 04:42 RBC 3.25 X10^6/uL (3.5-5.4) L 06/28/23 04:42 Hgb 10.3 g/dL (12.0-16.0) L 06/28/23 04:42 Hct 29.9 % (36.0-47.0) L 06/28/23 04:42 MCV 92.2 fL (80.0-100.0) 06/28/23 04:42 MCH 31.7 pg (27.0-34.0) 06/28/23 04:42 MCHC 34.4 g/dL (33.0-35.0) 06/28/23 04:42 RDW 12.3 % (11.6-16.5) 06/28/23 04:42 Plt Count 301 X10^3/uL (150.0-450.0) 06/28/23 04:42 MPV 8.1 fL (7.4-11.0) 06/28/23 04:42 Neut % (Auto) 71.2 % (42.0-75.0) 06/28/23 04:42 Lymph % (Auto) 11.1 % (21.0-51.0) L 06/28/23 04:42 [place] % (Auto) 16.0 % (0.0-13.0) H 06/28/23 04:42 Eos % (Auto) 1.1 % (0.9-2.9) 06/28/23 04:42 Baso % (Auto) 0.6 % (0.2-1.0) 06/28/23 04:42 Neut # (Auto) 7.3 x10^3/uL (2.2-4.8) H 06/28/23 04:42 Lymph # (Auto) 1.1 X10^3/uL (1.3-2.9) L 06/28/23 04:42 [place] # (Auto) 1.6 x10^3/uL (0.3-0.8) H 06/28/23 04:42 Eos # (Auto) 0.1 x10^3/uL (0.0-0.2) 06/28/23 04:42 Baso # (Auto) 0.1 X10^3/uL (0.0-0.1) 06/28/23 04:42 Absolute Nucleated RBC 0.0 /100WBC 06/28/23 04:42 Sodium 134 mmol/L (136-145) L 06/28/23 04:42 Corrected Sodium TNP 06/28/23 04:42 Potassium 4.2 mmol/L (3.5-5.1) 06/28/23 04:42 Chloride 98 mmol/L (98-107) 06/28/23 04:42 Carbon Dioxide 30.5 mmol/L (21-32) 06/28/23 04:42 BUN 11 mg/dL (7-18) 06/28/23 04:42 Creatinine 0.97 mg/dL (0.55-1.02) 06/28/23 04:42 Est GFR (MDRD) Af Amer > 60 (>60) 06/28/23 04:42 Est GFR (MDRD) Non-Af 58 (>60) L 06/28/23 04:42 Glucose 92 mg/dL (65-99) 06/28/23 04:42 Lactic Acid 0.8 mmol/L (0.4-2.0) 06/27/23 17:10 Calcium 8.5 mg/dL (8.5-10.1) 06/28/23 04:42 Corrected Calcium 9.9 mg/dL (8.5-10.1) 06/28/23 04:42 Total Bilirubin 0.90 mg/dL (0.2-1.0) 06/28/23 04:42 AST 17 Units/L (15-37) 06/28/23 04:42 ALT 19 Units/L (12-78) 06/28/23 04:42 Alkaline Phosphatase 82 Units/L (46-116) 06/28/23 04:42 C-Reactive Protein 142.60 mg/L (0-3.0) H 06/27/23 17:10 Total Protein 6.3 g/dL (6.4-8.2) L 06/28/23 04:42 Albumin 2.3 g/dL (3.4-5.0) L 06/28/23 04:42 Globulin 4.0 g/dL (2.5-4.5) 06/28/23 04:42 Albumin/Globulin Ratio 0.6 Ratio (1.1-2.1) L 06/28/23 04:42 Amylase 14 Units/L (25-115) L 06/27/23 17:10 Lipase 10 Units/L (16-77) L 06/27/23 17:10 Review of Systems Constitutional: No Symptoms Reported Eyes: No Symptoms Reported ENT: No Symptoms Reported Respiratory: Shortness of Breath and Pleuritic Pain Cardiovascular: Chest Pain Gastrointestinal: Nausea and Abdominal Pain Genitourinary: No Symptoms Reported Musculoskeletal: No Symptoms Reported Skin: No Symptoms Reported Neurological: No Symptoms Reported Physical Exam Vital Signs: Vital Signs Temperature 97 F Temperature 98.5 F Pulse Rate [Left Radial] 75 Pulse Rate [Left Radial] 74 Respiratory Rate 17 Respiratory Rate 20 Respiratory Rate 20 Respiratory Rate 18 Respiratory Rate 20 Respiratory Rate 20 Blood Pressure [Right Arm] 158/70 Blood Pressure [Right Arm] 166/72 O2 Sat by Pulse Oximetry 94 O2 Sat by Pulse Oximetry 93 Oriented: Normal Eyes: Normal Nose: Normal Throat: Normal Respiratory: RUL Diminished and RLL Diminished Cardiovascular: Normal Auscultation: Bowel Sounds: Normal Palpation: Normal Tenderness: Normal Skin: Decreased Turgur Musculoskeletal: Normal Psychiatric: Normal Mood Description: Calm Affect: Normal Speech Pattern: Clear and Appropriate Review H&P Reviewed: Yes Patient was examined?: Yes
--- NOTE | 2023-06-28 11:20 | RAD ---
EXAM: CHEST, 1 VIEW HISTORY: S/P thoracentesis; COMPARISON: No relevant prior studies were available for comparison at the time of interpretation. TECHNIQUE: CHEST, 1 VIEW FINDINGS: Chest: Lines and tubes: None Mediastinum: Cardiac and mediastinal shadow is within normal limits for size and contour. Pulmonary vessels: No pulmonary vascular congestion. Lung mcknight: No suspicious airspace opacity. Pleura: There is blunting of the right costophrenic angle. No pneumothorax. Bones and soft tissues: No acute osseous or soft tissue abnormality. IMPRESSION: 1. Reduction in right pleural effusion 2. No postprocedural pneumothorax THIS IS AN ELECTRONICALLY VERIFIED FINAL REPORT 06/28/2023 11:17 AM - Electronically signed by Sy Priest MD
[2023-06-29 06:35] LABS: BASOPHILS % (AUTO) 0.5 % (0.2-1.0); EOSINOPHILS # (AUTO) 0.2 x10^3/uL (0.0-0.2); EOSINOPHILS % (AUTO) 2.6 % (0.9-2.9); HEMATOCRIT 28.6 % (36.0-47.0); LYMPHOCYTES # (AUTO) 0.9 X10^3/uL (1.3-2.9); MEAN CORPUSCULAR HGB CONC 34.9 g/dL (33.0-35.0); MEAN CORPUSCULAR VOLUME 91.5 fL (80.0-100.0); MEAN PLATELET VOLUME 8.2 fL (7.4-11.0); MONOCYTES # (AUTO) 1.2 x10^3/uL (0.3-0.8); MONOCYTES % (AUTO) 12.6 % (0.0-13.0); NEUTROPHILS # (AUTO) 6.8 x10^3/uL (2.2-4.8); NEUTROPHILS % (AUTO) 74.3 % (42.0-75.0); PLATELET COUNT 311 X10^3/uL (150.0-450.0); RED BLOOD COUNT 3.13 X10^6/uL (3.5-5.4); RED CELL DISTRIBUTION WIDTH 12.8 % (11.6-16.5); WHITE BLOOD COUNT 9.2 X10^3/uL (3.6-10.0)
[2023-06-29 06:43] LABS: ALANINE AMINOTRANSFERASE 18 Units/L (12-78); ALBUMIN 2.3 g/dL (3.4-5.0); ALKALINE PHOSPHATASE 75 Units/L (46-116); ASPARTATE AMINO TRANSFERASE 19 Units/L (15-37); BLOOD UREA NITROGEN 13 mg/dL (7-18); CALCIUM 8.7 mg/dL (8.5-10.1); CARBON DIOXIDE 30.5 mmol/L (21-32); CHLORIDE 96 mmol/L (98-107); COR CA(FOR HYPOALB) 10.1 mg/dL (8.5-10.1); CREATININE 0.87 mg/dL (0.55-1.02); GLUCOSE 92 mg/dL (65-99); POTASSIUM 4.1 mmol/L (3.5-5.1); SODIUM 133 mmol/L (136-145); TOTAL PROTEIN 5.9 g/dL (6.4-8.2); eGFR NON BLACK RACES > 60 (>60)
[2023-06-29] MEDS: PHENERGAN PR PRN (08:22)
[2023-06-29] MEDS: PROTONIX INJ 40 MG VIAL IVP SCH (09:38)
[2023-06-29] MEDS: COMPAZINE INJ IVP ONE (10:48)
--- NOTE | 2023-06-29 10:49 | PCM.PROG ---
Progress Note Progress Note for Day of Date of Exam: 06/29/23 Subjective Subjective: Patient seen at bedside, no acute events overnight. Patient reports having more nausea and abdominal pain this morning. She received zofran earlier which did not help so was given promethazine. She had thoracentesis done yesterday for the right pleural effusion. She is currently on 3L NC. Fluid analysis is pending. Labs/imaging reviewed -WBC 9.2 Hgb 10.0 BUN/Cr: 13/0.87 -Pleural fluid analysis pending -Pleural fluid culture pending Plan: follow KUB and CXR results, follow pending labs and culture. Continue anti-emetics, patient reports zofran and phenergan did not help. Will give compazine 10 mg once. Continue pepcid and protonix. Continue home medications. Keep patient NPO until XR results. Replace electrolytes as per protocol. Monitor AM labs/imaging. Past Medical Family Social History Allergies: Allergies Fish Containing Products Allergy (Mild, Verified 09/02/22 16:37) 'seafood' allergy; specifics unknown shrimp Allergy (Mild, Verified 09/02/22 16:36) 'seafood' allergy, specifics unknown iodine Allergy (Unknown, Verified 02/13/21 09:30) onion Allergy (Verified 02/13/21 09:30) Vital Signs and I&O's Vital Signs: Vital Signs Temperature 97.7 F Temperature 98.0 F Pulse Rate [Left Radial] 70 Pulse Rate [Left Radial] 70 Respiratory Rate 18 Respiratory Rate 20 Respiratory Rate 20 Blood Pressure [Right Arm] 159/70 Blood Pressure [Right Arm] 155/72 O2 Sat by Pulse Oximetry 97 O2 Sat by Pulse Oximetry 93 Intake and Output: Intake & Output 06/26/23 06/27/23 06/28/23 06/29/23 23:59 23:59 23:59 23:59 Intake Total 1180 / 1180 Balance 118 / 1180 Physical Exam Oriented: Normal Eyes: Normal Nose: Normal Throat: Normal Cardiovascular: Normal Auscultation: Bowel Sounds: Normal Tenderness: Diffuse, Periumbilical and Mild Skin: Decreased Turgur Musculoskeletal: Normal Psychiatric: Normal Mood Description: Calm Affect: Normal Speech Pattern: Clear and Appropriate Laboratory and Diagnostics 06/29/23 05:33 06/29/23 05:33 Labs: 06/28/23 11:00 Pleural Fluid Gram Stain - Final Laboratory WBC 9.2 X10^3/uL (3.6-10.0) 06/29/23 05:33 RBC 3.13 X10^6/uL (3.5-5.4) L 06/29/23 05:33 Hgb 10.0 g/dL (12.0-16.0) L 06/29/23 05:33 Hct 28.6 % (36.0-47.0) L 06/29/23 05:33 MCV 91.5 fL (80.0-100.0) 06/29/23 05:33 MCH 32.0 pg (27.0-34.0) 06/29/23 05:33 MCHC 34.9 g/dL (33.0-35.0) 06/29/23 05:33 RDW 12.8 % (11.6-16.5) 06/29/23 05:33 Plt Count 311 X10^3/uL (150.0-450.0) 06/29/23 05:33 MPV 8.2 fL (7.4-11.0) 06/29/23 05:33 Neut % (Auto) 74.3 % (42.0-75.0) 06/29/23 05:33 Lymph % (Auto) 10.0 % (21.0-51.0) L 06/29/23 05:33 [place] % (Auto) 12.6 % (0.0-13.0) 06/29/23 05:33 Eos % (Auto) 2.6 % (0.9-2.9) 06/29/23 05:33 Baso % (Auto) 0.5 % (0.2-1.0) 06/29/23 05:33 Neut # (Auto) 6.8 x10^3/uL (2.2-4.8) H 06/29/23 05:33 Lymph # (Auto) 0.9 X10^3/uL (1.3-2.9) L 06/29/23 05:33 [place] # (Auto) 1.2 x10^3/uL (0.3-0.8) H 06/29/23 05:33 Eos # (Auto) 0.2 x10^3/uL (0.0-0.2) 06/29/23 05:33 Baso # (Auto) 0.0 X10^3/uL (0.0-0.1) 06/29/23 05:33 Absolute Nucleated RBC 0.0 /100WBC 06/29/23 05:33 Sodium 133 mmol/L (136-145) L 06/29/23 05:33 Corrected Sodium TNP 06/29/23 05:33 Potassium 4.1 mmol/L (3.5-5.1) 06/29/23 05:33 Chloride 96 mmol/L (98-107) L 06/29/23 05:33 Carbon Dioxide 30.5 mmol/L (21-32) 06/29/23 05:33 BUN 13 mg/dL (7-18) 06/29/23 05:33 Creatinine 0.87 mg/dL (0.55-1.02) 06/29/23 05:33 Est GFR (MDRD) Af Amer > 60 (>60) 06/29/23 05:33 Est GFR (MDRD) Non-Af > 60 (>60) 06/29/23 05:33 Glucose 92 mg/dL (65-99) 06/29/23 05:33 Lactic Acid 0.8 mmol/L (0.4-2.0) 06/27/23 17:10 Calcium 8.7 mg/dL (8.5-10.1) 06/29/23 05:33 Corrected Calcium 10.1 mg/dL (8.5-10.1) 06/29/23 05:33 Total Bilirubin 0.50 mg/dL (0.2-1.0) 06/29/23 05:33 AST 19 Units/L (15-37) 06/29/23 05:33 ALT 18 Units/L (12-78) 06/29/23 05:33 Alkaline Phosphatase 75 Units/L (46-116) 06/29/23 05:33 C-Reactive Protein 142.60 mg/L (0-3.0) H 06/27/23 17:10 Total Protein 5.9 g/dL (6.4-8.2) L 06/29/23 05:33 Albumin 2.3 g/dL (3.4-5.0) L 06/29/23 05:33 Globulin 3.6 g/dL (2.5-4.5) 06/29/23 05:33 Albumin/Globulin Ratio 0.6 Ratio (1.1-2.1) L 06/29/23 05:33 Amylase 14 Units/L (25-115) L 06/27/23 17:10 Lipase 10 Units/L (16-77) L 06/27/23 17:10 Fluid pH 7.0 06/28/23 11:00 Fluid Glucose 88 06/28/23 11:00 Fluid Total Protein 3.6 06/28/23 11:00 Plan (1) Pleural effusion, right: Status: Acute (2) Abdominal pain: Status: Acute Qualifiers: Abdominal location: generalized Qualified Code(s): R10.84 - Generalized abdominal pain (3) Anemia: Status: Acute Qualifiers: Anemia type: unspecified type Qualified Code(s): D64.9 - Anemia, unspecified (4) N&V (nausea and vomiting): Status: Inactive Qualifiers: Vomiting type: bilious vomiting Qualified Code(s): R11.14 - Bilious vomiting (5) Intractable nausea and vomiting: Status: Acute (6) Chronic pain syndrome: Status: Acute (7) GERD (gastroesophageal reflux disease): Status: Acute Qualifiers: Esophagitis presence: esophagitis presence not specified Qualified Code(s): K21.9 - Gastro-esophageal reflux disease without esophagitis (8) HTN (hypertension): Status: Acute Qualifiers: Hypertension type: primary hypertension Qualified Code(s): I10 - Essential (primary) hypertension
--- NOTE | 2023-06-29 12:10 | RAD ---
EXAM:KUBHISTORY:ABD PAIN; htn, diabeties appendectomy, bowel resection, cholecystectomy, thyroidectomyCOMPARISON:06/27/2023TECHNIQUE: .br.br.br.br.br non-distended colon.Gas in scattered loops of non-distended small bowel.No gross free air.No abnormal calcifications.No acute osseous abnormality.IMPRESSION:No acute intra-abdominal abnormality detected.THIS IS AN ELECTRONICALLY VERIFIED FINAL REPORT06/29/2023 12:06 PM - Electronically signed by Sy Priest MD
--- NOTE | 2023-06-29 12:11 | RAD ---
EXAM:CHEST, 1 VIEWHISTORY:RIGHT PLEURAL EFFUSION; htn, diabeties appendectomy, bowel resection, cholecystectomy, thyroidectomyCOMPARISON:Prior study or studies were utilized for comparison during interpretation with the most relevant dated 06/28/2023TECHNIQUE:CHEST, 1 VIEWFINDINGS:Chest:Lines and tubes: NoneMediastinum: Cardiac and mediastinal shadow is within normal limits for size and contour.Pulmonary vessels: No pulmonary vascular congestion.Lung mcknight: Patchy opacities are seen bilaterally, [id number]: There is blunting of the right costophrenic angle. No pneumothorax.Bones and soft tissues: No acute osseous or soft tissue abnormality.IMPRESSION:1. Right pneumonia and increasing right pleural effusionTHIS IS AN ELECTRONICALLY VERIFIED FINAL REPORT06/29/2023 12:08 PM - Electronically signed by Sy Priest MD
[2023-06-29] MEDS ORDERED: NS 250 ML IV 250 ML IV ONE (20:44)
[2023-06-29] MEDS: ROCEPHIN VIAL 1 GRAM 1 G in NS 100 ML IV 100 ML IV SCH (20:51)
[2023-06-29] MEDS: ZITHROMAX INJ 500 MG VIAL 500 MG in NS 250 ML IV 250 ML IV SCH (22:32)
[2023-06-30 06:26] LABS: BASOPHILS % (AUTO) 0.3 % (0.2-1.0); EOSINOPHILS # (AUTO) 0.2 x10^3/uL (0.0-0.2); EOSINOPHILS % (AUTO) 1.9 % (0.9-2.9); HEMATOCRIT 28.4 % (36.0-47.0); HEMOGLOBIN 9.9 g/dL (12.0-16.0); LYMPHOCYTES # (AUTO) 0.9 X10^3/uL (1.3-2.9); LYMPHOCYTES % (AUTO) 9.2 % (21.0-51.0); MEAN CORPUSCULAR HEMOGLOBIN 31.7 pg (27.0-34.0); MEAN CORPUSCULAR HGB CONC 34.8 g/dL (33.0-35.0); MEAN CORPUSCULAR VOLUME 91.1 fL (80.0-100.0); MEAN PLATELET VOLUME 8.2 fL (7.4-11.0); MONOCYTES # (AUTO) 1.2 x10^3/uL (0.3-0.8); MONOCYTES % (AUTO) 12.2 % (0.0-13.0); NEUTROPHILS # (AUTO) 7.4 x10^3/uL (2.2-4.8); NEUTROPHILS % (AUTO) 76.4 % (42.0-75.0); PLATELET COUNT 345 X10^3/uL (150.0-450.0); RED BLOOD COUNT 3.12 X10^6/uL (3.5-5.4); RED CELL DISTRIBUTION WIDTH 12.5 % (11.6-16.5); WHITE BLOOD COUNT 9.7 X10^3/uL (3.6-10.0)
[2023-06-30 06:36] LABS: ALANINE AMINOTRANSFERASE 16 Units/L (12-78); ALBUMIN 2.2 g/dL (3.4-5.0); ALKALINE PHOSPHATASE 75 Units/L (46-116); ASPARTATE AMINO TRANSFERASE 19 Units/L (15-37); BLOOD UREA NITROGEN 12 mg/dL (7-18); CALCIUM 8.4 mg/dL (8.5-10.1); CARBON DIOXIDE 30.7 mmol/L (21-32); CHLORIDE 98 mmol/L (98-107); COR CA(FOR HYPOALB) 9.8 mg/dL (8.5-10.1); CREATININE 0.81 mg/dL (0.55-1.02); GLUCOSE 89 mg/dL (65-99); POTASSIUM 4.1 mmol/L (3.5-5.1); SODIUM 134 mmol/L (136-145); TOTAL PROTEIN 6.1 g/dL (6.4-8.2); eGFR NON BLACK RACES > 60 (>60)
--- NOTE | 2023-06-30 10:48 | PCM.PROG ---
Progress Note Progress Note for Day of Date of Exam: 06/30/23 Subjective Subjective: Patient seen at bedside, no acute events overnight. Patient had worsening nausea yesterday, she did feel better in the evening and ate a meal. She has nausea again this morning. She has a hx of chronic nausea that seems to be worse in the morning. Patient takes a lot of different medications including opioids. KUB was negative, CXR did show right side pneumonia and increase effusion. She was started on IV antibiotics. She also reports not having a BM. She has been getting docusate and Linzess. Labs/imaging reviewed -WBC 9.7 Hgb 9.9 BUN/Cr: 12/0.81 -Pleural fluid analysis pending -Pleural fluid culture: no growth Plan: follow CXR results, follow pending labs. Continue IV antibiotics and bronchodilators. Continue anti-emetics. Restart reglan. Will review patient's home medications. Continue pepcid and protonix. Replace electrolytes as per protocol. Monitor AM labs/imaging. Past Medical Family Social History Allergies: Allergies Fish Containing Products Allergy (Mild, Verified 09/02/22 16:37) 'seafood' allergy; specifics unknown shrimp Allergy (Mild, Verified 09/02/22 16:36) 'seafood' allergy, specifics unknown iodine Allergy (Unknown, Verified 02/13/21 09:30) onion Allergy (Verified 02/13/21 09:30) Vital Signs and I&O's Vital Signs: Vital Signs Temperature 98.2 F Temperature 98.2 F Temperature 98.2 F Pulse Rate [Left Radial] 70 Pulse Rate [Left Radial] 68 Respiratory Rate 20 Respiratory Rate 20 Respiratory Rate 20 Respiratory Rate 20 Blood Pressure [Left Arm] 159/70 Blood Pressure [Right Arm] 164/72 Blood Pressure [Right Arm] 164/72 Blood Pressure 157/70 O2 Sat by Pulse Oximetry 96 O2 Sat by Pulse Oximetry 97 Intake and Output: Intake & Output 06/27/23 06/28/23 06/29/23 06/30/23 23:59 23:59 23:59 23:59 Intake Total 1180 / 1180 683 / 683 130 / 130 Balance 1180 / 1180 683 / 683 130 / 130 Physical Exam Oriented: Normal Eyes: Normal Nose: Normal Throat: Normal Cardiovascular: Normal Auscultation: Bowel Sounds: Normal Palpation: Normal Tenderness: Normal Skin: Decreased Turgur Musculoskeletal: Normal Psychiatric: Normal Mood Description: Calm Affect: Normal Speech Pattern: Clear and Appropriate Laboratory and Diagnostics 06/30/23 05:24 06/30/23 05:24 Labs: 06/28/23 11:00 Pleural Fluid Gram Stain - Final 06/28/23 11:00 Pleural Fluid - Preliminary Laboratory WBC 9.7 X10^3/uL (3.6-10.0) 06/30/23 05:24 RBC 3.12 X10^6/uL (3.5-5.4) L 06/30/23 05:24 Hgb 9.9 g/dL (12.0-16.0) L 06/30/23 05:24 Hct 28.4 % (36.0-47.0) L 06/30/23 05:24 MCV 91.1 fL (80.0-100.0) 06/30/23 05:24 MCH 31.7 pg (27.0-34.0) 06/30/23 05:24 MCHC 34.8 g/dL (33.0-35.0) 06/30/23 05:24 RDW 12.5 % (11.6-16.5) 06/30/23 05:24 Plt Count 345 X10^3/uL (150.0-450.0) 06/30/23 05:24 MPV 8.2 fL (7.4-11.0) 06/30/23 05:24 Neut % (Auto) 76.4 % (42.0-75.0) H 06/30/23 05:24 Lymph % (Auto) 9.2 % (21.0-51.0) L 06/30/23 05:24 [place] % (Auto) 12.2 % (0.0-13.0) 06/30/23 05:24 Eos % (Auto) 1.9 % (0.9-2.9) 06/30/23 05:24 Baso % (Auto) 0.3 % (0.2-1.0) 06/30/23 05:24 Neut # (Auto) 7.4 x10^3/uL (2.2-4.8) H 06/30/23 05:24 Lymph # (Auto) 0.9 X10^3/uL (1.3-2.9) L 06/30/23 05:24 [place] # (Auto) 1.2 x10^3/uL (0.3-0.8) H 06/30/23 05:24 Eos # (Auto) 0.2 x10^3/uL (0.0-0.2) 06/30/23 05:24 Baso # (Auto) 0.0 X10^3/uL (0.0-0.1) 06/30/23 05:24 Absolute Nucleated RBC 0.0 /100WBC 06/30/23 05:24 Sodium 134 mmol/L (136-145) L 06/30/23 05:24 Corrected Sodium TNP 06/30/23 05:24 Potassium 4.1 mmol/L (3.5-5.1) 06/30/23 05:24 Chloride 98 mmol/L (98-107) 06/30/23 05:24 Carbon Dioxide 30.7 mmol/L (21-32) 06/30/23 05:24 BUN 12 mg/dL (7-18) 06/30/23 05:24 Creatinine 0.81 mg/dL (0.55-1.02) 06/30/23 05:24 Est GFR (MDRD) Af Amer > 60 (>60) 06/30/23 05:24 Est GFR (MDRD) Non-Af > 60 (>60) 06/30/23 05:24 Glucose 89 mg/dL (65-99) 06/30/23 05:24 Lactic Acid 0.8 mmol/L (0.4-2.0) 06/27/23 17:10 Calcium 8.4 mg/dL (8.5-10.1) L 06/30/23 05:24 Corrected Calcium 9.8 mg/dL (8.5-10.1) 06/30/23 05:24 Magnesium 1.9 mg/dL (2.0-2.9) L 06/30/23 05:24 Total Bilirubin 0.30 mg/dL (0.2-1.0) 06/30/23 05:24 AST 19 Units/L (15-37) 06/30/23 05:24 ALT 16 Units/L (12-78) 06/30/23 05:24 Alkaline Phosphatase 75 Units/L (46-116) 06/30/23 05:24 C-Reactive Protein 142.60 mg/L (0-3.0) H 06/27/23 17:10 Total Protein 6.1 g/dL (6.4-8.2) L 06/30/23 05:24 Albumin 2.2 g/dL (3.4-5.0) L 06/30/23 05:24 Globulin 3.9 g/dL (2.5-4.5) 06/30/23 05:24 Albumin/Globulin Ratio 0.6 Ratio (1.1-2.1) L 06/30/23 05:24 Amylase 14 Units/L (25-115) L 06/27/23 17:10 Lipase 10 Units/L (16-77) L 06/27/23 17:10 Fluid pH 7.0 06/28/23 11:00 Fluid Glucose 88 06/28/23 11:00 Fluid Total Protein 3.6 06/28/23 11:00 Plan (1) Pneumonia: Status: Acute Qualifiers: Laterality: right Lung location: unspecified part of lung Pneumonia type: due to unspecified organism Qualified Code(s): J18.9 - Pneumonia, unspecified organism (2) Pleural effusion, right: Status: Acute (3) Abdominal pain: Status: Acute Qualifiers: Abdominal location: generalized Qualified Code(s): R10.84 - Generalized abdominal pain (4) Anemia: Status: Acute Qualifiers: Anemia type: unspecified type Qualified Code(s): D64.9 - Anemia, unsp ecified (5) Intractable nausea and vomiting: Status: Acute (6) Chronic pain syndrome: Status: Acute (7) GERD (gastroesophageal reflux disease): Status: Acute Qualifiers: Esophagitis presence: esophagitis presence not specified Qualified Code(s): K21.9 - Gastro-esophageal reflux disease without esophagitis (8) HTN (hypertension): Status: Acute Qualifiers: Hypertension type: primary hypertension Qualified Code(s): I10 - Essential (primary) hypertension
[2023-06-30] MEDS ORDERED: CONSULT PHARMACY - POTASSIUM & MAGNESIUM XX SCH (11:00)
--- NOTE | 2023-06-30 11:47 | RAD ---
EXAM: CHEST, 1 VIEW HISTORY: RLL PNEUMONIA; COMPARISON: Prior study or studies were utilized for comparison during interpretation with the most relevant cristiana ed 06/29/2023 TECHNIQUE: CHEST, 1 VIEW FINDINGS: Chest: Lines and tubes: None Mediastinum: Cardiac and mediastinal shadow is within normal limits for size and contour. Pulmonary vessels: No pulmonary vascular congestion. Lung mcknight: There is a right lower lung field consolidation Pleura: There is blunting of the right costophrenic angle. No pneumothorax. Bones and soft tissues: No acute osseous or soft tissue abnormality. IMPRESSION: 1. Right pneumonia 2. Moderate right pleural effusion THIS IS AN ELECTRONICALLY VERIFIED FINAL REPORT 06/30/2023 11:43 AM - Electronically signed by Sy Priest MD
[2023-06-30] MEDS: REGLAN TAB 10 MG PO SCH (11:51)
[2023-06-30] MEDS: XOPENEX 1.25 MG/3 ML NEBULE NEB SCH (13:43)
[2023-06-30] MEDS: APRESOLINE TAB 25 MG PO SCH (15:29)
[2023-07-01 07:24] LABS: BASOPHILS # (AUTO) 0.1 X10^3/uL (0.0-0.1); BASOPHILS % (AUTO) 0.7 % (0.2-1.0); EOSINOPHILS # (AUTO) 0.2 x10^3/uL (0.0-0.2); EOSINOPHILS % (AUTO) 1.8 % (0.9-2.9); HEMATOCRIT 28.4 % (36.0-47.0); HEMOGLOBIN 9.9 g/dL (12.0-16.0); LYMPHOCYTES # (AUTO) 1.6 X10^3/uL (1.3-2.9); LYMPHOCYTES % (AUTO) 18.8 % (21.0-51.0); MEAN CORPUSCULAR HEMOGLOBIN 32.1 pg (27.0-34.0); MEAN CORPUSCULAR VOLUME 91.7 fL (80.0-100.0); MEAN PLATELET VOLUME 7.4 fL (7.4-11.0); MONOCYTES # (AUTO) 0.9 x10^3/uL (0.3-0.8); MONOCYTES % (AUTO) 11.1 % (0.0-13.0); NEUTROPHILS # (AUTO) 5.7 x10^3/uL (2.2-4.8); NEUTROPHILS % (AUTO) 67.6 % (42.0-75.0); PLATELET COUNT 328 X10^3/uL (150.0-450.0); RED BLOOD COUNT 3.09 X10^6/uL (3.5-5.4); RED CELL DISTRIBUTION WIDTH 12.4 % (11.6-16.5); WHITE BLOOD COUNT 8.4 X10^3/uL (3.6-10.0)
[2023-07-01 07:38] LABS: ALANINE AMINOTRANSFERASE 16 Units/L (12-78); ALKALINE PHOSPHATASE 67 Units/L (46-116); ASPARTATE AMINO TRANSFERASE 16 Units/L (15-37); BLOOD UREA NITROGEN 9 mg/dL (7-18); CALCIUM 8.5 mg/dL (8.5-10.1); CARBON DIOXIDE 30.6 mmol/L (21-32); CHLORIDE 99 mmol/L (98-107); COR CA(FOR HYPOALB) 10.1 mg/dL (8.5-10.1); CREATININE 0.81 mg/dL (0.55-1.02); GLUCOSE 104 mg/dL (65-99); POTASSIUM 4.1 mmol/L (3.5-5.1); SODIUM 134 mmol/L (136-145); eGFR NON BLACK RACES > 60 (>60)
--- NOTE | 2023-07-01 09:53 | RAD ---
EXAM:CHEST, 1 VIEWHISTORY:PLEURAL EFFUSION;COMPARISON:No relevant prior studies were available for comparison at the time of interpretation.TECHNIQUE:CHEST, 1 VIEWFINDINGS:Chest:Lines and tubes: NoneMediastinum: Cardiac and mediastinal shadow is within normal limits for size and contour.Pulmonary vessels: No pulmonary vascular congestion.Lung mcknight: Worsening right base consolidationPleura: No effusion. No pneumothorax.Bones and soft tissues: No acute osseous or soft tissue abnormality.IMPRESSION:1. Worsening right base consolidationTHIS IS AN ELECTRONICALLY VERIFIED FINAL REPORT07/01/2023 9:50 AM - Electronically signed by Sy Priest MD
--- NOTE | 2023-07-01 15:09 | PCM.PROG ---
Progress Note Progress Note for Day of Date of Exam: 07/01/23 Subjective Subjective: Patient this morning resting in bed. No acute events overnight. She reports not much change in symptoms compared to yesterday. Labs/imaging reviewed -WBC 8.4, Hgb 9.9, Plt 328, Na 134, K 4.1, Creatinine 0.81, Glucose 104, -Pleural fluid culture: gram positive cocci -CXR: worsening right base consolidation Plan: Continue IV antibiotics Rocephin and Azithromycin. Scheduled bronchod ilators. Continue anti-emetics. Home medications have been resumed. Continue pepcid and protonix. Replace electrolytes as per protocol. Monitor AM labs/imaging. Past Medical Family Social History Allergies: Allergies Fish Containing Products Allergy (Mild, Verified 09/02/22 16:37) 'seafood' allergy; specifics unknown shrimp Allergy (Mild, Verified 09/02/22 16:36) 'seafood' allergy, specifics unknown iodine Allergy (Unknown, Verified 02/13/21 09:30) onion Allergy (Verified 02/13/21 09:30) Review of Systems ROS changes noted: see HPI Vital Signs and I&O's Vital Signs: Vital Signs Temperature 98.3 F Temperature 98.0 F Pulse Rate [Left Radial] 78 Pulse Rate [Left Radial] 67 Respiratory Rate 18 Respiratory Rate 18 Respiratory Rate 18 Respiratory Rate 18 Blood Pressure [Right Arm] 119/75 Blood Pressure [Right Arm] 145/65 O2 Sat by Pulse Oximetry 100 O2 Sat by Pulse Oximetry 100 Intake and Output: Intake & Output 06/28/23 06/29/23 06/30/23 07/01/23 23:59 23:59 23:59 23:59 Intake Total 1180 / 1180 683 / 683 1308 / 1308 197 / 197 Balance 1180 / 1180 683 / 683 1308 / 1308 197 / 197 Physical Exam Oriented: Normal Eyes: Normal Nose: Normal Throat: Normal Respiratory: Diminished (RLL) Cardiovascular: Normal Auscultation: Bowel Sounds: Normal Tenderness: Normal Skin: Decreased Turgur Musculoskeletal: Normal Psychiatric: Normal Mood Description: Calm Affect: Normal Speech Pattern: Clear and Appropriate Laboratory and Diagnostics 07/01/23 07:14 07/01/23 06:10 Labs: 06/28/23 11:00 Pleural Fluid Gram Stain - Final 06/28/23 11:00 Pleural Fluid - Preliminary Laboratory WBC 8.4 X10^3/uL (3.6-10.0) 07/01/23 07:14 RBC 3.09 X10^6/uL (3.5-5.4) L 07/01/23 07:14 Hgb 9.9 g/dL (12.0-16.0) L 07/01/23 07:14 Hct 28.4 % (36.0-47.0) L 07/01/23 07:14 MCV 91.7 fL (80.0-100.0) 07/01/23 07:14 MCH 32.1 pg (27.0-34.0) 07/01/23 07:14 MCHC 35.0 g/dL (33.0-35.0) 07/01/23 07:14 RDW 12.4 % (11.6-16.5) 07/01/23 07:14 Plt Count 328 X10^3/uL (150.0-450.0) 07/01/23 07:14 MPV 7.4 fL (7.4-11.0) 07/01/23 07:14 Neut % (Auto) 67.6 % (42.0-75.0) 07/01/23 07:14 Lymph % (Auto) 18.8 % (21.0-51.0) L 07/01/23 07:14 [place] % (Auto) 11.1 % (0.0-13.0) 07/01/23 07:14 Eos % (Auto) 1.8 % (0.9-2.9) 07/01/23 07:14 Baso % (Auto) 0.7 % (0.2-1.0) 07/01/23 07:14 Neut # (Auto) 5.7 x10^3/uL (2.2-4.8) H 07/01/23 07:14 Lymph # (Auto) 1.6 X10^3/uL (1.3-2.9) 07/01/23 07:14 [place] # (Auto) 0.9 x10^3/uL (0.3-0.8) H 07/01/23 07:14 Eos # (Auto) 0.2 x10^3/uL (0.0-0.2) 07/01/23 07:14 Baso # (Auto) 0.1 X10^3/uL (0.0-0.1) 07/01/23 07:14 Absolute Nucleated RBC 0.0 /100WBC 07/01/23 07:14 Sodium 134 mmol/L (136-145) L 07/01/23 06:10 Corrected Sodium TNP 07/01/23 06:10 Potassium 4.1 mmol/L (3.5-5.1) 07/01/23 06:10 Chloride 99 mmol/L (98-107) 07/01/23 06:10 Carbon Dioxide 30.6 mmol/L (21-32) 07/01/23 06:10 BUN 9 mg/dL (7-18) 07/01/23 06:10 Creatinine 0.81 mg/dL (0.55-1.02) 07/01/23 06:10 Est GFR (MDRD) Af Amer > 60 (>60) 07/01/23 06:10 Est GFR (MDRD) Non-Af > 60 (>60) 07/01/23 06:10 Glucose 104 mg/dL (65-99) H 07/01/23 06:10 Lactic Acid 0.8 mmol/L (0.4-2.0) 06/27/23 17:10 Calcium 8.5 mg/dL (8.5-10.1) 07/01/23 06:10 Corrected Calcium 10.1 mg/dL (8.5-10.1) 07/01/23 06:10 Magnesium 2.0 mg/dL (2.0-2.9) 07/01/23 06:10 Total Bilirubin 0.30 mg/dL (0.2-1.0) 07/01/23 06:10 AST 16 Units/L (15-37) 07/01/23 06:10 ALT 16 Units/L (12-78) 07/01/23 06:10 Alkaline Phosphatase 67 Units/L (46-116) 07/01/23 06:10 C-Reactive Protein 142.60 mg/L (0-3.0) H 06/27/23 17:10 Total Protein 6.0 g/dL (6.4-8.2) L 07/01/23 06:10 Albumin 2.0 g/dL (3.4-5.0) L 07/01/23 06:10 Globulin 4.0 g/dL (2.5-4.5) 07/01/23 06:10 Albumin/Globulin Ratio 0.5 Ratio (1.1-2.1) L 07/01/23 06:10 Amylase 14 Units/L (25-115) L 06/27/23 17:10 Lipase 10 Units/L (16-77) L 06/27/23 17:10 Fluid pH 7.0 06/28/23 11:00 Body Fluid Sodium Source Pleural fluid 06/28/23 11:00 Fluid Sodium 134 mmol/L 06/28/23 11:00 Fluid Chloride 99 mmol/L 06/28/23 11:00 Fluid Chloride Source Pleural fluid 06/28/23 11:00 Fluid Glucose 88 06/28/23 11:00 Fluid Total Protein 3.6 06/28/23 11:00 Fluid Albumin Source Pleural fl 06/28/23 11:00 Fluid Albumin 2393 mg/dL 06/28/23 11:00 Body Fluid Amylase Source Pleural fluid 06/28/23 11:00 Fluid Amylase 12 U/L 06/28/23 11:00 Body Fluid Lipase Source Pleural fluid 06/28/23 11:00 Fluid Lipase 4 U/L 06/28/23 11:00 Cytology See comment. 06/28/23 11:00 Plan (1) Pneumonia: Status: Acute Qualifiers: Laterality: right Lung location: unspecified part of lung Pneumonia type: due to unspecified organism Qualified Code(s): J18.9 - Pneumonia, unspecified organism (2) Pleural effusion, right: Status: Acute (3) Abdominal pain: Status: Acute Qualifiers: Abdominal location: generalized Qualified Code(s): R10.84 - Generalized abdominal pain (4) Anemia: Status: Acute Qualifiers: Anemia type: unspecified type Qualified Code(s): D64.9 - Anemia, unspecified (5) Intractable nausea and vomiting: Status: Acute (6) Chronic pain syndrome: Status: Acute (7) GERD (gastroesophageal reflux disease): Status: Acute Qualifiers: Esophagitis presence: esophagitis presence not specified Qualified Code(s): K21.9 - Gastro-esophageal reflux disease without esophagitis (8) HTN (hypertension): Status: Acute Qualifiers: Hypertension type: primary hypertension Qualified Code(s): I10 - Essential (primary) hypertension
[2023-07-02 06:53] LABS: BASOPHILS # (AUTO) 0.1 X10^3/uL (0.0-0.1); EOSINOPHILS # (AUTO) 0.3 x10^3/uL (0.0-0.2); EOSINOPHILS % (AUTO) 2.8 % (0.9-2.9); HEMATOCRIT 31.9 % (36.0-47.0); HEMOGLOBIN 10.9 g/dL (12.0-16.0); LYMPHOCYTES # (AUTO) 1.6 X10^3/uL (1.3-2.9); LYMPHOCYTES % (AUTO) 17.2 % (21.0-51.0); MEAN CORPUSCULAR HEMOGLOBIN 31.6 pg (27.0-34.0); MEAN CORPUSCULAR HGB CONC 34.2 g/dL (33.0-35.0); MEAN CORPUSCULAR VOLUME 92.4 fL (80.0-100.0); MEAN PLATELET VOLUME 7.8 fL (7.4-11.0); MONOCYTES # (AUTO) 0.9 x10^3/uL (0.3-0.8); NEUTROPHILS # (AUTO) 6.2 x10^3/uL (2.2-4.8); PLATELET COUNT 373 X10^3/uL (150.0-450.0); RED BLOOD COUNT 3.45 X10^6/uL (3.5-5.4); RED CELL DISTRIBUTION WIDTH 12.7 % (11.6-16.5)
[2023-07-02 07:15] LABS: ALANINE AMINOTRANSFERASE 15 Units/L (12-78); ALBUMIN 2.3 g/dL (3.4-5.0); ALKALINE PHOSPHATASE 74 Units/L (46-116); ASPARTATE AMINO TRANSFERASE 20 Units/L (15-37); BLOOD UREA NITROGEN 9 mg/dL (7-18); CALCIUM 8.9 mg/dL (8.5-10.1); CARBON DIOXIDE 29.8 mmol/L (21-32); CHLORIDE 98 mmol/L (98-107); COR CA(FOR HYPOALB) 10.3 mg/dL (8.5-10.1); CREATININE 0.86 mg/dL (0.55-1.02); GLUCOSE 92 mg/dL (65-99); POTASSIUM 4.9 mmol/L (3.5-5.1); SODIUM 133 mmol/L (136-145); TOTAL PROTEIN 6.6 g/dL (6.4-8.2); eGFR NON BLACK RACES > 60 (>60)
--- NOTE | 2023-07-02 08:16 | RAD ---
EXAM: CHEST, 1 VIEW HISTORY: RIGHT PLEURAL EFFUSION; HTN, DM, ANEMIA, GERD SX: APPY, BOWEL RESECTION, ERICKA, THYROIDECTOMY COMPARISON: Prior study or studies were utilized for comparison during interpretation with the most relevant crist[place] ed yesterday TECHNIQUE: CHEST, 1 VIEW FINDINGS: Chest: Lines and tubes: None Mediastinum: Cardiac and mediastinal shadow is within normal limits for size and contour. Pulmonary vessels: No pulmonary vascular congestion. Lung mcknight: No suspicious airspace opacity. Right base atelectasis Pleura: There is blunting of the right costophrenic angle. No pneumothorax. Bones and soft tissues: No acute osseous or soft tissue abnormality. IMPRESSION: 1. Slight improvement in right pleural effusion THIS IS AN ELECTRONICALLY VERIFIED FINAL REPORT 07/02/2023 8:13 AM - Electronically signed by Sy Priest MD
[2023-07-02] MEDS: ZOFRAN INJ 4 MG VIAL IVP PRN (08:47)
--- NOTE | 2023-07-02 10:32 | CT ---
EXAM:CHEST W/O CONHISTORY:RIGHT PLEURAL EFFUSION;COMPARISON:None.TECHNIQUE:CT of the chest obtained without IV contrast. Evaluation of the solid organs is limited due to lack of IV contrast. 3D MIPS images obtained and reviewed. Dose reduction techniques including Automated Exposure Control (AEC) and adjustment of mA and kV were utilized.FINDINGS:No pneumothorax. Moderate right pleural effusion. Consolidation versus atelectasis in the right lung, worst in the right lower lobe.The heart is prominent. No evidence of pericardial disease. Coronary and aortic calcifications. No mediastinal adenopathy.No acute osseous abnormality. Multilevel degenerative changes in the visualized spine.The limited visualized portions of the upper abdomen demonstrate no acute process.IMPRESSION:Moderate right pleural effusion Likely atelectasis in the right lung.THIS IS AN ELECTRONICALLY VERIFIED FINAL REPORT07/02/2023 10:29 AM - Electronically signed by Camacho Dumont MD
[2023-07-02] MEDS: PHENERGAN SUPP 25 MG PR PRN (11:15)
[2023-07-02] MEDS ORDERED: CONSULT PHARMACY - ANTIBIOTIC XX SCH (13:00)
[2023-07-02] MEDS: VIBRAMYCIN 100 MG in D5W 250 ML IV 250 ML IV SCH (14:14)
[2023-07-02] MEDS ORDERED: VIBRAMYCIN IV ONE (20:03)
--- NOTE | 2023-07-02 23:51 | PCM.PROG ---
Progress Note Progress Note for Day of Date of Exam: 07/02/23 Subjective Subjective: Patient examined in bed this morning. No acute events overnight. She reports having some nausea this morning otherwise no other concerns. Labs/imaging reviewed -WBC 9, Hgb 10.9, Plt 373, Na 133, K 4.9, Creatinine 0.86, Glucose 92, -Pleural fluid culture: gram positive cocci -CXR: slight improvement in right pleural effusion Plan: Continue IV antibiotics Rocephin and Azithromycin. Scheduled bronchodilators. Continue anti-emetics. Home medications have been resumed. Continue pepcid and protonix. Replace electrolytes as per protocol. Pt has CT ordered this morning for further evaluation. Otherwise, continue current treatment plan. Monitor AM labs/imaging. Past Medical Family Social History Allergies: Allergies Fish Containing Products Allergy (Mild, Verified 09/02/22 16:37) 'seafood' allergy; specifics unknown shrimp Allergy (Mild, Verified 09/02/22 16:36) 'seafood' allergy, specifics unknown iodine Allergy (Unknown, Verified 02/13/21 09:30) onion Allergy (Verified 02/13/21 09:30) Review of Systems ROS changes noted: see HPI Vital Signs and I&O's Vital Signs: Vital Signs Temperature 98.5 F Temperature 97.3 F Pulse Rate [Left Radial] 70 Pulse Rate [Left Radial] 65 Pulse Rate 70 Respiratory Rate 20 Respiratory Rate 20 Respiratory Rate 18 Blood Pressure [Left Arm] 123/60 Blood Pressure [Right Arm] 119/56 O2 Sat by Pulse Oximetry 97 O2 Sat by Pulse Oximetry 97 Intake and Output: Intake & Output 06/29/23 06/30/23 07/01/23 07/02/23 23:59 23:59 23:59 23:59 Intake Total 683 / 683 1308 / 1308 1347 / 1347 580 / 580 Balance 683 / 683 1308 / 1308 1347 / 1347 580 / 580 Physical Exam Oriented: Normal Eyes: Normal Nose: Normal Throat: Normal Respiratory: Diminished (RLL) Cardiovascular: Normal Auscultation: Bowel Sounds: Normal Tenderness: Normal Skin: Decreased Turgur Musculoskeletal: Normal Psychiatric: Normal Mood Description: Calm Affect: Normal Speech Pattern: Clear and Appropriate Laboratory and Diagnostics 07/02/23 06:05 07/02/23 06:05 Labs: 06/28/23 11:00 Pleural Fluid Gram Stain - Final 06/28/23 11:00 Pleural Fluid - Final Staphylococcus Capitis Laboratory WBC 9.0 X10^3/uL (3.6-10.0) 07/02/23 06:05 RBC 3.45 X10^6/uL (3.5-5.4) L 07/02/23 06:05 Hgb 10.9 g/dL (12.0-16.0) L 07/02/23 06:05 Hct 31.9 % (36.0-47.0) L 07/02/23 06:05 MCV 92.4 fL (80.0-100.0) 07/02/23 06:05 MCH 31.6 pg (27.0-34.0) 07/02/23 06:05 MCHC 34.2 g/dL (33.0-35.0) 07/02/23 06:05 RDW 12.7 % (11.6-16.5) 07/02/23 06:05 Plt Count 373 X10^3/uL (150.0-450.0) 07/02/23 06:05 MPV 7.8 fL (7.4-11.0) 07/02/23 06:05 Neut % (Auto) 69.0 % (42.0-75.0) 07/02/23 06:05 Lymph % (Auto) 17.2 % (21.0-51.0) L 07/02/23 06:05 [place] % (Auto) 10.0 % (0.0-13.0) 07/02/23 06:05 Eos % (Auto) 2.8 % (0.9-2.9) 07/02/23 06:05 Baso % (Auto) 1.0 % (0.2-1.0) 07/02/23 06:05 Neut # (Auto) 6.2 x10^3/uL (2.2-4.8) H 07/02/23 06:05 Lymph # (Auto) 1.6 X10^3/uL (1.3-2.9) 07/02/23 06:05 [place] # (Auto) 0.9 x10^3/uL (0.3-0.8) H 07/02/23 06:05 Eos # (Auto) 0.3 x10^3/uL (0.0-0.2) H 07/02/23 06:05 Baso # (Auto) 0.1 X10^3/uL (0.0-0.1) 07/02/23 06:05 Absolute Nucleated RBC 0.1 /100WBC 07/02/23 06:05 Sodium 133 mmol/L (136-145) L 07/02/23 06:05 Corrected Sodium TNP 07/02/23 06:05 Potassium 4.9 mmol/L (3.5-5.1) 07/02/23 06:05 Chloride 98 mmol/L (98-107) 07/02/23 06:05 Carbon Dioxide 29.8 mmol/L (21-32) 07/02/23 06:05 BUN 9 mg/dL (7-18) 07/02/23 06:05 Creatinine 0.86 mg/dL (0.55-1.02) 07/02/23 06:05 Est GFR (MDRD) Af Amer > 60 (>60) 07/02/23 06:05 Est GFR (MDRD) Non-Af > 60 (>60) 07/02/23 06:05 Glucose 92 mg/dL (65-99) 07/02/23 06:05 Lactic Acid 0.8 mmol/L (0.4-2.0) 06/27/23 17:10 Calcium 8.9 mg/dL (8.5-10.1) 07/02/23 06:05 Corrected Calcium 10.3 mg/dL (8.5-10.1) H 07/02/23 06:05 Magnesium 2.0 mg/dL (2.0-2.9) 07/01/23 06:10 Total Bilirubin 0.30 mg/dL (0.2-1.0) 07/02/23 06:05 AST 20 Units/L (15-37) 07/02/23 06:05 ALT 15 Units/L (12-78) 07/02/23 06:05 Alkaline Phosphatase 74 Units/L (46-116) 07/02/23 06:05 C-Reactive Protein 142.60 mg/L (0-3.0) H 06/27/23 17:10 Total Protein 6.6 g/dL (6.4-8.2) 07/02/23 06:05 Albumin 2.3 g/dL (3.4-5.0) L 07/02/23 06:05 Globulin 4.3 g/dL (2.5-4.5) 07/02/23 06:05 Albumin/Globulin Ratio 0.5 Ratio (1.1-2.1) L 07/02/23 06:05 Amylase 14 Units/L (25-115) L 06/27/23 17:10 Lipase 10 Units/L (16-77) L 06/27/23 17:10 Fluid pH 7.0 06/28/23 11:00 Body Fluid Sodium Source Pleural fluid 06/28/23 11:00 Fluid Sodium 134 mmol/L 06/28/23 11:00 Fluid Chloride 99 mmol/L 06/28/23 11:00 Fluid Chloride Source Pleural fluid 06/28/23 11:00 Fluid Glucose 88 06/28/23 11:00 Fluid Total Protein 3.6 06/28/23 11:00 Fluid Albumin Source Pleural fl 06/28/23 11:00 Fluid Albumin 2393 mg/dL 06/28/23 11:00 Body Fluid Amylase Source Pleural fluid 06/28/23 11:00 Fluid Amylase 12 U/L 06/28/23 11:00 Body Fluid Lipase Source Pleural fluid 06/28/23 11:00 Fluid Lipase 4 U/L 06/28/23 11:00 Resp Viral Panel (PCR) See scanned report 06/30/23 07:21 Cytology See comment. 06/28/23 11:00 Plan (1) Pneumonia: Status: Acute Qualifiers: Pneumonia type: due to unspecified organism Laterality: right Lung location: unspecified part of lung Qualified Code(s): J18.9 - Pneumonia, unspecified organism (2) Pleural effusion, right: Status: Acute (3) Abdominal pain: Status: Acute Qualifiers: Abdominal location: generalized Qualified Code(s): R10.84 - Generalized abdominal pain (4) Anemia: Status: Acute Qualifiers: Anemia type: unspecified type Qualified Code(s): D64.9 - Anemia, unspecified (5) Intractable nausea and vomiting: Status: Acute (6) Chronic pain syndrome: Status: Acute (7) GERD (gastroesophageal reflux disease): Status: Acute Qualifiers: Esophagitis presence: esophagitis presence not specified Qualified Code(s): K21.9 - Gastro-esophageal reflux disease without esophagitis (8) HTN (hypertension): Status: Acute Qualifiers: Hypertension type: primary hypertension Qualified Code(s): I10 - Essential (primary) hypertension
[2023-07-03 06:16] LABS: BASOPHILS # (AUTO) 0.1 X10^3/uL (0.0-0.1); BASOPHILS % (AUTO) 0.7 % (0.2-1.0); EOSINOPHILS # (AUTO) 0.2 x10^3/uL (0.0-0.2); HEMATOCRIT 27.9 % (36.0-47.0); HEMOGLOBIN 9.8 g/dL (12.0-16.0); LYMPHOCYTES % (AUTO) 11.9 % (21.0-51.0); MEAN CORPUSCULAR HGB CONC 35.1 g/dL (33.0-35.0); MEAN CORPUSCULAR VOLUME 91.1 fL (80.0-100.0); MEAN PLATELET VOLUME 7.5 fL (7.4-11.0); MONOCYTES # (AUTO) 0.7 x10^3/uL (0.3-0.8); MONOCYTES % (AUTO) 8.7 % (0.0-13.0); NEUTROPHILS # (AUTO) 6.4 x10^3/uL (2.2-4.8); NEUTROPHILS % (AUTO) 76.7 % (42.0-75.0); PLATELET COUNT 338 X10^3/uL (150.0-450.0); RED BLOOD COUNT 3.06 X10^6/uL (3.5-5.4); RED CELL DISTRIBUTION WIDTH 12.5 % (11.6-16.5); WHITE BLOOD COUNT 8.3 X10^3/uL (3.6-10.0)
[2023-07-03 06:39] LABS: ALANINE AMINOTRANSFERASE 14 Units/L (12-78); ALKALINE PHOSPHATASE 63 Units/L (46-116); ASPARTATE AMINO TRANSFERASE 16 Units/L (15-37); BLOOD UREA NITROGEN 10 mg/dL (7-18); CALCIUM 8.5 mg/dL (8.5-10.1); CHLORIDE 99 mmol/L (98-107); COR CA(FOR HYPOALB) 10.1 mg/dL (8.5-10.1); CREATININE 0.82 mg/dL (0.55-1.02); GLUCOSE 92 mg/dL (65-99); POTASSIUM 4.3 mmol/L (3.5-5.1); SODIUM 133 mmol/L (136-145); TOTAL PROTEIN 5.6 g/dL (6.4-8.2); eGFR NON BLACK RACES > 60 (>60)
--- NOTE | 2023-07-03 07:03 | RAD ---
EXAM:AP chestHISTORY:Pleural effusionCOMPARISON:07/02/2023FINDINGS:He art size remains unchanged with clear left lung. Increasing opacity at the right base consistent with pleural fluid and underlying airspace disease in the lower lobe. The right upper lung is clear.IMPRESSION:Slight increase in findings at the right base consistent with pleural effusion and associated infiltrate/lower lobe atelectasis.THIS IS AN ELECTRONICALLY VERIFIED FINAL REPORT07/03/2023 7:00 AM - Electronically signed by Pb Haynes MD
[2023-07-03] MEDS ORDERED: VIBRAMYCIN IV ONE (08:11)
--- NOTE | 2023-07-03 09:58 | RAD ---
EXAM:KUBHISTORY:Pain constipationCOMPARISON:06/29/2023FINDINGS: r obstruction, mass formation or calcification is noted. Pleural-parenchymal abnormality is again noted at the right lung base and pleural space.IMPRESSION:Mild fecal retention consistent with constipation. No significant abdominal abnormality is otherwise suggested.THIS IS AN ELECTRONICALLY VERIFIED FINAL REPORT07/03/2023 9:54 AM - Electronically signed by Pb Haynes MD
[2023-07-03] MEDS: ULTRAM PO PRN (10:37)
[2023-07-03] MEDS ORDERED: CONSULT PHARMACY - POTASSIUM & MAGNESIUM XX SCH (14:00)
[2023-07-03] MEDS: MAG-OX TAB PO SCH (14:03)
[2023-07-03] MEDS: MILK OF MAGNESIA PO PRN (21:01)
[2023-07-04 05:25] LABS: BASOPHILS % (AUTO) 0.4 % (0.2-1.0); EOSINOPHILS # (AUTO) 0.2 x10^3/uL (0.0-0.2); EOSINOPHILS % (AUTO) 2.3 % (0.9-2.9); HEMATOCRIT 29.1 % (36.0-47.0); HEMOGLOBIN 10.1 g/dL (12.0-16.0); LYMPHOCYTES # (AUTO) 0.9 X10^3/uL (1.3-2.9); MEAN CORPUSCULAR HEMOGLOBIN 31.4 pg (27.0-34.0); MEAN CORPUSCULAR HGB CONC 34.6 g/dL (33.0-35.0); MEAN PLATELET VOLUME 7.6 fL (7.4-11.0); MONOCYTES # (AUTO) 0.7 x10^3/uL (0.3-0.8); MONOCYTES % (AUTO) 7.9 % (0.0-13.0); NEUTROPHILS # (AUTO) 6.9 x10^3/uL (2.2-4.8); NEUTROPHILS % (AUTO) 79.4 % (42.0-75.0); PLATELET COUNT 385 X10^3/uL (150.0-450.0); RED CELL DISTRIBUTION WIDTH 12.4 % (11.6-16.5); WHITE BLOOD COUNT 8.7 X10^3/uL (3.6-10.0)
[2023-07-04 05:56] LABS: ALANINE AMINOTRANSFERASE 14 Units/L (12-78); ALBUMIN 2.2 g/dL (3.4-5.0); ALKALINE PHOSPHATASE 68 Units/L (46-116); ASPARTATE AMINO TRANSFERASE 16 Units/L (15-37); BLOOD UREA NITROGEN 7 mg/dL (7-18); CALCIUM 8.9 mg/dL (8.5-10.1); CARBON DIOXIDE 31.4 mmol/L (21-32); CHLORIDE 96 mmol/L (98-107); COR CA(FOR HYPOALB) 10.3 mg/dL (8.5-10.1); CREATININE 0.85 mg/dL (0.55-1.02); GLUCOSE 103 mg/dL (65-99); POTASSIUM 4.2 mmol/L (3.5-5.1); SODIUM 134 mmol/L (136-145); eGFR NON BLACK RACES > 60 (>60)
[2023-07-04] MEDS: PHENERGAN INJ 25 MG IM PRN (09:19)
[2023-07-04] MEDS: DULCOLAX SUPPOSITORY 10 MG RECTAL ONE (15:49)
[2023-07-05 06:32] LABS: BASOPHILS # (AUTO) 0.1 X10^3/uL (0.0-0.1); EOSINOPHILS # (AUTO) 0.3 x10^3/uL (0.0-0.2); EOSINOPHILS % (AUTO) 3.5 % (0.9-2.9); HEMATOCRIT 30.9 % (36.0-47.0); HEMOGLOBIN 10.5 g/dL (12.0-16.0); LYMPHOCYTES # (AUTO) 1.8 X10^3/uL (1.3-2.9); LYMPHOCYTES % (AUTO) 21.5 % (21.0-51.0); MEAN CORPUSCULAR HEMOGLOBIN 31.3 pg (27.0-34.0); MEAN CORPUSCULAR HGB CONC 34.1 g/dL (33.0-35.0); MEAN PLATELET VOLUME 7.7 fL (7.4-11.0); MONOCYTES # (AUTO) 0.8 x10^3/uL (0.3-0.8); MONOCYTES % (AUTO) 9.1 % (0.0-13.0); NEUTROPHILS # (AUTO) 5.5 x10^3/uL (2.2-4.8); NEUTROPHILS % (AUTO) 64.9 % (42.0-75.0); PLATELET COUNT 380 X10^3/uL (150.0-450.0); RED BLOOD COUNT 3.36 X10^6/uL (3.5-5.4); RED CELL DISTRIBUTION WIDTH 12.6 % (11.6-16.5); WHITE BLOOD COUNT 8.5 X10^3/uL (3.6-10.0)
[2023-07-05 07:02] LABS: ALANINE AMINOTRANSFERASE 17 Units/L (12-78); ALBUMIN 2.2 g/dL (3.4-5.0); ALKALINE PHOSPHATASE 66 Units/L (46-116); ASPARTATE AMINO TRANSFERASE 30 Units/L (15-37); BLOOD UREA NITROGEN 8 mg/dL (7-18); CARBON DIOXIDE 30.7 mmol/L (21-32); CHLORIDE 96 mmol/L (98-107); COR CA(FOR HYPOALB) 10.4 mg/dL (8.5-10.1); CREATININE 0.93 mg/dL (0.55-1.02); GLUCOSE 95 mg/dL (65-99); SODIUM 131 mmol/L (136-145); TOTAL PROTEIN 6.3 g/dL (6.4-8.2); eGFR NON BLACK RACES > 60 (>60)
[2023-07-05 07:14] LABS: POTASSIUM 4.6 mmol/L (3.5-5.1)
[2023-07-05 12:02] VITALS: BP 167/71; RESP 16; TEMP 98.2; O2SAT 98
[2023-07-05 13:45] VITALS: PULSE 65
--- NOTE | 2023-07-05 14:38 | RAD ---
EXAM:CHEST, 1 VIEWHISTORY:RT EFFUSION, SOB;COMPARISON:Prior study or studies were utilized for comparison during interpretation with the most relevant dated 07/03/2023TECHNIQUE:CHEST, 1 VIEWFINDINGS:Chest:Lines and tubes: NoneMediastinum: Cardiomegaly.Pulmonary vessels: No pulmonary vascular congestion.Lung mcknight: Right base consolidationPleura: There is blunting of the right costophrenic angle. No pneumothorax.Bones and soft tissues: No acute osseous or soft tissue abnormality.IMPRESSION:1. Moderate right pleural effusion with compressive atelectasis. Concomitant right pneumonia can not be ruled out. The effusion is smaller than it was on July 03, 2023.THIS IS AN ELECTRONICALLY VERIFIED FINAL REPORT07/05/2023 2:35 PM - Electronically signed by Sy Priest MD
--- NOTE | 2023-07-07 10:56 | W.DIS.FURT ---
Summary of Discharge Discharge Summary of Date Date of Exam: 07/05/23 Admission Date Date of Admission: 06/27/23 Admission Diagnosis Hospital Course: Ms Cervantes is a 87y/o female who is a resident of [facility] presented with worsening nausea, abdominal pain and shortness of breath. She has multiple co-morbidities including thyroid cancer s/p resection, HTN, HLD, GERD, dementia, chronic pain syndrome. She was sent to the ER for further evaluation. CXR showed large right pleural effusion. CTAP did not show any abdominal abnormality. Dr Luke was consulted in the ER. She remained on 3L NC. Patient underwent thoracentesis and tolerated procedure well. Patient's labs were monitored daily, electrolytes replaced as needed. Repeat CXR was concerning for pneumonia and recurrence of effusion. She was started on IV antibiotics, IS and nebs. Fluid studies and pathology were concerning for malignancy. Patient has a hx of thyroid cancer. She will need outpatient follow up with Oncology and Pulmonary. Patient's respiratory status remained stable. She was tolerating PO intake. Patient's CXR continued to show right small-moderate pleural effusion. She was stable to be transferred back to [place]. Vital Signs: Vital Signs (72 hours) 07/02/23 16:00 07/02/23 19:00 07/02/23 19:55 Temperature 97.3 F L 98.5 F Pulse Rate Pulse Rate [Left Radial] 65 70 Respiratory Rate 18 20 Blood Pressure [Left Arm] 123/60 Blood Pressure [Right Arm] 119/56 O2 Sat by Pulse Oximetry 97 Oxygen Delivery Method Nasal Cannula Nasal Cannula Room Air Oxygen Flow Rate 2 FIO2% 07/02/23 20:25 07/02/23 20:25 07/02/23 21:38 Temperature Pulse Rate 70 Pulse Rate [Left Radial] Respiratory Rate 20 Blood Pressure [Left Arm] Blood Pressure [Right Arm] O2 Sat by Pulse Oximetry 97 Oxygen Delivery Method Nasal Cannula Oxygen Flow Rate 2 FIO2% 28 07/03/23 00:00 07/02/23 22:38 07/03/23 04:16 Temperature 98.5 F Pulse Rate Pulse Rate [Left Radial] 68 Respiratory Rate 20 22 Blood Pressure [Left Arm] Blood Pressure [Right Arm] 161/70 O2 Sat by Pulse Oximetry 98 Oxygen Delivery Method Nasal Cannula Nasal Cannula Oxygen Flow Rate 2 2 FIO2% 28 07/03/23 04:00 07/03/23 05:41 07/03/23 06:41 Temperature 97.9 F Pulse Rate Pulse Rate [Left Radial] 64 Respiratory Rate 18 18 18 Blood Pressure [Left Arm] Blood Pressure [Right Arm] 128/60 O2 Sat by Pulse Oximetry 98 Oxygen Delivery Method Nasal Cannula Oxygen Flow Rate 2 FIO2% 07/03/23 10:37 07/03/23 14:05 07/03/23 07:00 Temperature Pulse Rate Pulse Rate [Left Radial] Respiratory Rate 18 18 Blood Pressure [Left Arm] Blood Pressure [Right Arm] O2 Sat by Pulse Oximetry Oxygen Delivery Method Nasal Cannula Oxygen Flow Rate 2 FIO2% 07/03/23 08:00 07/03/23 12:00 07/03/23 11:37 Temperature 97.4 F L 97.2 F L Pulse Rate Pulse Rate [Left Radial] 76 67 Respiratory Rate 18 17 17 Blood Pressure [Left Arm] Blood Pressure [Right Arm] 148/68 140/65 O2 Sat by Pulse Oximetry 96 96 Oxygen Delivery Method Nasal Cannula Nasal Cannula Oxygen Flow Rate 2 2 FIO2% 07/03/23 15:05 07/03/23 16:00 07/03/23 19:00 Temperature 97.2 F L Pulse Rate Pulse Rate [Left Radial] 88 Respiratory Rate 18 18 Blood Pressure [Left Arm] Blood Pressure [Right Arm] 127/70 O2 Sat by Pulse Oximetry 95 Oxygen Delivery Method Nasal Cannula Nasal Cannula Oxygen Flow Rate 2 2 FIO2% 07/03/23 19:44 07/03/23 21:02 07/03/23 20:50 Temperature 98.4 F Pulse Rate Pulse Rate [Left Radial] 66 Respiratory Rate 20 18 Blood Pressure [Left Arm] 163/72 Blood Pressure [Right Arm] O2 Sat by Pulse Oximetry 95 Oxygen Delivery Method Room Air Nasal Cannula Oxygen Flow Rate 2 FIO2% 28 07/03/23 23:32 07/04/23 00:02 07/03/23 22:02 Temperature 98.3 F Pulse Rate 76 Pulse Rate [Left Radial] 65 Respiratory Rate 19 22 Blood Pressure [Left Arm] 140/65 Blood Pressure [Right Arm] O2 Sat by Pulse Oximetry 96 97 Oxygen Delivery Method Nasal Cannula Oxygen Flow Rate 2 FIO2% 07/04/23 04:00 07/04/23 05:38 07/04/23 05:55 Temperature 98.3 F Pulse Rate 70 Pulse Rate [Left Radial] 64 Respiratory Rate 21 23 Blood Pressure [Left Arm] 157/69 Blood Pressure [Right Arm] O2 Sat by Pulse Oximetry 96 96 Oxygen Delivery Method Room Air Oxygen Flow Rate FIO2% 07/04/23 06:54 07/04/23 07:24 07/04/23 14:21 Temperature 97.6 F Pulse Rate Pulse Rate [Left Radial] 68 Respiratory Rate 20 18 17 Blood Pressure [Left Arm] 156/67 Blood Pressure [Right Arm] O2 Sat by Pulse Oximetry 95 Oxygen Delivery Method Room Air Oxygen Flow Rate FIO2% 07/04/23 07:00 07/04/23 12:00 07/04/23 16:00 Temperature 97.5 F L 98.0 F Pulse Rate Pulse Rate [Left Radial] 59 L 63 Respiratory Rate 16 16 Blood Pressure [Left Arm] 139/63 175/72 Blood Pressure [Right Arm] O2 Sat by Pulse Oximetry 96 94 L Oxygen Delivery Method Nasal Cannula Room Air Room Air Oxygen Flow Rate 2 FIO2% 07/04/23 15:21 07/04/23 19:00 07/04/23 21:42 Temperature Pulse Rate Pulse Rate [Left Radial] Respiratory Rate 16 18 Blood Pressure [Left Arm] Blood Pressure [Right Arm] O2 Sat by Pulse Oximetry Oxygen Delivery Method Nasal Cannula Oxygen Flow Rate 2 FIO2% 07/04/23 20:00 07/04/23 20:00 07/04/23 20:00 Temperature 98.1 F Pulse Rate 68 Pulse Rate [Left Radial] 68 Respiratory Rate 20 Blood Pressure [Left Arm] 147/67 Blood Pressure [Right Arm] O2 Sat by Pulse Oximetry 95 93 L Oxygen Delivery Method Nasal Cannula Room Air Oxygen Flow Rate 2 FIO2% 28 07/04/23 22:42 07/04/23 23:41 07/04/23 23:41 Temperature 98.1 F 98.1 F Pulse Rate Pulse Rate [Left Radial] 64 64 Respiratory Rate 18 20 20 Blood Pressure [Left Arm] 144/64 144/64 Blood Pressure [Right Arm] O2 Sat by Pulse Oximetry 97 97 Oxygen Delivery Method Room Air Room Air Oxygen Flow Rate FIO2% 07/05/23 04:00 07/05/23 05:32 07/05/23 06:32 Temperature 98.1 F Pulse Rate Pulse Rate [Left Radial] 65 Respiratory Rate 20 18 18 Blood Pressure [Left Arm] 131/60 Blood Pressure [Right Arm] O2 Sat by Pulse Oximetry 98 Oxygen Delivery Method Room Air Oxygen Flow Rate FIO2% 07/05/23 08:00 07/05/23 07:00 07/05/23 12:00 Temperature 98.3 F 98.2 F Pulse Rate Pulse Rate [Left Radial] 76 67 Respiratory Rate 18 16 Blood Pressure [Left Arm] 179/78 167/71 Blood Pressure [Right Arm] O2 Sat by Pulse Oximetry 95 98 Oxygen Delivery Method Room Air Nasal Cannula Room Air Oxygen Flow Rate 2 FIO2% 07/05/23 14:19 07/05/23 09:28 07/05/23 13:44 Temperature Pulse Rate 65 Pulse Rate [Left Radial] Respiratory Rate 16 Blood Pressure [Left Arm] Blood Pressure [Right Arm] O2 Sat by Pulse Oximetry 98 Oxygen Delivery Method Nasal Cannula Oxygen Flow Rate 2 FIO2% 28 Labs: Laboratory Last Values WBC 8.5 X10^3/uL (3.6-10.0) 07/05/23 06:05 RBC 3.36 X10^6/uL (3.5-5.4) L 07/05/23 06:05 Hgb 10.5 g/dL (12.0-16.0) L 07/05/23 06:05 Hct 30.9 % (36.0-47.0) L 07/05/23 06:05 MCV 92.0 fL (80.0-100.0) 07/05/23 06:05 MCH 31.3 pg (27.0-34.0) 07/05/23 06:05 MCHC 34.1 g/dL (33.0-35.0) 07/05/23 06:05 RDW 12.6 % (11.6-16.5) 07/05/23 06:05 Plt Count 380 X10^3/uL (150.0-450.0) 07/05/23 06:05 MPV 7.7 fL (7.4-11.0) 07/05/23 06:05 Neut % (Auto) 64.9 % (42.0-75.0) 07/05/23 06:05 Lymph % (Auto) 21.5 % (21.0-51.0) 07/05/23 06:05 Glasscock % (Auto) 9.1 % (0.0-13.0) 07/05/23 06:05 Eos % (Auto) 3.5 % (0.9-2.9) H 07/05/23 06:05 Baso % (Auto) 1.0 % (0.2-1.0) 07/05/23 06:05 Neut # (Auto) 5.5 x10^3/uL (2.2-4.8) H 07/05/23 06:05 Lymph # (Auto) 1.8 X10^3/uL (1.3-2.9) 07/05/23 06:05 Glasscock # (Auto) 0.8 x10^3/uL (0.3-0.8) 07/05/23 06:05 Eos # (Auto) 0.3 x10^3/uL (0.0-0.2) H 07/05/23 06:05 Baso # (Auto) 0.1 X10^3/uL (0.0-0.1) 07/05/23 06:05 Absolute Nucleated RBC 0.1 /100WBC 07/05/23 06:05 Sodium 131 mmol/L (136-145) L 07/05/23 06:05 Corrected Sodium TNP 07/05/23 06:05 Potassium 4.6 mmol/L (3.5-5.1) 07/05/23 06:05 Chloride 96 mmol/L (98-107) L 07/05/23 06:05 Carbon Dioxide 30.7 mmol/L (21-32) 07/05/23 06:05 BUN 8 mg/dL (7-18) 07/05/23 06:05 Creatinine 0.93 mg/dL (0.55-1.02) 07/05/23 06:05 Est GFR (MDRD) Af Amer > 60 (>60) 07/05/23 06:05 Est GFR (MDRD) Non-Af > 60 (>60) 07/05/23 06:05 Glucose 95 mg/dL (65-99) 07/05/23 06:05 Lactic Acid 0.8 mmol/L (0.4-2.0) 06/27/23 17:10 Calcium 9.0 mg/dL (8.5-10.1) 07/05/23 06:05 Corrected Calcium 10.4 mg/dL (8.5-10.1) H 07/05/23 06:05 Magnesium 2.1 mg/dL (2.0-2.9) 07/04/23 04:40 Total Bilirubin 0.50 mg/dL (0.2-1.0) 07/05/23 06:05 AST 30 Units/L (15-37) 07/05/23 06:05 ALT 17 Units/L (12-78) 07/05/23 06:05 Alkaline Phosphatase 66 Units/L (46-116) 07/05/23 06:05 C-Reactive Protein 142.60 mg/L (0-3.0) H 06/27/23 17:10 Total Protein 6.3 g/dL (6.4-8.2) L 07/05/23 06:05 Albumin 2.2 g/dL (3.4-5.0) L 07/05/23 06:05 Globulin 4.1 g/dL (2.5-4.5) 07/05/23 06:05 Albumin/Globulin Ratio 0.5 Ratio (1.1-2.1) L 07/05/23 06:05 Amylase 14 Units/L (25-115) L 06/27/23 17:10 Lipase 10 Units/L (16-77) L 06/27/23 17:10 Fluid pH 7.0 06/28/23 11:00 Body Fluid Sodium Source Pleural fluid 06/28/23 11:00 Fluid Sodium 134 mmol/L 06/28/23 11:00 Fluid Chloride 99 mmol/L 06/28/23 11:00 Fluid Chloride Source Pleural fluid 06/28/23 11:00 Fluid Glucose 88 06/28/23 11:00 Fluid Total Protein 3.6 06/28/23 11:00 Fluid Albumin Source Pleural fl 06/28/23 11:00 Fluid Albumin 2393 mg/dL 06/28/23 11:00 Body Fluid Amylase Source Pleural fluid 06/28/23 11:00 Fluid Amylase 12 U/L 06/28/23 11:00 Body Fluid Lipase Source Pleural fluid 06/28/23 11:00 Fluid Lipase 4 U/L 06/28/23 11:00 Resp Viral Panel (PCR) See scanned report 06/30/23 07:21 Cytology See comment. 06/28/23 11:00 Reason For Visit: LARGE RIGHT PLEURAL EFFUSION, ABDOMINAL PAIN Discharge Diagnosis All Active Problems (Updated 06/30/23 @ 10:47 by Soraida Dobson) Pneumonia (Acute) HTN (hypertension) (Acute) GERD (gastroesophageal reflux disease) (Acute) Chronic pain syndrome (Acute) Anemia (Acute) Pleural effusion, right (Acute) Abdominal pain (Acute) Accelerated essential hypertension (Acute) Intractable nausea and vomiting (Acute) Sinus bradycardia (Acute) Intractable back pain (Chronic) Degenerative disc disease (Chronic) Plan of Treatment: Continue with present treatment and follow up plan. Pt is to keep follow up appointment as instructed and take medications as ordered. Discharge Medications Discharge Medications: Fish Containing Products Allergy (Mild, Verified 09/02/22 16:37) shrimp Allergy (Mild, Verified 09/02/22 16:36) iodine Allergy (Unknown, Verified 02/13/21 09:30) onion Allergy (Verified 02/13/21 09:30) CONTINUE taking the following medications B [id number] 106 mg iron-1 mg tablet (Ferrocite Plus) 1 tab PO DAILY 06/27/23 [History] biotin 1,000 mcg chewable tablet 1,000 mcg PO DAILY 06/27/23 [History] carboxymethylcellulose sodium 0.5 % eye drops (Refresh Tears) 0.5 drp ophthalmic (eye) TID 06/27/23 [History] cholecalciferol (vitamin D3) 125 mcg (5,000 unit) tablet (Vitamin D3) 125 mcg PO DAILY 06/27/23 [History] diclofenac sodium 1 % topical gel (Voltaren Arthritis Pain) 1 ea topical TID 06/27/23 [History] donepezil 5 mg tablet 5 mg PO QDAY 06/27/23 [History] famotidine 40 mg tablet (Pepcid) 40 mg PO DAILY 06/27/23 [History] hydralazine 25 mg tablet 25 mg PO TID 06/27/23 [History] levothyroxine 150 mcg tablet (Synthroid) 150 mcg PO QDAY 06/27/23 [History] loratadine 10 mg tablet (Claritin) 10 mg PO DAILY 06/27/23 [History] metoclopramide HCl 10 mg tablet (Reglan) 10 mg PO BID 06/27/23 [History] nitroglycerin 0.4 mg sublingual tablet (Nitrostat) 0.4 mg sublingual Q4-5M PRN Chest Pain 06/27/23 [History] ondansetron 8 mg disintegrating tablet 8 mg PO TID PRN 06/27/23 [History] promethazine 25 mg/mL injection syringe 12.5 mg IM Q6HR PRN nausea and vomitting 06/27/23 [History] New Prescriptions doxycycline hyclate 100 mg tablet 100 mg PO BID 5 days #10 tabs 07/05/23 [Rx] Discharge Disposition Discharge Disposition: [place] Discharge Condition: stable Discharge Plan Discharge Plan Hospital Course: Ms Cervantes is a 87y/o female who is a resident of [facility] presented with worsening nausea, abdominal pain and shortness of breath. She has multiple co-morbidities including thyroid cancer s/p resection, HTN, HLD, GERD, dementia, chronic pain syndrome. She was sent to the ER for further evaluation. CXR showed large right pleural effusion. CTAP did not show any abdominal abnormality. Dr Luke was consulted in the ER. She remained on 3L NC. Patient underwent thoracentesis and tolerated procedure well. Patient's labs were monitored daily, electrolytes replaced as needed. Repeat CXR was concerning for pneumonia and recurrence of effusion. She was started on IV antibiotics, IS and nebs. Fluid studies and pathology were concerning for malignancy. Patient has a hx of thyroid cancer. She will need outpatient follow up with Oncology and Pulmonary. Patient's respiratory status remained stable. She was tolerating PO intake. Patient's CXR continued to show right small-moderate pleural effusion. She was stable to be transferred back to [place]. Patient Disposition: XF SNF Condition: Stable Health Concerns: Post Hospitalization: new medications and changes needed to prevent readmission or further decline. Pt educated and given instructions on all concerns. Plan of Treatment: Continue with present treatment and follow up plan. Pt is to keep follow up appointment as instructed and take medications as ordered. Prescription drug monitoring program results: PDMP reviewed and no concerns identified Prescriptions: New doxycycline hyclate 100 mg Tablet 100 mg PO BID 5 Days Qty: 10 0RF Continued amiodarone 100 mg Tablet 100 mg PO DAILY Rx Instructions: GIVE ONE TABLET DAILY BY MOUTH atorvastatin 10 mg Tablet 10 mg PO QHS Rx Instructions: GIVE ONE TABLET BY MOUTH AT BEDTIME fentanyl [Duragesic] 50 mcg/hr Patch 72 Hour 1 patch TRANSDERMAL Q72H clonidine 0.3 mg/24 hr Patch Weekly 1 patch TRANSDERMAL QWEEK losartan 100 mg Tablet 100 mg PO DAILY amlodipine [Norvasc] 10 mg Tablet 10 mg PO DAILY Rx Instructions: GIVE ONE TABLET DAILY BY MOUTH metoprolol succinate [Toprol XL] 50 mg Tablet Extended Release 24 Hr 50 mg PO DAILY sodium chloride 1 gram Tablet 1,000 mg PO QD-QID PRN hydrocodone-acetaminophen [Montrose] 7.5-325 mg Tablet 1 tab PO TID pantoprazole [Protonix] 40 mg Tablet,Delayed Release (Dr/Ec) 40 mg PO BID docusate sodium [Colace] 100 mg Capsule 100 mg PO BID gabapentin 300 mg Capsule 300 mg PO BID dicyclomine 10 mg Capsule 10 mg PO QID PreserVision AREDS-2 [id number] do-ioiq-so-mg Capsule 1 tab PO BID magnesium oxide 400 mg magnesium Tablet 400 mg PO BID tramadol 50 mg Tablet 50 mg PO Q4HR PRN ferrous fumarate 324 mg (106 mg iron) Tablet 324 mg PO DAILY potassium chloride [Klor-Con] 20 mEq packet 30 meq PO DAILY Linzess 145 mcg capsule 145 mcg PO Q OTHER DAY donepezil 5 mg tablet 5 mg PO QDAY Ferrocite Plus 106 mg iron- 1 mg Tablet 1 tab PO DAILY famotidine [Pepcid] 40 mg Tablet 40 mg PO DAILY levothyroxine [Synthroid] 150 mcg tablet 150 mcg PO QDAY hydralazine 25 mg tablet 25 mg PO TID carboxymethylcellulose sodium [Refresh Tears] 0.5 % drops 0.5 drp OPHTHALMIC (EYE) TID Patient Comments: [NO ORIGINAL SIG] Rx Instructions: instill 1 drop in both eyes three times a day nitroglycerin [Nitrostat] 0.4 mg Tablet, Sublingual 0.4 mg sublingual Q4-5M PRN (Reason: Chest Pain) Rx Instructions: Give 1 tablet sublingual every 5 minutes as needed for chest pain x3 doses metoclopramide HCl [Reglan] 10 mg Tablet 10 mg PO BID diclofenac sodium [Voltaren Arthritis Pain] 1 % gel 1 ea TOPICAL TID Patient Comments: [NO ORIGINAL SIG] Rx Instructions: apply to right knee topically three times a day ondansetron 8 mg tablet,disintegrating 8 mg PO TID PRN Rx Instructions: give 1 tablet sublingually every 8 hours as needed for nausea and vomitting promethazine 25 mg/mL Syringe 12.5 mg IM Q6HR PRN (Reason: nausea and vomitting) loratadine [Claritin] 10 mg Tablet 10 mg PO DAILY cholecalciferol (vitamin D3) [Vitamin D3] 125 mcg (5,000 unit) Tablet 125 mcg PO DAILY biotin 1,000 mcg Tablet,Chewable 1,000 mcg PO DAILY Orders to Discharge Patient Discharge Orders: Discharge (Routine); Ordered 07/05/23 Ordered By: Soraida Dobson Follow ups/Referrals Follow ups/Referrals: Yung Garcia [Primary Care Provider] - 3 days Instructions Stand Alone Forms: Excuse From Work or School, Post Hospital Follow Up Care
== END 2023-07-05 19:35 | DRG 205 ==
LOC: MED/SURG 15:00 → ER 15:00 → OBSVTOIN 19:36 → MED/SURG 19:55
PROVIDERS: ADMIT Internal Medicine; ATTEND Internal Medicine
DX: B96.29 Other Escherichia coli [E. coli] as the cause of diseases classified elsewhere; E03.8 Other specified hypothyroidism; J90 Pleural effusion, not elsewhere classified; D64.89 Other specified anemias; K21.9 Gastro-esophageal reflux disease without esophagitis; J98.11 Atelectasis; E11.65 Type 2 diabetes mellitus with hyperglycemia; R79.82 Elevated C-reactive protein (CRP); I10 Essential (primary) hypertension; R07.89 Other chest pain; J18.8 Other pneumonia, unspecified organism; R06.02 Shortness of breath; Z66 Do not resuscitate; E83.42 Hypomagnesemia; B95.7 Other staphylococcus as the cause of diseases classified elsewhere; R11.2 Nausea with vomiting, unspecified; E87.1 Hypo-osmolality and hyponatremia; R10.84 Generalized abdominal pain

== ENCOUNTER 2024-01-30 17:11 | Inpatient (IN) ==
[2024-01-30 18:23] LABS: BASOPHILS # (AUTO) 0.1 X10^3/uL (0.0-0.1); BASOPHILS % (AUTO) 0.7 % (0.2-1.0); EOSINOPHILS # (AUTO) 0.2 x10^3/uL (0.0-0.2); EOSINOPHILS % (AUTO) 1.9 % (0.9-2.9); HEMATOCRIT 34.4 % (36.0-47.0); LYMPHOCYTES % (AUTO) 10.5 % (21.0-51.0); MEAN CORPUSCULAR HEMOGLOBIN 31.3 pg (27.0-34.0); MEAN CORPUSCULAR HGB CONC 34.8 g/dL (33.0-35.0); MEAN CORPUSCULAR VOLUME 89.9 fL (80.0-100.0); MONOCYTES # (AUTO) 0.3 x10^3/uL (0.3-0.8); MONOCYTES % (AUTO) 3.6 % (0.0-13.0); NEUTROPHILS # (AUTO) 7.8 x10^3/uL (2.2-4.8); NEUTROPHILS % (AUTO) 83.3 % (42.0-75.0); PLATELET COUNT 306 X10^3/uL (150.0-450.0); RED BLOOD COUNT 3.83 X10^6/uL (3.5-5.4); RED CELL DISTRIBUTION WIDTH 14.3 % (11.6-16.5); WHITE BLOOD COUNT 9.3 X10^3/uL (3.6-10.0)
--- NOTE | 2024-01-30 18:30 | DR.SOBA ---
HPI Time Seen Time Seen by Provider: 01/30/24 17:51 Primary Care Physician Primary Care Physician: Dr. Garcia HPI Comment HPI Comment: Pt from the skilled nursing.Acccording to pt she has hx of thyroid cancer seeing haem/onc last seen approx 1 month ago was doing well .has experienced cough with off white sputum and shortenss of breath gradual in onset however today her oxygen sat was low which improved with oxygen via NC .Family concerned want her to come to ER to have xray Complaints Chief Complaint Doctors Comments: shortness of breath Chief Complaint:: Pt c/o one week of shortness of breath with productive cough with thick burrell colored sputum. Denies any fever,chills, or pain. [facility] staff reports that pt does not normally require oxygen but today after applying NC@ 4L they could not get pt's o2 sats above 88%. COVID-19 Coronavirus risk:travel/contact w/high risk person: No Has patient experienced Coronavirus symptoms: No Coronavirus symptoms experienced: Coughing and Shortness of Breath Reviewed Nurses Notes Reviewed: Yes Source History Provided: Patient Mode of Arrival Mode of Arrival: Wheelchair Timing Onset of Chief Complaint: 01/30/24 Duration Duration: Weeks Context Onset:: At Rest and With Light Exertion PE Risk Factors:: Immobilization (hx of thyroid cancer on chemotherapy ) PMH PMH Past Medical History: Yes Past Medical History: Anemia, Coronary Artery Disease, CVA, Dementia, Diabetes, Dyslipidemia, GERD, Hypertension and Hypothyroidism Past Medical History Comment: metastatic thyroid cancer, afib, macular degeneration,anorexia,malignant pleural effusions,vitamin d deficiency, dry eye syndrome, dorsalgia, osteoporosis, tia Past Surgical History: Yes Surgical History: Appendectomy, Cholecystectomy, Hysterectomy and Thyroidectomy Family History History of Family Medical Conditions: Yes Family Medical History: Diabetes Mellitus and Hypertension Social History Does patient currently use any type of tobacco product: No Have you used tobacco products in the last 12 months: No Type of Tobacco Use: None Does any household member use tobacco: No Alcohol Use: None Do you use any recreational Drugs:: No Lives With: Other Lives Where: Senior Living Travel Risk Coronavirus risk:travel/contact w/high risk person: No Has patient experienced Coronavirus symptoms: No Infectious screening In the last 2 months have you had wt loss of >10#?: NO Have you had fever, night sweats or hemotysis?: No Have you traveled outside the country in the last 6 months?: No Isolation: Standard ROS Review of Systems Constitutional: Malaise and Fatigue Eyes: No Symptoms Reported ENTM: No Symptoms Reported Respiratoy: Non-Productive Cough and Short of Breath Cardiovascular: No Symptoms Reported Gastrointestinal/Abdominal: Nausea and Vomiting Genitourinary: No Symptoms Reported Neurological: No Symptoms Reported Musculoskeletal: Joint Pain Integumentary: No Symptoms Reported Hematologic/Lymphatic: No Symptoms Reported Endocrine: No Symptoms Reported Psychiatric: No Symptoms Reported PE Vital Signs Vitals: Vital Signs Temperature 98.1 F Temperature 97.8 F Pulse Rate 101 Pulse Rate 103 Pulse Rate 104 Pulse Rate 106 Pulse Rate 113 Pulse Rate 115 Pulse Rate 116 Pulse Rate 117 Pulse Rate 118 Pulse Rate 116 Pulse Rate 110 Pulse Rate 100 Pulse Rate 99 Pulse Rate 105 Pulse Rate 98 Pulse Rate 105 Respiratory Rate 13 Respiratory Rate 14 Respiratory Rate 13 Respiratory Rate 18 Respiratory Rate 23 Respiratory Rate 24 Respiratory Rate 27 Respiratory Rate 30 Respiratory Rate 23 Respiratory Rate 22 Respiratory Rate 21 Respiratory Rate 13 Respiratory Rate 16 Respiratory Rate 25 Respiratory Rate 24 Blood Pressure 112/54 Blood Pressure 124/58 Blood Pressure 163/71 Blood Pressure 169/82 Blood Pressure 154/74 Blood Pressure 137/71 Blood Pressure 137/75 Blood Pressure 132/81 Blood Pressure 164/78 Blood Pressure 132/81 O2 Sat by Pulse Oximetry 89 O2 Sat by Pulse Oximetry 89 O2 Sat by Pulse Oximetry 88 O2 Sat by Pulse Oximetry 88 O2 Sat by Pulse Oximetry 88 O2 Sat by Pulse Oximetry 88 O2 Sat by Pulse Oximetry 86 O2 Sat by Pulse Oximetry 87 O2 Sat by Pulse Oximetry 89 O2 Sat by Pulse Oximetry 89 O2 Sat by Pulse Oximetry 91 O2 Sat by Pulse Oximetry 91 O2 Sat by Pulse Oximetry 90 O2 Sat by Pulse Oximetry 83 O2 Sat by Pulse Oximetry 81 O2 Sat by Pulse Oximetry 81 General Limitations: No Limitations General Appearance: Alert, Anxious and Other (thin appearing ) Head Head Exam: Atraumatic, Normocephalic and Other (temporal wasting ) Eyes Eye exam: Normal Appearance, PERRL and EOMI ENT ENT Exam: Normal Exam and Mucous Membranes Moist Neck Neck Exam: Normal Inspection Chest Chest Inspection: Normal Inspection and Symmetric Chest Wall Rise Respiratory Respiratory Exam: Bilateral: Decreased Breath Sounds (lung bases ) Cardiovascular Cardiovascular Exam: +S1 and +S2 Abdominal Exam Abdominal Exam: Normal Inspection, Normal Bowel Sounds and Soft Extremities Extremities Exam: Normal Inspection and Other Neurologic Neurological Exam: Alert Skin Skin Exam: Normal Color MDM Differential Diagnosis Differential Diagnosis: Hyponatremia, Pneumonia and Pulmonary embolism COURSE Treatment Treatment: labs ,CT chest ,oxygen phenergan IM ROR Labs Reviewed Laboratory Results Reviewed?: Yes 01/30/24 18:11 01/30/24 18:11 Laboratory: WBC 9.3 X10^3/uL (3.6-10.0) 01/30/24 18:11 RBC 3.83 X10^6/uL (3.5-5.4) 01/30/24 18:11 Hgb 12.0 g/dL (12.0-16.0) 01/30/24 18:11 Hct 34.4 % (36.0-47.0) L 01/30/24 18:11 MCV 89.9 fL (80.0-100.0) 01/30/24 18:11 MCH 31.3 pg (27.0-34.0) 01/30/24 18:11 MCHC 34.8 g/dL (33.0-35.0) 01/30/24 18:11 RDW 14.3 % (11.6-16.5) 01/30/24 18:11 Plt Count 306 X10^3/uL (150.0-450.0) 01/30/24 18:11 MPV 8.0 fL (7.4-11.0) 01/30/24 18:11 Neut % (Auto) 83.3 % (42.0-75.0) H 01/30/24 18:11 Lymph % (Auto) 10.5 % (21.0-51.0) L 01/30/24 18:11 [place] % (Auto) 3.6 % (0.0-13.0) 01/30/24 18:11 Eos % (Auto) 1.9 % (0.9-2.9) 01/30/24 18:11 Baso % (Auto) 0.7 % (0.2-1.0) 01/30/24 18:11 Neut # (Auto) 7.8 x10^3/uL (2.2-4.8) H 01/30/24 18:11 Lymph # (Auto) 1.0 X10^3/uL (1.3-2.9) L 01/30/24 18:11 [place] # (Auto) 0.3 x10^3/uL (0.3-0.8) 01/30/24 18:11 Eos # (Auto) 0.2 x10^3/uL (0.0-0.2) 01/30/24 18:11 Baso # (Auto) 0.1 X10^3/uL (0.0-0.1) 01/30/24 18:11 Absolute Nucleated RBC 0.0 /100WBC 01/30/24 18:11 D-Dimer 1.81 ug/ml (0.0-0.57) H 01/30/24 18:11 Sodium 129 mmol/L (136-145) L 01/30/24 18:11 Corrected Sodium 129 mmol/L (136-145) L 01/30/24 18:11 Potassium 4.1 mmol/L (3.5-5.1) 01/30/24 18:11 Chloride 99 mmol/L (98-107) 01/30/24 18:11 Carbon Dioxide 20.9 mmol/L (21-32) L 01/30/24 18:11 BUN 13 mg/dL (7-18) 01/30/24 18:11 Creatinine 1.03 mg/dL (0.55-1.02) H 01/30/24 18:11 Est GFR (MDRD) Af Amer > 60 (>60) 01/30/24 18:11 Est GFR (MDRD) Non-Af 54 (>60) L 01/30/24 18:11 Glucose 117 mg/dL (65-99) H 01/30/24 18:11 Calcium 8.5 mg/dL (8.5-10.1) 01/30/24 18:11 Corrected Calcium 9.5 mg/dL (8.5-10.1) 01/30/24 18:11 Total Bilirubin 0.40 mg/dL (0.2-1.0) 01/30/24 18:11 AST 39 Units/L (15-37) H 01/30/24 18:11 ALT 40 Units/L (12-78) 01/30/24 18:11 Alkaline Phosphatase 88 Units/L (46-116) 01/30/24 18:11 Total Protein 6.7 g/dL (6.4-8.2) 01/30/24 18:11 Albumin 2.7 g/dL (3.4-5.0) L 01/30/24 18:11 Globulin 4.0 g/dL (2.5-4.5) 01/30/24 18:11 Albumin/Globulin Ratio 0.7 Ratio (1.1-2.1) L 01/30/24 18:11 SARS-CoV-2 (PCR) Negative (NEGATIVE) 01/30/24 20:14 Influenza Type A (PCR) Negative (NEGATIVE) 01/30/24 20:14 Influenza Type B (PCR) Negative (NEGATIVE) 01/30/24 20:14 RSV (PCR) Negative (NEGATIVE) 01/30/24 20:14 Opioid Opioid Risk Tool Age (Bao box if 16-45): No History of Preadolescent Sexual Abuse: No Total: 0 Total Score Risk Category: Low Risk Copyright: [facility] predicting aberrant behaviors Discharge Plan Diagnosis Discharge Problem: [facility]-acquired pneumonia, Hyponatremia, Hypoxia, DNR (do not resuscitate) Discharge Plan Patient Disposition: ADMITTED INPATIENT Condition: Stable Orders to Discharge Patient Discharge Orders: Discharge (Routine); Ordered 01/30/24 Ordered By: Addi Ryan ADDITIONAL NOTES Additional Notes Additional Notes: sodium 129,Ct chest [facility] acquired pneumonia ,hx of thyroid cancer, d dimer elevated unable to do CTA due to allergy to contrast .May consider v/q scan tomorrow .spoke with Dr Uriarte Agreed to admit patient
[2024-01-30 18:32] LABS: ALANINE AMINOTRANSFERASE 40 Units/L (12-78); ALBUMIN 2.7 g/dL (3.4-5.0); ALKALINE PHOSPHATASE 88 Units/L (46-116); ASPARTATE AMINO TRANSFERASE 39 Units/L (15-37); BLOOD UREA NITROGEN 13 mg/dL (7-18); CALCIUM 8.5 mg/dL (8.5-10.1); CARBON DIOXIDE 20.9 mmol/L (21-32); CHLORIDE 99 mmol/L (98-107); COR CA(FOR HYPOALB) 9.5 mg/dL (8.5-10.1); COR NA(FOR HYPERGLY) 129 mmol/L (136-145); CREATININE 1.03 mg/dL (0.55-1.02); GLUCOSE 117 mg/dL (65-99); POTASSIUM 4.1 mmol/L (3.5-5.1); SODIUM 129 mmol/L (136-145); TOTAL PROTEIN 6.7 g/dL (6.4-8.2); eGFR NON BLACK RACES 54 (>60)
[2024-01-30] MEDS ORDERED: ZOFRAN ODT PO PRN (19:09)
[2024-01-30] MEDS: PHENERGAN INJ 25 MG IM ONE ×2 (19:31→22:12)
[2024-01-30] MEDS: ZOFRAN INJ 4 MG VIAL IVP ONE (19:55)
[2024-01-30] MEDS: NS 500 ML IV 500 ML IV ONE (20:10)
--- NOTE | 2024-01-30 20:47 | CT ---
EXAM:CHEST W/O CONHISTORY:SOB, COUGH;COMPARISON:06/27/2023.TECHNIQUE:No nenhanced spiral CT imaging was performed through the chest and axial, coronal, and sagittal CT images were generated.FINDINGS:Heart size is mildly enlarged. There is atherosclerosis in the LAD and RCA. There is a 3.2 cm mass in the fat above the diaphragm between the right atrium and the right hepatic lobe. There is a subpleural mass near the right middle lobe measuring 1.1 x 2.5 cm in the axial plane. There is some non-specific pleural thickening in the right pleural space. There is opacity in the right upper, right middle, right lower, and to a lesser extent left lower lobe suggestive of pneumonia. There appears to be some poorly defined adenopathy or mass in the right hilum. There is a small right pleural effusion. The liver is grossly unremarkable. Pancreas is atrophic but otherwise unremarkable. The spleen and adrenal glands are normal the kidneys are normal in size and enhancement. There is [id number] systemic atherosclerosis. The sternum and ribs and thoracic spine are intact.IMPRESSION:1. Multi lobe right lung infiltrate and lesser infiltrate in the left lower lobe.2. Adenopathy in the extrapleural fat on the right side and suspected pleural thickening and small pleural effusion.3. Suspected right hilar mass.THIS IS AN ELECTRONICALLY VERIFIED FINAL [id number]/2024 8:43 PM - Electronically signed by Daniele Woodard MD
[2024-01-30] MEDS: LEVAQUIN TAB 750 MG PO SCH (21:05)
[2024-01-30] MEDS ORDERED: CATAPRES-TTS-3 TD SCH (22:00)
[2024-01-30] MEDS: LEVAQUIN TAB 750 MG ONE (22:11)
[2024-01-30] MEDS: ZOFRAN ODT ONE (22:12)
[2024-01-30] MEDS: ZOFRAN INJ 4 MG VIAL ONE (22:12)
[2024-01-30 22:30] LABS: ABG ALLEN TEST POS; ABG BASE EXCESS -3.4 mmol/L (-2.0-2.0); ABG HCO3 19.9 mmol/L (22-26)
[2024-01-30] MEDS: SALINE 3% 15 ML NEB TX NEB ONE (22:53)
[2024-01-30 22:54] VITALS: BMI 18.8
[2024-01-30] MEDS: CARBOXYMETHYLCELLULOSE SODIUM 0.5% OP SCH (22:58)
[2024-01-30] MEDS: SALINE 3% 15 ML NEB TX ONE (22:59)
[2024-01-30] MEDS: APRESOLINE TAB 25 MG PO SCH (23:05)
[2024-01-30] MEDS: NORCO 7.5/325 MG TAB PO SCH (23:06)
[2024-01-30] MEDS: NS 1,000 ML IV 1,000 ML IV SCH (23:41)
[2024-01-31] MEDS ORDERED: PHARMACY CONSULT - LOVENOX XX SCH (08:00)
[2024-01-31] MEDS: XOPENEX 1.25 MG/3 ML NEBULE NEB SCH (08:32)
[2024-01-31] MEDS: PULMICORT NEB TX 0.5 MG NEB SCH (08:32)
[2024-01-31 08:38] LABS: BASOPHILS % (AUTO) 0 % (0.2-1.0); HEMATOCRIT 33.2 % (36.0-47.0); HEMOGLOBIN 11.4 g/dL (12.0-16.0); LYMPHOCYTES # (AUTO) 0.8 X10^3/uL (1.3-2.9); LYMPHOCYTES % (AUTO) 4.4 % (21.0-51.0); MEAN CORPUSCULAR HGB CONC 34.3 g/dL (33.0-35.0); MEAN CORPUSCULAR VOLUME 90.4 fL (80.0-100.0); MEAN PLATELET VOLUME 8.2 fL (7.4-11.0); MONOCYTES # (AUTO) 0.3 x10^3/uL (0.3-0.8); MONOCYTES % (AUTO) 1.5 % (0.0-13.0); NEUTROPHILS # (AUTO) 17.8 x10^3/uL (2.2-4.8); NEUTROPHILS % (AUTO) 94.1 % (42.0-75.0); PLATELET COUNT 272 X10^3/uL (150.0-450.0); RED BLOOD COUNT 3.67 X10^6/uL (3.5-5.4)
[2024-01-31] MEDS ORDERED: LEVAQUIN TAB 750 MG PO SCH (09:00)
[2024-01-31] MEDS ORDERED: PATIENT'S HOME MEDICATION (Losartan 100 mg Tablet) PO SCH (09:00)
[2024-01-31 09:12] LABS: ALANINE AMINOTRANSFERASE 36 Units/L (12-78); ALBUMIN 2.2 g/dL (3.4-5.0); ALKALINE PHOSPHATASE 76 Units/L (46-116); ASPARTATE AMINO TRANSFERASE 40 Units/L (15-37); BLOOD UREA NITROGEN 13 mg/dL (7-18); CARBON DIOXIDE 21.3 mmol/L (21-32); CHLORIDE 100 mmol/L (98-107); COR CA(FOR HYPOALB) 9.4 mg/dL (8.5-10.1); COR NA(FOR HYPERGLY) 134 mmol/L (136-145); CREATININE 1.01 mg/dL (0.55-1.02); GLUCOSE 158 mg/dL (65-99); SODIUM 133 mmol/L (136-145); TOTAL PROTEIN 6.1 g/dL (6.4-8.2); eGFR NON BLACK RACES 55 (>60)
[2024-01-31 09:37] LABS: BAND NEUTROPHILS % 21 % (0-10)
[2024-01-31 09:38] LABS: PLATELET MORPHOLOGY COMMENT NORMAL (NORMAL)
[2024-01-31] MEDS: COZAAR PO SCH (09:52)
[2024-01-31] MEDS: SYNTHROID 150 mcg TAB PO SCH (09:52)
[2024-01-31] MEDS: BENTYL CAP 10 MG PO SCH (09:53)
[2024-01-31] MEDS: CORDARONE TAB 200 MG PO SCH (09:53)
[2024-01-31] MEDS: TOPROL XL PO SCH (09:53)
[2024-01-31] MEDS: NORVASC TAB 10 MG PO SCH (09:53)
[2024-01-31] MEDS: COLACE CAP 100 MG PO SCH (09:53)
[2024-01-31] MEDS: NEURONTIN CAP 300 MG PO SCH (09:53)
[2024-01-31] MEDS: REGLAN TAB 10 MG PO SCH (09:53)
[2024-01-31] MEDS: SORAFENIB PO SCH (09:54)
[2024-01-31] MEDS: LOVENOX INJ 40 MG SYR SC SCH (09:56)
--- NOTE | 2024-01-31 11:55 | DR.H&P ---
H&P History & Physical for Day of: H&P Date: 01/31/24 Chief Complaint Chief Complaint: sob, hypoxia History of Present Illness History of Present Illness: Ms Thomas is a 88y/o female with a PMH of thyroid Ca, CAD, DM, HLD, CVA, HTN presented with worsening dyspnea. She has been having more productive cough and SOB. She does use O2 prn but was requiring more continuous 4L so was brought to the ER. She is currently a resident of [facility]. ER work up showed ABG concerning for hypoxia. COVID/Flu/RSV were negative. CT-chest showed multilobe pneumonia and right hilar mass. She was initially placed on BiPAP, started on IV antibiotics. She is currently on HHFNC and feeling better. She did cough up some sputum. Na was also low at 129, was started on IV hydration with NS. Labs/imaging reviewed: -WBC 19.0 Hgb 11.4 Na 133 K 4.0 Cr 1.01 -CT-chest reviewed: Multi lobe right lung infiltrate and lesser infiltrate in the left lower lobe. Adenopathy in the extrapleural fat on the right side and suspected pleural thickening and small pleural effusion. Suspected right hilar mass. Plan: Wean O2 as tolerated, keep sats > 92%. Follow AIT and sputum Cx. Continue IV Levaquin, nebs and pulmicort. Replace electrolytes prn. Decrease NS to 125cc/hr. Resume home medications. Monitor AM labs/imaging. PT/OT as tolerated. Time spent for clinical assessment, reviewing labs/imaging, physical exam, decision making and documentation greater than 45 mins. Past Medical History Past Medical History: Anemia, Coronary Artery Disease, CVA, Dementia, Diabetes, Dyslipidemia, GERD, Hypertension and Hypothyroidism Past Surgical History Surgical History: Appendectomy, Cholecystectomy, Hysterectomy and Thyroidectomy Family History Family Medical History: Diabetes Mellitus and Hypertension Social History Does patient currently use any type of tobacco product: No Have you used tobacco products in the last 12 months: No Type of Tobacco Use: None Does any household member use tobacco: No Alcohol Use: None Drug Use: None Medications Home Medications: Home Medications Medication Instructions Recorded Confirmed Type amlodipine 10 mg tablet (Norvasc) 10 mg PO DAILY 02/23/20 01/30/24 History clonidine 0.3 mg/24 hr weekly 1 patch transdermal QWEEK 02/23/20 01/30/24 History transdermal patch dicyclomine 10 mg capsule 10 mg PO QID 02/23/20 01/30/24 History docusate sodium 100 mg capsule 100 mg PO DAILY 02/23/20 01/30/24 History (Colace) gabapentin 300 mg capsule 300 mg PO BID 02/23/20 01/30/24 History losartan 100 mg tablet 100 mg PO DAILY 02/23/20 01/30/24 History metoprolol succinate 50 mg 50 mg PO DAILY 02/23/20 01/30/24 History tablet,extended release 24 hr (Toprol XL) pantoprazole 40 mg tablet,delayed 40 mg PO BID 02/23/20 01/30/24 History release (Protonix) linaclotide 145 mcg capsule 145 mcg PO Q OTHER DAY 11/08/20 01/30/24 History (Linzess) carboxymethylcellulose sodium 0.5 0.5 drp ophthalmic (eye) TID 06/27/23 01/30/24 History % eye drops (Refresh Tears) diclofenac sodium 1 % topical gel 1 ea topical TID 06/27/23 01/30/24 History (Voltaren Arthritis Pain) hydralazine 25 mg tablet 25 mg PO TID 06/27/23 01/30/24 History levothyroxine 150 mcg tablet 150 mcg PO QDAY 06/27/23 01/30/24 History (Synthroid) metoclopramide HCl 10 mg tablet 10 mg PO BID 06/27/23 01/30/24 History (Reglan) nitroglycerin 0.4 mg sublingual 0.4 mg sublingual Q4-5M PRN Chest 06/27/23 01/30/24 History tablet (Nitrostat) Pain ondansetron 8 mg disintegrating 8 mg translingual Q8H PRN 06/27/23 01/30/24 History tablet fentanyl 50 mcg/hr transdermal 1 patch transdermal Q72H 10/11/23 01/30/24 History patch hydrocodone 7.5 mg-acetaminophen 1 tab PO TID 10/11/23 01/30/24 History 325 mg tablet phenylephrine 0.25 %-mineral oil 1 applic PA TID-QID PRN 10/11/23 01/30/24 History 14 %-petrolatm 74.9 % rectal ointment (Preparation H) polyethylene glycol 3350 17 gram 17 g PO Q3D 10/11/23 01/30/24 History oral powder packet (ClearLax) potassium chloride 20 mEq/15 mL 40 meq PO DAILY 10/11/23 01/30/24 History oral liquid promethazine 25 mg/mL injection 12.5 mg IM Q6H PRN 10/11/23 01/30/24 History solution sodium chloride 1,000 mg soluble 1,000 mg PO QID 10/11/23 01/30/24 History tablet amiodarone 100 mg tablet 100 mg PO QDAY 01/30/24 01/30/24 History sorafenib 200 mg tablet 200 mg PO BID 01/30/24 01/30/24 History Allergies Allergies Allergy/AdvReac Type Severity Reaction Status Date / Time Fish Containing Products Allergy Mild Verified 01/30/24 17:43 shrimp Allergy Mild Verified 01/30/24 17:43 iodine Allergy Unknown Verified 01/30/24 17:43 onion Allergy Verified 01/30/24 17:43 Labs 01/31/24 08:24 01/31/24 08:24 Labs: Laboratory WBC 19.0 X10^3/uL (3.6-10.0) H D 01/31/24 08:24 RBC 3.67 X10^6/uL (3.5-5.4) 01/31/24 08: Hgb 11.4 g/dL (12.0-16.0) L 01/31/24 08:24 Hct 33.2 % (36.0-47.0) L 01/31/24 08:24 MCV 90.4 fL (80.0-100.0) 01/31/24 08:24 MCH 31.0 pg (27.0-34.0) 01/31/24 08:24 MCHC 34.3 g/dL (33.0-35.0) 01/31/24 08:24 RDW 14.0 % (11.6-16.5) 01/31/24 08: Plt Count 272 X10^3/uL (150.0-450.0) 01/31/24 08:24 Plt Count Comment Adequate (ADEQUATE) 01/31/24 08:24 MPV 8.2 fL (7.4-11.0) 01/31/24 08:24 Neut % (Auto) 94.1 % (42.0-75.0) H 01/31/24 08:24 Lymph % (Auto) 4.4 % (21.0-51.0) L 01/31/24 08:24 [place] % (Auto) 1.5 % (0.0-13.0) 01/31/24 08:24 Eos % (Auto) 0.0 % (0.9-2.9) L 01/31/24 08:24 Baso % (Auto) 0 % (0.2-1.0) L 01/31/24 08:24 Neut # (Auto) 17.8 x10^3/uL (2.2-4.8) H 01/31/24 08:24 Lymph # (Auto) 0.8 X10^3/uL (1.3-2.9) L 01/31/24 08:24 [place] # (Auto) 0.3 x10^3/uL (0.3-0.8) 01/31/24 08:24 Eos # (Auto) 0.0 x10^3/uL (0.0-0.2) 01/31/24 08:24 Baso # (Auto) 0.0 X10^3/uL (0.0-0.1) 01/31/24 08:24 Absolute Nucleated RBC 0.0 /100WBC 01/31/24 08: Total Counted 100 01/31/24 08:24 Neutrophils % (Manual) 72 % (39-76) 01/31/24 08:24 Band Neutrophils % 21 % (0-10) H 01/31/24 08:24 Lymphocytes % (Manual) 6 % (13-43) L 01/31/24 08:24 Monocytes % (Manual) 1 % (4-9) L 01/31/24 08:24 Plt Morphology Comment Normal (NORMAL) 01/31/24 08: RBC Morphology Normal (NORMAL) 01/31/24 08:24 D-Dimer 1.81 ug/ml (0.0-0.57) H 01/30/24 18:11 Sample Site Rr 01/30/24 22:26 ABG pH 7.430 (7.35-7.45) 01/30/24 22:26 ABG pCO2 30.0 mmHg (35.0-45.0) L 01/30/24 22:26 ABG pO2 53.0 mmHg (80.0-100.0) L 01/30/24 22:26 ABG HCO3 19.9 mmol/L (22-26) L 01/30/24 22: ABG O2 Saturation 88.0 % (90-100) L 01/30/24 22: ABG Base Excess -3.4 mmol/L (-2.0-2.0) L 01/30/24 22:26 Alejandro Test Pos 01/30/24 22: A-a Gradient 166.0 mmHg 01/30/24 22: FiO2 36.0 01/30/24 22:26 Blood Gas Comments Leatha well sw ae 01/30/24 22:26 Sodium 133 mmol/L (136-145) L 01/31/24 08:24 Corrected Sodium 134 mmol/L (136-145) L 01/31/24 08:24 Potassium 4.0 mmol/L (3.5-5.1) 01/31/24 08:24 Chloride 100 mmol/L (98-107) 01/31/24 08:24 Carbon Dioxide 21.3 mmol/L (21-32) 01/31/24 08:24 BUN 13 mg/dL (7-18) 01/31/24 08:24 Creatinine 1.01 mg/dL (0.55-1.02) 01/31/24 08:24 Est GFR (MDRD) Af Amer > 60 (>60) 01/31/24 08:24 Est GFR (MDRD) Non-Af 55 (>60) L 01/31/24 08:24 Glucose 158 mg/dL (65-99) H 01/31/24 08:24 POC Glucose (mg/dL) 130 mg/dL (65-99) H 01/31/24 11:15 Calcium 8.0 mg/dL (8.5-10.1) L 01/31/24 08:24 Corrected Calcium 9.4 mg/dL (8.5-10.1) 01/31/24 08:24 Total Bilirubin 0.70 mg/dL (0.2-1.0) 01/31/24 08:24 AST 40 Units/L (15-37) H 01/31/24 08:24 ALT 36 Units/L (12-78) 01/31/24 08:24 Alkaline Phosphatase 76 Units/L (46-116) 01/31/24 08:24 Total Protein 6.1 g/dL (6.4-8.2) L 01/31/24 08:24 Albumin 2.2 g/dL (3.4-5.0) L 01/31/24 08:24 Globulin 3.9 g/dL (2.5-4.5) 01/31/24 08:24 Albumin/Globulin Ratio 0.6 Ratio (1.1-2.1) L 01/31/24 08:24 SARS-CoV-2 (PCR) Negative (NEGATIVE) 01/30/24 20:14 Influenza Type A (PCR) Negative (NEGATIVE) 01/30/24 20:14 Influenza Type B (PCR) Negative (NEGATIVE) 01/30/24 20:14 RSV (PCR) Negative (NEGATIVE) 01/30/24 20:14 Review of Systems Constitutional: Malaise Eyes: No Symptoms Reported ENT: No Symptoms Reported Respiratory: Cough, Shortness of Breath, SOB with Excertion and Sputum Cardiovascular: No Symptoms Reported Gastrointestinal: No Symptoms Reported Genitourinary: No Symptoms Reported Musculoskeletal: No Symptoms Reported Skin: No Symptoms Reported Neurological: No Symptoms Reported Physical Exam Vital Signs: Vital Signs Temperature 98.2 F Temperature 98.4 F Pulse Rate [Brachial] 103 Pulse Rate [Brachial] 103 Respiratory Rate 22 Respiratory Rate 18 Blood Pressure [Left Arm] 163/80 Blood Pressure [Right Arm] 121/57 O2 Sat by Pulse Oximetry 94 O2 Sat by Pulse Oximetry 94 Oriented: Normal Eyes: Normal Respiratory: Diminished Throughout, RLL Rhonchi and LLL Rhonchi Cardiovascular: Normal Auscultation: Bowel Sounds: Normal Palpation: Normal Tenderness: Normal Skin: Normal Musculoskeletal: Normal Psychiatric: Normal Mood Description: Calm Affect: Normal Speech Pattern: Clear and Appropriate Assessment/Plan (1) retirement-acquired pneumonia: Status: Acute (2) Hyponatremia: Status: Acute (3) Hypoxia: Status: Acute (4) Dehydration: Status: Acute (5) Thyroid cancer: Status: Chronic (6) DNR (do not resuscitate): Status: Chronic (7) HTN (hypertension): Qualifiers: Hypertension type: primary hypertension Qualified Code(s): I10 - Essential (primary) hypertension Status: Chronic (8) Chronic pain syndrome: Status: Chronic (9) GERD (gastroesophageal reflux disease): Qualifiers: Esophagitis presence: esophagitis presence not specified Qualified Code(s): K21.9 - Gastro-esophageal reflux disease without esophagitis Status: Chronic (10) Anemia: Qualifiers: Anemia type: unspecified type Qualified Code(s): D64.9 - Anemia, un specified Status: Acute Review H&P Reviewed: Yes Patient was examined?: Yes
[2024-01-31] MEDS: VOLTAREN 1 % GEL MULTI DOSE TUBE TOP PRN (19:22)
[2024-01-31] MEDS: SNACK - Diabetic Appropriate PO SCH (20:40)
[2024-01-31] MEDS: DIFLUCAN PO SCH (21:20)
[2024-02-01] MEDS: ZOFRAN INJ 4 MG VIAL IVP PRN (06:20)
[2024-02-01 06:32] LABS: BASOPHILS % (AUTO) 0.2 % (0.2-1.0); EOSINOPHILS % (AUTO) 0.1 % (0.9-2.9); HEMATOCRIT 30.7 % (36.0-47.0); HEMOGLOBIN 10.6 g/dL (12.0-16.0); LYMPHOCYTES # (AUTO) 0.7 X10^3/uL (1.3-2.9); MEAN CORPUSCULAR HEMOGLOBIN 31.3 pg (27.0-34.0); MEAN CORPUSCULAR HGB CONC 34.7 g/dL (33.0-35.0); MEAN CORPUSCULAR VOLUME 90.4 fL (80.0-100.0); MEAN PLATELET VOLUME 8.9 fL (7.4-11.0); MONOCYTES # (AUTO) 0.3 x10^3/uL (0.3-0.8); MONOCYTES % (AUTO) 1.7 % (0.0-13.0); NEUTROPHILS # (AUTO) 16.2 x10^3/uL (2.2-4.8); PLATELET COUNT 236 X10^3/uL (150.0-450.0); RED BLOOD COUNT 3.39 X10^6/uL (3.5-5.4); RED CELL DISTRIBUTION WIDTH 14.2 % (11.6-16.5); WHITE BLOOD COUNT 17.3 X10^3/uL (3.6-10.0)
[2024-02-01 06:47] LABS: ALANINE AMINOTRANSFERASE 29 Units/L (12-78); ALBUMIN 1.9 g/dL (3.4-5.0); ALKALINE PHOSPHATASE 84 Units/L (46-116); ASPARTATE AMINO TRANSFERASE 35 Units/L (15-37); BLOOD UREA NITROGEN 9 mg/dL (7-18); CALCIUM 7.9 mg/dL (8.5-10.1); CARBON DIOXIDE 20.9 mmol/L (21-32); CHLORIDE 101 mmol/L (98-107); COR CA(FOR HYPOALB) 9.6 mg/dL (8.5-10.1); CREATININE 0.69 mg/dL (0.55-1.02); GLUCOSE 101 mg/dL (65-99); POTASSIUM 3.9 mmol/L (3.5-5.1); SODIUM 131 mmol/L (136-145); TOTAL PROTEIN 5.6 g/dL (6.4-8.2); eGFR NON BLACK RACES > 60 (>60)
[2024-02-01 07:10] LABS: BAND NEUTROPHILS % 8 % (0-10); PLATELET MORPHOLOGY COMMENT NORMAL (NORMAL)
[2024-02-01] MEDS: PHENERGAN INJ 25 MG IM PRN (07:51)
--- NOTE | 2024-02-01 10:08 | PCM.PROG ---
Progress Note Progress Note for Day of Date of Exam: 02/01/24 Subjective Subjective: Patient seen at bedside, no acute events overnight. She remains on HHFNC at FiO2 59%. She has worsening cough today. Sputum Cx pending. She is currently admitted for multi-lobar pneumonia. Labs/imaging reviewed: -WBC 17 Hgb 10.6 Na 131 K 3.9 BUN/Cr 9/0.69 -Sputum pending -AIT pending Plan: Wean O2 as tolerated to keep sats >92%. Continue nebs, pulmicort and IS. Switch to Zosyn. Follow pending cultures. Will add solumedrol. Repeat CXR. DC fluids. Continue home medications. Replace electrolytes prn. Monitor AM labs/imaging. Past Medical Family Social History Allergies: Allergies Fish Containing Products Allergy (Mild, Verified 01/30/24 17:43) 'seafood' allergy; specifics unknown shrimp Allergy (Mild, Verified 01/30/24 17:43) 'seafood' allergy, specifics unknown iodine Allergy (Unknown, Verified 01/30/24 17:43) onion Allergy (Verified 01/30/24 17:43) Vital Signs and I&O's Vital Signs: Vital Signs Temperature 97.7 F Temperature 98.9 F Pulse Rate [Brachial] 115 Pulse Rate [Brachial] 97 Respiratory Rate 21 Respiratory Rate 21 Respiratory Rate 16 Blood Pressure [Right Arm] 187/87 Blood Pressure [Right Arm] 134/60 O2 Sat by Pulse Oximetry 94 O2 Sat by Pulse Oximetry 96 Intake and Output: Intake & Output 01/29/24 01/30/24 01/31/24 02/01/24 23:59 23:59 23:59 23:59 Intake Total 120 / 120 3889 / 3889 758 / 758 Output Total 600 / 600 400 / 400 Balance 120 / 120 3289 / 3289 358 / 358 Physical Exam Oriented: Normal Eyes: Normal Throat: Dry Respiratory: Generalized, Wheezes, Rales and Rhonchi Cardiovascular: Normal Auscultation: Bowel Sounds: Normal Palpation: Normal Tenderness: Normal Skin: Normal Musculoskeletal: Normal Psychiatric: Normal Mood Description: Calm Affect: Normal Speech Pattern: Clear and Appropriate Laboratory and Diagnostics 02/01/24 05:10 02/01/24 05:10 Labs: 01/31/24 13:45 Sputum - Expectorated Sputum - Final Laboratory WBC 17.3 X10^3/uL (3.6-10.0) H 02/01/24 05:10 RBC 3.39 X10^6/uL (3.5-5.4) L 02/01/24 05:10 Hgb 10.6 g/dL (12.0-16.0) L 02/01/24 05:10 Hct 30.7 % (36.0-47.0) L 02/01/24 05:10 MCV 90.4 fL (80.0-100.0) 02/01/24 05:10 MCH 31.3 pg (27.0-34.0) 02/01/24 05:10 MCHC 34.7 g/dL (33.0-35.0) 02/01/24 05:10 RDW 14.2 % (11.6-16.5) 02/01/24 05:10 Plt Count 236 X10^3/uL (150.0-450.0) 02/01/24 05:10 Plt Count Comment Adequate (ADEQUATE) 02/01/24 05:10 MPV 8.9 fL (7.4-11.0) 02/01/24 05:10 Neut % (Auto) 94.0 % (42.0-75.0) H 02/01/24 05:10 Lymph % (Auto) 4.0 % (21.0-51.0) L 02/01/24 05:10 [place] % (Auto) 1.7 % (0.0-13.0) 02/01/24 05:10 Eos % (Auto) 0.1 % (0.9-2.9) L 02/01/24 05:10 Baso % (Auto) 0.2 % (0.2-1.0) 02/01/24 05:10 Neut # (Auto) 16.2 x10^3/uL (2.2-4.8) H 02/01/24 05:10 Lymph # (Auto) 0.7 X10^3/uL (1.3-2.9) L 02/01/24 05:10 [place] # (Auto) 0.3 x10^3/uL (0.3-0.8) 02/01/24 05:10 Eos # (Auto) 0.0 x10^3/uL (0.0-0.2) 02/01/24 05:10 Baso # (Auto) 0.0 X10^3/uL (0.0-0.1) 02/01/24 05:10 Absolute Nucleated RBC 0.1 /100WBC 02/01/24 05:10 Total Counted 100 02/01/24 05:10 Neutrophils % (Manual) 83 % (39-76) H 02/01/24 05:10 Band Neutrophils % 8 % (0-10) 02/01/24 05:10 Lymphocytes % (Manual) 8 % (13-43) L 02/01/24 05:10 Monocytes % (Manual) 1 % (4-9) L 02/01/24 05:10 Plt Morphology Comment Normal (NORMAL) 02/01/24 05:10 RBC Morphology Normal (NORMAL) 02/01/24 05:10 D-Dimer 1.81 ug/ml (0.0-0.57) H 01/30/24 18:11 Sample Site Rr 01/30/24 22:26 ABG pH 7.430 (7.35-7.45) 01/30/24 22:26 ABG pCO2 30.0 mmHg (35.0-45.0) L 01/30/24 22:26 ABG pO2 53.0 mmHg (80.0-100.0) L 01/30/24 22:26 ABG HCO3 19.9 mmol/L (22-26) L 01/30/24 22:26 ABG O2 Saturation 88.0 % (90-100) L 01/30/24 22:26 ABG Base Excess -3.4 mmol/L (-2.0-2.0) L 01/30/24 22:26 Alejandro Test Pos 01/30/24 22:26 A-a Gradient 166.0 mmHg 01/30/24 22:26 FiO2 36.0 01/30/24 22:26 Blood Gas Comments Leatha well sw ae 01/30/24 22:26 Sodium 131 mmol/L (136-145) L 02/01/24 05:10 Corrected Sodium TNP 02/01/24 05:10 Potassium 3.9 mmol/L (3.5-5.1) 02/01/24 05:10 Chloride 101 mmol/L (98-107) 02/01/24 05:10 Carbon Dioxide 20.9 mmol/L (21-32) L 02/01/24 05:10 BUN 9 mg/dL (7-18) 02/01/24 05:10 Creatinine 0.69 mg/dL (0.55-1.02) 02/01/24 05:10 Est GFR (MDRD) Af Amer > 60 (>60) 02/01/24 05:10 Est GFR (MDRD) Non-Af > 60 (>60) 02/01/24 05:10 Glucose 101 mg/dL (65-99) H 02/01/24 05:10 POC Glucose (mg/dL) 112 mg/dL (65-99) H 02/01/24 05:51 Lactic Acid 1.6 mmol/L (0.4-2.0) 01/31/24 19:15 Calcium 7.9 mg/dL (8.5-10.1) L 02/01/24 05:10 Corrected Calcium 9.6 mg/dL (8.5-10.1) 02/01/24 05:10 Total Bilirubin 0.50 mg/dL (0.2-1.0) 02/01/24 05:10 AST 35 Units/L (15-37) 02/01/24 05:10 ALT 29 Units/L (12-78) 02/01/24 05:10 Alkaline Phosphatase 84 Units/L (46-116) 02/01/24 05:10 Total Protein 5.6 g/dL (6.4-8.2) L 02/01/24 05:10 Albumin 1.9 g/dL (3.4-5.0) L 02/01/24 05:10 Globulin 3.7 g/dL (2.5-4.5) 02/01/24 05:10 Albumin/Globulin Ratio 0.5 Ratio (1.1-2.1) L 02/01/24 05:10 SARS-CoV-2 (PCR) Negative (NEGATIVE) 01/30/24 20:14 Influenza Type A (PCR) Negative (NEGATIVE) 01/30/24 20:14 Influenza Type B (PCR) Negative (NEGATIVE) 01/30/24 20:14 RSV (PCR) Negative (NEGATIVE) 01/30/24 20:14 Plan (1) custodial-acquired pneumonia: Status: Acute (2) Hyponatremia: Status: Acute (3) Hypoxia: Status: Acute (4) Dehydration: Status: Acute (5) Thyroid cancer: Status: Chronic (6) HTN (hypertension): Status: Chronic Qualifiers: Hypertension type: primary hypertension Qualified Code(s): I10 - Essential (primary) hypertension (7) Chronic pain syndrome: Status: Chronic (8) GERD (gastroesophageal reflux disease): Status: Chronic Qualifiers: Esophagitis presence: esophagitis presence not specified Qualified Code(s): K21.9 - Gastro-esophageal reflux disease without esophagitis (9) Anemia: Status: Acute Qualifiers: Anemia type: unspecified type Qualified Code(s): D64.9 - Anemia, unspecified
[2024-02-01] MEDS: SOLU-Medrol 125 MG VIAL IVP SCH (10:32)
[2024-02-01] MEDS: NS 250 ML IV 250 ML IV ONE (10:33)
[2024-02-01] MEDS: ZOSYN VIAL 3.375 GRAMS 3.375 G in NS 100 ML IV 100 ML IV SCH (10:33)
[2024-02-01] MEDS ORDERED: LEVAQUIN TAB 750 MG PO SCH (12:00)
[2024-02-01] MEDS: LEVAQUIN PREMIX IV 750 MG 750 MG/150 ML BAG IV SCH (12:26)
[2024-02-01 22:07] LABS: ABG BASE EXCESS -6.7 mmol/L (-2.0-2.0)
[2024-02-01 22:09] LABS: ABG ALLEN TEST POS; ABG HCO3 16.7 mmol/L (22-26)
[2024-02-01] MEDS: LASIX IVP ONE (23:20)
[2024-02-01] MEDS: VISTARIL PO PRN (23:20)
[2024-02-02 06:31] LABS: MEAN CORPUSCULAR HEMOGLOBIN 31.2 pg (27.0-34.0)
[2024-02-02 06:38] LABS: BASOPHILS % (AUTO) 0 % (0.2-1.0); HEMATOCRIT 31.9 % (36.0-47.0); HEMOGLOBIN 11.2 g/dL (12.0-16.0); LYMPHOCYTES # (AUTO) 0.4 X10^3/uL (1.3-2.9); LYMPHOCYTES % (AUTO) 2.3 % (21.0-51.0); MEAN CORPUSCULAR VOLUME 89.1 fL (80.0-100.0); MEAN PLATELET VOLUME 8.8 fL (7.4-11.0); MONOCYTES # (AUTO) 0.1 x10^3/uL (0.3-0.8); MONOCYTES % (AUTO) 0.9 % (0.0-13.0); NEUTROPHILS # (AUTO) 15.9 x10^3/uL (2.2-4.8); NEUTROPHILS % (AUTO) 96.8 % (42.0-75.0); PLATELET COUNT 267 X10^3/uL (150.0-450.0); RED BLOOD COUNT 3.58 X10^6/uL (3.5-5.4); WHITE BLOOD COUNT 16.4 X10^3/uL (3.6-10.0)
[2024-02-02 06:52] LABS: ALANINE AMINOTRANSFERASE 29 Units/L (12-78); ALBUMIN 1.8 g/dL (3.4-5.0); ALKALINE PHOSPHATASE 89 Units/L (46-116); ASPARTATE AMINO TRANSFERASE 29 Units/L (15-37); BLOOD UREA NITROGEN 10 mg/dL (7-18); CALCIUM 8.5 mg/dL (8.5-10.1); CARBON DIOXIDE 20.8 mmol/L (21-32); CHLORIDE 98 mmol/L (98-107); COR CA(FOR HYPOALB) 10.3 mg/dL (8.5-10.1); COR NA(FOR HYPERGLY) 131 mmol/L (136-145); CREATININE 0.83 mg/dL (0.55-1.02); GLUCOSE 156 mg/dL (65-99); POTASSIUM 3.5 mmol/L (3.5-5.1); SODIUM 130 mmol/L (136-145); eGFR NON BLACK RACES > 60 (>60)
[2024-02-02 07:16] LABS: BAND NEUTROPHILS % 6 % (0-10)
[2024-02-02 07:17] LABS: PLATELET MORPHOLOGY COMMENT NORMAL (NORMAL)
[2024-02-02] MEDS ORDERED: CONSULT PHARMACY - POTASSIUM & MAGNESIUM XX SCH (08:00)
[2024-02-02] MEDS: K-DUR TAB 20 MEQ PO SCH (08:34)
[2024-02-02] MEDS ORDERED: ~ZOSYN/LEVAQUIN (Pneumonia) XX ONE (09:44)
[2024-02-02] MEDS ORDERED: PHENERGAN INJ 25 MG IM PRN (09:49)
[2024-02-02] MEDS ORDERED: ZOSYN VIAL 4.5 GRAMS 4.5 G in NS 100 ML IV + SPIKE MINIBAG* 100 ML IV SCH (10:00)
[2024-02-02] MEDS ORDERED: LEVAQUIN PREMIX IV 750 MG 150 ML IV SCH (10:00)
[2024-02-02] MEDS: NS 1,000 ML IV 1,000 ML IV SCH (10:35)
[2024-02-02] MEDS: ZOSYN VIAL 4.5 GRAMS 4.5 G in NS 100 ML IV 100 ML IV SCH (10:38)
[2024-02-02] MEDS: MILK OF MAGNESIA PO PRN (11:29)
[2024-02-02] MEDS: SOLU-Medrol 40 MG VIAL IVP SCH (13:34)
[2024-02-02] MEDS: MIRALAX POWDER (1 DOSE 17 G) PO SCH (21:12)
[2024-02-02] MEDS: COLACE CAP 100 MG PO SCH (21:14)
[2024-02-03 06:20] LABS: BASOPHILS % (AUTO) 0.1 % (0.2-1.0); HEMATOCRIT 30.9 % (36.0-47.0); HEMOGLOBIN 10.6 g/dL (12.0-16.0); LYMPHOCYTES # (AUTO) 0.4 X10^3/uL (1.3-2.9); LYMPHOCYTES % (AUTO) 2.5 % (21.0-51.0); MEAN CORPUSCULAR HEMOGLOBIN 30.9 pg (27.0-34.0); MEAN CORPUSCULAR HGB CONC 34.4 g/dL (33.0-35.0); MEAN CORPUSCULAR VOLUME 89.9 fL (80.0-100.0); MEAN PLATELET VOLUME 8.4 fL (7.4-11.0); MONOCYTES # (AUTO) 0.5 x10^3/uL (0.3-0.8); MONOCYTES % (AUTO) 2.9 % (0.0-13.0); NEUTROPHILS # (AUTO) 14.8 x10^3/uL (2.2-4.8); NEUTROPHILS % (AUTO) 94.5 % (42.0-75.0); PLATELET COUNT 302 X10^3/uL (150.0-450.0); RED BLOOD COUNT 3.44 X10^6/uL (3.5-5.4); RED CELL DISTRIBUTION WIDTH 14.5 % (11.6-16.5); WHITE BLOOD COUNT 15.7 X10^3/uL (3.6-10.0)
[2024-02-03 06:28] LABS: ALANINE AMINOTRANSFERASE 24 Units/L (12-78); ALBUMIN 1.6 g/dL (3.4-5.0); ALKALINE PHOSPHATASE 68 Units/L (46-116); ASPARTATE AMINO TRANSFERASE 29 Units/L (15-37); BLOOD UREA NITROGEN 15 mg/dL (7-18); CALCIUM 8.4 mg/dL (8.5-10.1); CARBON DIOXIDE 23.8 mmol/L (21-32); CHLORIDE 101 mmol/L (98-107); COR CA(FOR HYPOALB) 10.3 mg/dL (8.5-10.1); COR NA(FOR HYPERGLY) 134 mmol/L (136-145); CREATININE 0.74 mg/dL (0.55-1.02); GLUCOSE 156 mg/dL (65-99); POTASSIUM 3.7 mmol/L (3.5-5.1); SODIUM 133 mmol/L (136-145); TOTAL PROTEIN 5.7 g/dL (6.4-8.2); eGFR NON BLACK RACES > 60 (>60)
[2024-02-03 06:47] LABS: BAND NEUTROPHILS % 3 % (0-10); PLATELET MORPHOLOGY COMMENT NORMAL (NORMAL)
[2024-02-03] MEDS ORDERED: CONSULT PHARMACY - POTASSIUM & MAGNESIUM XX SCH (07:00)
--- NOTE | 2024-02-03 07:16 | RAD ---
EXAM:Portable AP chestHISTORY:Pneumonia SOBCOMPARISON:12/13/2023, chest CT 01/30/2024FINDINGS:Heart size is stable and within normal limits. Moderate airspace involvement is noted in the left lower lobe with more severe confluent airspace involvement of the right lung. A small right pleural effusion is evident. The right hilar complex is obscured.IMPRESSION:Extensive bilateral asymmetric pneumonia, right lung greater than left lower lobe. The recent CT described masses in the right chest are not identified on this portable exam.THIS IS AN ELECTRONICALLY VERIFIED FINAL [id number]/03/2024 7:12 AM - Electronically signed by Pb Haynes MD
[2024-02-03] MEDS: K-DUR TAB 20 MEQ PO SCH (08:22)
[2024-02-03] MEDS: AVELOX IV 400 MG/250 ML BAG 400 MG/250 ML PIGGYBACK IV SCH (10:28)
[2024-02-03] MEDS: ELIQUIS PO SCH (10:30)
[2024-02-03] MEDS: SOLU-Medrol 125 MG VIAL IVP SCH (13:14)
[2024-02-03] MEDS ORDERED: BUTT CREAM (COMPOUND) TOP PRN (14:05)
[2024-02-03] MEDS: NovoLIN R (or HumuLIN R) SUBCUT PRN (21:41)
[2024-02-04] MEDS ORDERED: XOPENEX 1.25 MG/3 ML NEBULE NEB ONE (05:09)
[2024-02-04 06:37] LABS: BASOPHILS % (AUTO) 0.1 % (0.2-1.0); HEMATOCRIT 35.5 % (36.0-47.0); HEMOGLOBIN 12.1 g/dL (12.0-16.0); LYMPHOCYTES # (AUTO) 0.8 X10^3/uL (1.3-2.9); LYMPHOCYTES % (AUTO) 3.3 % (21.0-51.0); MEAN CORPUSCULAR HEMOGLOBIN 30.6 pg (27.0-34.0); MEAN CORPUSCULAR HGB CONC 34.1 g/dL (33.0-35.0); MEAN CORPUSCULAR VOLUME 89.8 fL (80.0-100.0); MEAN PLATELET VOLUME 8.2 fL (7.4-11.0); MONOCYTES # (AUTO) 0.8 x10^3/uL (0.3-0.8); MONOCYTES % (AUTO) 3.7 % (0.0-13.0); NEUTROPHILS # (AUTO) 21.1 x10^3/uL (2.2-4.8); NEUTROPHILS % (AUTO) 92.9 % (42.0-75.0); PLATELET COUNT 430 X10^3/uL (150.0-450.0); RED BLOOD COUNT 3.96 X10^6/uL (3.5-5.4); RED CELL DISTRIBUTION WIDTH 14.4 % (11.6-16.5); WHITE BLOOD COUNT 22.7 X10^3/uL (3.6-10.0)
[2024-02-04 07:00] LABS: ALANINE AMINOTRANSFERASE 29 Units/L (12-78); ALBUMIN 2.1 g/dL (3.4-5.0); ALKALINE PHOSPHATASE 84 Units/L (46-116); ASPARTATE AMINO TRANSFERASE 33 Units/L (15-37); BLOOD UREA NITROGEN 19 mg/dL (7-18); CARBON DIOXIDE 20.5 mmol/L (21-32); CHLORIDE 101 mmol/L (98-107); COR CA(FOR HYPOALB) 10.5 mg/dL (8.5-10.1); COR NA(FOR HYPERGLY) 135 mmol/L (136-145); CREATININE 0.85 mg/dL (0.55-1.02); GLUCOSE 163 mg/dL (65-99); POTASSIUM 4.2 mmol/L (3.5-5.1); SODIUM 133 mmol/L (136-145); TOTAL PROTEIN 6.8 g/dL (6.4-8.2); eGFR NON BLACK RACES > 60 (>60)
[2024-02-04 07:31] LABS: BASOPHILS % (MANUAL) 0 % (0-1); BURR CELLS 1+; PLATELET MORPHOLOGY COMMENT NORMAL (NORMAL)
[2024-02-04] MEDS: SOLU-Medrol 125 MG VIAL IVP SCH (10:35)
[2024-02-04] MEDS ORDERED: NS 250 ML IV 25 ML IV PRN (22:08)
[2024-02-05 05:11] LABS: HEMATOCRIT 30.5 % (36.0-47.0); RED CELL DISTRIBUTION WIDTH 14.5 % (11.6-16.5); WHITE BLOOD COUNT 21.7 X10^3/uL (3.6-10.0)
[2024-02-05 05:23] LABS: BASOPHILS % (AUTO) 0.1 % (0.2-1.0); HEMOGLOBIN 10.5 g/dL (12.0-16.0); LYMPHOCYTES # (AUTO) 0.2 X10^3/uL (1.3-2.9); LYMPHOCYTES % (AUTO) 0.8 % (21.0-51.0); MEAN CORPUSCULAR HEMOGLOBIN 30.8 pg (27.0-34.0); MEAN CORPUSCULAR HGB CONC 34.3 g/dL (33.0-35.0); MEAN CORPUSCULAR VOLUME 89.8 fL (80.0-100.0); MONOCYTES # (AUTO) 0.4 x10^3/uL (0.3-0.8); MONOCYTES % (AUTO) 1.6 % (0.0-13.0); NEUTROPHILS # (AUTO) 21.2 x10^3/uL (2.2-4.8); NEUTROPHILS % (AUTO) 97.5 % (42.0-75.0); PLATELET COUNT 273 X10^3/uL (150.0-450.0); RED BLOOD COUNT 3.39 X10^6/uL (3.5-5.4)
[2024-02-05 05:56] LABS: ALANINE AMINOTRANSFERASE 24 Units/L (12-78); ALBUMIN 1.6 g/dL (3.4-5.0); ALKALINE PHOSPHATASE 62 Units/L (46-116); ASPARTATE AMINO TRANSFERASE 29 Units/L (15-37); BLOOD UREA NITROGEN 17 mg/dL (7-18); CALCIUM 8.5 mg/dL (8.5-10.1); CARBON DIOXIDE 21.4 mmol/L (21-32); CHLORIDE 103 mmol/L (98-107); COR CA(FOR HYPOALB) 10.4 mg/dL (8.5-10.1); COR NA(FOR HYPERGLY) 137 mmol/L (136-145); CREATININE 0.86 mg/dL (0.55-1.02); GLUCOSE 175 mg/dL (65-99); POTASSIUM 3.9 mmol/L (3.5-5.1); SODIUM 135 mmol/L (136-145); TOTAL PROTEIN 5.6 g/dL (6.4-8.2); eGFR NON BLACK RACES > 60 (>60)
[2024-02-05 06:31] LABS: PLATELET MORPHOLOGY COMMENT NORMAL (NORMAL)
[2024-02-05 06:33] LABS: BURR CELLS PRESENT
--- NOTE | 2024-02-05 08:49 | EKG ---
Test Reason : tachycardia Blood Pressure : */* mmHG Vent. Rate : 143 BPM Atrial Rate : * BPM P-R Int : * ms QRS Dur : 110 ms QT Int : 318 ms P-R-T Axes : * -78 120 degrees QTc Int : 490 ms Atrial fibrillation with rapid ventricular response Left anterior fascicular block Nonspecific ST and T wave abnormality Abnormal ECG When compared with ECG of 11-OCT-2023 07:30, Vent. rate has increased BY 58 BPM T wave amplitude has decreased in Anterior leads Confirmed by Sree Perry MD ([id number]) on 02/05/2024 3:44:05 PM Referred By: Confirmed By: Sree Perry MD
[2024-02-05] MEDS: LOPRESSOR INJ 5 MG AMP IVP PRN ×2 (09:06→17:08)
[2024-02-05] MEDS: ATIVAN INJ 2 MG VIAL IVP PRN (10:12)
--- NOTE | 2024-02-05 11:59 | RAD ---
EXAM:AP chestHISTORY:PneumoniaCOMPARISON: 024FINDINGS:Heart size is unchanged. There is diffuse bilateral confluent airspace disease, similar in the right lung but increasing on the left. Small pleural effusions may be present.IMPRESSION:Persistent bilateral pneumonia with interval progression in the left lung.THIS IS AN ELECTRONICALLY VERIFIED FINAL [id number]/05/2024 11:56 AM - Electronically signed by Pb Haynes MD
[2024-02-05] MEDS: DULCOLAX SUPPOSITORY 10 MG RECTAL ONE (13:03)
[2024-02-05] MEDS: LINZESS PO SCH (17:04)
[2024-02-06 00:09] LABS: BILIRUBIN,URINE NEGATIVE (NEGATIVE); BLOOD/HEMOGLOBIN,URINE NEGATIVE (NEGATIVE); GLUCOSE, URINE NEGATIVE (NEGATIVE); KETONES,URINE NEGATIVE (NEGATIVE); LEUKOCYTE ESTERASE ,URINE NEGATIVE (NEGATIVE); NITRITES,URINE NEGATIVE (NEGATIVE); PROTEIN,URINE 3+ (NEGATIVE); UROBILINOGEN,URINE NORMAL (NORMAL)
[2024-02-06 00:19] LABS: APPEARANCE,URINE CLEAR (CLEAR); COLOR,URINE YELLOW (YELLOW)
[2024-02-06 00:20] LABS: BACTERIA,URINE TRACE /HPF (NEGATIVE); SQUAMOUS EPITHELIAL CELL,UR RARE /HPF (NEGATIVE)
[2024-02-06 00:21] LABS: COARSE GRANULAR CASTS,URINE RARE /HPF (NEGATIVE)
[2024-02-06 06:54] LABS: BASOPHILS # (AUTO) 0.2 X10^3/uL (0.0-0.1); BASOPHILS % (AUTO) 0.6 % (0.2-1.0); HEMATOCRIT 31.3 % (36.0-47.0); HEMOGLOBIN 10.5 g/dL (12.0-16.0); LYMPHOCYTES # (AUTO) 0.2 X10^3/uL (1.3-2.9); LYMPHOCYTES % (AUTO) 0.7 % (21.0-51.0); MEAN CORPUSCULAR HEMOGLOBIN 30.5 pg (27.0-34.0); MEAN CORPUSCULAR HGB CONC 33.4 g/dL (33.0-35.0); MEAN CORPUSCULAR VOLUME 91.4 fL (80.0-100.0); MONOCYTES # (AUTO) 0.2 x10^3/uL (0.3-0.8); MONOCYTES % (AUTO) 0.7 % (0.0-13.0); NEUTROPHILS # (AUTO) 29.8 x10^3/uL (2.2-4.8); PLATELET COUNT 279 X10^3/uL (150.0-450.0); RED BLOOD COUNT 3.42 X10^6/uL (3.5-5.4); RED CELL DISTRIBUTION WIDTH 14.9 % (11.6-16.5)
[2024-02-06 07:02] LABS: ALANINE AMINOTRANSFERASE 21 Units/L (12-78); ALBUMIN 1.6 g/dL (3.4-5.0); ALKALINE PHOSPHATASE 82 Units/L (46-116); ASPARTATE AMINO TRANSFERASE 30 Units/L (15-37); BLOOD UREA NITROGEN 24 mg/dL (7-18); CALCIUM 8.6 mg/dL (8.5-10.1); CARBON DIOXIDE 21.3 mmol/L (21-32); CHLORIDE 105 mmol/L (98-107); COR CA(FOR HYPOALB) 10.5 mg/dL (8.5-10.1); COR NA(FOR HYPERGLY) 140 mmol/L (136-145); CREATININE 0.98 mg/dL (0.55-1.02); GLUCOSE 163 mg/dL (65-99); POTASSIUM 4.2 mmol/L (3.5-5.1); SODIUM 138 mmol/L (136-145); TOTAL PROTEIN 5.7 g/dL (6.4-8.2); eGFR NON BLACK RACES 57 (>60)
[2024-02-06 07:03] LABS: WHITE BLOOD COUNT 30.4 X10^3/uL (3.6-10.0)
[2024-02-06 07:29] LABS: PLATELET MORPHOLOGY COMMENT NORMAL (NORMAL)
[2024-02-06 07:31] LABS: BURR CELLS PRESENT
[2024-02-06] MEDS ORDERED: LINZESS PO SCH (09:00)
--- NOTE | 2024-02-06 09:15 | RAD ---
EXAM:AP chestHISTORY:PneumoniaCOMPARISON: 024FINDINGS:Heart size continues normal with extensive bilateral airspace disease, similar in the left lung and increasing in the right upper lobe.IMPRESSION:Interval progression of pneumonia.THIS IS AN ELECTRONICALLY VERIFIED FINAL [id number]/06/2024 9:12 AM - Electronically signed by Pb Haynes MD
[2024-02-06] MEDS ORDERED: VASOTEC INJ 2.5 MG VIAL IVP PRN (11:08)
[2024-02-06] MEDS: LOPRESSOR INJ 5 MG AMP IVP SCH (11:10)
[2024-02-06] MEDS: LOVENOX INJ 30 MG SYR SC SCH (12:19)
[2024-02-06] MEDS: SYNTHROID INJ 100 mcg VIAL IM SCH (12:19)
[2024-02-06] MEDS ORDERED: NS 250 ML IV 250 ML IV ONE (12:43)
[2024-02-06] MEDS: ERAXIS 200 MG in NS 250 ML IV 200 ML IV ONE (13:06)
[2024-02-06] MEDS: ERAXIS IV SCH (14:43)
[2024-02-06] MEDS: APRESOLINE INJ 20 MG VIAL IVP SCH (14:43)
[2024-02-06] MEDS ORDERED: VASOTEC INJ 2.5 MG VIAL IVP SCH (15:00)
[2024-02-06] MEDS: SOLU-Medrol 125 MG VIAL IVP SCH (15:18)
[2024-02-06] MEDS: APRESOLINE INJ 20 MG VIAL IVP PRN (18:28)
[2024-02-06] MEDS: ALBUMIN HUMAN 25%- 100 ML 100 ML IV ONE (20:42)
[2024-02-06] MEDS ORDERED: CATAPRES-TTS-3 TD SCH (22:00)
[2024-02-07 06:45] LABS: ALBUMIN 2.1 g/dL (3.4-5.0); CALCIUM 8.2 mg/dL (8.5-10.1); CARBON DIOXIDE 18.5 mmol/L (21-32); COR CA(FOR HYPOALB) 9.7 mg/dL (8.5-10.1); CREATININE 1.27 mg/dL (0.55-1.02); TOTAL PROTEIN 5.8 g/dL (6.4-8.2)
[2024-02-07 06:47] LABS: BASOPHILS # (AUTO) 0.1 X10^3/uL (0.0-0.1); BASOPHILS % (AUTO) 0.2 % (0.2-1.0); HEMATOCRIT 29.2 % (36.0-47.0); HEMOGLOBIN 9.6 g/dL (12.0-16.0); LYMPHOCYTES # (AUTO) 0.2 X10^3/uL (1.3-2.9); LYMPHOCYTES % (AUTO) 0.5 % (21.0-51.0); MEAN CORPUSCULAR HEMOGLOBIN 30.8 pg (27.0-34.0); MEAN CORPUSCULAR VOLUME 93.2 fL (80.0-100.0); MEAN PLATELET VOLUME 8.4 fL (7.4-11.0); MONOCYTES # (AUTO) 0.1 x10^3/uL (0.3-0.8); MONOCYTES % (AUTO) 0.4 % (0.0-13.0); NEUTROPHILS # (AUTO) 33.2 x10^3/uL (2.2-4.8); NEUTROPHILS % (AUTO) 98.9 % (42.0-75.0); PLATELET COUNT 343 X10^3/uL (150.0-450.0); RED BLOOD COUNT 3.13 X10^6/uL (3.5-5.4); RED CELL DISTRIBUTION WIDTH 15.7 % (11.6-16.5)
[2024-02-07 06:56] LABS: WHITE BLOOD COUNT 33.6 X10^3/uL (3.6-10.0)
[2024-02-07 06:59] LABS: BAND NEUTROPHILS % 1 % (0-10); PLATELET MORPHOLOGY COMMENT NORMAL (NORMAL)
[2024-02-07] MEDS: ALBUMIN HUMAN 25%- 100 ML 100 ML IV SCH (09:50)
[2024-02-07] MEDS: ERAXIS 100 MG in NS 100 ML IV 100 ML IV SCH (09:50)
[2024-02-07] MEDS: PULMICORT NEB TX 0.5 MG NEB ONE (09:52)
[2024-02-07] MEDS: SYNTHROID INJ 100 mcg VIAL IVP SCH (10:38)
[2024-02-07 12:29] VITALS: TEMP 97.9
[2024-02-07 14:21] VITALS: BP 64/32; PULSE 77; RESP 20; O2SAT 99
== END 2024-02-07 15:33 | disposition expired | DRG 177 ==
LOC: ER 17:11 → MED/SURG 17:11 → OBSVTOIN 21:16 → MED/SURG 21:57 → ICU 02-04 15:14
PROVIDERS: ADMIT Family Medicine; ATTEND Internal Medicine